=== PATIENT | female | born 1950 | race African-American/Black ===

== ENCOUNTER 2017-08-08 13:33 | Emergency (ER) | payer BC ==
[2017-08-08 13:47] VITALS: TEMP 98.8; BMI 23.8
--- NOTE | 2017-08-08 14:40 | PDOC ---
History of Present Illness - General Chief Complaint: Syncope/Near Syncope Stated Complaint: SYNCOPY Time Seen by Provider: 08/08/17 14:10 History Source: Patient Exam Limitations: No Limitations - History of Present Illness Initial Comments: 08/08/17 14:35 Patient is a 67F with no significant medical problems here today complaining of syncope. 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 She states that she then fell to the ground, but denies loss of consciousness. She denies chest pain , shortness of breath, nausea, vomiting, vertigo, fever, chills. She states that she's been fighting off a cold lately, but has no other complaints and feels fine now. Denies any trauma. Patient states that she has a PCP at [facility] but has not seen them in a long time. Patient is an active smoker, occasional drinker, denies illicits. Past History - Past Medical History Allergies/Adverse Reactions: Allergies Allergy/AdvReac Type Severity Reaction Status Date / Time No Known Allergies Allergy Verified 08/08/17 13:44 COPD: No Other medical history: denies - Suicide/Smoking/Psychosocial Hx Smoking History: Current every day smoker Have you smoked in the past 12 months: Yes Number of Cigarettes Smoked Daily: 10 Information on smoking cessation initiated: No Hx Alcohol Use: No Drug/Substance Use Hx: No Review of Systems - Review of Systems Comments:: 08/08/17 14:39 GENERAL/CONSTITUTIONAL: No fever or chills. No weakness. HEAD, EYES, EARS, NOSE AND THROAT: No change in vision. No sore throat. CARDIOVASCULAR: No chest pain or shortness of breath RESPIRATORY: No cough, wheezing, or hemoptysis. GASTROINTESTINAL: No nausea, vomiting, diarrhea or constipation. GENITOURINARY: No dysuria, frequency, or change in urination. MUSCULOSKELETAL: No joint or muscle swelling or pain. No neck or back pain. SKIN: No rash NEUROLOGIC: No headache, vertigo, loss of consciousness, or change in strength/ sensation. ALLERGIC/IMMUNOLOGIC: No hives or skin allergy. *Physical Exam - Vital Signs Last Vital Signs Temp Pulse Resp BP Pulse Ox 98.8 F 92 H 20 166/75 98 08/08/17 13:44 08/08/17 13:44 08/08/17 13:44 08/08/17 13:44 08/08/17 13:44 - Physical Exam Comments: 08/08/17 14:41 GENERAL: Awake, alert, and fully oriented, in no acute distress HEAD: No signs of trauma, normocephalic, atraumatic EYES: PERRLA, EOMI, sclera anicteric, conjunctiva clear ENT: Auricles normal inspection, hearing grossly normal, nares patent, oropharynx clear without exudates. Moist mucosa NECK: Normal ROM, supple, no lymphadenopathy, JVD, or masses LUNGS: No distress, speaks full sentences, scattered wheezes bilaterally HEART: Regular rate and rhythm, normal S1 and S2, no murmurs, rubs or gallops, peripheral pulses normal and equal bilaterally. EXTREMITIES: Normal inspection, Normal range of motion, no edema. No clubbing or cyanosis. NEUROLOGICAL: Cranial nerves II through XII grossly intact. Normal speech, no focal sensorimotor deficits SKIN: Warm, Dry, normal turgor, no rashes or lesions noted. ED Treatment Course - LABORATORY CBC & Chemistry Diagram: 08/08/17 15:09 08/08/17 15:09 - RADIOLOGY Radiology Studies Ordered: Category Date Time Status CHEST PA & LAT [RAD] Stat Radiology 08/08/17 14:34 Ordered Medical Decision Making - Medical Decision Making 08/08/17 14:41 Patient is a 67F with no significant medical history here today with syncope. Vital signs stable and normal. Patient appears well. EKG shows normal sinus rhythm with short TX (TX = 108). Normal rate. Normal axis. QRS is normal, QTc is normal. No st elevations/depressions. No t wave abnormalities. No delta wave. Differential diagnosis includes, but is not limited to: arrhythmia, vasovagal, ACS. Will evaluate with cbc, cmp, mag, cxr. 08/08/17 16:06 Laboratory Tests 08/08/17 08/08/17 15:09 15:09 WBC 10.2 H Hgb 13.3 Hct 40.3 Plt Count 217 BUN 12 Creatinine 0.7 Troponin I < 0.02 CBC normal. CMP normal. Trop negative. UA negative. CXR pending. 08/08/17 16:23 CXR normal. Will discharge with PCP follow up. *DC/Admit/Observation/Transfer Diagnosis at time of Disposition: Syncope - Discharge Dispostion Disposition: HOME Condition at time of disposition: Good Admit: No - Referrals Referrals: Rickey Mcdowell MD [Primary Care Provider] - - Patient Instructions Printed Discharge Instructions: DI for Syncope in Adults (Fainting) Additional Instructions: Please call your PCP today to set up an appointment. Please return if you have any new, worsening or concerning symptoms. - Post Discharge Activity
[2017-08-08] MEDS ORDERED: SODIUM CHLORIDE 1,000 ML IV STA (14:50)
[2017-08-08 15:16] LABS: BASO % 0.8 % (0-2.0); EOS % 0.1 % (0-4.5); HEMATOCRIT 40.3 % (32.4-45.2); HEMOGLOBIN 13.3 GM/dL (10.7-15.3); LYMPH % 18.1 % (8-40); MCH 31.3 pg (25.7-33.7); MCHC 33.1 g/dl (32.0-36.0); MEAN CELL VOLUME 94.6 fl (80-96); MEAN PLT VOLUME 8.2 fl (7.5-11.1); MONO % 6.8 % (3.8-10.2); NEUT % 74.2 % (42.8-82.8); PLATELET COUNT 217 K/MM3 (134-434); RBC 4.26 M/mm3 (3.60-5.2); RDW 13.4 % (11.6-15.6); WHITE BLOOD COUNT 10.2 K/mm3 (4.0-10.0)
[2017-08-08 15:37] LABS: URINE APPEARANCE CLEAR; URINE BILIRUBIN NEGATIVE (NEGATIVE); URINE BLOOD 1+ (NEGATIVE); URINE COLOR YELLOW; URINE GLUCOSE (UA) NEGATIVE (NEGATIVE); URINE KETONE TRACE (NEGATIVE); URINE LEUK ESTERASE TRACE (NEGATIVE); URINE NITRITE NEGATIVE (NEGATIVE)
[2017-08-08 15:39] LABS: URINE PROTEIN 1+ (NEGATIVE)
[2017-08-08 15:46] LABS: ALBUMIN 4.1 g/dl (3.4-5.0); ANION GAP 9 (8-16); BILIRUBIN,TOTAL 0.9 mg/dL (0.2-1.0); BLOOD UREA NITROGEN 12 mg/dL (7-18); CALCIUM 9.2 mg/dL (8.5-10.1); CHLORIDE 105 mmol/L (98-107); CO2 28 mmol/L (21-32); CREATININE 0.7 mg/dL (0.55-1.02); GLUCOSE,RANDOM 106 mg/dL (74-106); MAGNESIUM 2.3 mg/dL (1.8-2.4); POTASSIUM 4.7 mmol/L (3.5-5.1); SGOT/AST 72 U/L (15-37); SGPT/ALT 86 U/L (12-78); SODIUM 142 mmol/L (136-145); TOT PROT 7.3 g/dl (6.4-8.2)
[2017-08-08 15:48] LABS: ALK PHOS 79 U/L (45-117)
[2017-08-08 15:49] LABS: EPI CELLS RARE /HPF (FEW); URINE BACTERIA RARE /hpf (NONE SEEN)
[2017-08-08 16:00] LABS: INR 0.97 (0.82-1.09)
--- NOTE | 2017-08-08 16:05 | PDOC ---
Attending Attestation - Resident Resident Name: Fahad Zaman - ED Attending Attestation I have performed the following: I have examined & evaluated the patient, The case was reviewed & discussed with the resident, I agree w/resident's findings & plan, Exceptions are as noted - HPI HPI: 08/08/17 16:01 67y/o F no significant past medical history presents with episode of lightheadedness/near syncope. Patient was in her usual state of normal health, no recent dehydration or infectious complaints, was seated at work when she felt cramping in her left hand followed by a few seconds of lightheadedness that resolved. No cardiac complaints, no diaphoresis or nausea, no focal deficits. She now feels normal, denies any acute pulmonary complaints. Patient did have 1 prior episode of syncope over the summer, reports workup at that time was unremarkable. - Physicial Exam PE: 08/08/17 16:03 Afebrile, vital signs normal. Well-appearing seated in stretcher No trauma Regular with normal rate, no murmurs Lungs clear - Medical Decision Making 08/08/17 16:03 Patient seen and evaluated with the resident. I agree with the overall evaluation, assessment, and management with the following summary of visit: 67-year-old female with near syncope, lasted only seconds and resolved. Now back to baseline, well-appearing without red flags on history or physical exam, normal vital signs. Question orthostatic episode, no evidence for primary cardiopulmonary or neurologic process. Check labs, urinalysis EKG with slightly short [place], normal QRS and QTc, no LVH Continue to monitor, if remains at baseline can discharge with outpatient follow -up with Dr. Rickey Mcdowell
[2017-08-08 16:34] VITALS: BP 158/65; PULSE 80
--- NOTE | 2017-08-09 09:27 | EKG ---
Test Reason : Blood Pressure : / mmHG Vent. Rate : 073 BPM Atrial Rate : 073 BPM P-R Int : 108 ms QRS Dur : 076 ms QT Int : 380 ms P-R-T Axes : 043 058 058 degrees QTc Int : 418 ms POOR DATA QUALITY, INTERPRETATION MAY BE ADVERSELY AFFECTED SINUS RHYTHM WITH SHORT MT OTHERWISE NORMAL ECG NO PREVIOUS ECGS AVAILABLE Confirmed by MD Luca, Scott ([id number]) on 08/09/2017 9:27:09 AM Referred By: Confirmed By:Scott Segovia MD
== END 2017-08-08 16:32 | disposition home or self-care (01) ==
LOC: JER 13:33
PROC: 3E0337Z Introduction of Electrolytic and Water Balance Substance into Peripheral Vein, Percutaneous Approach (ICD-10-PCS; principal; 2017-08-08)
DX: R55 Syncope and collapse (principal); F17.210 Nicotine dependence, cigarettes, uncomplicated
CPT/HCPCS: 36415; 71046-TC; 80053; 81003; 81015; 82550; 83735; 84484; 85025; 85610; 93005; 93010; 99285-25

== ENCOUNTER 2019-05-01 23:40 | Inpatient (IN) | payer BC ==
[2019-05-02] MEDS ORDERED: SODIUM CHLORIDE IV ONE (01:25)
[2019-05-02] MEDS ORDERED: ALBUTEROL SO4 2.5/IPRATROPIUM 0.5 INH SOL 3 ML VIAL.NEB. NEB ONE ×2 (01:26→01:41)
[2019-05-02] MEDS ORDERED: methylPREDNISolone NA SUCC 125 MG/2 ML VIAL IVPUSH ONE (01:27)
[2019-05-02] MEDS ORDERED: methylPREDNISolone NA SUCC 125 MG/2 ML VIAL ONE (01:41)
--- NOTE | 2019-05-02 01:46 | PDOC ---
Documentation entered by Roxana Goyal SCRIBE, acting as scribe for Camilo Peck MD. Camilo Peck MD: This documentation has been prepared by the Jay Jay cavanaugh Xhesika, SCRIBE, under my direction and personally reviewed by me in its entirety. I confirm that the documentation accurately reflects all work, treatment, procedures, and medical decision making performed by me. Attending Attestation - Resident Resident Name: Álvaro Robertson - HPI HPI: 05/02/19 01:17 The patient is a 68 year old female with no significant PMH, who presents to the emergency department for 3 days of cough and generalized body aches. Patient notes her cough is constant, productive, associated with a headache and dizziness. 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 The patient denies chest pain, shortness of breath. Denies fever, chills, nausea , vomiting, diarrhea and constipation. Denies dysuria, frequency, urgency and hematuria. Allergies: NKDA Social history: 3-4 cigarettes per day - Physicial Exam PE: 05/02/19 01:43 Patient is awake and alert, frail-appearing, tachypneic and tachycardic, hypoxemic on room air T 86% Normocephalic, atraumatic PERRLA, EOMI No JVD + Decreased air entry bilaterally; and expiratory wheezing is noted in the upper lung gomes; RRR, tachycardic Soft, nontender, nondistended No lower extremity edema Awake and alert, moving all extremities symmetrically - Medical Decision Making 05/02/19 01:45 Patient is an ill-appearing 68-year-old female with history of smoking who presents with signs and symptoms of acute COPD exacerbation likely brought on by an acute infectious process. Patient's tachycardic, febrile and hypoxemic on room air T 86%, improving to 94% on supplemental O2 via nasal cannula 2 L/m. We' ll administer albuterol/Atrovent nebulizer 3; we'll administer Esyi-[id number]-389 mg IV push. Will obtain blood cultures. Will evaluate for influenza. Chest x- ray consistent with left lingular and right upper lobe infiltrates. Will administer ceftriaxone and Zithromax IV (once her cultures been obtained). Will admit.
[2019-05-02] MEDS ORDERED: ACETAMINOPHEN 1000 MG/100 ML VIAL (NON FORMULARY) IVPB ONE (01:51)
[2019-05-02] MEDS ORDERED: ACETAMINOPHEN INJECTION 100 ML IVPB ONE (02:14)
[2019-05-02 02:40] LABS: BASO % 0.4 % (0-2.0); HEMATOCRIT 40.1 % (32.4-45.2); HEMOGLOBIN 13.4 GM/dL (10.7-15.3); LYMPH % 6.9 % (8-40); MCH 32.4 pg (25.7-33.7); MCHC 33.5 g/dl (32.0-36.0); MEAN CELL VOLUME 96.7 fl (80-96); MEAN PLT VOLUME 9.7 fl (7.5-11.1); NEUT % 80.7 % (42.8-82.8); PLATELET COUNT 219 K/MM3 (134-434); RBC 4.14 M/mm3 (3.60-5.2); RDW 13.3 % (11.6-15.6); WHITE BLOOD COUNT 18.9 K/mm3 (4.0-10.0)
--- NOTE | 2019-05-02 02:44 | PDOC ---
History of Present Illness - General Chief Complaint: Respiratory Stated Complaint: COLD SYMPTOMS Time Seen by Provider: 05/02/19 00:31 - History of Present Illness Initial Comments: 05/02/19 04:17 This is a 68 year old female with no significant PMH. She presented to the ER with complaints of constant coughing and generalized body aches for the past 3 days. The cough is productive with yellow/white sputum, no blood. She endorses subjective fevers and chills, dizziness, headaches, but no nausea or vomiting. She took an Ibuprofen yesterday for the aches, with only temporary relief. 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 She has had no recent illness, no new medications, and no recent travel. Past History - Past Medical History Allergies/Adverse Reactions: Allergies Allergy/AdvReac Type Severity Reaction Status Date / Time No Known Allergies Allergy Verified 05/01/19 23:51 Home Medications: Ambulatory Orders NK [No Known Home Medication] 08/08/17 COPD: No - Psycho Social/Smoking Cessation Hx Smoking History: Current every day smoker Have you smoked in the past 12 months: Yes Number of Cigarettes Smoked Daily: 3 Information on smoking cessation initiated: Yes Hx Alcohol Use: No Drug/Substance Use Hx: No Review of Systems - Review of Systems Constitutional: Yes: Chills, Fever HEENTM: No: Symptoms Reported, See HPI, Eye Pain, Blurred Vision, Tearing, Recent change in vision, Double Vision, Cataracts, Ear Pain, Ocular Prothesis, Ear Discharge, Nose Pain, Nose Congestion, Tinnitus, Nose Bleeding, Hearing Loss , Throat Pain, Throat Swelling, Mouth Pain, Dental Problems, Difficulty Swallowing, Mouth Swelling, Other Respiratory: Yes: Cough. No: Symptoms reported, See HPI, Orthopnea, Shortness of Breath, SOB with Exertion, SOB at Rest, Stridor, Wheezing, Productive cough, Hemoptysis, Other Cardiac (ROS): No: Symptoms Reported, See HPI, Chest Pain, Edema, Irregular Heart Rate, Lightheadedness, Palpitations, Syncope, Chest Tightness, Other ABD/GI: No: Symptoms Reported, See HPI, Abdominal Distended, Abd. Pain w/ defecation, Blood Streaked Bowels, Constipated, Diarrhea, Difficulty Swallowing , Nausea, Poor Appetite, Poor Fluid Intake, Rectal Bleeding, Vomiting, Indigestion, Abdominal cramping, Tarry Stools, Other : No: Symptoms Reported, See HPI, Burning, Dysuria, Discharge, Frequency, Flank Pain, Hematuria, Incontinence, Pain, Urgency, Testicular Mass, Testicular Swelling, Lesions, Testicular Pain, Other Musculoskeletal: No: Symptoms Reported, See HPI, Back Pain, Gout, Joint Pain, Joint Swelling, Muscle Pain, Muscle Weakness, Neck Pain, Joint Stiffness, Other Integumentary: No: Symptoms Reported, See HPI, Bruising, Change in Color, Change in Hair/Nails, Dryness, Erythema, Flushing, Lesions, Lumps, Pallor, Pruritus, Rash, Sweating, Other Neurological: Yes: Headache, Dizziness. No: Symptoms reported, See HPI, Numbness, Paresthesia, Pre-Existing Deficit, Seizure, Tingling, Tremors, Weakness, Unsteady Gait, Ataxia, Other Psychiatric: No: Anxiety, Depression, Frequent Crying, Stressors, Sleep Pattern Change, Emotional Problems, Mood Swings, Change in Appetite, Other Endocrine: No: Symptoms Reported, See HPI, Excessive Sweating, Flushing, Intolerance to Cold, Intolerance to Heat, Increased Hunger, Increased Thirst, Increased Urine, Unexplained Weight Gain, Unexplained Weight Loss, Change in Weight, Other Hematologic/Lymphatic: No: Symptoms Reported, See HPI, Anemia, Blood Clots, Easy Bleeding, Easy Bruising, Bleeding Diathesis, Lymph Node Abnormalities, Swollen Glands, Other *Physical Exam - Vital Signs Last Vital Signs Temp Pulse Resp BP Pulse Ox 100.3 F H 134 H 26 H 157/100 86 L 05/01/19 23:48 05/01/19 23:48 05/01/19 23:48 05/01/19 23:48 05/01/19 23:48 - Physical Exam Comments: 05/02/19 04:23 General: AOx3 Lungs: Coarse crackles in upper gomes B/L, decreased breath sounds B/L CVS: RRR NSR GI: Soft, non tender, no distended, normoactive bowel sounds Extremities: No edema noted Neuro: Motor 5/5, sensatios intact General Appearance: Yes: Appropriately Dressed. No: Nourished, Apparent Distress, Disheveled, Mild Distress, Moderate Distress, Severe Distress, Alcohol on Breath, Intoxicated, Cachetic, Obese, Thin, Other HEENT: positive: Normal ENT Inspection, Normal Voice, Symmetrical, Pharynx Normal. negative: EOMI, ROBINA, TMs Normal, Pale Conjunctivae, Photophobia, Scleral Icterus (R), Scleral Icterus (L), Muffled/Hoarse voice, Pharyngeal Erythema, Tonsillar Exudate, Tonsillar Erythema, Nasal Congestion, Rhinorrhea, Sinus Tenderness, Orbits, Hearing Decreased, Hearing Grossly Normal, TM Bulging , TM Dull, TM Erythema, Lesions, Hawkins, Excessive drooling, Thrush, Other Neck: positive: Trachea midline. negative: Tender, Normal Thyroid, Rigid, Supple, Carotid bruit, Decreased range of motion, Stridor, Lymphadenopathy (R), Lymphadenopathy (L), Rigidity, Tender lateral, Tender midline, Thyromegaly, Other Respiratory/Chest: positive: Lungs Clear, Normal Breath Sounds. negative: Chest Tender, Respiratory Distress, Accessory Muscle Use, Labored Respiration, Rapid RR, Decreased Breath Sounds, Paradoxal Breathing, Crackles, Rales, Rhonchi , Stridor, Wheezing, Hyperresonant, Dullness, Plerual Rub, Other Cardiovascular: positive: Regular Rhythm, Regular Rate. negative: S1, S2, Edema , JVD, Murmur, Bradycardia, Tachycardia, Diastolic Murmur, Systolic Murmur, Gallop/S3, Gallop/S4, Irregularly Irregular, Irregular, Other Gastrointestinal/Abdominal: positive: Normal Bowel Sounds, Flat. negative: Tender, Soft, Organomegaly, Pulsatile Mass, Increased Bowel Sounds, Decreased BS , Protuberent, Distended, Guarding, Rebound, Tenderness, Hernia, Mass, Hepatomegaly, Spleenomegaly, Other Neurologic: positive: Fully Oriented. 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, Alert, Normal Mood/Affect, Normal Response, Motor Strength 5/5, Abnormal Cranial NS, Respond to painful stimul, Responsive, EOM Palsy, Facial Droop, Numbness, Sensory Deficit, Finger to Nose, Confused, Disoriented, Depressed Affect, Babinski, Other Heart Score/ECG Review - Electrocardiogram EKG: Normal - Age Age: >/= 65 - Risk Factors Risk Factors Heart Score: Yes Smoking History - Troponin Troponin: </= normal limit - ECG Intrepretation Rhythm: Regular Rhythm ED Treatment Course - LABORATORY CBC & Chemistry Diagram: 05/02/19 02:06 05/02/19 05:33 - Medications Given in the ED: ED Medications Discontinued Medications Generic Name Dose Route Start Last Admin Trade Name Tuan PRN Reason Stop Dose Admin Acetaminophen 1,000 mg 05/02/19 01:51 05/02/19 02:17 Ofirmev Injection - IVPB 05/02/19 01:52 1,000 mg ONCE ONE Administration Albuterol/Ipratropium 3 amp 05/02/19 01:26 05/02/19 02:12 Duoneb - NEB 05/02/19 01:27 3 amp ONCE ONE Administration Methylprednisolone Sodium Succinate 125 mg 05/02/19 01:27 05/02/19 02:12 Solu-Medrol - IVPUSH 05/02/19 01:28 125 mg ONCE ONE Administration Medical Decision Making - Medical Decision Making 05/02/19 04:25 #Cough - Suspecting COPD with underlying infection - CXR: Left lower infiltrate - EKG: NSR - UA - Blood, sputum, urine cultures - Influeza A and B - Trop normal - CBC/CMP - Lactic Acid - Levaquin 750mg - Solu-Medrol 125 mg IV push - Duo Nebs - N/S - Will admit 05/02/19 06:38 - Found to have K 3.0 on CMP, ordered 30 mEq KCl 05/02/19 06:55 Discharge - Discharge Information Problems reviewed: Yes Clinical Impression/Diagnosis: COPD (chronic obstructive pulmonary disease) - Admission Yes - Follow up/Referral - Patient Discharge Instructions - Post Discharge Activity
[2019-05-02 02:54] LABS: EPI CELLS 8.9 /HPF (0-5/HPF); HYALINE CASTS 9 /lpf (0-8); PH,URINE 5.5 (5.0-8.0); URINE APPEARANCE CLOUDY; URINE BACTERIA 90.3 /hpf (NEGATIVE); URINE BILIRUBIN NEGATIVE (NEGATIVE); URINE COLOR YELLOW; URINE GLUCOSE (UA) NEGATIVE (NEGATIVE); URINE KETONE 1+ (NEGATIVE); URINE LEUK ESTERASE NEGATIVE (NEGATIVE); URINE NITRITE NEGATIVE (NEGATIVE); URINE PROTEIN 2+ (NEGATIVE); URINE RBC 4 /hpf (0-4); URINE WBC 3 /hpf (0-5)
[2019-05-02 02:56] LABS: INR 1.01 (0.83-1.09); PROTHROMBIN TIME (PATIENT) 11.9 SEC (9.7-13.0)
[2019-05-02 03:52] LABS: VENOUS PC02 42.1 mmHg (38-52); VENOUS PH 7.44 (7.31-7.41)
[2019-05-02 06:03] LABS: ALBUMIN 2.8 g/dl (3.4-5.0); BILIRUBIN,TOTAL 1.6 mg/dL (0.2-1); BLOOD UREA NITROGEN 6.9 mg/dL (7-18); CALCIUM 8.3 mg/dL (8.5-10.1); CREATININE 0.5 mg/dL (0.55-1.3); TOT PROT 5.8 g/dl (6.4-8.2)
[2019-05-02] MEDS ORDERED: KCL 10 MEQ IVPB 10 MEQ/100 ML INFUS.BAG IVPB ONE ×3 (06:46→09:11)
[2019-05-02] MEDS ORDERED: VANCOMYCIN HCL 1,250 MG in DEXTROSE 5%-WATER - 250 ML IVPB ONE (06:51)
[2019-05-02] MEDS: KCL 10 MEQ IVPB 10 MEQ/100 ML INFUS.BAG IVPB SCH ×3 (06:56→09:46)
--- NOTE | 2019-05-02 07:35 | PDOC ---
*Physical Exam - Vital Signs Last Vital Signs Temp Pulse Resp BP Pulse Ox 98.3 F 87 17 119/66 100 05/02/19 05:00 05/02/19 05:00 05/02/19 05:00 05/02/19 05:00 05/02/19 05:00 ED Treatment Course - LABORATORY CBC & Chemistry Diagram: 05/02/19 02:06 05/02/19 05:33 - ADDITIONAL ORDERS Additional order review: Laboratory Results 05/02/19 05/02/19 05/02/19 05:33 02:56 02:56 PT with INR INR PTT (Actin FS) VBG pH 7.44 H POC VBG pCO2 42.1 POC VBG pO2 118 H VBG HCO3 28.3 VBG O2 Sat (Serafin) 98.8 H VBG Base Excess 4.2 H Sodium 132 L Potassium 3.0 L Chloride 93 L Carbon Dioxide 28 Anion Gap 12 BUN 6.9 L Creatinine 0.5 L Est GFR (CKD-EPI)AfAm 115.26 Est GFR (CKD-EPI)NonAf 99.45 Random Glucose 119 H Lactic Acid Calcium 8.3 L Total Bilirubin 1.6 H AST 24 ALT 21 Alkaline Phosphatase 80 Troponin I < 0.02 Total Protein 5.8 L Albumin 2.8 L Urine Color Urine Appearance Urine pH Ur Specific [place] Urine Protein Urine Glucose (UA) Urine Ketones Urine Blood Urine Nitrite Urine Bilirubin Urine Urobilinogen Ur Leukocyte Esterase Urine WBC (Auto) Urine RBC (Auto) Urine Casts (Auto) U Epithel Cells (Auto) Urine Bacteria (Auto) 05/02/19 05/02/19 05/02/19 02:06 02:06 02:06 PT with INR 11.90 INR 1.01 PTT (Actin FS) VBG pH POC VBG pCO2 POC VBG pO2 VBG HCO3 VBG O2 Sat (Serafin) VBG Base Excess Sodium Cancelled Potassium Cancelled Chloride Cancelled Carbon Dioxide Cancelled Anion Gap Cancelled BUN Cancelled Creatinine Cancelled Est GFR (CKD-EPI)AfAm Cancelled Est GFR (CKD-EPI)NonAf Cancelled Random Glucose Cancelled Lactic Acid 1.5 Calcium Cancelled Total Bilirubin Cancelled AST Cancelled ALT Cancelled Alkaline Phosphatase Cancelled Troponin I Total Protein Cancelled Albumin Cancelled Urine Color Urine Appearance Urine pH Ur Specific [place] Urine Protein Urine Glucose (UA) Urine Ketones Urine Blood Urine Nitrite Urine Bilirubin Urine Urobilinogen Ur Leukocyte Esterase Urine WBC (Auto) Urine RBC (Auto) Urine Casts (Auto) U Epithel Cells (Auto) Urine Bacteria (Auto) 05/02/19 05/02/19 02:06 02:00 PT with INR INR PTT (Actin FS) 33.3 VBG pH POC VBG pCO2 POC VBG pO2 VBG HCO3 VBG O2 Sat (Serafin) VBG Base Excess Sodium Potassium Chloride Carbon Dioxide Anion Gap BUN Creatinine Est GFR (CKD-EPI)AfAm Est GFR (CKD-EPI)NonAf Random Glucose Lactic Acid Calcium Total Bilirubin AST ALT Alkaline Phosphatase Troponin I Total Protein Albumin Urine Color Yellow Urine Appearance Cloudy Urine pH 5.5 Ur Specific [place] 1.018 Urine Protein 2+ H Urine Glucose (UA) Negative Urine Ketones 1+ H Urine Blood 2+ H Urine Nitrite Negative Urine Bilirubin Negative Urine Urobilinogen 1.0 Ur Leukocyte Esterase Negative Urine WBC (Auto) 3 Urine RBC (Auto) 4 Urine Casts (Auto) 9 U Epithel Cells (Auto) 8.9 Urine Bacteria (Auto) 90.3 05/02/19 02:06 RBC 4.14 MCV 96.7 H MCHC 33.5 RDW 13.3 MPV 9.7 D Neutrophils % 80.7 Lymphocytes % 6.9 L D Monocytes % 12.0 H Eosinophils % 0.0 D Basophils % 0.4 - Medications Given in the ED: ED Medications Discontinued Medications Generic Name Dose Route Start Last Admin Trade Name Freq PRN Reason Stop Dose Admin Acetaminophen 1,000 mg 05/02/19 01:51 05/02/19 02:17 Ofirmev Injection - IVPB 05/02/19 01:52 1,000 mg ONCE ONE Administration Albuterol/Ipratropium 3 amp 05/02/19 01:26 05/02/19 02:12 Duoneb - NEB 05/02/19 01:27 3 amp ONCE ONE Administration Sodium Chloride 1,606 mls @ 803 mls/hr 05/02/19 01:25 05/02/19 02:12 Normal Saline - 30 ml/kg infuse over 2 hr (1606 ml) 05/02/19 03:24 803 mls/ hr IV Administration ONCE ONE Levofloxacin 750 mg in 150 mls @ 100 mls/hr 05/02/19 04:10 05/02/19 05:05 Levaquin 750 Mg Premixed Ivpb - IVPB 05/02/19 05:39 100 mls/hr ONCE ONE Administration Protocol Methylprednisolone Sodium Succinate 125 mg 05/02/19 01:27 05/02/19 02:12 Solu-Medrol - IVPUSH 05/02/19 01:28 125 mg ONCE ONE Administration Medical Decision Making - Medical Decision Making 05/02/19 07:[address] Robertson 68 y/o F presenting with productive cough and generalized body aches. +smoking history presented with + fever, chills, headaches CXRL lower lobe infiltrate [employer] sent for admission, COPD exacerbation and pneumonia Meds received : Levoquin 750mg IV, rohith, NS. given K+ for hypokalemia. Discharge - Discharge Information Clinical Impression/Diagnosis: COPD (chronic obstructive pulmonary disease) - Follow up/Referral - Patient Discharge Instructions - Post Discharge Activity
[2019-05-02] MEDS ORDERED: ACETAMINOPHEN 325 MG TABLET (FP) PO PRN (08:08)
[2019-05-02] MEDS ORDERED: ALBUTEROL SO4 2.5/IPRATROPIUM 0.5 INH SOL 3 ML VIAL.NEB. NEB PRN (08:11)
[2019-05-02] MEDS ORDERED: POTASSIUM CHLORIDE TABS 20 MEQ TABLET.ER (FP) PO ONE ×2 (08:13→08:34)
--- NOTE | 2019-05-02 08:27 | HP ---
CHIEF COMPLAINT: cough, sputum production PCP: none HISTORY OF PRESENT ILLNESS: Patient is a 68 y/o female with no past medical history who presents for cough and feeling worn down. Patient reports the symptoms began four days ago on Monday. Shes been coughing which whiteish/yellowish sputum production and been feeling run down. She has not been able to go to work and when she woke up yesterday she felt worse. She reports she felt feverish yesterday. Nothing has made her feel better. She denies headache, chest pain, shortness of breath, or diarrhea. Patient smokes 3-5 cigarettes per day. 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 ER course was notable for: (1) (2) (3) Recent Travel: denies PAST MEDICAL HISTORY: none PAST SURGICAL HISTORY: none Social History: Smokin-5 cigarettes per day Alcohol: denies Drugs: denies Allergies No Known Allergies Allergy (Verified 05/01/19 23:51) HOME MEDICATIONS: Home Medications Medication Instructions Recorded NK [No Known Home Medication] 08/08/17 REVIEW OF SYSTEMS CONSTITUTIONAL: fever, chills, generalized weakness, Absent: diaphoresis, malaise, loss of appetite, weight change HEENT: Absent: rhinorrhea, nasal congestion, throat pain, throat swelling, difficulty swallowing, mouth swelling, ear pain, eye pain, visual changes CARDIOVASCULAR: Absent: chest pain, syncope, palpitations, irregular heart rate, lightheadedness , peripheral edema RESPIRATORY: cough, sputum production Absent: shortness of breath, dyspnea with exertion, orthopnea, wheezing, stridor , hemoptysis GASTROINTESTINAL: Absent: abdominal pain, abdominal distension, nausea, vomiting, diarrhea, constipation, melena, hematochezia GENITOURINARY: Absent: dysuria, frequency, urgency, hesitancy, hematuria, flank pain, genital pain MUSCULOSKELETAL: Absent: myalgia, arthralgia, joint swelling, back pain, neck pain SKIN: Absent: rash, itching, pallor HEMATOLOGIC/IMMUNOLOGIC: Absent: easy bleeding, easy bruising, lymphadenopathy, frequent infections ENDOCRINE: Absent: unexplained weight gain, unexplained weight loss, heat intolerance, cold intolerance NEUROLOGIC: Absent: headache, focal weakness or paresthesias, dizziness, unsteady gait, seizure, mental status changes, bladder or bowel incontinence PSYCHIATRIC: Absent: anxiety, depression, suicidal or homicidal ideation, hallucinations. PHYSICAL EXAMINATION Vital Signs - 24 hr 05/01/19 05/02/19 05/02/19 23:48 03:17 05:00 Temperature 100.3 F H 98.3 F Pulse Rate 134 H Pulse Rate [ 87 Right Radial] Respiratory 26 H 24 H 17 Rate Blood Pressure 157/100 Blood Pressure 119/66 [Right Arm] O2 Sat by Pulse 86 L 95 100 Oximetry (%) GENERAL: Awake, alert, and fully oriented, in no acute distress. HEAD: Normal with no signs of trauma. EYES: Pupils equal, round and reactive to light, extraocular movements intact, EARS, NOSE, THROAT: Moist mucous membranes. LUNGS: Breath sounds equal, clear to auscultation bilaterally. No wheezes, and no crackles, slight diminished breath sounds, No accessory muscle use. HEART: Regular rate and rhythm, normal S1 and S2 without murmur, rub or gallop. ABDOMEN: Soft, nontender, not distended, normoactive bowel sounds, no guarding, no rebound, no masses. LOWER EXTREMITIES: 2+ pulses, warm, well-perfused. No calf tenderness. No peripheral edema. SKIN: Warm, dry, normal turgor, no rashes or lesions noted, normal capillary refill. CBC, BMP 05/02/19 02:06 05/02/19 05:33 Active Medications Acetaminophen (Tylenol -) 650 mg PO Q4H PRN PRN Reason: PAIN OR FEVER Albuterol/Ipratropium (Duoneb -) 1 amp NEB Q4H PRN PRN Reason: SHORTNESS OF BREATH Enoxaparin Sodium (Lovenox -) 40 mg SQ DAILY [facility] Potassium Chloride (Potassium Chloride 10 Meq Premix Ivpb -) 10 meq in 100 mls @ 100 mls/hr IVPB Q60M [facility] Stop: 05/02/19 09:29 Last Admin: 05/02/19 06:56 Dose: 100 mls/hr Vancomycin HCl 1,250 mg/ (Dextrose) 250 mls @ 250 mls/2 hr IVPB ONCE ONE Stop: 05/02/19 08:50 Last Admin: 05/02/19 07:32 Dose: Not Given Sodium Chloride (Normal Saline -) 1,000 mls @ 75 mls/hr IV ASDIR [facility] Azithromycin (Zithromax 500mg Ivpb (Pre-Docked)) 500 mg in 250 mls @ 250 mls/ hr IVPB DAILY FANNY Ceftriaxone Sodium 1 gm/ (Dextrose) 50 mls @ 100 mls/hr IVPB DAILY FANNY; Protocol EKG: QTC: 473, tachycardic ASSESSMENT/PLAN: Patient is a 68 y/o female with no past medical history who is admitted for treatment of community acquired pneumonia. #cough and sputum production - likely 2/2 to community acquired PNA - CXR: RUL and LLB possible infiltrates - Patient given Vanco and Levofloxacin in the ED, will continue with Ceftriaxone and Azythromycin - tylenol prn for fever - f/u legionella - f/u respiratory panel - f/u sputum culture #Hypokalemia - 2/2 to infectious process vs low intake - repletion with 30 IV and 40 po, f/u CMP tomorrow - continue NS @ 75 #nicotine dependence - discuss cessation techniques and management as an outpatient - refer to Pulm as an outpatient for COPD workup with long time smoking history DVT PPX - Lovenox 40 sq daily FEN - regular diet - NS @ 75 Dispo: monitor on med/surg Visit type - Emergency Visit Emergency Visit: Yes ED Registration Date: 05/02/19 Care time: The patient presented to the Emergency Department on the above date and was hospitalized for further evaluation of their emergent condition. - New Patient This patient is new to me today: Yes Date on this admission: 05/02/19 - Critical Care Critical Care patient: No ATTENDING PHYSICIAN STATEMENT I saw and evaluated the patient. I reviewed the resident's note and discussed the case with the resident. I agree with the resident's findings and plan as documented. SUBJECTIVE: OBJECTIVE: ASSESSMENT AND PLAN:
[2019-05-02] MEDS: SODIUM CHLORIDE 1,000 ML IV SCH ×2 (08:49→22:42)
[2019-05-02] MEDS: ENOXAPARIN NA (PORCINE) 40 MG/0.4 ML DISP.SYRIN SQ SCH (11:02)
--- NOTE | 2019-05-02 12:08 | PN ---
Teaching Attending Note Name of Resident: Antonella Salcido ATTENDING PHYSICIAN STATEMENT I saw and evaluated the patient. I reviewed the resident's note and discussed the case with the resident. I agree with the resident's findings and plan as documented. SUBJECTIVE: Complains of dyspnea and productive cough with fever/chills. OBJECTIVE: Low grade fever, T 100.3. Hemodynamically Stable. Last Vital Signs Temp Pulse Resp BP Pulse Ox 98.3 F 87 17 119/66 100 05/02/19 05:00 05/02/19 05:00 05/02/19 05:00 05/02/19 05:00 05/02/19 05:00 HEENT - Atraumatic, Normocephalic. Heart -S1, S2, RRR Lungs - occasional wheeze Abdomen - Soft, non-tender. Bowel sounds normal. Extremities - no edema, no calf tenderness. Neuro - AAO x 3. Tone/Power normal all 4 extremities Laboratory Results - last 24 hr 05/02/19 05/02/19 05/02/19 02:00 02:06 02:06 WBC 18.9 H RBC 4.14 Hgb 13.4 Hct 40.1 MCV 96.7 H MCH 32.4 MCHC 33.5 RDW 13.3 Plt Count 219 MPV 9.7 D Absolute Neuts (auto) 15.3 H Total Counted 100 Neutrophils % 80.7 Neutrophils % (Manual) 77.0 Band Neutrophils % 2.0 Lymphocytes % 6.9 L D Lymphocytes % (Manual) 10.0 Monocytes % 12.0 H Monocytes % (Manual) 11 H Eosinophils % 0.0 D Eosinophils % (Manual) 0.0 Basophils % 0.4 Basophils % (Manual) 0.0 Myelocytes % (Man) 0 Promyelocytes % (Man) 0 Blast Cells % (Manual) 0 Nucleated RBC % 0 Metamyelocytes 0 PT with INR INR PTT (Actin FS) 33.3 VBG pH POC VBG pCO2 POC VBG pO2 VBG HCO3 VBG O2 Sat (Serafin) VBG Base Excess Sodium Potassium Chloride Carbon Dioxide Anion Gap BUN Creatinine Est GFR (CKD-EPI)AfAm Est GFR (CKD-EPI)NonAf Random Glucose Lactic Acid Calcium Total Bilirubin AST ALT Alkaline Phosphatase Troponin I Total Protein Albumin Urine Color Yellow Urine Appearance Cloudy Urine pH 5.5 Ur Specific [place] 1.018 Urine Protein 2+ H Urine Glucose (UA) Negative Urine Ketones 1+ H Urine Blood 2+ H Urine Nitrite Negative Urine Bilirubin Negative Urine Urobilinogen 1.0 Ur Leukocyte Esterase Negative Urine WBC (Auto) 3 Urine RBC (Auto) 4 Urine Casts (Auto) 9 U Epithel Cells (Auto) 8.9 Urine Bacteria (Auto) 90.3 Influenza A (Rapid) Influenza B (Rapid) 05/02/19 05/02/19 05/02/19 02:06 02:06 02:06 WBC RBC Hgb Hct MCV MCH MCHC RDW Plt Count MPV Absolute Neuts (auto) Total Counted Neutrophils % Neutrophils % (Manual) Band Neutrophils % Lymphocytes % Lymphocytes % (Manual) Monocytes % Monocytes % (Manual) Eosinophils % Eosinophils % (Manual) Basophils % Basophils % (Manual) Myelocytes % (Man) Promyelocytes % (Man) Blast Cells % (Manual) Nucleated RBC % Metamyelocytes PT with INR 11.90 INR 1.01 PTT (Actin FS) VBG pH POC VBG pCO2 POC VBG pO2 VBG HCO3 VBG O2 Sat (Serafin) VBG Base Excess Sodium Cancelled Potassium Cancelled Chloride Cancelled Carbon Dioxide Cancelled Anion Gap Cancelled BUN Cancelled Creatinine Cancelled Est GFR (CKD-EPI)AfAm Cancelled Est GFR (CKD-EPI)NonAf Cancelled Random Glucose Cancelled Lactic Acid 1.5 Calcium Cancelled Total Bilirubin Cancelled AST Cancelled ALT Cancelled Alkaline Phosphatase Cancelled Troponin I Total Protein Cancelled Albumin Cancelled Urine Color Urine Appearance Urine pH Ur Specific [place] Urine Protein Urine Glucose (UA) Urine Ketones Urine Blood Urine Nitrite Urine Bilirubin Urine Urobilinogen Ur Leukocyte Esterase Urine WBC (Auto) Urine RBC (Auto) Urine Casts (Auto) U Epithel Cells (Auto) Urine Bacteria (Auto) Influenza A (Rapid) Influenza B (Rapid) 05/02/19 05/02/19 05/02/19 02:56 02:56 04:30 WBC RBC Hgb Hct MCV MCH MCHC RDW Plt Count MPV Absolute Neuts (auto) Total Counted Neutrophils % Neutrophils % (Manual) Band Neutrophils % Lymphocytes % Lymphocytes % (Manual) Monocytes % Monocytes % (Manual) Eosinophils % Eosinophils % (Manual) Basophils % Basophils % (Manual) Myelocytes % (Man) Promyelocytes % (Man) Blast Cells % (Manual) Nucleated RBC % Metamyelocytes PT with INR INR PTT (Actin FS) VBG pH 7.44 H POC VBG pCO2 42.1 POC VBG pO2 118 H VBG HCO3 28.3 VBG O2 Sat (Serafin) 98.8 H VBG Base Excess 4.2 H Sodium Potassium Chloride Carbon Dioxide Anion Gap BUN Creatinine Est GFR (CKD-EPI)AfAm Est GFR (CKD-EPI)NonAf Random Glucose Lactic Acid Calcium Total Bilirubin AST ALT Alkaline Phosphatase Troponin I < 0.02 Total Protein Albumin Urine Color Urine Appearance Urine pH Ur Specific [place] Urine Protein Urine Glucose (UA) Urine Ketones Urine Blood Urine Nitrite Urine Bilirubin Urine Urobilinogen Ur Leukocyte Esterase Urine WBC (Auto) Urine RBC (Auto) Urine Casts (Auto) U Epithel Cells (Auto) Urine Bacteria (Auto) Influenza A (Rapid) Negative Influenza B (Rapid) Negative 05/02/19 05:33 WBC RBC Hgb Hct MCV MCH MCHC RDW Plt Count MPV Absolute Neuts (auto) Total Counted Neutrophils % Neutrophils % (Manual) Band Neutrophils % Lymphocytes % Lymphocytes % (Manual) Monocytes % Monocytes % (Manual) Eosinophils % Eosinophils % (Manual) Basophils % Basophils % (Manual) Myelocytes % (Man) Promyelocytes % (Man) Blast Cells % (Manual) Nucleated RBC % Metamyelocytes PT with INR INR PTT (Actin FS) VBG pH POC VBG pCO2 POC VBG pO2 VBG HCO3 VBG O2 Sat (Serafin) VBG Base Excess Sodium 132 L Potassium 3.0 L Chloride 93 L Carbon Dioxide 28 Anion Gap 12 BUN 6.9 L Creatinine 0.5 L Est GFR (CKD-EPI)AfAm 115.26 Est GFR (CKD-EPI)NonAf 99.45 Random Glucose 119 H Lactic Acid Calcium 8.3 L Total Bilirubin 1.6 H AST 24 ALT 21 Alkaline Phosphatase 80 Troponin I Total Protein 5.8 L Albumin 2.8 L Urine Color Urine Appearance Urine pH Ur Specific [place] Urine Protein Urine Glucose (UA) Urine Ketones Urine Blood Urine Nitrite Urine Bilirubin Urine Urobilinogen Ur Leukocyte Esterase Urine WBC (Auto) Urine RBC (Auto) Urine Casts (Auto) U Epithel Cells (Auto) Urine Bacteria (Auto) Influenza A (Rapid) Influenza B (Rapid) Current Medications Generic Name Dose Route Start Last Admin Trade Name Freq PRN Reason Stop Dose Admin Acetaminophen 650 mg 05/02/19 08:08 Tylenol - PO Q4H PRN PAIN OR FEVER Albuterol/Ipratropium 1 amp 05/02/19 08:11 Duoneb - NEB Q4H PRN SHORTNESS OF BREATH Enoxaparin Sodium 40 mg 05/02/19 10:00 05/02/19 11:02 Lovenox - SQ 40 mg DAILY FANNY Administration Sodium Chloride 1,000 mls @ 75 mls/hr 05/02/19 08:15 05/02/19 08:49 Normal Saline - IV 75 mls/hr ASDIR FANNY Administration Azithromycin 500 mg in 250 mls @ 250 mls/hr 05/03/19 10:00 Zithromax 500mg Ivpb (Pre-Docked) IVPB DAILY FANNY Ceftriaxone Sodium 1 gm/ 50 mls @ 100 mls/hr 05/03/19 10:00 Dextrose IVPB DAILY FANNY Protocol Home Medications Medication Instructions Recorded NK [No Known Home Medication] 08/08/17 ASSESSMENT AND PLAN: 68 year old female with no significant past medical history. active smoker, presents with productive cough/yellow sputum, myalgia, fevers/chills. No hemoptysis. 1. Multilobar Pneumonia, bilateral CXR reports RUL/ L basal infiltrates T 100.3, WBC 18.9 Will initiate on Community Acquired Pneumonia treatment with IV Ceftriaxone and Azithromycin Influenza negative Follow Sputum Cx/Blood Cx/Urine legionella. 2. Active Smoker, no history of COPD Nicotine patch Albuterol Nebs. 3. Hypokalemia - will replete. DVT Px - Lovenox SQ
[2019-05-02 13:29] LABS: ALBUMIN 2.7 g/dl (3.4-5.0); BLOOD UREA NITROGEN 7.1 mg/dL (7-18); CALCIUM 8.5 mg/dL (8.5-10.1); CREATININE 0.6 mg/dL (0.55-1.3); POTASSIUM 4.3 mmol/L (3.5-5.1); TOT PROT 6.4 g/dl (6.4-8.2)
--- NOTE | 2019-05-02 14:00 | EKG ---
Test Reason : Blood Pressure : / mmHG Vent. Rate : 125 BPM Atrial Rate : 125 BPM P-R Int : 128 ms QRS Dur : 074 ms QT Int : 328 ms P-R-T Axes : 076 078 079 degrees QTc Int : 473 ms POOR DATA QUALITY, INTERPRETATION MAY BE ADVERSELY AFFECTED SINUS TACHYCARDIA NONSPECIFIC ST AND T WAVE ABNORMALITY ABNORMAL ECG WHEN COMPARED WITH ECG OF 08-AUG-2017 14:10, VENT. RATE HAS INCREASED BY 52 BPM NONSPECIFIC T WAVE ABNORMALITY NOW EVIDENT IN INFERIOR LEADS NONSPECIFIC T WAVE ABNORMALITY NO LONGER EVIDENT IN ANTERIOR LEADS NONSPECIFIC T WAVE ABNORMALITY NOW EVIDENT IN LATERAL LEADS Confirmed by SHARAN VERDUGO MD ([id number]) on 05/02/2019 1:59:48 PM Referred By: Confirmed By:SHARAN VERDUGO MD
[2019-05-02 16:18] VITALS: BMI 20.6
[2019-05-03 08:14] LABS: BASO % 0.4 % (0-2.0); HEMATOCRIT 36.7 % (32.4-45.2); HEMOGLOBIN 12.3 GM/dL (10.7-15.3); LYMPH % 9.3 % (8-40); MCH 32.7 pg (25.7-33.7); MCHC 33.5 g/dl (32.0-36.0); MEAN CELL VOLUME 97.5 fl (80-96); MEAN PLT VOLUME 8.7 fl (7.5-11.1); MONO % 11.8 % (3.8-10.2); NEUT % 78.5 % (42.8-82.8); PLATELET COUNT 245 K/MM3 (134-434); RBC 3.76 M/mm3 (3.60-5.2); RDW 13.5 % (11.6-15.6); WHITE BLOOD COUNT 15.3 K/mm3 (4.0-10.0)
[2019-05-03 08:37] LABS: ALBUMIN 2.6 g/dl (3.4-5.0); BLOOD UREA NITROGEN 5.4 mg/dL (7-18); CALCIUM 8.5 mg/dL (8.5-10.1); CREATININE 0.4 mg/dL (0.55-1.3); PHOSPHOROUS 2.2 mg/dL (2.5-4.9); POTASSIUM 3.6 mmol/L (3.5-5.1); TOT PROT 5.9 g/dl (6.4-8.2)
[2019-05-03] MEDS ORDERED: cefTRIAXone SODIUM 1 GM VIAL ONE (09:17)
[2019-05-03] MEDS ORDERED: DEXTROSE 5%-WATER - 50 ML IVPB ONE (09:17)
[2019-05-03] MEDS ORDERED: POTASSIUM PHOSPHATE 15 MM in SODIUM CHLORIDE 250 ML IVPB ONE (09:29)
[2019-05-03] MEDS: CEFTRIAXONE 1 GM in DEXTROSE 5%-WATER - 50 ML IVPB SCH (09:56)
[2019-05-03] MEDS ORDERED: AZITHROMYCIN IVPB 500 MG/250 ML BAG IVPB SCH (10:00)
[2019-05-03] MEDS: ENOXAPARIN NA (PORCINE) 40 MG/0.4 ML DISP.SYRIN SQ SCH (10:00)
[2019-05-03] MEDS: SODIUM CHLORIDE 1,000 ML IV SCH (10:04)
[2019-05-03] MEDS ORDERED: ALBUTEROL SO4 0.083% IH SOL 2.5 MG/3 ML VIAL.NEB. NEB PRN ×2 (11:20→14:19)
[2019-05-03 12:02] LABS: ANISOCYTOSIS 1+; MACROCYTOSIS 1+; PLATELET ESTIMATE NORMAL
[2019-05-03] MEDS: predniSONE 20 MG TABLET (UD) PO SCH (12:06)
--- NOTE | 2019-05-03 14:04 | EKG ---
Test Reason : Blood Pressure : / mmHG Vent. Rate : 100 BPM Atrial Rate : 100 BPM P-R Int : 102 ms QRS Dur : 074 ms QT Int : 378 ms P-R-T Axes : 070 075 087 degrees QTc Int : 487 ms SINUS RHYTHM WITH SHORT CT OTHERWISE NORMAL ECG WHEN COMPARED WITH ECG OF 02-MAY-2019 00:56, NONSPECIFIC T WAVE ABNORMALITY NO LONGER EVIDENT IN INFERIOR LEADS NONSPECIFIC T WAVE ABNORMALITY NO LONGER EVIDENT IN LATERAL LEADS Confirmed by BUCK HOGUE MD ([id number]) on 05/03/2019 2:04:12 PM Referred By: CHIDI CEBALLOS Confirmed By:BUCK HOGUE MD
--- NOTE | 2019-05-03 15:10 | PN ---
Teaching Attending Note Name of Resident: Carmen Brush ATTENDING PHYSICIAN STATEMENT I saw and evaluated the patient. I reviewed the resident's note and discussed the case with the resident. I agree with the resident's findings and plan as documented. SUBJECTIVE: Ongoing dyspnea and productive cough with low grade fever/chills. OBJECTIVE: Tmax 100.1. Hemodynamically Stable. Last Vital Signs Temp Pulse Resp BP Pulse Ox 99.3 F 103 H 20 157/90 94 L 05/03/19 08:48 05/03/19 08:48 05/03/19 08:48 05/03/19 08:48 05/03/19 08:47 Heart -S1, S2, RRR Lungs - bilateral wheeze Abdomen - Soft, non-tender. Bowel sounds normal. Extremities - no edema, no calf tenderness. Neuro - AAO x 3. Tone/Power normal all 4 extremities Laboratory Results - last 24 hr 05/03/19 05/03/19 07:14 07:14 WBC 15.3 H RBC 3.76 Hgb 12.3 Hct 36.7 MCV 97.5 H MCH 32.7 MCHC 33.5 RDW 13.5 Plt Count 245 MPV 8.7 D Absolute Neuts (auto) 12.0 H Neutrophils % 78.5 Neutrophils % (Manual) 65.7 Band Neutrophils % 5.1 Lymphocytes % 9.3 D Lymphocytes % (Manual) 3.0 L D Monocytes % 11.8 H Monocytes % (Manual) 21 H D Eosinophils % 0.0 Eosinophils % (Manual) 0.0 Basophils % 0.4 Basophils % (Manual) 0.0 Myelocytes % (Man) 0 Promyelocytes % (Man) 1 D Blast Cells % (Manual) 0 Nucleated RBC % 0 Metamyelocytes 0 Hypochromia 0 Platelet Estimate Normal Polychromasia 0 Poikilocytosis 0 Anisocytosis 1+ Microcytosis 0 Macrocytosis 1+ Sodium 141 Potassium 3.6 Chloride 104 Carbon Dioxide 28 Anion Gap 9 BUN 5.4 L Creatinine 0.4 L Est GFR (CKD-EPI)AfAm 124.04 Est GFR (CKD-EPI)NonAf 107.02 Random Glucose 101 Calcium 8.5 Phosphorus 2.2 L Magnesium 2.0 Total Bilirubin 1.0 AST 24 ALT 20 Alkaline Phosphatase 75 Total Protein 5.9 L Albumin 2.6 L Vitamin B12 680 Serum Folate 9 Current Medications Generic Name Dose Route Start Last Admin Trade Name Freq PRN Reason Stop Dose Admin Acetaminophen 650 mg 05/02/19 08:08 05/02/19 21:11 Tylenol - PO 650 mg Q4H PRN Administration PAIN OR FEVER Albuterol Sulfate 1 amp 05/03/19 14:19 Ventolin 0.083% Nebulizer Soln - NEB Q6H PRN SHORT OF BREATH/WHEEZING Albuterol/Ipratropium 1 amp 05/03/19 16:00 Duoneb - NEB RQID FANNY Doxycycline Hyclate 100 mg 05/03/19 18:00 Vibramycin - PO BID@1000,1800 FANNY Enoxaparin Sodium 40 mg 05/02/19 10:00 05/03/19 10:00 Lovenox - SQ 40 mg DAILY FANNY Administration Ceftriaxone Sodium 1 gm/ 50 mls @ 100 mls/hr 05/03/19 10:00 05/03/19 09:56 Dextrose IVPB 100 mls/hr DAILY FANNY Administration Protocol Nicotine 7 mg 05/03/19 11:30 Nicoderm Patch - TD DAILY FANNY Prednisone 40 mg 05/03/19 11:30 05/03/19 12:06 Deltasone - PO 40 mg DAILY FANNY Administration Home Medications Medication Instructions Recorded NK [No Known Home Medication] 08/08/17 ASSESSMENT AND PLAN: 68 year old female with no significant past medical history. active smoker, presents with productive cough/yellow sputum, myalgia, fevers/chills. No hemoptysis. 1. Multilobar Pneumonia, bilateral CXR reports RUL/ L basal infiltrates Still has low grade temp 100.1 and leukocytosis 15.3 Influenza negative Continue IV Ceftriaxone. Azithromycin changed to Doxycycline due to prolonged QTc. Sputum Cx - normal yahaira. Blood Cx neg x 2. Urine legionella Ag requested. Started on Bronchodilator Nebs and Steroid for wheeze. Hx smoking, no formal COPD Dx. 2. Active Smoker, no formal Dx of COPD Nicotine patch Albuterol Nebs. Pulm follow up as out-patient for Spirometry. 3. Hypophosphatemia - repleted. DVT Px - Lovenox SQ
[2019-05-03] MEDS: ALBUTEROL SO4 2.5/IPRATROPIUM 0.5 INH SOL 3 ML VIAL.NEB. NEB SCH ×2 (16:17→20:30)
[2019-05-03] MEDS: NICOTINE 7 MG/24 HOURS TOPICAL PATCH TD SCH (17:39)
[2019-05-03] MEDS: DOXYCYCLINE HYCLATE 100 MG CAPSULE PO SCH (17:40)
--- NOTE | 2019-05-03 18:34 | PN ---
Physical Exam: SUBJECTIVE: Patient seen and examined. She reports cough with whitish sputum. She denies fever/chills, SOB, wheezing. OBJECTIVE: Vital Signs Period Temp Pulse Resp BP Sys/Orozco Pulse Ox Last 24 Hr 98.8 F-100.1 F 96-114 2-22 133-162/73-90 94-94 GENERAL: The patient is awake, alert, and fully oriented, in no acute distress. HEAD: Normal with no signs of trauma. EYES: PERRL, extraocular movements intact, sclera anicteric, conjunctiva clear. No ptosis. ENT: Ears normal, nares patent, oropharynx clear without exudates, moist mucous membranes. NECK: Trachea midline, full range of motion, supple. LUNGS: Bilateral wheezing upper lobes, no accessory muscle use. HEART: Regular rate and rhythm, S1, S2 without murmur, rub or gallop. ABDOMEN: Soft, nontender, nondistended, normoactive bowel sounds EXTREMITIES: 2+ pulses, warm, well-perfused, no edema. NEUROLOGICAL: Cranial nerves II through XII grossly intact. Normal speech, gait not observed. PSYCH: Normal mood, normal affect. SKIN: Warm, dry, normal turgor, no rashes or lesions noted Laboratory Results - last 24 hr 05/03/19 05/03/19 07:14 07:14 WBC 15.3 H RBC 3.76 Hgb 12.3 Hct 36.7 MCV 97.5 H MCH 32.7 MCHC 33.5 RDW 13.5 Plt Count 245 MPV 8.7 D Absolute Neuts (auto) 12.0 H Neutrophils % 78.5 Neutrophils % (Manual) 65.7 Band Neutrophils % 5.1 Lymphocytes % 9.3 D Lymphocytes % (Manual) 3.0 L D Monocytes % 11.8 H Monocytes % (Manual) 21 H D Eosinophils % 0.0 Eosinophils % (Manual) 0.0 Basophils % 0.4 Basophils % (Manual) 0.0 Myelocytes % (Man) 0 Promyelocytes % (Man) 1 D Blast Cells % (Manual) 0 Nucleated RBC % 0 Metamyelocytes 0 Hypochromia 0 Platelet Estimate Normal Polychromasia 0 Poikilocytosis 0 Anisocytosis 1+ Microcytosis 0 Macrocytosis 1+ Sodium 141 Potassium 3.6 Chloride 104 Carbon Dioxide 28 Anion Gap 9 BUN 5.4 L Creatinine 0.4 L Est GFR (CKD-EPI)AfAm 124.04 Est GFR (CKD-EPI)NonAf 107.02 Random Glucose 101 Calcium 8.5 Phosphorus 2.2 L Magnesium 2.0 Total Bilirubin 1.0 AST 24 ALT 20 Alkaline Phosphatase 75 Total Protein 5.9 L Albumin 2.6 L Vitamin B12 680 Serum Folate 9 Active Medications Generic Name Dose Route Start Last Admin Trade Name Freq PRN Reason Stop Dose Admin Acetaminophen 650 mg 05/02/19 08:08 05/02/19 21:11 Tylenol - PO 650 mg Q4H PRN Administration PAIN OR FEVER Albuterol Sulfate 1 amp 05/03/19 14:19 Ventolin 0.083% Nebulizer Soln - NEB Q6H PRN SHORT OF BREATH/WHEEZING Albuterol/Ipratropium 1 amp 05/03/19 16:00 05/03/19 16:17 Duoneb - NEB 1 amp RQID FANNY Administration Doxycycline Hyclate 100 mg 05/03/19 18:00 05/03/19 17:40 Vibramycin - PO 100 mg BID@1000,1800 FANNY Administration Enoxaparin Sodium 40 mg 05/02/19 10:00 05/03/19 10:00 Lovenox - SQ 40 mg DAILY FANNY Administration Ceftriaxone Sodium 1 gm/ 50 mls @ 100 mls/hr 05/03/19 10:00 05/03/19 09:56 Dextrose IVPB 100 mls/hr DAILY FANNY Administration Protocol Nicotine 7 mg 05/03/19 11:30 05/03/19 17:39 Nicoderm Patch - TD Not Given DAILY FANNY Prednisone 40 mg 05/03/19 11:30 05/03/19 12:06 Deltasone - PO 40 mg DAILY FANNY Administration ASSESSMENT/PLAN: Ms. Bolton is a 68 y/o female with history of tobacco use, who presents with 5 day productive cough with whitish sputum. #bilateral multilobar community acquired pneumonia RUL and LLB possible early infiltrates. Leukocytosis. -ceftriaxone -azithromycin -tylenol PRN -Legionella, sputum culture, RSV pending #hypokalemia, resolved -monitor #nicotine use disorder Pt counseled on need to quit smoking. DVT Ppx Lovenox 40 sq daily FEN regular diet monitor K d/c fluids Visit type - Emergency Visit Emergency Visit: Yes ED Registration Date: 05/02/19 Care time: The patient presented to the Emergency Department on the above date and was hospitalized for further evaluation of their emergent condition. - New Patient This patient is new to me today: Yes Date on this admission: 05/03/19 - Critical Care Critical Care patient: No - Discharge Referral Referred to [facility] Med P.C[facility] No ATTENDING PHYSICIAN STATEMENT I saw and evaluated the patient. I reviewed the resident's note and discussed the case with the resident. I agree with the resident's findings and plan as documented. SUBJECTIVE: OBJECTIVE: ASSESSMENT AND PLAN:
[2019-05-04] MEDS: ALBUTEROL SO4 2.5/IPRATROPIUM 0.5 INH SOL 3 ML VIAL.NEB. NEB SCH ×4 (08:03→21:00)
[2019-05-04 09:08] LABS: BASO % 0.9 % (0-2.0); EOS % 0.1 % (0-4.5); HEMATOCRIT 37.9 % (32.4-45.2); HEMOGLOBIN 12.6 GM/dL (10.7-15.3); LYMPH % 13.8 % (8-40); MCH 32.4 pg (25.7-33.7); MCHC 33.3 g/dl (32.0-36.0); MEAN CELL VOLUME 97.4 fl (80-96); MEAN PLT VOLUME 8.9 fl (7.5-11.1); NEUT % 75.2 % (42.8-82.8); PLATELET COUNT 289 K/MM3 (134-434); RBC 3.89 M/mm3 (3.60-5.2); RDW 13.3 % (11.6-15.6); WHITE BLOOD COUNT 17.4 K/mm3 (4.0-10.0)
[2019-05-04] MEDS ORDERED: cefTRIAXone SODIUM 1 GM VIAL ONE (09:58)
[2019-05-04] MEDS ORDERED: PT OWN MED DRAWER 7, Y5N ONE (09:58)
[2019-05-04] MEDS ORDERED: DEXTROSE 5%-WATER - 50 ML IVPB ONE (09:59)
[2019-05-04] MEDS: DOXYCYCLINE HYCLATE 100 MG CAPSULE PO SCH ×2 (10:04→17:28)
[2019-05-04] MEDS: ENOXAPARIN NA (PORCINE) 40 MG/0.4 ML DISP.SYRIN SQ SCH (10:04)
[2019-05-04] MEDS: CEFTRIAXONE 1 GM in DEXTROSE 5%-WATER - 50 ML IVPB SCH (10:04)
[2019-05-04] MEDS: NICOTINE 7 MG/24 HOURS TOPICAL PATCH TD SCH (10:04)
[2019-05-04] MEDS: predniSONE 20 MG TABLET (UD) PO SCH (10:04)
[2019-05-04] MEDS: methylPREDNISolone NA SUCC 40 MG/1 ML VIAL IVPUSH SCH ×3 (11:00→22:01)
--- NOTE | 2019-05-04 11:13 | PN ---
Physical Exam: SUBJECTIVE: Patient seen this morning with wheezing and coughing. NO acute events overnight OBJECTIVE: Vital Signs Temperature 99.2 F 05/04/19 08:55 Pulse Rate 88 05/04/19 08:55 Respiratory Rate 18 05/04/19 08:55 Blood Pressure 145/81 05/04/19 08:55 O2 Sat by Pulse Oximetry (%) 93 L 05/04/19 08:52 GENERAL: Awake, alert, and fully oriented, in no acute distress. HEAD: Normal with no signs of trauma. EYES: Pupils equal, round and reactive to light, extraocular movements intact, EARS, NOSE, THROAT: Moist mucous membranes. LUNGS: Experitory wheezing, no accessory muscle use HEART: Regular rate and rhythm, normal S1 and S2 without murmur, rub or gallop. ABDOMEN: Soft, nontender, not distended, normoactive bowel sounds, no guarding, no rebound, no masses. LOWER EXTREMITIES: 2+ pulses, warm, well-perfused. No calf tenderness. No peripheral edema. SKIN: Warm, dry, normal turgor, no rashes or lesions noted, normal capillary refill. CBC, BMP 05/04/19 08:25 05/03/19 07:14 Active Medications Acetaminophen (Tylenol -) 650 mg PO Q4H PRN PRN Reason: PAIN OR FEVER Last Admin: 05/02/19 21:11 Dose: 650 mg Albuterol Sulfate (Ventolin 0.083% Nebulizer Soln -) 1 amp NEB Q6H PRN PRN Reason: SHORT OF BREATH/WHEEZING Albuterol/Ipratropium (Duoneb -) 1 amp NEB RQID [facility] Last Admin: 05/04/19 08:03 Dose: 1 amp Doxycycline Hyclate (Vibramycin -) 100 mg PO BID@1000,1800 FANNY Last Admin: 05/04/19 10:04 Dose: 100 mg Enoxaparin Sodium (Lovenox -) 40 mg SQ DAILY FANNY Last Admin: 05/04/19 10:04 Dose: 40 mg Ceftriaxone Sodium 1 gm/ (Dextrose) 50 mls @ 100 mls/hr IVPB DAILY FANNY; Protocol Last Admin: 05/04/19 10:04 Dose: 100 mls/hr Methylprednisolone Sodium Succinate (Solu-Medrol -) 40 mg IVPUSH Q6H-IV FANNY Nicotine (Nicoderm Patch -) 7 mg TD DAILY [facility] Last Admin: 05/04/19 10:04 Dose: 7 mg ASSESSMENT/PLAN: Patient is a 68 y/o female with no past medical history who is admitted for treatment of community acquired pneumonia. #Multilobar Pneumonia - with concurrent viral process, RSV positive - CXR: RUL and LLB possible infiltrates - Patient on Ceftriaxone and Doxycycline - tylenol prn for fever - f/u legionella - sputum culture negative, influenza negative - continue bronchodilators - methylprednisolone 40 q6h #nicotine dependence - discuss cessation techniques and management as an outpatient - refer to Pulm as an outpatient for COPD workup with long time smoking history - nicotine patch DVT PPX - Lovenox 40 sq daily FEN - regular diet - NS @ 75 - continue to monitor electrolytes Dispo: monitor on med/surg Visit type - Emergency Visit Emergency Visit: No - New Patient This patient is new to me today: No - Critical Care Critical Care patient: No ATTENDING PHYSICIAN STATEMENT I saw and evaluated the patient. I reviewed the resident's note and discussed the case with the resident. I agree with the resident's findings and plan as documented. SUBJECTIVE: OBJECTIVE: ASSESSMENT AND PLAN:
--- NOTE | 2019-05-04 12:00 | PN ---
Teaching Attending Note Name of Resident: Antonella Salcido ATTENDING PHYSICIAN STATEMENT I saw and evaluated the patient. I reviewed the resident's note and discussed the case with the resident. I agree with the resident's findings and plan as documented. SUBJECTIVE: Ongoing dyspnea and productive cough, now with wheeze. OBJECTIVE: Fever resolved. Hemodynamically Stable. Last Vital Signs Temp Pulse Resp BP Pulse Ox 99.2 F 88 18 145/81 93 L 05/04/19 08:55 05/04/19 08:55 05/04/19 08:55 05/04/19 08:55 05/04/19 08:52 Heart -S1, S2, RRR Lungs - bilateral wheeze Abdomen - Soft, non-tender. Bowel sounds normal. Extremities - no edema, no calf tenderness. Neuro - AAO x 3. Tone/Power normal all 4 extremities Laboratory Results - last 24 hr 05/03/19 05/03/19 05/04/19 07:14 19:00 08:00 WBC RBC Hgb Hct MCV MCH MCHC RDW Plt Count MPV Absolute Neuts (auto) Neutrophils % Neutrophils % (Manual) 65.7 Band Neutrophils % 5.1 Lymphocytes % Lymphocytes % (Manual) 3.0 L D Monocytes % Monocytes % (Manual) 21 H D Eosinophils % Eosinophils % (Manual) 0.0 Basophils % Basophils % (Manual) 0.0 Myelocytes % (Man) 0 Promyelocytes % (Man) 1 D Blast Cells % (Manual) 0 Nucleated RBC % Metamyelocytes 0 Hypochromia 0 Platelet Estimate Normal Polychromasia 0 Poikilocytosis 0 Anisocytosis 1+ Microcytosis 0 Macrocytosis 1+ Phosphorus 3.2 RSV Rapid Positive A 05/04/19 08:25 WBC 17.4 H RBC 3.89 Hgb 12.6 Hct 37.9 MCV 97.4 H MCH 32.4 MCHC 33.3 RDW 13.3 Plt Count 289 MPV 8.9 Absolute Neuts (auto) 13.1 H Neutrophils % 75.2 Neutrophils % (Manual) Band Neutrophils % Lymphocytes % 13.8 D Lymphocytes % (Manual) Monocytes % 10.0 Monocytes % (Manual) Eosinophils % 0.1 D Eosinophils % (Manual) Basophils % 0.9 Basophils % (Manual) Myelocytes % (Man) Promyelocytes % (Man) Blast Cells % (Manual) Nucleated RBC % 0 Metamyelocytes Hypochromia Platelet Estimate Polychromasia Poikilocytosis Anisocytosis Microcytosis Macrocytosis Phosphorus RSV Rapid Current Medications Generic Name Dose Route Start Last Admin Trade Name Tuan PRN Reason Stop Dose Admin Acetaminophen 650 mg 05/02/19 08:08 05/02/19 21:11 Tylenol - PO 650 mg Q4H PRN Administration PAIN OR FEVER Albuterol Sulfate 1 amp 05/03/19 14:19 Ventolin 0.083% Nebulizer Soln - NEB Q6H PRN SHORT OF BREATH/WHEEZING Albuterol/Ipratropium 1 amp 05/03/19 16:00 05/04/19 08:03 Duoneb - NEB 1 amp RQID FANNY Administration Doxycycline Hyclate 100 mg 05/03/19 18:00 05/04/19 10:04 Vibramycin - PO 100 mg BID@1000,1800 FANNY Administration Enoxaparin Sodium 40 mg 05/02/19 10:00 05/04/19 10:04 Lovenox - SQ 40 mg DAILY FANNY Administration Ceftriaxone Sodium 1 gm/ 50 mls @ 100 mls/hr 05/03/19 10:00 05/04/19 10:04 Dextrose IVPB 100 mls/hr DAILY FANNY Administration Protocol Methylprednisolone Sodium Succinate 40 mg 05/04/19 10:45 Solu-Medrol - IVPUSH Q6H-IV FANNY Nicotine 7 mg 05/03/19 11:30 05/04/19 10:04 Nicoderm Patch - TD 7 mg DAILY FANNY Administration Home Medications Medication Instructions Recorded NK [No Known Home Medication] 08/08/17 ASSESSMENT AND PLAN: 68 year old female with no significant past medical history. active smoker, presents with productive cough/yellow sputum, myalgia, fevers/chills. No hemoptysis. 1. Multilobar Pneumonia, bilateral, with Bronchospasm CXR reports RUL/ L basal infiltrates fever resolved. Influenza negative/RSV positive Continue IV Ceftriaxone and Doxycycline. Sputum Cx - normal yahaira. Blood Cx neg x 2. Urine legionella/Strep Ag requested. Started on Bronchodilator Nebs and Steroid for wheeze. Oral steroid switched to IV solumedrol for intensified wheezing. Hx smoking, no formal COPD Dx. Supplemental O2 as required. 2. Active Smoker, no formal Dx of COPD Nicotine patch Albuterol Nebs. Pulm follow up as out-patient for Spirometry. 3. Hypophosphatemia - repleted. DVT Px - Lovenox SQ
[2019-05-04 13:25] LABS: PLATELET ESTIMATE ADEQUATE
[2019-05-05] MEDS: methylPREDNISolone NA SUCC 40 MG/1 ML VIAL IVPUSH SCH ×4 (02:06→15:53)
[2019-05-05] MEDS: ALBUTEROL SO4 2.5/IPRATROPIUM 0.5 INH SOL 3 ML VIAL.NEB. NEB SCH ×4 (08:08→21:15)
[2019-05-05] MEDS ORDERED: DEXTROSE 5%-WATER - 50 ML IVPB ONE (09:05)
[2019-05-05] MEDS ORDERED: cefTRIAXone SODIUM 1 GM VIAL ONE (09:05)
[2019-05-05] MEDS: ENOXAPARIN NA (PORCINE) 40 MG/0.4 ML DISP.SYRIN SQ SCH (09:15)
[2019-05-05] MEDS: DOXYCYCLINE HYCLATE 100 MG CAPSULE PO SCH ×2 (09:15→17:48)
[2019-05-05] MEDS ORDERED: PT OWN MED DRAWER 7, Y5N ONE (09:23)
[2019-05-05] MEDS: NICOTINE 7 MG/24 HOURS TOPICAL PATCH TD SCH (09:26)
[2019-05-05 09:31] LABS: HEMATOCRIT 36.8 % (32.4-45.2); HEMOGLOBIN 12.4 GM/dL (10.7-15.3); MCH 32.6 pg (25.7-33.7); MCHC 33.6 g/dl (32.0-36.0); MEAN CELL VOLUME 97.1 fl (80-96); MEAN PLT VOLUME 8.6 fl (7.5-11.1); PLATELET COUNT 416 K/MM3 (134-434); RBC 3.79 M/mm3 (3.60-5.2); RDW 13.3 % (11.6-15.6); WHITE BLOOD COUNT 17.2 K/mm3 (4.0-10.0)
[2019-05-05 10:15] LABS: BILIRUBIN,TOTAL 0.5 mg/dL (0.2-1); BLOOD UREA NITROGEN 7.3 mg/dL (7-18); CALCIUM 9.4 mg/dL (8.5-10.1); CREATININE 0.7 mg/dL (0.55-1.3); MAGNESIUM 2.1 mg/dL (1.8-2.4); PHOSPHOROUS 4.5 mg/dL (2.5-4.9); POTASSIUM 3.8 mmol/L (3.5-5.1); TOT PROT 6.4 g/dl (6.4-8.2)
[2019-05-05] MEDS: CEFTRIAXONE 1 GM in DEXTROSE 5%-WATER - 50 ML IVPB SCH (11:02)
[2019-05-05] MEDS ORDERED: predniSONE 20 MG TABLET (UD) PO ONE (15:21)
--- NOTE | 2019-05-05 15:21 | PN ---
Progress Note (short form) - Note Progress Note: SUBJECTIVE: Dyspnea and cough improving. No fever/chills. OBJECTIVE: Fever resolved. Hemodynamically Stable. Last Vital Signs Temp Pulse Resp BP Pulse Ox 98.9 F 87 20 134/63 93 L 05/05/19 14:00 05/05/19 14:00 05/05/19 14:00 05/05/19 14:00 05/04/19 08:52 Heart -S1, S2, RRR Lungs - bilateral wheeze improving Abdomen - Soft, non-tender. Bowel sounds normal. Extremities - no edema, no calf tenderness. Neuro - AAO x 3. Tone/Power normal all 4 extremities Laboratory Results - last 24 hr 05/05/19 05/05/19 08:45 08:45 WBC 17.2 H RBC 3.79 Hgb 12.4 Hct 36.8 MCV 97.1 H MCH 32.6 MCHC 33.6 RDW 13.3 Plt Count 416 D MPV 8.6 Sodium 138 Potassium 3.8 Chloride 98 Carbon Dioxide 32 Anion Gap 9 BUN 7.3 Creatinine 0.7 Est GFR (CKD-EPI)AfAm 103.18 Est GFR (CKD-EPI)NonAf 89.03 Random Glucose 128 H Calcium 9.4 Phosphorus 4.5 Magnesium 2.1 Total Bilirubin 0.5 AST 24 ALT 29 Alkaline Phosphatase 72 Total Protein 6.4 Albumin 3.0 L Current Medications Generic Name Dose Route Start Last Admin Trade Name Freq PRN Reason Stop Dose Admin Acetaminophen 650 mg 05/02/19 08:08 05/02/19 21:11 Tylenol - PO 650 mg Q4H PRN Administration PAIN OR FEVER Albuterol Sulfate 1 amp 05/03/19 14:19 Ventolin 0.083% Nebulizer Soln - NEB Q6H PRN SHORT OF BREATH/WHEEZING Albuterol/Ipratropium 1 amp 05/03/19 16:00 05/05/19 12:21 Duoneb - NEB 1 amp RQID FANNY Administration Doxycycline Hyclate 100 mg 05/03/19 18:00 05/05/19 09:15 Vibramycin - PO 100 mg BID@1000,1800 FANNY Administration Enoxaparin Sodium 40 mg 05/02/19 10:00 05/05/19 09:15 Lovenox - SQ 40 mg DAILY FANNY Administration Ceftriaxone Sodium 1 gm/ 50 mls @ 100 mls/hr 05/03/19 10:00 05/05/19 11:02 Dextrose IVPB 100 mls/hr DAILY FANNY Administration Protocol Methylprednisolone Sodium Succinate 40 mg 05/04/19 10:45 05/05/19 11:02 Solu-Medrol - IVPUSH 40 mg Q6H-IV FANNY Administration Nicotine 7 mg 05/03/19 11:30 05/05/19 09:26 Nicoderm Patch - TD 7 mg DAILY FANNY Administration Home Medications Medication Instructions Recorded NK [No Known Home Medication] 08/08/17 ASSESSMENT AND PLAN: 68 year old female with no significant past medical history. active smoker, presents with productive cough/yellow sputum, myalgia, fevers/chills. No hemoptysis. 1. Multilobar Pneumonia, bilateral, with Bronchospasm CXR reports RUL/ L basal infiltrates Fever resolved. Influenza negative/RSV positive Continue IV Ceftriaxone and Doxycycline. Sputum Cx - normal yahaira. Blood Cx neg x 2. Urine legionella/Strep Ag negative. Continue Bronchodilator Nebs and steroid for wheeze. Hx smoking, no formal COPD Dx. (Leukocytosis sec to steroids). Transition IV to PO steroid. Supplemental O2 as required. 2. Active Smoker, no formal Dx of COPD Nicotine patch Albuterol Nebs. Pulm follow up as out-patient for Spirometry. 3. Hypophosphatemia - repleted. DVT Px - Lovenox SQ Visit type - Emergency Visit Emergency Visit: Yes ED Registration Date: 05/02/19 Care time: The patient presented to the Emergency Department on the above date and was hospitalized for further evaluation of their emergent condition. - New Patient This patient is new to me today: No - Critical Care Critical Care patient: No - Discharge Referral Referred to [facility] Med P.C.: No
[2019-05-06] MEDS: ALBUTEROL SO4 2.5/IPRATROPIUM 0.5 INH SOL 3 ML VIAL.NEB. NEB SCH ×3 (07:30→16:03)
[2019-05-06] MEDS ORDERED: predniSONE 20 MG TABLET (UD) PO SCH (10:00)
[2019-05-06] MEDS ORDERED: PT OWN MED DRAWER 7, Y5N ONE (10:24)
[2019-05-06] MEDS ORDERED: cefTRIAXone SODIUM 1 GM VIAL ONE (10:25)
[2019-05-06] MEDS ORDERED: DEXTROSE 5%-WATER - 50 ML IVPB ONE (10:25)
[2019-05-06] MEDS: ENOXAPARIN NA (PORCINE) 40 MG/0.4 ML DISP.SYRIN SQ SCH (10:31)
[2019-05-06] MEDS: DOXYCYCLINE HYCLATE 100 MG CAPSULE PO SCH (10:34)
[2019-05-06] MEDS: CEFTRIAXONE 1 GM in DEXTROSE 5%-WATER - 50 ML IVPB SCH (10:36)
[2019-05-06] MEDS: NICOTINE 7 MG/24 HOURS TOPICAL PATCH TD SCH (10:36)
[2019-05-06 13:58] VITALS: PULSE 84
--- NOTE | 2019-05-06 14:03 | PN ---
Teaching Attending Note Name of Resident: Carmen Brush ATTENDING PHYSICIAN STATEMENT I saw and evaluated the patient. I reviewed the resident's note and discussed the case with the resident. I agree with the resident's findings and plan as documented. SUBJECTIVE: Dyspnea and cough improved. No fever/chills. OBJECTIVE: Fever resolved. Hemodynamically Stable. Last Vital Signs Temp Pulse Resp BP Pulse Ox 98.9 F 84 18 150/74 100 05/06/19 06:16 05/06/19 10:00 05/06/19 10:00 05/06/19 10:00 05/05/19 21:00 Heart -S1, S2, RRR Lungs - clear bilaterally Abdomen - Soft, non-tender. Bowel sounds normal. Extremities - no edema, no calf tenderness. Neuro - AAO x 3. Tone/Power normal all 4 extremities Current Medications Generic Name Dose Route Start Last Admin Trade Name Freq PRN Reason Stop Dose Admin Acetaminophen 650 mg 05/02/19 08:08 05/02/19 21:11 Tylenol - PO 650 mg Q4H PRN Administration PAIN OR FEVER Albuterol Sulfate 1 amp 05/03/19 14:19 Ventolin 0.083% Nebulizer Soln - NEB Q6H PRN SHORT OF BREATH/WHEEZING Albuterol/Ipratropium 1 amp 05/03/19 16:00 05/06/19 11:38 Duoneb - NEB 1 amp RQID FANNY Administration Doxycycline Hyclate 100 mg 05/03/19 18:00 05/06/19 10:34 Vibramycin - PO 100 mg BID@1000,1800 FANNY Administration Enoxaparin Sodium 40 mg 05/02/19 10:00 05/06/19 10:31 Lovenox - SQ 40 mg DAILY FANNY Administration Ceftriaxone Sodium 1 gm/ 50 mls @ 100 mls/hr 05/03/19 10:00 05/06/19 10:36 Dextrose IVPB 100 mls/hr DAILY FANNY Administration Protocol Nicotine 7 mg 05/03/19 11:30 05/06/19 10:36 Nicoderm Patch - TD 7 mg DAILY FANNY Administration Prednisone 40 mg 05/06/19 10:00 05/06/19 10:36 Deltasone - PO 40 mg DAILY FANNY Administration Home Medications Medication Instructions Recorded NK [No Known Home Medication] 08/08/17 ASSESSMENT AND PLAN: 68 year old female with no significant past medical history, active smoker, presents with productive cough/yellow sputum, myalgia, fevers/chills. No hemoptysis. 1. Multilobar Pneumonia, bilateral, with Bronchospasm CXR reports RUL/ L basal infiltrates Fever resolved. Influenza negative/RSV positive Received 5 days of Abx Sputum Cx - normal yahaira. Blood Cx neg x 2. Urine legionella/Strep Ag negative. Continue Bronchodilator Nebs and steroid to complete a total 5 days. Hx smoking, no formal COPD Dx - for out-patient Pulm follow up and Spirometry testing. Stable for discharge once weaned off O2 with adequate saturations on RA. 2. Active Smoker, no formal Dx of COPD Nicotine patch Albuterol Nebs. Pulm follow up as out-patient for Spirometry. 3. Hypophosphatemia - repleted. DVT Px - Lovenox SQ
--- NOTE | 2019-05-06 15:27 | DS ---
Physical Exam: SUBJECTIVE: Patient seen and examined. She reports feeling better today. Her cough is decreasing but still is productive with whitish sputum OBJECTIVE: Vital Signs Period Temp Pulse Resp BP Sys/Orozco Pulse Ox Last 24 Hr 98.8 F-98.9 F 76-99 18-20 137-160/70-90 95-100 PHYSICAL EXAM GENERAL: The patient is awake, alert, and fully oriented, in no acute distress. HEAD: Normal with no signs of trauma. EYES: PERRL, extraocular movements intact, sclera anicteric, conjunctiva clear. No ptosis. ENT: Ears normal, nares patent, oropharynx clear without exudates, moist mucous membranes. NECK: Trachea midline, full range of motion, supple. LUNGS: Bilateral wheezing upper lobes, no accessory muscle use. HEART: Regular rate and rhythm, S1, S2 without murmur, rub or gallop. ABDOMEN: Soft, nontender, nondistended, normoactive bowel sounds EXTREMITIES: 2+ pulses, warm, well-perfused, no edema. NEUROLOGICAL: Cranial nerves II through XII grossly intact. Normal speech, gait not observed. PSYCH: Normal mood, normal affect. SKIN: Warm, dry, normal turgor, no rashes or lesions noted LABS CBC, BMP 05/05/19 08:45 05/05/19 08:45 HOSPITAL COURSE: Ms. Bolton is a 68y/o female with history of tobacco use who presented with productive cough with whitish sputum x 5 days. CXR showed RUL and LLB possible early infiltrates. She also had leukocytosis and tachycardia which resolved. She was given ceftriaxone and doxycycline for 4 days, duo-nebs, as well as solumedrol and then PO prednisone. She improved daily, with decreased wheezing and was able to be weaned off 3L of O2 to room air with 96% saturation. She was discharged with doxycycline and prednisone for 2 more days and duo-nebs. She also had hypokalemia (3.0) on admission which was supplemented and resolved. Pt was advised to quit smoking and was given referral for pulmonology for follow up PFTs. Date of Admission:05/02/19 Date of Discharge: 05/06/19 Minutes to complete discharge: 35 Discharge Summary Problems reviewed: Yes Reason For Visit: COPD WITH ACUTE LOWER RESPIRATORY INFECTION Current Active Problems COPD (chronic obstructive pulmonary disease) (Acute) Condition: Improved - Instructions Diet, Activity, Other Instructions: You presented to the hospital with shortness of breath and cough. You were found to have pneumonia and were treated with antibiotics. It is imperative that you STOP SMOKING. Medication Changes: 1. Please take Doxycycline 100mg twice a day for 5 more doses 2. Please take Prednisone 40mg a day for 1 more day 3. Use the Duoneb inhaler up to 4 times a day as needed Follow up with the following physicians: 1. PCP in one week, please call to schedule follow up to further manage your chronic conditions. 2. 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 Potassium and Phosphorous levels in one week, Please follow this up with your PCP. Please continue to monitor your diet as you need to intake less sugar/salt/fat and drink plenty of fluids. Continue all your other medications as prescribed Please return to the ER if you have any signs or symptoms of chest pain, shortness of breath, uncontrollable fever, chills, nausea, vomiting, numbness, tingling, or weakness in any part of your body, changes in vision, or slurred speech. Please return to the ER if symptoms persist, worsen, or new symptoms arise. Referrals: Bladimir Pitts MD [Staff Physician] - Disposition: HOME - Home Medications Comprehensive Discharge Medication List: Ambulatory Orders Albuterol 2.5/Ipratropium 0.5 [Duoneb -] 1 amp NEB RQID PRN #1 inhaler 05/06/19 Doxycycline Hyclate [Vibramycin -] 100 mg PO BID@1000,1800 #5 capsule 05/06/19 Miscellaneous Medical Supply [Outpatient Order] 1 [facility] ASDIR #1 misc predniSONE [Deltasone -] 40 mg PO UTDICT #2 tablet 05/06/19 This patient is new to me today: No Emergency Visit: Yes ED Registration Date: 05/02/19 Care time: The patient presented to the Emergency Department on the above date and was hospitalized for further evaluation of their emergent condition. Critical Care patient: No - Discharge Referral Referred to [facility] Med P.C.: No ATTENDING PHYSICIAN STATEMENT I saw and evaluated the patient. I reviewed the resident's note and discussed the case with the resident. I agree with the resident's findings and plan as documented. SUBJECTIVE: OBJECTIVE: ASSESSMENT AND PLAN:
[2019-05-06 15:40] VITALS: BP 146/81; TEMP 98.8
== END 2019-05-06 16:42 | disposition home or self-care (01) | DRG 190 ==
LOC: JER 23:40 → JERBED 05-02 02:44 → J5S 05-02 14:01
DX: J44.1 Chronic obstructive pulmonary disease with (acute) exacerbation (principal); J18.9 Pneumonia, unspecified organism; D72.829 Elevated white blood cell count, unspecified; R00.0 Tachycardia, unspecified; E83.39 Other disorders of phosphorus metabolism; F17.210 Nicotine dependence, cigarettes, uncomplicated; E87.6 Hypokalemia
CPT/HCPCS: 36415; 71045-TC-FY; 80053; 81003; 82607; 82746; 82803; 83605; 83735; 84100; 84484; 85025; 85027; 85610; 85730; 87040; 87070; 87086; 87205; 87804; 87807; 87899; 93005; 93010; 94640; 99284-25; J0131; J7030

== ENCOUNTER 2019-05-07 09:37 | Emergency (ER) | payer BC ==
[2019-05-07 09:45] VITALS: TEMP 99; BMI 20.6
[2019-05-07] MEDS ORDERED: DOXYCYCLINE HYCLATE 100 MG CAPSULE PO ONE ×2 (10:37→10:45)
[2019-05-07] MEDS ORDERED: predniSONE 20 MG TABLET (UD) PO ONE (10:37)
[2019-05-07] MEDS ORDERED: ALBUTEROL SO4 2.5/IPRATROPIUM 0.5 INH SOL 3 ML VIAL.NEB. NEB ONE ×5 (10:38→13:33)
[2019-05-07] MEDS ORDERED: predniSONE 20 MG TABLET (UD) ONE (10:44)
[2019-05-07 11:26] LABS: BASO % 0.5 % (0-2.0); EOS % 1.4 % (0-4.5); HEMATOCRIT 37.3 % (32.4-45.2); HEMOGLOBIN 12.5 GM/dL (10.7-15.3); LYMPH % 17.7 % (8-40); MCH 32.6 pg (25.7-33.7); MCHC 33.6 g/dl (32.0-36.0); MEAN CELL VOLUME 97.1 fl (80-96); MEAN PLT VOLUME 7.9 fl (7.5-11.1); MONO % 8.6 % (3.8-10.2); NEUT % 71.8 % (42.8-82.8); PLATELET COUNT 416 K/MM3 (134-434); RBC 3.84 M/mm3 (3.60-5.2); RDW 13.3 % (11.6-15.6); WHITE BLOOD COUNT 19.2 K/mm3 (4.0-10.0)
[2019-05-07 11:54] LABS: ALBUMIN 2.9 g/dl (3.4-5.0); BILIRUBIN,TOTAL 0.5 mg/dL (0.2-1); BLOOD UREA NITROGEN 6.1 mg/dL (7-18); CREATININE 0.5 mg/dL (0.55-1.3); POTASSIUM 3.6 mmol/L (3.5-5.1)
--- NOTE | 2019-05-07 12:00 | PDOC ---
History of Present Illness - General Chief Complaint: Shortness of Breath Stated Complaint: SHORTNESS OF BREATH Time Seen by Provider: 05/07/19 09:45 History Source: Patient Exam Limitations: No Limitations - History of Present Illness Initial Comments: 05/07/19 11:54 This is a 68 year old female with no significant PMH. She was admitted to [facility] - 05/06 and was treated for pneumonia with Ceftriaxone, Doxy, and Deltasone 40mg. She was discharged yesterday but was unable to get any of her DC medications from the pharmacy. She presented to the ER with complaints of constant coughing and shortness of breath this morning. The cough is productive with yellow/white sputum, no blood. She endorses subjective fevers and chills, dizziness, headaches, but no nausea or vomiting. Is this a multiple visit Asthma Patient?: No Past History - Travel Traveled outside of the country in the last 30 days: No Close contact w/someone who was outside of country & ill: No - Past Medical History Allergies/Adverse Reactions: Allergies Allergy/AdvReac Type Severity Reaction Status Date / Time No Known Allergies Allergy Verified 05/07/19 10:12 Home Medications: Ambulatory Orders Albuterol 2.5/Ipratropium 0.5 [Duoneb -] 1 amp NEB RQID PRN #1 inhaler 05/06/19 Doxycycline Hyclate [Vibramycin -] 100 mg PO BID@1000,1800 #5 capsule 05/06/19 predniSONE [Deltasone -] 40 mg PO UTDICT #2 tablet 05/06/19 Albuterol 2.5/Ipratropium 0.5 [Duoneb -] 1 amp NEB Q6H PRN 30 Days #60 amp 05/07 Doxycycline Hyclate [Vibramycin] 100 mg PO BID 3 Days #4 capsule 05/07/19 predniSONE [Deltasone -] 40 mg PO ONCE 1 Days #2 tablet 05/07/19 COPD: Yes Other medical history: syncope - Psycho Social/Smoking Cessation Hx Smoking History: Unknown if ever smoked Have you smoked in the past 12 months: No Number of Cigarettes Smoked Daily: 3 Information on smoking cessation initiated: No 'Breaking Loose' booklet given: 05/02/19 Hx Alcohol Use: No Drug/Substance Use Hx: No Review of Systems - Review of Systems Constitutional: Yes: Fever HEENTM: No: Symptoms Reported, See HPI, Eye Pain, Blurred Vision, Tearing, Recent change in vision, Double Vision, Cataracts, Ear Pain, Ocular Prothesis, Ear Discharge, Nose Pain, Nose Congestion, Tinnitus, Nose Bleeding, Hearing Loss , Throat Pain, Throat Swelling, Mouth Pain, Dental Problems, Difficulty Swallowing, Mouth Swelling, Other Respiratory: Yes: Cough, Shortness of Breath, Productive cough. No: Symptoms reported, See HPI, Orthopnea, SOB with Exertion, SOB at Rest, Stridor, Wheezing , Hemoptysis, Other Cardiac (ROS): Yes: Chest Tightness. No: Symptoms Reported, See HPI, Chest Pain , Edema, Irregular Heart Rate, Lightheadedness, Palpitations, Syncope, Other ABD/GI: No: Symptoms Reported, See HPI, Abdominal Distended, Abd. Pain w/ defecation, Blood Streaked Bowels, Constipated, Diarrhea, Difficulty Swallowing , Nausea, Poor Appetite, Poor Fluid Intake, Rectal Bleeding, Vomiting, Indigestion, Abdominal cramping, Tarry Stools, Other : No: Symptoms Reported, See HPI, Burning, Dysuria, Discharge, Frequency, Flank Pain, Hematuria, Incontinence, Pain, Urgency, Testicular Mass, Testicular Swelling, Lesions, Testicular Pain, Other Integumentary: No: Symptoms Reported, See HPI, Bruising, Change in Color, Change in Hair/Nails, Dryness, Erythema, Flushing, Lesions, Lumps, Pallor, Pruritus, Rash, Sweating, Other Neurological: No: Symptoms reported, See HPI, Headache, Numbness, Paresthesia, Pre-Existing Deficit, Seizure, Tingling, Tremors, Weakness, Unsteady Gait, Ataxia, Dizziness, Other Psychiatric: No: Anxiety, Depression, Frequent Crying, Stressors, Sleep Pattern Change, Emotional Problems, Mood Swings, Change in Appetite, Other Endocrine: No: Symptoms Reported, See HPI, Excessive Sweating, Flushing, Intolerance to Cold, Intolerance to Heat, Increased Hunger, Increased Thirst, Increased Urine, Unexplained Weight Gain, Unexplained Weight Loss, Change in Weight, Other Hematologic/Lymphatic: No: Symptoms Reported, See HPI, Anemia, Blood Clots, Easy Bleeding, Easy Bruising, Bleeding Diathesis, Lymph Node Abnormalities, Swollen Glands, Other *Physical Exam - Vital Signs Last Vital Signs Temp Pulse Resp BP Pulse Ox 99.0 F 99 H 16 155/83 96 05/07/19 09:40 05/07/19 09:40 05/07/19 09:40 05/07/19 09:40 05/07/19 09:40 - Physical Exam General Appearance: No: Nourished, Appropriately Dressed, Apparent Distress, Disheveled, Mild Distress, Moderate Distress, Severe Distress, Alcohol on Breath , Intoxicated, Cachetic, Obese, Thin, Other HEENT: negative: EOMI, ROBINA, Normal ENT Inspection, Normal Voice, Symmetrical, TMs Normal, Pharynx Normal, Pale Conjunctivae, Photophobia, Scleral Icterus (R) , Scleral Icterus (L), Muffled/Hoarse voice, Pharyngeal Erythema, Tonsillar Exudate, Tonsillar Erythema, Nasal Congestion, Rhinorrhea, Sinus Tenderness, Orbits, Hearing Decreased, Hearing Grossly Normal, TM Bulging, TM Dull, TM Erythema, Lesions, Hawkins, Excessive drooling, Thrush, Other Neck: negative: Tender, Trachea midline, Normal Thyroid, Rigid, Supple, Carotid bruit, Decreased range of motion, Stridor, Lymphadenopathy (R), Lymphadenopathy (L), Rigidity, Tender lateral, Tender midline, Thyromegaly, Other Respiratory/Chest: positive: Decreased Breath Sounds. negative: Chest Tender, Lungs Clear, Normal Breath Sounds, Respiratory Distress, Accessory Muscle Use, Labored Respiration, Rapid RR, Paradoxal Breathing, Crackles, Rales, Rhonchi, Stridor, Wheezing, Hyperresonant, Dullness, Plerual Rub, Other Cardiovascular: negative: Regular Rhythm, Regular Rate, S1, S2, Edema, JVD, Murmur, Bradycardia, Tachycardia, Diastolic Murmur, Systolic Murmur, Gallop/S3, Gallop/S4, Irregularly Irregular, Irregular, Other Gastrointestinal/Abdominal: negative: Normal Bowel Sounds, Tender, Flat, Soft, Organomegaly, Pulsatile Mass, Increased Bowel Sounds, Decreased BS, Protuberent , Distended, Guarding, Rebound, Tenderness, Hernia, Mass, Hepatomegaly, Spleenomegaly, Other Extremity: negative: Normal Capillary Refill, Normal Inspection, Normal Range of Motion, Tender, Pelvis Stable, Coldness, Cyanosis, Delayed Capillary Refill, Pedal Edema, Swelling, Calf Tenderness, Erythema, Inflammation, Other Heart Score/ECG Review - Electrocardiogram EKG: Normal - Age Age: >/= 65 - Risk Factors Risk Factors Heart Score: Yes Smoking History Based on the list above the patient has:: 1-2 risk factors - Troponin Troponin: </= normal limit - ECG Intrepretation Rhythm: Regular Rhythm ED Treatment Course - LABORATORY CBC & Chemistry Diagram: 05/07/19 11:12 05/07/19 11:12 - ADDITIONAL ORDERS Additional order review: 05/07/19 11:12 RBC 3.84 MCV 97.1 H MCHC 33.6 RDW 13.3 MPV 7.9 Neutrophils % 71.8 Lymphocytes % 17.7 D Monocytes % 8.6 Eosinophils % 1.4 D Basophils % 0.5 - Medications Given in the ED: ED Medications Discontinued Medications Generic Name Dose Route Start Last Admin Trade Name Freq PRN Reason Stop Dose Admin Albuterol/Ipratropium 1 amp 05/07/19 10:38 05/07/19 10:52 Duoneb - NEB 05/07/19 10:39 1 amp ONCE ONE Administration Doxycycline Hyclate 100 mg 05/07/19 10:37 05/07/19 10:52 Vibramycin - PO 05/07/19 10:38 100 mg ONCE ONE Administration Prednisone 40 mg 05/07/19 10:37 05/07/19 10:52 Deltasone - PO 05/07/19 10:38 40 mg ONCE ONE Administration Medical Decision Making - Medical Decision Making 05/07/19 10:32 - CBC, CMP - UA - EKG, Trops - NC 2L O2 - Duonebs - Prednisone 40mg PO - Doxycycline 100mg PO 05/07/19 13:29 - Second Duonebs given - Labs reviewed, leukocytosis likely due to prednisone 05/07/19 15:59 - O2 90-95, improves when she coughs - Educated about frequent chest PT - Will be DCed on Doxy, Prednisone and Duonebs Discharge - Discharge Information Problems reviewed: Yes Clinical Impression/Diagnosis: COPD (chronic obstructive pulmonary disease), Pneumonia Condition: Guarded Disposition: HOME - Admission No - Additional Discharge Information Prescriptions: Albuterol 2.5/Ipratropium 0.5 [Duoneb -] 1 amp NEB Q6H PRN 30 Days #60 amp PRN Reason: Shortness Of Breath Doxycycline Hyclate [Vibramycin] 100 mg PO BID 3 Days #4 capsule predniSONE [Deltasone -] 40 mg PO ONCE 1 Days #2 tablet - Follow up/Referral Referrals: Alverto Nugent MD [Staff Physician] - Álvaro Robertson RES [Emergency Midlevel Provider] - - Patient Discharge Instructions Additional Instructions: You presented to the ER with complaints of shortness of breath and coughing. We did some blood tests, a Chest X ray, and a scan of your heart (EKG). Your blood work showed signs of a lung infection, which we believe is the same infection you were admitted for last week. Your chest X ray shows that the infection is improving. You do not need any emergency treatment at the moment, and are being discharged. In order to clear up the mucus in your airways, please continue chest exercises as shown. You may also use Robitussin syrup (available over the counter) to help witht he mucus. It is imperative that you STOP SMOKING. Medications: - Please take Doxycycline 100mg by mouth 1 pill tonight at 6PM, 2 tomorrow ( 10AM and 6PM), and then one at 10AM on - Please take Prednisone 40mg 1 pill tomorrow morning - Use the Duoneb inhaler up to 4 times a day as needed Follow up: - Please see Dr. Nugent on Monday at [facility] Additional Information: Please return to the ER if your symptoms persist, worsen, or new symptoms arise , OR if you have any signs or symptoms of chest pain, shortness of breath, uncontrollable fever, chills, nausea, vomiting, numbness, tingling, or weakness in any part of your body, changes in vision, or slurred speech. - Post Discharge Activity Work/Back to School Note: Back to Work
[2019-05-07 12:12] LABS: EPI CELLS 12.7 /HPF (0-5/HPF); HYALINE CASTS 3 /lpf (0-8); URINE APPEARANCE CLEAR; URINE BACTERIA 26.7 /hpf (NEGATIVE); URINE BILIRUBIN NEGATIVE (NEGATIVE); URINE COLOR YELLOW; URINE GLUCOSE (UA) NEGATIVE (NEGATIVE); URINE KETONE NEGATIVE (NEGATIVE); URINE LEUK ESTERASE 3+ (NEGATIVE); URINE NITRITE NEGATIVE (NEGATIVE); URINE PROTEIN NEGATIVE (NEGATIVE); URINE RBC 1 /hpf (0-4); URINE UROBILINOGEN 0.2 mg/dL (0.2-1.0); URINE WBC 12 /hpf (0-5)
--- NOTE | 2019-05-07 12:23 | PDOC ---
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 wrong pharmacy) presents now with sob following a coughing episode today. chills but no fever, increasing chest congestion and productive cough. - Physicial Exam PE: 05/07/19 12:19 T 99, O2 90% on room air, bp stable alert lying in stretcher, speaking comfortably s1s2 rrr decreased BS at both bases, R worse than L with slight expiratory wheeze but no prolonged expiration abd benign - Medical Decision Making 05/07/19 12:22 68y/o F just discharged from pna/copd admission p/w cough/dyspnea in the setting of being off meds for >24h, slight hypoxia here but no acute respiratory distress. low grade temp, but does not meet criteria for sirs/ sepsis. labs notable for unchanged leukocytosis, on steroids chem wnl, ekg nonischemic repeat cxr to r/o worsening disease nebs, steroids, abx as scheduled for today reassess 05/07/19 15:05 cxr with improving LLL pna, received treatments, feels much better. o2 sat to 98-100% after clearing mucous, ambulating comfortably. repeat T 98.7 discussed plan: will ensure rx are filled at in-house pharmacy. has appt scheduled at [facility] on Monday. lives with son, who can assist with ADLs as needed, understands return criteria. Heart Score/ECG Review #1 ECG reviewed & interpreted by me at: 11:09 General ECG Interpretation: Sinus Rhythm, Normal Rate (92), Normal Intervals ( qtc 474), No acute ischemic changes Compared to previous ECG there are: No significant change (c/w 05/03)
[2019-05-07 13:40] LABS: ANISOCYTOSIS 0; MACROCYTOSIS 1+; PLATELET ESTIMATE NORMAL
[2019-05-07 15:33] VITALS: BP 139/73; PULSE 107
--- NOTE | 2019-05-07 15:35 | EKG ---
Test Reason : Blood Pressure : / mmHG Vent. Rate : 092 BPM Atrial Rate : 092 BPM P-R Int : 106 ms QRS Dur : 066 ms QT Int : 384 ms P-R-T Axes : 072 068 078 degrees QTc Int : 474 ms SINUS RHYTHM WITH SHORT MA OTHERWISE NORMAL ECG WHEN COMPARED WITH ECG OF 03-MAY-2019 09:34, NO SIGNIFICANT CHANGE WAS FOUND Confirmed by Luis Enrique Ponce MD ([id number]) on 05/07/2019 3:34:30 PM Referred By: Confirmed By:Luis Enrique Ponce MD
== END 2019-05-07 16:28 | disposition home or self-care (01) ==
LOC: JER 09:37
PROC: 3E0F7GC Introduction of Other Therapeutic Substance into Respiratory Tract, Via Natural or Artificial Opening (ICD-10-PCS; principal; 2019-05-07)
PROC: 3E0F7GC Introduction of Other Therapeutic Substance into Respiratory Tract, Via Natural or Artificial Opening (ICD-10-PCS; 2019-05-07)
PROC: 3E0F7GC Introduction of Other Therapeutic Substance into Respiratory Tract, Via Natural or Artificial Opening (ICD-10-PCS; 2019-05-07)
DX: J44.9 Chronic obstructive pulmonary disease, unspecified (principal); J18.9 Pneumonia, unspecified organism
CPT/HCPCS: 36415; 71046-TC-FY; 80053; 81003; 82550; 84484; 85025; 93005; 93010; 99283-25

== ENCOUNTER 2019-07-14 20:38 | Emergency (ER) | payer BC, OTHER ==
--- NOTE | 2019-07-14 22:19 | PDOC ---
Documentation entered by Alyx Dos Santos SCRIBE, acting as scribe for Britany Vásquez MD. Britany Vásquez MD: This documentation has been prepared by the Raya cavanaugh Nirvannie, SCRIBE, under my direction and personally reviewed by me in its entirety. I confirm that the documentation accurately reflects all work, treatment, procedures, and medical decision making performed by me. Attending Attestation - Resident Resident Name: Ayde Craig - ED Attending Attestation I have performed the following: I have examined & evaluated the patient, The case was reviewed & discussed with the resident, I agree w/resident's findings & plan - HPI HPI: 07/14/19 22:19 The patient is a 69 year old female, with a significant past medical history of recent admission for pneumonia (04/2019), who presents to the emergency department with, transient weakness and dizziness. As per patient, she was drinking an alcoholic beverage on her porch and while attempting to walk back indoors she felt weak and dizzy prompting her neighbor to call EMS. While in the ED, she notes to be at her baseline. She denies recent chest pain or shortness of breath. Allergies: NKDA - Physicial Exam PE: 07/14/19 22:28 Slender 69-year-old female is ambulating and conversant Head normocephalic atraumatic, no lacerations no hematomas Neck is supple Lungs are clear to auscultation bilaterally CVS regular rate and rhythm S1-S2 Abdomen soft Skin warm and dry Neuro she is alert and oriented x3 and ambulatory, motor strength 5 out of 5 no gross focal neuro deficits although there is alcohol on her breath - Medical Decision Making 07/14/19 22:34 69-year-old female who was drinking alcohol reports had difficulty getting out of her chair and called her neighbor for help. the neighbor came and became concerned that she was weak and called the ambulance. Patient admits to drinking and at this time has no gross focal neuro deficits and is ambulating with ease -she is able to get up from the chair with no problem. She has been speaking to her neighbor on the phone Soc hx: pt has been smoking tobacco for decades ad drinks etoh on the weekends Impression alcohol use plan pt will take a taxi home
[2019-07-14 22:22] VITALS: BP 118/67; TEMP 98.1; BMI 23.8
--- NOTE | 2019-07-14 22:24 | PDOC ---
History of Present Illness - General Chief Complaint: Injury Stated Complaint: FALL Time Seen by Provider: 07/14/19 21:48 - History of Present Illness Initial Comments: 07/14/19 22:18 Ms. Bolton is a 69 yo F with likely COPD (not formerly diagnosed but has a 20 pack year smoking hx and was recently hospitalized for PNA and referred to [facility] for PFTs but hasn't followed up yet) who presents to the ED for weakness. Per the patient she was drinking on the porch when she felt very weak and like she couldn't get up. She called her neighbor for help who became nervous about the patient's difficulty ambulating and called EMS. The patient states she normally drinks 1 glass of rum after work and has a couple of drinks on the weekends. She also smokes a 1/2ppd. She states she thinks she was just too drunk and now that she's sobered up she feels better. Past History - Past Medical History Allergies/Adverse Reactions: Allergies Allergy/AdvReac Type Severity Reaction Status Date / Time No Known Allergies Allergy Verified 07/14/19 22:22 Home Medications: Ambulatory Orders Albuterol 2.5/Ipratropium 0.5 [Duoneb -] 1 amp NEB RQID PRN #1 inhaler 05/06/19 Doxycycline Hyclate [Vibramycin -] 100 mg PO BID@1000,1800 #5 capsule 05/06/19 predniSONE [Deltasone -] 40 mg PO UTDICT #2 tablet 05/06/19 Albuterol 2.5/Ipratropium 0.5 [Duoneb -] 1 amp NEB Q6H PRN 30 Days #60 amp 05/07 Doxycycline Hyclate [Vibramycin] 100 mg PO BID 3 Days #4 capsule 05/07/19 predniSONE [Deltasone -] 40 mg PO ONCE 1 Days #2 tablet 05/07/19 COPD: Yes - Psycho Social/Smoking Cessation Hx Smoking History: Unknown if ever smoked Have you smoked in the past 12 months: No Number of Cigarettes Smoked Daily: 3 'Breaking Loose' booklet given: 05/02/19 Hx Alcohol Use: No Drug/Substance Use Hx: No Review of Systems - Review of Systems Able to Perform ROS?: Yes Is the patient limited Liberian proficient: No Constitutional: No: Chills, Diaphoresis, Fever HEENTM: No: Eye Pain, Recent change in vision, Nose Pain, Throat Pain Respiratory: No: Cough, Shortness of Breath Cardiac (ROS): No: Chest Pain, Palpitations, Syncope ABD/GI: No: Constipated, Diarrhea, Nausea, Vomiting, Abdominal cramping : No: Burning, Dysuria, Hematuria Musculoskeletal: Yes: Muscle Weakness. No: Back Pain, Joint Pain, Muscle Pain Neurological: No: Headache, Numbness, Paresthesia, Tingling Endocrine: No: Excessive Sweating, Intolerance to Cold, Intolerance to Heat All Other Systems: Reviewed and Negative *Physical Exam - Physical Exam General Appearance: Yes: Nourished, Appropriately Dressed, Intoxicated (breath smells of alcohol). No: Apparent Distress HEENT: positive: EOMI, ROBINA, Normal Voice, Pharynx Normal Neck: positive: Trachea midline, Supple. negative: Tender Respiratory/Chest: positive: Lungs Clear, Normal Breath Sounds. negative: Respiratory Distress, Accessory Muscle Use, Crackles, Rales, Wheezing Cardiovascular: positive: Regular Rhythm, Regular Rate, S1, S2. negative: Murmur Gastrointestinal/Abdominal: positive: Normal Bowel Sounds, Flat, Soft. negative : Tender, Organomegaly Musculoskeletal: positive: Normal Inspection. 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 Bolton is a 69 yo F with likely COPD (not formerly diagnosed but has a 20 pack year smoking hx and was recently hospitalized for PNA and referred to [facility] for PFTs but hasn't followed up yet) who presents to the ED for weakness. On physical exam the pt smelled of alcohol and her vitals were stable. RR was~16, pulse 90, BP 118/67, saturating at 93% on RA. Strength was 5/ 5 bilaterally in the upper and lower extremities and the pt was able to ambulate without difficulty. - Pt states she is feeling better and would like to go home. Pt sx likely 2/2 intoxication, she has sobered up is walking around and stable for discharge home at this time. We have instructed the patient to follow up with her ob/gyn and PCP. Discharge - Discharge Information Problems reviewed: Yes Clinical Impression/Diagnosis: Intoxication Condition: Stable Disposition: HOME - Admission No - Follow up/Referral - Patient Discharge Instructions Additional Instructions: You were in the hospital because you were feeling weak after drinking some alcohol. Your symptoms were likely caused by drinking too much alcohol, after resting for a while in the emergency department and sobering up a bit your strength returned to normal and your neurologic exam was also normal. Please follow up with your primary care doctor AND the ob/gyn you were referred to during your last hospitalization. Please return to the emergency department immediately if you have symptoms of sudden weakness, numbness or tingling in your hands or feet, bladder or bowel incontinence, chest pains, or shortness of breath. - Post Discharge Activity
[2019-07-14 22:57] VITALS: PULSE 78
== END 2019-07-14 22:58 | disposition home or self-care (01) ==
LOC: JER 20:38
DX: F10.120 Alcohol abuse with intoxication, uncomplicated (principal); J44.9 Chronic obstructive pulmonary disease, unspecified; F17.210 Nicotine dependence, cigarettes, uncomplicated
CPT/HCPCS: 99282-25

== ENCOUNTER 2020-02-24 17:33 | Emergency (ER) | payer BC ==
[2020-02-24 18:02] VITALS: BP 118/66; PULSE 94; TEMP 98.6; BMI 23.8
--- NOTE | 2020-02-24 18:02 | PDOC ---
Rapid Medical Evaluation Chief Complaint: Injury Medical Evaluation: Allergies Allergy/AdvReac Type Severity Reaction Status Date / Time No Known Allergies Allergy Verified 02/24/20 17:56 02/24/20 17:57 69 yo F BIBEMS h/o COPD, etoh abuse, drank 2 beers and "one cup of rum" today. son called ems because patient missed last step and fell down 13 steps. patient denies head strike, LOC, PINZON, cp, abd pain. patient states she stood up on her own and walked. denies use of any other illicit drugs. repeats "I want to go home" VSS thin A&Ox3 A/P: Fall while intoxicated stable vitals to main ed for evaluation
--- NOTE | 2020-02-24 18:54 | PDOC ---
History of Present Illness - General Chief Complaint: Injury Stated Complaint: FALL Time Seen by Provider: 02/24/20 18:28 History Source: Patient Exam Limitations: Intoxication - History of Present Illness Initial Comments: 02/24/20 18:44 69F PMH COPD, etoh abuse BIBEMS after missing a step and falling. Estimates 13 steps. Caught by son. Pt endorses etoh intake - 2 beers and ~ 8 oz rum. Denies head strike and LOC. states she did fall again when EMS was taking her to the ambulance. No f/c, cp/sob, n/v. Past History - Medical History Allergies/Adverse Reactions: Allergies Allergy/AdvReac Type Severity Reaction Status Date / Time No Known Allergies Allergy Verified 02/24/20 17:56 Home Medications: Ambulatory Orders Unobtainable 01/13/20 COPD: Yes - Psycho-Social/Smoking History Smoking History: Current every day smoker Have you smoked in the past 12 months: Yes Number of Cigarettes Smoked Daily: 3 Information on smoking cessation initiated: Yes 'Breaking Loose' booklet given: 05/02/19 - Substance Abuse Hx (Audit-C & DAST Scrn) How often the patient has a drink containing alcohol: 2-3 times / week Number of drinks the patient has on a typical day: 1 or 2 How often the patient has six or more drinks on one occasion: Never Score: In Men: 4 or > Positive; In Women: 3 or > Positive: 3 Screen Result (Pos requires Nsg. Audit-10AR): Positive In the last yr the pt used illegal drug/Rx for NonMed reason: No Score: Yes response is considered Positive: 0 Screen Result (Positive result requires Nsg. DAST-10): Negative Review of Systems - Review of Systems Comments:: 02/25/20 03:01 CONSTITUTIONAL: Denies F / C HEENT: Denies headache, lightheadedness, dizziness, changes in vision / hearing, sore throat, rhinorrhea RESP: Denies SOB, cough CARD: Denies chest pain, palpitations GI: Denies N / V / D, abdominal pain, bloody stool, inability to tolerate PO : Denies dysuria, hematuria, frequency NEURO: Endorses etoh intake. Denies numbness, tingling, weakness MSK: Denies back pain SKIN: Denies rashes *Physical Exam - Vital Signs Last Vital Signs Temp Pulse Resp BP Pulse Ox 98.6 F 94 H 17 118/66 97 02/24/20 17:56 02/24/20 17:56 02/24/20 17:56 02/24/20 17:56 02/24/20 17:56 - Physical Exam 02/25/20 03:01 GEN: NAD, comfortable. AAOx3. HEENT: NC/AT, CN II-XII intact, EOMI, PERRL. No facial asymmetry. Moist mucous membranes. Normal voice. Supple neck w/ FROM. CV: S1/S2, RRR, no m/r/g LUNG: CTAB, no wheezes, crackles, rales, rhonchi. GI: Soft, ndnt, +BS, no guarding, no rebound. MSK: No LE edema. No obvious deformities of all extremities. FROM w/o TTP. BACK: No obvious deformities, no step offs, no midline TTP. There is no pelvic instability. No signs of trauma. SKIN: Warm, dry, no rashes appreciated. PSYCH: Normal mood and affect. NEURO: Moving all extremities well. 5/5 UE strength b/l. 5/5 LE strength b/l. Sensation symmetric and intact throughout. Ambulatory, mild unsteadiness Medical Decision Making - Medical Decision Making 02/25/20 03:01 69F BIBEMS for fall. intox. neuro intact, atraumatic exam. - CT head and neck - likely dc home 02/24/20 20:26 CT head and neck negative for acute pathology; incidental findings conveyed to pt for further workup referred pt to [facility] for follow up Pt ambulating steadily Pt knows where she lives and will take a cab home DC home w/ f/u Discharge - Discharge Information Problems reviewed: Yes Clinical Impression/Diagnosis: Fall, Intoxication Condition: Stable Disposition: HOME - Admission No - Follow up/Referral - Patient Discharge Instructions Patient Printed Discharge Instructions: How to Prevent Falls Additional Instructions: Follow up with your Primary Care Doctor regarding this ED visit in the next 5-7 days. Please provide your doctor with the provided CT scan report. Continue your home medications as prescribed. Return to the nearest Emergency Department if you experience new or worsening symptoms - Post Discharge Activity
--- NOTE | 2020-02-24 20:08 | PDOC ---
Documentation entered by Roxana Goyal SCRIBE, acting as scribe for Britany Vásquez MD. Britany Vásquez MD: This documentation has been prepared by the Eran cavanaugh Xhesika, SCRIBE, under my direction and personally reviewed by me in its entirety. I confirm that the documentation accurately reflects all work, treatment, procedures, and medical decision making performed by me. Attending Attestation - Resident Resident Name: FreedomBenedict - ED Attending Attestation I have performed the following: I have examined & evaluated the patient, The case was reviewed & discussed with the resident, I agree w/resident's findings & plan, Exceptions are as noted - HPI HPI: 02/24/20 18:34 The patient is a 69 y/o F with a PMH of COPD, etoh abuse who presents to the ED BIBEMS s/p fall. Per son, EMS was called because patient fell down 13 steps. Pt was caught by the son. Pt states she was able to get up and ambulate. Pt notes she drank 2 beers and ~ 8 oz rum today. Pt denies any head trauma or LOC. The patient denies chest pain, shortness of breath, headache and dizziness. Denies fever, chills, cough, nausea, vomiting, diarrhea and constipation. Allergies: NKDA - Physicial Exam PE: 02/24/20 19:06 GENERAL: Awake, alert, and fully oriented, in no acute distress. +alcohol on breath HEAD: No signs of trauma. No scalp laceration LUNGS: Breath sounds equal, clear to auscultation bilaterally. No wheezes, and no crackles HEART: Regular rate and rhythm, normal S1 and S2, no murmurs, rubs or gallops ABDOMEN: Soft, nontender, normoactive bowel sounds. No guarding, no rebound. No masses EXTREMITIES: Normal range of motion, no edema. No clubbing or cyanosis. No cords, erythema, or tenderness NEUROLOGICAL: +slight unsteady gait. Good strength SKIN: +4cm burn L forearm. Warm, Dry, normal turgor. - Medical Decision Making 02/24/20 20:06 The head did not show any acute intracranial pathology, calvarium is intact, no masses, no midline shift ct scan c spine : no fracture pt is ambulatory and states she lives with family and will take a taxi home imp: etoh abuse/fall 02/24/20 21:52 Discharge - Discharge Information Problems reviewed: Yes Clinical Impression/Diagnosis: Fall, Intoxication Condition: Stable Disposition: HOME - Follow up/Referral - Patient Discharge Instructions Patient Printed Discharge Instructions: How to Prevent Falls Additional Instructions: Follow up with your Primary Care Doctor regarding this ED visit in the next 5-7 days. Please provide your doctor with the provided CT scan report. Continue your home medications as prescribed. Return to the nearest Emergency Department if you experience new or worsening symptoms - Post Discharge Activity
== END 2020-02-24 20:00 | disposition home or self-care (01) ==
LOC: JER 17:33
DX: F10.129 Alcohol abuse with intoxication, unspecified (principal)
CPT/HCPCS: 70450-TC; 72125-TC; 99284-25

== ENCOUNTER 2020-03-23 10:43 | Emergency (ER) | payer BC ==
[2020-03-23 10:55] VITALS: BMI 25.8
[2020-03-23] MEDS ORDERED: SODIUM CHLORIDE 1,000 ML IV ONE (13:24)
[2020-03-23] MEDS ORDERED: diazePAM CARPU-JECT 10 MG/2 ML DISP.SYRIN IVPUSH ONE (13:34)
--- NOTE | 2020-03-23 13:48 | PDOC ---
History of Present Illness - General History Source: Patient Exam Limitations: No Limitations - History of Present Illness Initial Comments: 03/23/20 13:41 Patient is a 69-year-old female who presents to the ED with complaint of lightheadedness since 7:30 this morning. She states that she was up doing laundry when she felt very lightheaded. She denies any room spinning but more like she was going to faint. She denies any fevers or chills. She denies any cough or chest pain. She denies any shortness of breath. She denies any recent travel or contact with anyone with COVID. The patient states she is still feeling lightheaded but it is slightly better than this morning. She feels very unsteady on her feet. The patient denies any past medical history or allergies to medications. She does admit to drinking alcohol often and last drink 2 days ago. She does feel very tremulous. The patient is unable to quantify the amount of alcohol that she drinks which she does drink. <Rosalba Fofana - Last Filed: 03/23/20 17:08> <Francy Dobson - Last Filed: 03/23/20 17:20> - General Chief Complaint: Tremors Stated Complaint: Blood Pressure Problem Time Seen by Provider: 03/23/20 13:12 Past History - Medical History COPD: Yes Other medical history: ETOH abuse - Psycho-Social/Smoking History Smoking History: Current every day smoker Have you smoked in the past 12 months: Yes Number of Cigarettes Smoked Daily: 3 Information on smoking cessation initiated: No 'Breaking Loose' booklet given: 05/02/19 - Substance Abuse Hx (Audit-C & DAST Scrn) How often the patient has a drink containing alcohol: 4 0r more times/wk Number of drinks the patient has on a typical day: 3 or 4 How often the patient has six or more drinks on one occasion: Less than monthly Score: In Men: 4 or > Positive; In Women: 3 or > Positive: 6 Screen Result (Pos requires Nsg. Audit-10AR): Positive In the last yr the pt used illegal drug/Rx for NonMed reason: No Score: Yes response is considered Positive: 0 Screen Result (Positive result requires Nsg. DAST-10): Negative <Rosalba Fofana - Last Filed: 03/23/20 17:08> <Francy Dobson - Last Filed: 03/23/20 17:20> - Medical History Allergies/Adverse Reactions: Allergies Allergy/AdvReac Type Severity Reaction Status Date / Time No Known Allergies Allergy Verified 02/24/20 17:56 Home Medications: Ambulatory Orders Unobtainable 01/13/20 Review of Systems - Review of Systems Comments:: 03/23/20 13:43 - Review of Systems Able to Perform ROS?: Yes Constitutional: No: Fever, Chills, Loss of Appetite, Night Sweats, Weakness HEENTM: No: Eye Pain, Vision changes, Ear Pain, Throat Pain, Throat Swelling, Mouth Pain, Difficulty Swallowing Respiratory: No: Cough, Shortness of Breath, Wheezing, Sputum Production Cardiac (ROS): No: Chest Pain, Chest Tightness, Palpitations, Irregular Heart Beat, Edema ABD/GI: No: Nausea, Vomiting, Abdominal Pain, Diarrhea : No Dysuria, No Hematuria, No Frequency, No Urgency Musculoskeletal: No: Muscle Pain, Back Pain, Joint Pain, Muscle Weakness, Neck Pain Integumentary: No: Lesions, Rash Neurological: No: Headache, Numbness, Tingling, Weakness, Speech Difficulties; positive lightheaded and tremors <Rosalba Fofana - Last Filed: 03/23/20 17:08> *Physical Exam - Vital Signs Last Vital Signs Temp Pulse Resp BP Pulse Ox 98.8 F 89 22 H 143/80 98 03/23/20 10:50 03/23/20 10:50 03/23/20 10:50 03/23/20 10:50 03/23/20 10:50 - Physical Exam 03/23/20 13:43 - Physical Exam General Appearance: Nourished, Appropriately Dressed, No Distress HEENT: EOMI, Normal Voice, Hearing Grossly Normal, no nystagmus appreciated. Positive tongue fasciculations appreciated. Neck: Supple, No Lymphadenopathy (R), No Lymphadenopathy (L), No Rigidity, No Decreased range of motion Respiratory/Chest: Lungs Clear, Normal Breath Sounds. No Respiratory Distress, No Accessory Muscle Use Cardiovascular: Regular Rhythm, Regular Rate, S1, S2 Gastrointestinal/Abdominal: Normal Bowel Sounds, Soft. Non-tender, No Guarding, No Rebound, No Rigidity Musculoskeletal: Normal Inspection. No Decreased Range of Motion Extremity: Normal Capillary Refill, Normal Inspection Integumentary: Normal Color, Dry. No Rash Neurologic: shear operator II-XII NML intact, Fully Oriented, Alert, Normal Mood/Affect, Normal Response; positive hand tremors appreciated. No asterixis. <Rosalba Fofana - Last Filed: 03/23/20 17:08> - Vital Signs Last Vital Signs Temp Pulse Resp BP Pulse Ox 98.8 F 89 22 H 143/80 98 03/23/20 10:50 03/23/20 10:50 03/23/20 10:50 03/23/20 10:50 03/23/20 10:50 <OlyaFrancy Carlos - Last Filed: 03/23/20 17:20> ED Treatment Course - LABORATORY CBC & Chemistry Diagram: 03/23/20 14:00 03/23/20 14:00 - RADIOLOGY Radiology Studies Ordered: Category Date Time Status HEAD CT WITHOUT CONTRAST [CT] Stat CT Scan 03/23/20 13:25 Ordered <Rosalba Fofana - Last Filed: 03/23/20 17:08> - LABORATORY CBC & Chemistry Diagram: 03/23/20 14:00 03/23/20 14:00 - ADDITIONAL ORDERS Additional order review: Laboratory Results 03/23/20 03/23/20 03/23/20 14:10 14:00 14:00 PT with INR INR PTT (Actin FS) Anticoagulation Therapy Puncture Site Patient Temperature ABG pH ABG pCO2 ABG pO2 ABG HCO3 ABG O2 Sat (Measured) ABG O2 Content ABG Base Excess Melchor Test Patient On Oxygen O2 Delivery Device Oxygen Flow Rate Vent Mode Vent Rate Mechanical Rate PEEP Pressure Support Vent Sodium 138 Potassium 5.1 Chloride 100 Carbon Dioxide 29 Anion Gap 9 BUN 5.6 L Creatinine 0.6 Est GFR (CKD-EPI)AfAm 107.79 Est GFR (CKD-EPI)NonAf 93.00 Random Glucose 67 L Calcium 9.7 Total Bilirubin 0.7 AST 107 H ALT 74 H Alkaline Phosphatase 84 Creatine Kinase 111 Troponin I < 0.02 Total Protein 7.7 Albumin 4.2 Urine Color Yellow Urine Appearance Clear Urine pH 6.5 D Ur Specific [place] 1.020 Urine Protein Negative Urine Glucose (UA) Negative Urine Ketones Negative Urine Blood Trace-intact Urine Nitrite Negative Urine Bilirubin Negative Urine Urobilinogen 0.2 Ur Leukocyte Esterase Negative Urine WBC (Auto) 3 Urine RBC (Auto) 8 Urine Casts (Auto) 0.25 U Epithel Cells (Auto) 5.7 Urine Bacteria (Auto) 135 Blood Type O POSITIVE Antibody Screen Negative 03/23/20 03/23/20 14:00 14:00 PT with INR 10.60 INR 0.90 PTT (Actin FS) 28.8 Anticoagulation Therapy No Result Required. Puncture Site Right radial Patient Temperature No Result Required. ABG pH 7.500 H ABG pCO2 27.10 L ABG pO2 64.6 L ABG HCO3 20.7 L ABG O2 Sat (Measured) 94.6 L ABG O2 Content No Result Required. ABG Base Excess -0.8 Melchor Test No Result Required. Patient On Oxygen No Result Required. O2 Delivery Device No Result Required. Oxygen Flow Rate No Result Required. Vent Mode No Result Required. Vent Rate No Result Required. Mechanical Rate No Result Required. PEEP No Result Required. Pressure Support Vent No Result Required. Sodium Potassium Chloride Carbon Dioxide Anion Gap BUN Creatinine Est GFR (CKD-EPI)AfAm Est GFR (CKD-EPI)NonAf Random Glucose Calcium Total Bilirubin AST ALT Alkaline Phosphatase Creatine Kinase Troponin I Total Protein Albumin Urine Color Urine Appearance Urine pH Ur Specific [place] Urine Protein Urine Glucose (UA) Urine Ketones Urine Blood Urine Nitrite Urine Bilirubin Urine Urobilinogen Ur Leukocyte Esterase Urine WBC (Auto) Urine RBC (Auto) Urine Casts (Auto) U Epithel Cells (Auto) Urine Bacteria (Auto) Blood Type Antibody Screen 03/23/20 14:00 RBC 4.46 MCV 98.1 H MCHC 32.8 RDW 13.5 MPV 8.2 Neutrophils % 70.8 D Lymphocytes % 19.5 D Monocytes % 8.7 Eosinophils % 0.1 D Basophils % 0.9 - Medications Given in the ED: ED Medications Discontinued Medications Generic Name Dose Route Start Last Admin Trade Name Freq PRN Reason Stop Dose Admin Diazepam 10 mg 03/23/20 13:34 03/23/20 14:11 Valium Injection - IVPUSH 03/23/20 13:35 10 mg ONCE ONE Administration Sodium Chloride 1,000 mls @ 1,000 mls/hr 03/23/20 13:24 03/23/20 14:11 Normal Saline - IV 03/23/20 14:23 1,000 mls/hr .Q1H ONE Administration <Francy Dobson - Last Filed: 03/23/20 17:20> Medical Decision Making - Medical Decision Making 03/23/20 13:48 Assessment: Patient 69-year-old female with a history of EtOH abuse who presents to the ED with lightheadedness and tremulousness. Plan: -Concern for alcohol withdrawal -CT head ordered to rule out neurologic pathology -Labs ordered -1 L of NS ordered, 10 mg of Valium ordered -Will reassess 03/23/20 14:57 Patient is feeling much more comfortable after getting Valium. She is resting comfortably on the stretcher. She is currently at CT head. 03/23/20 17:09 The patient has been made aware that her labs are stable. She has walked several times to the bathroom with a steady gait and without any lightheadedness. She states she is feeling much better. EKG done at 16: 52 shows a sinus rhythm at 85 bpm. Flat T waves in leads aVL and V4. The patient has been made aware that her liver function is slightly elevated. She should follow-up with her primary doctor and avoid alcohol as much as possible. She understands and agrees with this treatment plan and she is stable for discharge. <Rosalba Fofana - Last Filed: 03/23/20 17:08> - Medical Decision Making The patient was seen and evaluated in conjunction with midlevel provider under my direct supervision, ancillary studies were reviewed. I agree with the plan as outlined withAKANKSHA Fofana. HPI, workup/dispo as outlined. VS reviewed, wnl. Patient is most likely in mild alcohol withdrawal, will give benzo, reassess and close monitoring. cT head neg for acute pathology EKG normal sinus rhythm 81 bpm, no interval abnormalities, narrow QRS, ST and T wave segments and morphology normal. Nonspecific T wave abnormalities Anticipate discharge, pcp followup, return precautions 03/23/20 15:35 03/23/20 16:44 03/23/20 17:20 <Francy Dobson - Last Filed: 03/23/20 17:20> Discharge - Discharge Information Problems reviewed: Yes <Rosalba Fofana - Last Filed: 03/23/20 17:08> - Discharge Information Problems reviewed: Yes - Admission No <Francy Dobson - Last Filed: 08/17/20 17:20> - Discharge Information Clinical Impression/Diagnosis: Lightheadedness, Transaminitis, Alcohol abuse Condition: Stable Disposition: HOME - Follow up/Referral Referrals: [facility] – [place] [facility] [Provider Group] - Patient Discharge Instructions Patient Printed Discharge Instructions: DI for Dizziness-Nonvertigo Additional Instructions: Get plenty of rest and drink plenty of fluids. Try and avoid alcohol as your liver function is slightly elevated. Be sure to follow-up with your primary doctor within 1 to 2 days for repeat evaluation. If you do not have a doctor you have been referred 1. Be sure to take your time while getting up from a laying or sitting position as this can increase your lightheadedness. Return to the emergency department for worsening lightheadedness, numbness, tingling, slurred speech, chest pain, shortness of breath or any other worsening symptoms.
[2020-03-23] MEDS ORDERED: diazePAM CARPU-JECT 10 MG/2 ML DISP.SYRIN ONE (13:59)
[2020-03-23 14:19] LABS: INR 0.9 (0.83-1.09); PROTHROMBIN TIME (PATIENT) 10.6 SEC (9.7-13.0)
[2020-03-23 14:22] LABS: ACTIVATED PTT 28.8 SECONDS (25.2-36.5)
[2020-03-23 14:33] LABS: BASO % 0.9 % (0-2.0); EOS % 0.1 % (0-4.5); HEMATOCRIT 43.8 % (32.4-45.2); HEMOGLOBIN 14.4 GM/dL (10.7-15.3); LYMPH % 19.5 % (8-40); MCH 32.2 pg (25.7-33.7); MCHC 32.8 g/dl (32.0-36.0); MEAN CELL VOLUME 98.1 fl (80-96); MEAN PLT VOLUME 8.2 fl (7.5-11.1); MONO % 8.7 % (3.8-10.2); NEUT % 70.8 % (42.8-82.8); PLATELET COUNT 225 K/MM3 (134-434); RBC 4.46 M/mm3 (3.60-5.2); RDW 13.5 % (11.6-15.6); WHITE BLOOD COUNT 10.1 K/mm3 (4.0-10.0)
[2020-03-23 14:47] LABS: ALBUMIN 4.2 g/dl (3.4-5.0); ALK PHOS 84 U/L (45-117); ANION GAP 9 MMOL/L (8-16); BILIRUBIN,TOTAL 0.7 mg/dL (0.2-1); BLOOD UREA NITROGEN 5.6 mg/dL (7-18); CALCIUM 9.7 mg/dL (8.5-10.1); CHLORIDE 100 mmol/L (98-107); CO2 29 mmol/L (21-32); CREATININE 0.6 mg/dL (0.55-1.3); GLUCOSE,RANDOM 67 mg/dL (74-106); POTASSIUM 5.1 mmol/L (3.5-5.1); SGOT/AST 107 U/L (15-37); SGPT/ALT 74 U/L (13-61); SODIUM 138 mmol/L (136-145); TOT PROT 7.7 g/dl (6.4-8.2)
[2020-03-23 14:48] LABS: ARTERIAL BLD GAS O2 SATURATION 94.6 mmHg (95-98); ARTERIAL BLOOD GAS BASE EXCESS -0.8 mmol/L (-2-2); ARTERIAL BLOOD GAS PO2 64.6 mmHg (80-100)
[2020-03-23 15:06] LABS: PH,URINE 6.5 (5.0-8.0); URINE APPEARANCE Clear; URINE BILIRUBIN Negative (NEGATIVE); URINE COLOR Yellow; URINE GLUCOSE (UA) Negative (NEGATIVE); URINE KETONE Negative (NEGATIVE); URINE LEUK ESTERASE Negative (NEGATIVE); URINE NITRITE Negative (NEGATIVE); URINE PROTEIN Negative (NEGATIVE); URINE UROBILINOGEN 0.2 mg/dL (0.2-1.0)
[2020-03-23 15:13] LABS: EPI CELLS 5.7 /uL (0-25.1); HYALINE CASTS 0.25 /uL (0-3.1); URINE BACTERIA 135 /uL (0-1359); URINE RBC 8 /uL (0-23.9); URINE WBC 3 /uL (0-25.8)
[2020-03-23] MEDS ORDERED: chlordiazePOXIDE HCL 25 MG CAPSULE PO ONE (17:08)
[2020-03-23 17:18] VITALS: BP 142/90; PULSE 74; TEMP 98.5
[2020-03-23] MEDS ORDERED: chlordiazePOXIDE HCL 25 MG CAPSULE ONE (17:22)
--- NOTE | 2020-03-24 09:09 | EKG ---
Test Reason : Blood Pressure : / mmHG Vent. Rate : 085 BPM Atrial Rate : 085 BPM P-R Int : 098 ms QRS Dur : 072 ms QT Int : 406 ms P-R-T Axes : 062 060 085 degrees QTc Int : 483 ms POOR DATA QUALITY, INTERPRETATION MAY BE ADVERSELY AFFECTED SINUS RHYTHM WITH SHORT VT NONSPECIFIC T WAVE ABNORMALITY ABNORMAL ECG WHEN COMPARED WITH ECG OF 13-JAN-2020 12:08, NO SIGNIFICANT CHANGE WAS FOUND Confirmed by Luis Enrique Ponce MD ([id number]) on 03/24/2020 9:08:20 AM Referred By: Confirmed By:Luis Enrique Ponce MD
== END 2020-03-23 17:31 | disposition home or self-care (01) ==
LOC: JER 10:43
PROC: 3E033NZ Introduction of Analgesics, Hypnotics, Sedatives into Peripheral Vein, Percutaneous Approach (ICD-10-PCS; principal; 2020-03-23)
PROC: 3E0337Z Introduction of Electrolytic and Water Balance Substance into Peripheral Vein, Percutaneous Approach (ICD-10-PCS; 2020-03-23)
DX: R74.0 Nonspecific elevation of levels of transaminase and lactic acid dehydrogenase [LDH] (principal); R42 Dizziness and giddiness; F10.20 Alcohol dependence, uncomplicated
CPT/HCPCS: 36415; 36600; 70450-TC; 80053; 81003; 82550; 82803; 84484; 85025; 85610; 85730; 86850; 86900; 86901; 87086; 93005; 93010; 99285-25

== ENCOUNTER 2020-04-11 15:23 | Emergency (ER) | payer BC ==
[2020-04-11 15:42] VITALS: BMI 22.2
--- NOTE | 2020-04-11 16:53 | PDOC ---
History of Present Illness - History of Present Illness Initial Comments: HPI 69 yo with PMH of alcohol abuse and COPD presenting to the ED after an episode of SOB associated with chest tightness. Pt reports that she has been feeling increasingly anxious recently due to being out of work since the pandemic started and not being able to pay her bills. She reports that the chest tightness has occurred several times in the last month when she gets "very anxious and stressed." This time it started suddenly when she was sitting on her porch. Pt reports that when she became SOB, her niece gave her the albuterol nebulizer treatment she had at home. She reports this helped resolve her SOB. In the ED, she no longer has chest tightness or SOB. Pt reports she had 1 beer and two cups of bicardi at noon and reports that she is not currently intoxicated. Pt denies chest pain, abdominal pain, wheezing, changes in vision, coughing, headache, urinary changes, nausea, vomiting, diarrhea, or constipation. PMHX: as in HPI PSHX: see below Meds: pt reports that she uses an albuterol nebulizer prn (only uses it once every 3-4 months on average) Allergies: denies Tob: 1 pack per week x 40 years Etoh: 2-3 drinks daily; mixture of vodka and water usually; beer as well Rec drugs: denies PCP: pt reports that she does not recall ROS GENERAL/CONSTITUTIONAL: No fever or chills. No weakness. HEAD, EYES, EARS, NOSE AND THROAT: No change in vision. No ear pain or discharge. No sore throat. CARDIOVASCULAR: No chest pain or shortness of breath RESPIRATORY: No cough, wheezing, or hemoptysis. GASTROINTESTINAL: No nausea, vomiting, diarrhea or constipation. GENITOURINARY: No dysuria, frequency, or change in urination. MUSCULOSKELETAL: No joint or muscle swelling or pain. No neck or back pain. SKIN: No rash NEUROLOGIC: No headache, vertigo, loss of consciousness, or change in strength/sensation. ENDOCRINE: No increased thirst. No abnormal weight change HEMATOLOGIC/LYMPHATIC: No anemia, easy bleeding, or history of blood clots. ALLERGIC/IMMUNOLOGIC: No hives or skin allergy. Psych: +anxiety PE GENERAL: Awake, alert, and fully oriented, in no acute distress; anxious appearing HEAD: No signs of trauma, normocephalic, atraumatic EYES: PERRLA, EOMI, sclera anicteric, conjunctiva clear ENT: Auricles normal inspection, hearing grossly normal, nares patent, oropharynx clear without exudates. Moist mucosa NECK: Normal ROM, supple, no lymphadenopathy, JVD, or masses LUNGS: No distress, speaks full sentences, clear to auscultation bilaterally HEART: Regular rate and rhythm, normal S1 and S2, no murmurs, rubs or gallops, peripheral pulses normal and equal bilaterally. ABDOMEN: Soft, nontender, normoactive bowel sounds. No guarding, no rebound. No masses EXTREMITIES : Normal inspection, Normal range of motion, no edema. No clubbing or cyanosis. NEUROLOGICAL: Moving extremities equally and spontaenously. Normal speech, normal gait, no focal sensorimotor deficits SKIN: Warm, Dry, normal turgor, no rashes or lesions noted 04/11/20 17:25 <Cata Brady - Last Filed: 04/11/20 17:58> <Francy Dobson - Last Filed: 04/14/20 10:10> - General Chief Complaint: Alcohol intoxication Stated Complaint: INTOX/PANIC ATTACT/SOB Time Seen by Provider: 04/11/20 15:49 Past History - Medical History COPD: Yes - Psycho-Social/Smoking History Smoking History: Unknown if ever smoked Have you smoked in the past 12 months: Yes Number of Cigarettes Smoked Daily: 3 'Breaking Loose' booklet given: 05/02/19 - Substance Abuse Hx (Audit-C & DAST Scrn) How often the patient has a drink containing alcohol: 2-3 times / week Number of drinks the patient has on a typical day: 3 or 4 How often the patient has six or more drinks on one occasion: Never Score: In Men: 4 or > Positive; In Women: 3 or > Positive: 4 Screen Result (Pos requires Nsg. Audit-10AR): Positive In the last yr the pt used illegal drug/Rx for NonMed reason: No Score: Yes response is considered Positive: 0 Screen Result (Positive result requires Nsg. DAST-10): Negative <Cata Brady - Last Filed: 04/11/20 17:58> <Francy Dobson - Last Filed: 04/14/20 10:10> - Medical History Allergies/Adverse Reactions: Allergies Allergy/AdvReac Type Severity Reaction Status Date / Time No Known Allergies Allergy Verified 02/24/20 17:56 Home Medications: Ambulatory Orders Albuterol 0.083% Nebulizer Gin [Ventolin 0.083% Nebulizer Soln -] 1 neb NEB Q6H PRN #100 vial 04/11/20 *Physical Exam - Vital Signs Last Vital Signs Temp Pulse Resp BP Pulse Ox 97.9 F 90 18 142/86 96 04/11/20 15:27 04/11/20 15:27 04/11/20 15:27 04/11/20 15:27 04/11/20 15:27 <Cata Brady - Last Filed: 04/11/20 17:58> - Vital Signs Last Vital Signs Temp Pulse Resp BP Pulse Ox 98.7 F 72 20 130/60 100 04/11/20 17:27 04/11/20 17:27 04/11/20 17:27 04/11/20 17:27 04/11/20 17:27 <Francy Dobson - Last Filed: 04/14/20 10:10> ED Treatment Course - LABORATORY CBC & Chemistry Diagram: 04/11/20 16:45 04/11/20 16:45 - RADIOLOGY Radiology Studies Ordered: Category Date Time Status CXR [CHEST PA & LAT] [RAD] Stat Radiology 04/11/20 16:24 Ordered <Cata Brady - Last Filed: 04/11/20 17:58> - LABORATORY CBC & Chemistry Diagram: 04/11/20 16:45 04/11/20 16:45 - ADDITIONAL ORDERS Additional order review: 04/11/20 16:45 RBC 4.08 MCV 99.0 H MCHC 33.3 RDW 14.1 MPV 7.9 <Francy Dobson - Last Filed: 04/14/20 10:10> Medical Decision Making - Medical Decision Making MDM 69 yo with PMH of alcohol abuse and COPD presenting to the ED after an episode of SOB associated with chest tightness. DDX including but not limited to: panic attack/anxiety; will rule out other etiologies (i.e cardiac) W/U: -EKG -CXR -CBC, CMP, trop -anticipate discharge pending workup 04/11/20 17:26 - labs only significant for glucose of 66; will give pt food/juice - trop neg - CXR with no acute pathology 04/11/20 17:32 EKG normal sinus rhythm at 70 bpm, no interval abnormalities, narrow QRS, ST and T wave segments and morphology normal. Nonspecific T wave abnormalities Patient stable for discharge. Informed of all lab and imaging results. Given follow up instructions and strict return precautions. Patient expressed understanding and agree to plan. 04/11/20 17:58 <Cata Brady - Last Filed: 04/11/20 17:58> Discharge - Discharge Information Problems reviewed: Yes - Admission No <Cata Brady - Last Filed: 04/11/20 17:58> <Francy Dobson - Last Filed: 04/14/20 10:10> - Discharge Information Clinical Impression/Diagnosis: Panic attack Chest pain Qualifiers: Chest pain type: unspecified Qualified Code(s): R07.9 - Chest pain, unspecified COPD (chronic obstructive pulmonary disease) Qualifiers: COPD type: unspecified COPD Qualified Code(s): J44.9 - Chronic obstructive pulmonary disease, unspecified Condition: Improved Disposition: HOME - Additional Discharge Information Prescriptions: Albuterol 0.083% Nebulizer Gin [Ventolin 0.083% Nebulizer Soln -] 1 neb NEB Q6H PRN #100 vial PRN Reason: Shortness Of Breath - Follow up/Referral [place]: [facility] [place] [facility] [place] Group] - Patient Discharge Instructions Patient Printed Discharge Instructions: DI for Alcohol Abuse, DI for Anxiety -- Adult, DI for Panic Disorder Additional Instructions: You were seen in the ED for complaints of chest tightness and shortness of breath. In the ED you were evaluated with labs, chest xray, and EKG. Your results did not show any significant findings. There does not appear to be an acute need for immediate hospitalization. You are advised to follow up with your Primary Care Physician within 1 week. You were given a prescription for albuterol nebulizer solution. Return to the ED immediately if you experience increased chest pain, increased shortness of breath not responding to treatment, and any other concerning new symptoms you may develop.
[2020-04-11 17:03] LABS: HEMATOCRIT 40.4 % (32.4-45.2); HEMOGLOBIN 13.5 GM/dL (10.7-15.3); MCHC 33.3 g/dl (32.0-36.0); MEAN PLT VOLUME 7.9 fl (7.5-11.1); PLATELET COUNT 236 K/MM3 (134-434); RBC 4.08 M/mm3 (3.60-5.2); RDW 14.1 % (11.6-15.6); WHITE BLOOD COUNT 7.3 K/mm3 (4.0-10.0)
[2020-04-11 17:26] LABS: ALBUMIN 3.9 g/dl (3.4-5.0); ALK PHOS 82 U/L (45-117); ANION GAP 12 MMOL/L (8-16); BILIRUBIN,TOTAL 0.3 mg/dL (0.2-1); BLOOD UREA NITROGEN 5.6 mg/dL (7-18); CALCIUM 8.6 mg/dL (8.5-10.1); CHLORIDE 106 mmol/L (98-107); CO2 22 mmol/L (21-32); CREATININE 0.6 mg/dL (0.55-1.3); GLUCOSE,RANDOM 66 mg/dL (74-106); POTASSIUM 4.1 mmol/L (3.5-5.1); SGOT/AST 84 U/L (15-37); SGPT/ALT 54 U/L (13-61); SODIUM 141 mmol/L (136-145); TOT PROT 7.3 g/dl (6.4-8.2)
[2020-04-11 17:29] VITALS: BP 130/60; PULSE 72; TEMP 98.7
--- NOTE | 2020-04-11 17:35 | PDOC ---
Attending Attestation - Resident Resident Name: Cata Brady - ED Attending Attestation I have performed the following: I have examined & evaluated the patient, The case was reviewed & discussed with the resident, I agree w/resident's findings & plan - HPI HPI: 04/11/20 17:29 69 yo with PMH of alcohol abuse and COPD (no home O2) presenting to the ED after an episode of SOB associated with chest tightness. Pt reports that she has been feeling increasingly anxious recently due to being out of work since the pandemic started and not being able to pay her bills. She reports that the chest tightness has occurred several times in the last month when she gets "very anxious and stressed." This time it started suddenly when she was sitting on her porch. Pt reports that when she became SOB, her niece gave her the albuterol nebulizer treatment she had at home. She reports this helped resolve her SOB. In the ED, she no longer has chest tightness or SOB. Pt reports she had 1 beer and two cups of bicardi at noon and reports that she is not currently intoxicated. Pt denies chest pain, abdominal pain, wheezing, changes in vision, coughing, headache, urinary changes, nausea, vomiting, diarrhea, or constipation. - Physicial Exam PE: 04/11/20 17:29 Agree with the resident's HPI and PE as documented in the electronic medical record. NAD, well appearing, no nystagmus, EOMI, PERRL, nl conjunctiva, anicteric; neck supple. lungs clear, RRR, abdomen soft nontender. No rebound, no guarding. Back nontender. JOYCE x4, no focal neuro deficits. No peripheral edema. normal color for ethnicity, WWP. gait stable. speech is clear. - Medical Decision Making 04/11/20 17:29 Vital Signs Temp Pulse Resp BP Pulse Ox 98.7 F 72 20 130/60 100 04/11/20 17:27 04/11/20 17:27 04/11/20 17:27 04/11/20 17:27 04/11/20 17:27 vitals reviewed wnl. reassuring DDx chest pain: ACS, coronary vasospasm, NSTEMI, arrhythmia, unstable angina, PE, dissection, PUD, esophageal spasm, GERD, gastritis, costochondritis, pneumonia, pleurisy, pericarditis/myocarditis. dehydration, electrolyte/metabolic derangements. 04/11/20 17:40 labs and lytes wnl. neg trop, reassuring, unlikely cardiac. glucose is borderline low 66, mentating now. can tolerate PO intake, will feed no cp or sob now cxr is clear, no acute pathology ekg sinus rhythm, nonspecific t wave abnormalities, no elevations or depressions, similar to prior ekg. rx albuterol nebs/amps prn, given her copd and she ran out of her regimen. pt is clinically sober, gait is stable. no e/o trauma. no e/o alcohol withdrawal syndrome DC stable condition, return precautions. 04/11/20 17:55 Heart Score/ECG Review #1 ECG reviewed & interpreted by me at: 17:45 General ECG Interpretation: Sinus Rhythm, Normal Rate, Normal Intervals Compared to previous ECG there are: No significant change 04/11/20 17:48 EKG normal sinus rhythm at 70 bpm, no interval abnormalities, narrow QRS, ST and T wave segments and morphology normal. Nonspecific T wave abnormalities Discharge - Discharge Information Problems reviewed: Yes Clinical Impression/Diagnosis: Panic attack Chest pain Qualifiers: Chest pain type: unspecified Qualified Code(s): R07.9 - Chest pain, unspecified COPD (chronic obstructive pulmonary disease) Qualifiers: COPD type: unspecified COPD Qualified Code(s): J44.9 - Chronic obstructive pulmonary disease, unspecified Condition: Improved Disposition: HOME - Admission No - Additional Discharge Information Prescriptions: Albuterol 0.083% Nebulizer Gin [Ventolin 0.083% Nebulizer Soln -] 1 neb NEB Q6H PRN #100 vial PRN Reason: Shortness Of Breath - Follow up/Referral Referrals: [facility] [place] [facility] [place]] - Patient Discharge Instructions Patient Printed Discharge Instructions: DI for Alcohol Abuse, DI for Anxiety -- Adult, DI for Panic Disorder Additional Instructions: You were seen in the ED for complaints of chest tightness and shortness of breath. In the ED you were evaluated with labs, chest xray, and EKG. Your results did not show any significant findings. There does not appear to be an acute need for immediate hospitalization. You are advised to follow up with your Primary Care Physician within 1 week. You were given a prescription for albuterol nebulizer solution. Return to the ED immediately if you experience increased chest pain, increased shortness of breath not responding to treatment, and any other concerning new symptoms you may develop. - Post Discharge Activity
--- NOTE | 2020-04-12 12:42 | EKG ---
Test Reason : Blood Pressure : / mmHG Vent. Rate : 070 BPM Atrial Rate : 070 BPM P-R Int : 120 ms QRS Dur : 072 ms QT Int : 428 ms P-R-T Axes : 054 062 102 degrees QTc Int : 462 ms POOR DATA QUALITY, INTERPRETATION MAY BE ADVERSELY AFFECTED NORMAL SINUS RHYTHM T WAVE ABNORMALITY, CONSIDER ANTERIOR ISCHEMIA ABNORMAL ECG WHEN COMPARED WITH ECG OF 23-MAR-2020 16:52, INVERTED T WAVES HAVE REPLACED NONSPECIFIC T WAVE ABNORMALITY IN ANTERIOR LEADS Confirmed by Balaji Jose ([id number]) on 04/12/2020 12:41:41 PM Referred By: Confirmed By:Balaji Jose
== END 2020-04-11 18:18 | disposition home or self-care (01) ==
LOC: JER 15:23
DX: R07.9 Chest pain, unspecified (principal); J44.9 Chronic obstructive pulmonary disease, unspecified; F41.0 Panic disorder [episodic paroxysmal anxiety]
CPT/HCPCS: 36415; 71046-TC-FY; 80053; 84484; 85027; 93005; 93010; 99285-25

== ENCOUNTER 2020-06-19 05:22 | Emergency (ER) | payer BC ==
[2020-06-19 05:38] VITALS: TEMP 98.7; BMI 23.8
[2020-06-19 07:09] LABS: HEMOGLOBIN 14.7 GM/dL (10.7-15.3); MCH 32.7 pg (25.7-33.7); MCHC 33.3 g/dl (32.0-36.0); MEAN CELL VOLUME 98.2 fl (80-96); MEAN PLT VOLUME 8.8 fl (7.5-11.1); PLATELET COUNT 224 K/MM3 (134-434); RBC 4.49 M/mm3 (3.60-5.2); RDW 12.8 % (11.6-15.6)
[2020-06-19 07:25] LABS: CHLORIDE 103 mmol/L (98-107); SODIUM 129 mmol/L (136-145)
[2020-06-19 07:29] LABS: CALCIUM 9.3 mg/dL (8.5-10.1); CO2 27 mmol/L (21-32)
[2020-06-19 07:30] LABS: GLUCOSE,RANDOM 72 mg/dL (74-106)
[2020-06-19 07:33] LABS: CREATININE 0.8 mg/dL (0.55-1.3)
[2020-06-19 07:34] LABS: TOT PROT 8.9 g/dl (6.4-8.2)
[2020-06-19 07:35] LABS: ALK PHOS 78 U/L (45-117)
[2020-06-19] MEDS ORDERED: chlordiazePOXIDE HCL 25 MG CAPSULE PO ONE (07:51)
[2020-06-19] MEDS ORDERED: chlordiazePOXIDE HCL 25 MG CAPSULE ONE (08:27)
[2020-06-19 08:58] LABS: PH,URINE 7.5 (5.0-8.0); URINE APPEARANCE CLEAR; URINE BILIRUBIN NEGATIVE (NEGATIVE); URINE COLOR YELLOW; URINE GLUCOSE (UA) NEGATIVE (NEGATIVE); URINE KETONE NEGATIVE (NEGATIVE); URINE LEUK ESTERASE NEGATIVE (NEGATIVE); URINE NITRITE NEGATIVE (NEGATIVE); URINE PROTEIN NEGATIVE (NEGATIVE); URINE UROBILINOGEN 0.2 mg/dL (0.2-1.0)
[2020-06-19 09:16] LABS: POTASSIUM > 10.0 mmol/L (3.5-5.1)
[2020-06-19 09:31] LABS: LIPASE < 10 U/L (73-393)
[2020-06-19 10:40] LABS: OSMOLALITY,SERUM 287 mosm/kg (278-305)
[2020-06-19 11:18] LABS: POTASSIUM 4.8 mmol/L (3.5-5.1)
[2020-06-19 11:20] LABS: CALCIUM 9.4 mg/dL (8.5-10.1)
[2020-06-19 11:21] LABS: ALBUMIN 4.1 g/dl (3.4-5.0); BLOOD UREA NITROGEN 7.6 mg/dL (7-18)
[2020-06-19 11:24] LABS: CREATININE 0.7 mg/dL (0.55-1.3)
[2020-06-19 11:25] LABS: TOT PROT 7.2 g/dl (6.4-8.2)
[2020-06-19 13:03] VITALS: BP 127/74; PULSE 79
== END 2020-06-19 13:03 | disposition home or self-care (01) ==
LOC: JER 05:22
DX: R68.83 Chills (without fever) (principal)
CPT/HCPCS: 36415; 71045-TC-FY; 80053; 81003; 82436; 82550; 82553; 83690; 83930; 83935; 84300; 84484; 85027; 87086; 93005; 93010; 99284-25; C9803; U0003

== ENCOUNTER 2020-06-29 17:58 | Emergency (ER) | payer BC ==
[2020-06-29 18:43] VITALS: TEMP 98.2; BMI 29.2
[2020-06-29 21:36] VITALS: BP 122/64; PULSE 72
== END 2020-06-29 21:36 | disposition home or self-care (01) ==
LOC: JER 17:58
DX: R55 Syncope and collapse (principal)
CPT/HCPCS: 93005; 93010; 99283-25

== ENCOUNTER 2020-07-02 18:43 | Emergency (ER) | payer BC ==
[2020-07-02 18:53] VITALS: BP 135/90; PULSE 81; TEMP 98.8; BMI 18.6
== END 2020-07-02 20:15 | disposition home or self-care (01) ==
LOC: JER 18:43
DX: F10.120 Alcohol abuse with intoxication, uncomplicated (principal)
CPT/HCPCS: 93005; 93010; 99284-25

== ENCOUNTER 2020-07-18 08:38 | Observation (INO) | payer BC, OTHER ==
[2020-07-18] MEDS ORDERED: DEXTROSE 50%-WATER - 25 GM/50 ML VIAL IVPUSH ONE (09:04)
[2020-07-18] MEDS ORDERED: DEXTROSE 50%-WATER 25 GM/50 ML DISP.SYRIN ONE (09:04)
[2020-07-18 09:31] LABS: BASO % 0.6 % (0-2.0); HEMATOCRIT 39.2 % (32.4-45.2); HEMOGLOBIN 12.4 GM/dL (10.7-15.3); LYMPH % 7.5 % (8-40); MCH 31.6 pg (25.7-33.7); MCHC 31.7 g/dl (32.0-36.0); MEAN CELL VOLUME 99.8 fl (80-96); MEAN PLT VOLUME 8.5 fl (7.5-11.1); MONO % 5.2 % (3.8-10.2); NEUT % 86.7 % (42.8-82.8); PLATELET COUNT 317 K/MM3 (134-434); RBC 3.93 M/mm3 (3.60-5.2); RDW 13.6 % (11.6-15.6); WHITE BLOOD COUNT 15.8 K/mm3 (4.0-10.0)
[2020-07-18 09:39] LABS: CHLORIDE 101 mmol/L (98-107); SODIUM 134 mmol/L (136-145)
[2020-07-18 09:42] LABS: CALCIUM 9.1 mg/dL (8.5-10.1)
[2020-07-18 09:43] LABS: BLOOD UREA NITROGEN 12.1 mg/dL (7-18); CO2 17 mmol/L (21-32); MAGNESIUM 1.8 mg/dL (1.8-2.4)
[2020-07-18 09:44] LABS: ALBUMIN 3.6 g/dl (3.4-5.0)
[2020-07-18 09:45] LABS: SGOT/AST 210 U/L (15-37); SGPT/ALT 94 U/L (13-61)
[2020-07-18 09:46] LABS: CREATININE 0.7 mg/dL (0.55-1.3); PHOSPHOROUS 5.9 mg/dL (2.5-4.9)
[2020-07-18 09:47] LABS: BILIRUBIN,TOTAL 0.5 mg/dL (0.2-1); TOT PROT 7.1 g/dl (6.4-8.2)
[2020-07-18 09:48] LABS: ALK PHOS 75 U/L (45-117)
[2020-07-18 09:58] LABS: ANION GAP 16 MMOL/L (8-16)
[2020-07-18 10:00] VITALS: BMI 23.2
[2020-07-18 10:00] LABS: GLUCOSE,RANDOM 20 mg/dL (74-106); POTASSIUM 6.1 mmol/L (3.5-5.1)
[2020-07-18] MEDS ORDERED: FOLIC ACID INJECTION - 1 MG, THIAMINE HCL 100 MG, MULTIVIT INJECTION ADULT 10 ML in SOD... IVPB ONE (10:13)
[2020-07-18] MEDS ORDERED: VANCOMYCIN 1 GM in D5W (PRE-DOCKED) 1,000 MG/250 ML IVPB ONE (12:13)
[2020-07-18] MEDS ORDERED: PIPERACILLIN/TAZOB 4.5 GM 4.5 GM in DEXTROSE 5%-WATER 100 ML IVPB ONE (12:13)
[2020-07-18 12:21] LABS: URINE APPEARANCE CLEAR; URINE BILIRUBIN NEGATIVE (NEGATIVE); URINE COLOR YELLOW; URINE GLUCOSE (UA) 2+ (NEGATIVE); URINE KETONE 2+ (NEGATIVE); URINE LEUK ESTERASE NEGATIVE (NEGATIVE); URINE NITRITE NEGATIVE (NEGATIVE); URINE PROTEIN TRACE (NEGATIVE); URINE UROBILINOGEN 0.2 mg/dL (0.2-1.0)
[2020-07-18] MEDS ORDERED: SODIUM CHLORIDE 0.9% 1000 ML INFUS.BAG IV ONE (12:40)
[2020-07-18 13:37] LABS: CHLORIDE 99 mmol/L (98-107); POTASSIUM 3.7 mmol/L (3.5-5.1); SODIUM 135 mmol/L (136-145)
[2020-07-18 13:38] LABS: CALCIUM 8.6 mg/dL (8.5-10.1)
[2020-07-18 13:39] LABS: ANION GAP 9 MMOL/L (8-16); BLOOD UREA NITROGEN 11.6 mg/dL (7-18); CO2 26 mmol/L (21-32); GLUCOSE,RANDOM 186 mg/dL (74-106)
[2020-07-18 13:42] LABS: CREATININE 0.7 mg/dL (0.55-1.3)
[2020-07-18] MEDS ORDERED: DEXTROSE 50%-WATER - 25 GM/50 ML VIAL IVPUSH PRN (16:58)
[2020-07-19 06:52] LABS: HEMATOCRIT 33.7 % (32.4-45.2); HEMOGLOBIN 11.2 GM/dL (10.7-15.3); MCH 32.8 pg (25.7-33.7); MCHC 33.4 g/dl (32.0-36.0); MEAN CELL VOLUME 98.3 fl (80-96); MEAN PLT VOLUME 8.6 fl (7.5-11.1); PLATELET COUNT 279 K/MM3 (134-434); RBC 3.43 M/mm3 (3.60-5.2); RDW 13.6 % (11.6-15.6); WHITE BLOOD COUNT 8.7 K/mm3 (4.0-10.0)
[2020-07-19 07:10] LABS: POTASSIUM 3.4 mmol/L (3.5-5.1)
[2020-07-19 07:19] LABS: ALBUMIN 2.9 g/dl (3.4-5.0)
[2020-07-19 07:20] LABS: MAGNESIUM 1.8 mg/dL (1.8-2.4)
[2020-07-19 07:23] LABS: CREATININE 0.6 mg/dL (0.55-1.3); PHOSPHOROUS 3.2 mg/dL (2.5-4.9)
[2020-07-19 07:24] LABS: TOT PROT 5.4 g/dl (6.4-8.2)
[2020-07-19] MEDS: FOLIC ACID 1 MG TABLET (FP) PO SCH (10:23)
[2020-07-19] MEDS: THIAMINE HCL 100 MG TABLET (FP) PO SCH (10:23)
[2020-07-19] MEDS ORDERED: LORazepam 2 MG/ML SDV VIAL IVPUSH PRN (23:06)
[2020-07-20] MEDS: FOLIC ACID 1 MG TABLET (FP) PO SCH (09:18)
[2020-07-20] MEDS: THIAMINE HCL 100 MG TABLET (FP) PO SCH (09:18)
[2020-07-20 12:40] LABS: BASO % 0.3 % (0-2.0); EOS % 0.3 % (0-4.5); HEMATOCRIT 35.1 % (32.4-45.2); HEMOGLOBIN 11.7 GM/dL (10.7-15.3); LYMPH % 26.2 % (8-40); MCH 32.7 pg (25.7-33.7); MCHC 33.3 g/dl (32.0-36.0); MEAN CELL VOLUME 98.1 fl (80-96); MEAN PLT VOLUME 8.5 fl (7.5-11.1); MONO % 10.6 % (3.8-10.2); NEUT % 62.6 % (42.8-82.8); PLATELET COUNT 257 K/MM3 (134-434); RBC 3.58 M/mm3 (3.60-5.2); RDW 13.3 % (11.6-15.6); WHITE BLOOD COUNT 8.8 K/mm3 (4.0-10.0)
[2020-07-20 13:00] LABS: POTASSIUM 3.9 mmol/L (3.5-5.1)
[2020-07-20 13:02] LABS: ALBUMIN 3.2 g/dl (3.4-5.0); BLOOD UREA NITROGEN 5.2 mg/dL (7-18); CALCIUM 9.2 mg/dL (8.5-10.1); MAGNESIUM 1.7 mg/dL (1.8-2.4)
[2020-07-20 13:05] LABS: CHOLESTEROL 228 mg/dL (50-200); CREATININE 0.5 mg/dL (0.55-1.3); TRIGLYCERIDES 154 mg/dL (0-150)
[2020-07-20 13:06] LABS: LDL CHOLESTEROL (ONLY SJRH) 121 mg/dL (5-100); PHOSPHOROUS 2.8 mg/dL (2.5-4.9)
[2020-07-20 13:07] LABS: BILIRUBIN,TOTAL 0.6 mg/dL (0.2-1)
[2020-07-20 13:08] LABS: HDL CHOLESTEROL 82 mg/dL (40-60)
[2020-07-20] MEDS ORDERED: DEXTROSE 50%-WATER - 25 GM/50 ML VIAL IVPUSH PRN (18:34)
[2020-07-20] MEDS ORDERED: LORazepam 2 MG/ML SDV VIAL IVPUSH PRN (18:34)
[2020-07-21] MEDS ORDERED: THIAMINE HCL 100 MG TABLET (FP) PO SCH (10:00)
[2020-07-21] MEDS ORDERED: FOLIC ACID 1 MG TABLET (FP) PO SCH (10:00)
[2020-07-21 11:19] VITALS: BP 138/78; PULSE 75; TEMP 98.6
== END 2020-07-21 14:18 | disposition home or self-care (01) ==
LOC: JER 08:38 → JERBED 12:06 → J4S 15:24 → J8W 07-20 18:20
PROVIDERS: ADMIT Internal Medicine; ATTEND Internal Medicine
PROC: 3E033GC Introduction of Other Therapeutic Substance into Peripheral Vein, Percutaneous Approach (ICD-10-PCS; principal; 2020-07-18)
PROC: 3E0337Z Introduction of Electrolytic and Water Balance Substance into Peripheral Vein, Percutaneous Approach (ICD-10-PCS; 2020-07-18)
DX: E16.2 Hypoglycemia, unspecified (principal); F10.10 Alcohol abuse, uncomplicated; R94.31 Abnormal electrocardiogram [ECG] [EKG]; R55 Syncope and collapse; J44.9 Chronic obstructive pulmonary disease, unspecified
CPT/HCPCS: 36415; 70450-TC; 71045-TC-FY; 80048; 80053; 80061; 80307; 81003; 82010; 82962; 83036; 83721; 83735; 84100; 84484; 84681; 85025; 85027; 93005; 93010; 93306-TC; 99285-25; C9803; G0378; U0003

== ENCOUNTER 2020-08-11 08:56 | Emergency (ER) | payer BC ==
[2020-08-11 09:32] VITALS: BMI 23.8
[2020-08-11] MEDS ORDERED: SODIUM CHLORIDE 1,000 ML IV STA (10:37)
[2020-08-11] MEDS ORDERED: ACETAMINOPHEN 1000 MG/100 ML BAG IVPB ONE (10:37)
[2020-08-11] MEDS ORDERED: ONDANSETRON 4 MG/2 ML VIAL IVPUSH ONE (10:39)
[2020-08-11] MEDS ORDERED: ONDANSETRON 4 MG/2 ML VIAL ONE (10:45)
[2020-08-11] MEDS ORDERED: ACETAMINOPHEN INJECTION 100 ML IVPB ONE (10:48)
[2020-08-11 10:54] LABS: EPI CELLS >36 /uL (0-25.1); HYALINE CASTS 1 /uL (0-3.1); URINE APPEARANCE CLEAR; URINE BACTERIA 5262 /uL (0-1359); URINE BILIRUBIN NEGATIVE (NEGATIVE); URINE COLOR YELLOW; URINE GLUCOSE (UA) NEGATIVE (NEGATIVE); URINE KETONE TRACE (NEGATIVE); URINE LEUK ESTERASE TRACE (NEGATIVE); URINE NITRITE NEGATIVE (NEGATIVE); URINE PROTEIN TRACE (NEGATIVE); URINE RBC 16 /uL (0-23.9); URINE UROBILINOGEN 0.2 mg/dL (0.2-1.0); URINE WBC 51 /uL (0-25.8)
[2020-08-11] MEDS ORDERED: FAMOTIDINE 20 MG/50 ML IVPB 20 MG/50 ML MG IVPB ONE ×2 (11:01→11:10)
[2020-08-11] MEDS ORDERED: chlordiazePOXIDE HCL 25 MG CAPSULE PO ONE (11:05)
[2020-08-11] MEDS ORDERED: chlordiazePOXIDE HCL 25 MG CAPSULE ONE (11:09)
[2020-08-11] MEDS ORDERED: ALBUTEROL SO4 HFA INHALER IH ONE ×2 (11:41→11:48)
[2020-08-11 11:45] LABS: EOS % 0.1 % (0-4.5); HEMATOCRIT 36.4 % (32.4-45.2); HEMOGLOBIN 12.6 GM/dL (10.7-15.3); LYMPH % 18.7 % (8-40); MCH 33.3 pg (25.7-33.7); MCHC 34.5 g/dl (32.0-36.0); MEAN CELL VOLUME 96.5 fl (80-96); MEAN PLT VOLUME 7.6 fl (7.5-11.1); MONO % 6.2 % (3.8-10.2); PLATELET COUNT 229 K/MM3 (134-434); RBC 3.78 M/mm3 (3.60-5.2); RDW 13.3 % (11.6-15.6)
[2020-08-11 12:03] LABS: CHLORIDE 104 mmol/L (98-107); SODIUM 139 mmol/L (136-145)
[2020-08-11 12:06] LABS: ALBUMIN 3.9 g/dl (3.4-5.0); ANION GAP 8 MMOL/L (8-16); BLOOD UREA NITROGEN 6.6 mg/dL (7-18); CALCIUM 8.9 mg/dL (8.5-10.1); CO2 27 mmol/L (21-32)
[2020-08-11 12:07] LABS: GLUCOSE,RANDOM 77 mg/dL (74-106)
[2020-08-11 12:09] LABS: CREATININE 0.6 mg/dL (0.55-1.3); SGOT/AST 49 U/L (15-37); SGPT/ALT 34 U/L (13-61)
[2020-08-11 12:11] LABS: BILIRUBIN,TOTAL 1.2 mg/dL (0.2-1)
[2020-08-11 12:12] LABS: ALK PHOS 96 U/L (45-117)
[2020-08-11 12:14] LABS: LDH 272 U/L (84-246); LIPASE 60 U/L (73-393)
[2020-08-11 13:38] VITALS: TEMP 99
[2020-08-11 14:28] VITALS: BP 149/68; PULSE 89
== END 2020-08-11 14:20 | disposition home or self-care (01) ==
LOC: JER 08:56
PROC: 3E0333Z Introduction of Anti-inflammatory into Peripheral Vein, Percutaneous Approach (ICD-10-PCS; principal; 2020-08-11)
PROC: 3E033GC Introduction of Other Therapeutic Substance into Peripheral Vein, Percutaneous Approach (ICD-10-PCS; 2020-08-11)
PROC: 3E033GC Introduction of Other Therapeutic Substance into Peripheral Vein, Percutaneous Approach (ICD-10-PCS; 2020-08-11)
PROC: 3E0337Z Introduction of Electrolytic and Water Balance Substance into Peripheral Vein, Percutaneous Approach (ICD-10-PCS; 2020-08-11)
DX: F10.10 Alcohol abuse, uncomplicated (principal)
CPT/HCPCS: 36415; 71045-TC-FY; 80053; 81003; 82550; 82728; 83605; 83615; 83690; 84484; 85025; 86140; 87040; 87086; 93005; 93010; 99285-25; C9803; J0131; U0003

== ENCOUNTER 2020-09-10 06:23 | Emergency (ER) | payer BC ==
[2020-09-10 06:47] VITALS: TEMP 98.8; BMI 23.8
[2020-09-10] MEDS ORDERED: ACETAMINOPHEN 325 MG TABLET (FP) PO ONE (07:25)
[2020-09-10] MEDS ORDERED: ACETAMINOPHEN 325 MG TABLET (FP) ONE (08:31)
[2020-09-10 09:13] LABS: BASO % 1.1 % (0-2.0); EOS % 0.2 % (0-4.5); HEMATOCRIT 38.3 % (32.4-45.2); HEMOGLOBIN 13.1 GM/dL (10.7-15.3); LYMPH % 36.7 % (8-40); MCH 33.3 pg (25.7-33.7); MCHC 34.2 g/dl (32.0-36.0); MEAN CELL VOLUME 97.5 fl (80-96); MEAN PLT VOLUME 7.3 fl (7.5-11.1); MONO % 8.2 % (3.8-10.2); NEUT % 53.8 % (42.8-82.8); PLATELET COUNT 303 K/MM3 (134-434); RBC 3.93 M/mm3 (3.60-5.2); RDW 13.3 % (11.6-15.6); WHITE BLOOD COUNT 8.1 K/mm3 (4.0-10.0)
[2020-09-10 09:31] LABS: CHLORIDE 110 mmol/L (98-107); POTASSIUM 4.6 mmol/L (3.5-5.1); SODIUM 146 mmol/L (136-145)
[2020-09-10 09:35] LABS: ALBUMIN 3.4 g/dl (3.4-5.0); ANION GAP 7 MMOL/L (8-16); BLOOD UREA NITROGEN 12.9 mg/dL (7-18); CALCIUM 8.6 mg/dL (8.5-10.1); CO2 29 mmol/L (21-32); GLUCOSE,RANDOM 78 mg/dL (74-106)
[2020-09-10 09:38] LABS: CREATININE 0.6 mg/dL (0.55-1.3); SGOT/AST 30 U/L (15-37); SGPT/ALT 26 U/L (13-61)
[2020-09-10 09:40] LABS: ALK PHOS 75 U/L (45-117); BILIRUBIN,TOTAL 0.6 mg/dL (0.2-1); TOT PROT 6.4 g/dl (6.4-8.2)
[2020-09-10 11:44] VITALS: BP 128/70; PULSE 82
== END 2020-09-10 11:45 | disposition home or self-care (01) ==
LOC: JER 06:23
DX: F10.920 Alcohol use, unspecified with intoxication, uncomplicated (principal)
CPT/HCPCS: 36415; 70450-TC; 71045-TC-FY; 72125-TC; 80053; 80307; 84484; 85025; 93005; 93010; 99285-25; C9803; U0003

== ENCOUNTER 2020-10-19 12:18 | Emergency (ER) | payer BC ==
[2020-10-19 13:35] VITALS: BP 121/47; PULSE 72; TEMP 98.9; BMI 23.8
== END 2020-10-19 15:44 | disposition home or self-care (01) ==
LOC: JER 12:18 → JCOVINFU 12:18 → JER 15:44
DX: F10.129 Alcohol abuse with intoxication, unspecified (principal)
CPT/HCPCS: 99281-25

== ENCOUNTER 2020-10-26 17:01 | Inpatient (IN) | payer BC, OTHER ==
[2020-10-26 20:09] LABS: BASO % 0.4 % (0-2.0); EOS % 0.3 % (0-4.5); HEMOGLOBIN 12.8 GM/dL (10.7-15.3); LYMPH % 40.2 % (8-40); MCHC 33.8 g/dl (32.0-36.0); MEAN CELL VOLUME 97.6 fl (80-96); MEAN PLT VOLUME 7.9 fl (7.5-11.1); MONO % 8.2 % (3.8-10.2); NEUT % 50.9 % (42.8-82.8); PLATELET COUNT 287 K/MM3 (134-434); RDW 12.6 % (11.6-15.6); WHITE BLOOD COUNT 8.6 K/mm3 (4.0-10.0)
[2020-10-26 20:39] LABS: CHLORIDE 105 mmol/L (98-107); POTASSIUM 4.1 mmol/L (3.5-5.1); SODIUM 139 mmol/L (136-145)
[2020-10-26 20:42] LABS: ALBUMIN 3.6 g/dl (3.4-5.0); ANION GAP 8 MMOL/L (8-16); BLOOD UREA NITROGEN 6.7 mg/dL (7-18); CO2 26 mmol/L (21-32); GLUCOSE,RANDOM 80 mg/dL (74-106)
[2020-10-26 20:45] LABS: CREATININE 0.6 mg/dL (0.55-1.3); SGOT/AST 36 U/L (15-37); SGPT/ALT 24 U/L (13-61)
[2020-10-26 20:48] LABS: BILIRUBIN,TOTAL 0.3 mg/dL (0.2-1); TOT PROT 6.9 g/dl (6.4-8.2)
[2020-10-26 20:49] LABS: ALK PHOS 76 U/L (45-117)
[2020-10-26] MEDS ORDERED: LORazepam 2 MG/ML SDV VIAL IVPUSH ONE (23:41)
[2020-10-27] MEDS ORDERED: FOLIC ACID INJECTION - 1 MG, THIAMINE HCL 100 MG, MULTIVIT INJECTION ADULT 10 ML in SOD... IVPB ONE (00:30)
[2020-10-27] MEDS ORDERED: ACETAMINOPHEN 325 MG TABLET (FP) PO ONE (03:03)
[2020-10-27 03:09] LABS: EPI CELLS >36 /uL (0-25.1); HYALINE CASTS 1 /uL (0-3.1); PH,URINE 5.5 (5.0-8.0); URINE APPEARANCE CLOUDY; URINE BACTERIA 1450 /uL (0-1359); URINE BILIRUBIN NEGATIVE (NEGATIVE); URINE COLOR YELLOW; URINE GLUCOSE (UA) NEGATIVE (NEGATIVE); URINE KETONE NEGATIVE (NEGATIVE); URINE LEUK ESTERASE TRACE (NEGATIVE); URINE NITRITE NEGATIVE (NEGATIVE); URINE PROTEIN NEGATIVE (NEGATIVE); URINE RBC 3 /uL (0-23.9); URINE UROBILINOGEN 0.2 mg/dL (0.2-1.0); URINE WBC 52 /uL (0-25.8)
[2020-10-27] MEDS ORDERED: ACETAMINOPHEN 325 MG TABLET (FP) ONE (03:43)
[2020-10-27 05:59] LABS: BASO % 0.7 % (0-2.0); EOS % 0.3 % (0-4.5); HEMATOCRIT 40.3 % (32.4-45.2); HEMOGLOBIN 13.5 GM/dL (10.7-15.3); LYMPH % 24.9 % (8-40); MCH 32.7 pg (25.7-33.7); MCHC 33.4 g/dl (32.0-36.0); MEAN CELL VOLUME 97.7 fl (80-96); MEAN PLT VOLUME 7.4 fl (7.5-11.1); MONO % 9.4 % (3.8-10.2); NEUT % 64.7 % (42.8-82.8); PLATELET COUNT 260 K/MM3 (134-434); RBC 4.12 M/mm3 (3.60-5.2); RDW 12.7 % (11.6-15.6); WHITE BLOOD COUNT 9.6 K/mm3 (4.0-10.0)
[2020-10-27 06:12] VITALS: BMI 22.2
[2020-10-27 06:17] LABS: POTASSIUM 4.2 mmol/L (3.5-5.1)
[2020-10-27 06:21] LABS: ALBUMIN 3.4 g/dl (3.4-5.0); BLOOD UREA NITROGEN 6.5 mg/dL (7-18); CALCIUM 8.5 mg/dL (8.5-10.1)
[2020-10-27 06:23] LABS: CREATININE 0.6 mg/dL (0.55-1.3); PHOSPHOROUS 3.4 mg/dL (2.5-4.9)
[2020-10-27 06:24] LABS: BILIRUBIN,TOTAL 0.6 mg/dL (0.2-1); TOT PROT 6.3 g/dl (6.4-8.2)
[2020-10-27] MEDS ORDERED: PT OWN MED DRAWER 7, Y5N ONE (09:42)
[2020-10-27] MEDS: ENOXAPARIN NA (PORCINE) 40 MG/0.4 ML DISP.SYRIN SQ SCH (09:43)
[2020-10-27] MEDS: MULTIVITAMINS (DAILY MVI) TABLET (FP) PO SCH (09:43)
[2020-10-27] MEDS: THIAMINE HCL 200 MG/2 ML VIAL IVPB SCH (09:43)
[2020-10-27] MEDS: FOLIC ACID 1 MG TABLET (FP) PO SCH (09:43)
[2020-10-27] MEDS: NICOTINE 7 MG/24 HOURS TOPICAL PATCH TD SCH (12:04)
[2020-10-27] MEDS: LORazepam 0.5 MG TABLET PO SCH (21:17)
[2020-10-28] MEDS: LORazepam 0.5 MG TABLET PO SCH ×3 (05:29→21:13)
[2020-10-28] MEDS ORDERED: PT OWN MED DRAWER 7, Y5N ONE (11:05)
[2020-10-28] MEDS: ENOXAPARIN NA (PORCINE) 40 MG/0.4 ML DISP.SYRIN SQ SCH (11:10)
[2020-10-28] MEDS: THIAMINE HCL 200 MG/2 ML VIAL IVPB SCH (11:11)
[2020-10-28] MEDS: MULTIVITAMINS (DAILY MVI) TABLET (FP) PO SCH (11:11)
[2020-10-28] MEDS: NICOTINE 7 MG/24 HOURS TOPICAL PATCH TD SCH (11:11)
[2020-10-28] MEDS: FOLIC ACID 1 MG TABLET (FP) PO SCH (11:11)
[2020-10-29] MEDS: LORazepam 0.5 MG TABLET PO SCH ×3 (06:33→22:14)
[2020-10-29] MEDS: MULTIVITAMINS (DAILY MVI) TABLET (FP) PO SCH (09:26)
[2020-10-29] MEDS: THIAMINE HCL 200 MG/2 ML VIAL IVPB SCH (09:26)
[2020-10-29] MEDS: NICOTINE 7 MG/24 HOURS TOPICAL PATCH TD SCH (09:26)
[2020-10-29] MEDS: FOLIC ACID 1 MG TABLET (FP) PO SCH (09:26)
[2020-10-29] MEDS: ENOXAPARIN NA (PORCINE) 40 MG/0.4 ML DISP.SYRIN SQ SCH (09:26)
[2020-10-29] MEDS: levETIRAcetam 500 MG TABLET (FP) PO SCH (22:14)
[2020-10-30] MEDS: LORazepam 0.5 MG TABLET PO SCH ×3 (05:01→21:24)
[2020-10-30] MEDS ORDERED: PT OWN MED DRAWER 7, Y5N ONE (09:50)
[2020-10-30] MEDS: levETIRAcetam 500 MG TABLET (FP) PO SCH ×2 (09:57→21:24)
[2020-10-30] MEDS: ENOXAPARIN NA (PORCINE) 40 MG/0.4 ML DISP.SYRIN SQ SCH (09:57)
[2020-10-30] MEDS: NICOTINE 7 MG/24 HOURS TOPICAL PATCH TD SCH (09:57)
[2020-10-30] MEDS: FOLIC ACID 1 MG TABLET (FP) PO SCH (09:57)
[2020-10-30] MEDS: MULTIVITAMINS (DAILY MVI) TABLET (FP) PO SCH (09:58)
[2020-10-30] MEDS: THIAMINE HCL 200 MG/2 ML VIAL IVPB SCH (09:59)
[2020-10-31 06:05] VITALS: TEMP 97.5
[2020-10-31] MEDS: LORazepam 0.5 MG TABLET PO SCH (06:32)
[2020-10-31] MEDS ORDERED: PT OWN MED DRAWER 7, Y5N ONE (09:42)
[2020-10-31] MEDS: FOLIC ACID 1 MG TABLET (FP) PO SCH (09:45)
[2020-10-31] MEDS: levETIRAcetam 500 MG TABLET (FP) PO SCH (09:46)
[2020-10-31] MEDS: ENOXAPARIN NA (PORCINE) 40 MG/0.4 ML DISP.SYRIN SQ SCH (09:46)
[2020-10-31] MEDS: NICOTINE 7 MG/24 HOURS TOPICAL PATCH TD SCH (09:46)
[2020-10-31] MEDS: THIAMINE HCL 200 MG/2 ML VIAL IVPB SCH (09:46)
[2020-10-31] MEDS: MULTIVITAMINS (DAILY MVI) TABLET (FP) PO SCH (09:46)
[2020-10-31 13:17] VITALS: BP 129/76; PULSE 74
== END 2020-10-31 11:30 | disposition home or self-care (01) | DRG 312 ==
LOC: JER 17:01 → JERBED 20:59 → J2W 10-27 05:14
PROVIDERS: ADMIT Internal Medicine; ATTEND Internal Medicine
PROC: HZ2ZZZZ Detoxification Services for Substance Abuse Treatment (ICD-10-PCS; principal; 2020-10-26)
DX: R55 Syncope and collapse (principal); J44.9 Chronic obstructive pulmonary disease, unspecified; F17.210 Nicotine dependence, cigarettes, uncomplicated; F41.8 Other specified anxiety disorders; F10.129 Alcohol abuse with intoxication, unspecified; Y90.7 Blood alcohol level of 200-239 mg/100 ml; E78.00 Pure hypercholesterolemia, unspecified; E04.1 Nontoxic single thyroid nodule; I65.29 Occlusion and stenosis of unspecified carotid artery; W18.30XA Fall on same level, unspecified, initial encounter; Y92.098 Other place in other non-institutional residence as the place of occurrence of the external cause; R94.31 Abnormal electrocardiogram [ECG] [EKG]
CPT/HCPCS: 36415; 70450-TC; 72125-TC; 80053; 80307; 81003; 82550; 82962; 83735; 84100; 84436; 84443; 84479; 84484; 85025; 87086; 93005; 93010; 93880-TC; 99285-25; C9803; U0003

== ENCOUNTER 2020-11-09 13:11 | Inpatient (IN) | payer BC, OTHER ==
[2020-11-09] MEDS ORDERED: diazePAM CARPU-JECT 10 MG/2 ML DISP.SYRIN IVPUSH ONE ×2 (13:58→17:52)
[2020-11-09 14:34] LABS: BASO % 1.2 % (0-2.0); EOS % 0.1 % (0-4.5); HEMATOCRIT 40.6 % (32.4-45.2); HEMOGLOBIN 13.7 GM/dL (10.7-15.3); LYMPH % 10.5 % (8-40); MCH 32.3 pg (25.7-33.7); MCHC 33.8 g/dl (32.0-36.0); MEAN CELL VOLUME 95.8 fl (80-96); MEAN PLT VOLUME 7.3 fl (7.5-11.1); MONO % 4.1 % (3.8-10.2); NEUT % 84.1 % (42.8-82.8); PLATELET COUNT 410 K/MM3 (134-434); RBC 4.24 M/mm3 (3.60-5.2); RDW 12.7 % (11.6-15.6); WHITE BLOOD COUNT 17.3 K/mm3 (4.0-10.0)
[2020-11-09] MEDS ORDERED: diazePAM CARPU-JECT 10 MG/2 ML DISP.SYRIN ONE ×2 (14:36→17:57)
[2020-11-09 14:37] LABS: VENOUS O2 SATURATION 32.8 % (70-80); VENOUS PCO2 47.1 mmHg (38-52); VENOUS PH 7.426 (7.310-7.410)
[2020-11-09 14:55] LABS: CHLORIDE 103 mmol/L (98-107); POTASSIUM 3.9 mmol/L (3.5-5.1); SODIUM 140 mmol/L (136-145)
[2020-11-09 14:58] LABS: ANION GAP 7 MMOL/L (8-16); BLOOD UREA NITROGEN 9.3 mg/dL (7-18); CO2 31 mmol/L (21-32); GLUCOSE,RANDOM 83 mg/dL (74-106)
[2020-11-09 15:01] LABS: CREATININE 0.7 mg/dL (0.55-1.3); SGOT/AST 36 U/L (15-37); SGPT/ALT 35 U/L (13-61)
[2020-11-09 15:02] LABS: BILIRUBIN,TOTAL 1.1 mg/dL (0.2-1); TOT PROT 8.2 g/dl (6.4-8.2)
[2020-11-09 15:04] LABS: ALK PHOS 98 U/L (45-117)
[2020-11-09 15:05] LABS: ALBUMIN 4.4 g/dl (3.4-5.0); CALCIUM 10.3 mg/dL (8.5-10.1)
[2020-11-09 17:27] LABS: EPI CELLS 28 /uL (0-25.1); HYALINE CASTS 1 /uL (0-3.1); PH,URINE 8.5 (5.0-8.0); URINE APPEARANCE CLEAR; URINE BACTERIA 882 /uL (0-1359); URINE BILIRUBIN NEGATIVE (NEGATIVE); URINE COLOR YELLOW; URINE GLUCOSE (UA) NEGATIVE (NEGATIVE); URINE KETONE TRACE (NEGATIVE); URINE LEUK ESTERASE NEGATIVE (NEGATIVE); URINE NITRITE NEGATIVE (NEGATIVE); URINE PROTEIN 1+ (NEGATIVE); URINE RBC 10 /uL (0-23.9); URINE WBC 15 /uL (0-25.8)
[2020-11-09] MEDS ORDERED: ONDANSETRON 4 MG/2 ML VIAL IVPUSH PRN (22:04)
[2020-11-09] MEDS: levETIRAcetam 500 MG TABLET (FP) PO SCH (23:30)
[2020-11-09] MEDS: DEXTROSE 5%-0.45% SALINE 1,000 ML IV SCH (23:30)
[2020-11-09] MEDS: CEFTRIAXONE 1 GM in DEXTROSE 5%-WATER - 50 ML IVPB SCH (23:30)
[2020-11-10] MEDS ORDERED: cefTRIAXone SODIUM 1 GM VIAL ONE ×2 (00:46→10:04)
[2020-11-10] MEDS ORDERED: DEXTROSE 5%-WATER - 50 ML IVPB ONE ×2 (00:46→10:04)
[2020-11-10 03:18] VITALS: BMI 23.8
[2020-11-10] MEDS: LORazepam 1 MG TABLET PO SCH ×3 (05:39→21:32)
[2020-11-10 08:50] LABS: BASO % 0.7 % (0-2.0); EOS % 0.3 % (0-4.5); HEMATOCRIT 37.6 % (32.4-45.2); HEMOGLOBIN 12.8 GM/dL (10.7-15.3); LYMPH % 21.8 % (8-40); MCH 32.9 pg (25.7-33.7); MEAN CELL VOLUME 96.8 fl (80-96); MEAN PLT VOLUME 8.2 fl (7.5-11.1); MONO % 8.1 % (3.8-10.2); NEUT % 69.1 % (42.8-82.8); PLATELET COUNT 301 K/MM3 (134-434); RBC 3.88 M/mm3 (3.60-5.2); RDW 12.3 % (11.6-15.6); WHITE BLOOD COUNT 10.8 K/mm3 (4.0-10.0)
[2020-11-10 09:19] LABS: POTASSIUM 3.4 mmol/L (3.5-5.1)
[2020-11-10 09:29] LABS: CALCIUM 9.1 mg/dL (8.5-10.1)
[2020-11-10 09:30] LABS: BLOOD UREA NITROGEN 5.1 mg/dL (7-18); CREATININE 0.6 mg/dL (0.55-1.3)
[2020-11-10 09:32] LABS: BILIRUBIN,TOTAL 1.1 mg/dL (0.2-1); TOT PROT 6.5 g/dl (6.4-8.2)
[2020-11-10 09:38] LABS: ALBUMIN 3.3 g/dl (3.4-5.0)
[2020-11-10] MEDS: THIAMINE HCL 100 MG TABLET (FP) PO SCH (10:09)
[2020-11-10] MEDS: FOLIC ACID 1 MG TABLET (FP) PO SCH (10:09)
[2020-11-10] MEDS: levETIRAcetam 500 MG TABLET (FP) PO SCH ×3 (10:09→21:32)
[2020-11-10] MEDS: ENOXAPARIN NA (PORCINE) 40 MG/0.4 ML DISP.SYRIN SQ SCH (10:09)
[2020-11-10] MEDS: MULTIVITAMINS (DAILY MVI) TABLET (FP) PO SCH (10:09)
[2020-11-10] MEDS: CEFTRIAXONE 1 GM in DEXTROSE 5%-WATER - 50 ML IVPB SCH (10:09)
[2020-11-10] MEDS: DEXTROSE 5%-0.45% SALINE 1,000 ML IV SCH ×2 (14:54→22:47)
[2020-11-10] MEDS ORDERED: POTASSIUM CHLORIDE TABS 20 MEQ TABLET.ER (FP) PO ONE (17:10)
[2020-11-11] MEDS: DEXTROSE 5%-0.45% SALINE 1,000 ML IV SCH (04:41)
[2020-11-11] MEDS: LORazepam 0.5 MG TABLET PO SCH ×3 (05:15→21:16)
[2020-11-11 08:42] LABS: BASO % 0.6 % (0-2.0); EOS % 0.7 % (0-4.5); HEMOGLOBIN 12.3 GM/dL (10.7-15.3); LYMPH % 23.4 % (8-40); MEAN CELL VOLUME 96.8 fl (80-96); MEAN PLT VOLUME 8.7 fl (7.5-11.1); MONO % 5.8 % (3.8-10.2); NEUT % 69.5 % (42.8-82.8); PLATELET COUNT 246 K/MM3 (134-434); RBC 3.72 M/mm3 (3.60-5.2); RDW 12.6 % (11.6-15.6); WHITE BLOOD COUNT 9.4 K/mm3 (4.0-10.0)
[2020-11-11 09:06] LABS: POTASSIUM 3.7 mmol/L (3.5-5.1)
[2020-11-11 09:09] LABS: BLOOD UREA NITROGEN 4.1 mg/dL (7-18); CALCIUM 9.1 mg/dL (8.5-10.1)
[2020-11-11 09:12] LABS: CREATININE 0.6 mg/dL (0.55-1.3)
[2020-11-11 09:14] LABS: BILIRUBIN,TOTAL 0.8 mg/dL (0.2-1); TOT PROT 5.9 g/dl (6.4-8.2)
[2020-11-11] MEDS ORDERED: cefTRIAXone SODIUM 1 GM VIAL ONE (10:00)
[2020-11-11] MEDS ORDERED: DEXTROSE 5%-WATER - 50 ML IVPB ONE (10:00)
[2020-11-11] MEDS: CEFTRIAXONE 1 GM in DEXTROSE 5%-WATER - 50 ML IVPB SCH (10:28)
[2020-11-11] MEDS: ENOXAPARIN NA (PORCINE) 40 MG/0.4 ML DISP.SYRIN SQ SCH (10:28)
[2020-11-11] MEDS: MULTIVITAMINS (DAILY MVI) TABLET (FP) PO SCH (10:28)
[2020-11-11] MEDS: THIAMINE HCL 100 MG TABLET (FP) PO SCH (10:28)
[2020-11-11] MEDS: FOLIC ACID 1 MG TABLET (FP) PO SCH (10:28)
[2020-11-12] MEDS: LORazepam 0.5 MG TABLET PO SCH ×2 (06:00→13:39)
[2020-11-12] MEDS: THIAMINE HCL 100 MG TABLET (FP) PO SCH (09:45)
[2020-11-12] MEDS: MULTIVITAMINS (DAILY MVI) TABLET (FP) PO SCH (09:45)
[2020-11-12] MEDS: ENOXAPARIN NA (PORCINE) 40 MG/0.4 ML DISP.SYRIN SQ SCH (09:45)
[2020-11-12] MEDS: FOLIC ACID 1 MG TABLET (FP) PO SCH (09:45)
[2020-11-12 13:59] VITALS: BP 133/70; PULSE 89; TEMP 98.8
== END 2020-11-12 17:21 | disposition home or self-care (01) | DRG 897 ==
LOC: JER 13:11 → JERBED 18:47 → J6S 21:17
PROVIDERS: ADMIT Internal Medicine; ATTEND Internal Medicine
PROC: HZ2ZZZZ Detoxification Services for Substance Abuse Treatment (ICD-10-PCS; principal; 2020-11-09)
DX: F10.230 Alcohol dependence with withdrawal, uncomplicated (principal); D72.829 Elevated white blood cell count, unspecified; J44.9 Chronic obstructive pulmonary disease, unspecified; R00.0 Tachycardia, unspecified; F17.210 Nicotine dependence, cigarettes, uncomplicated; R11.10 Vomiting, unspecified
CPT/HCPCS: 36415; 71045-TC-FY; 80053; 81003; 82550; 82803; 84484; 85025; 87086; 93005; 93010; 99285-25; C9803; U0003; U0005

== ENCOUNTER 2020-11-15 11:31 | Emergency (ER) | payer BC, OTHER ==
[2020-11-15 11:53] VITALS: TEMP 97.9; BMI 23.8
[2020-11-15 13:34] VITALS: BP 135/68; PULSE 98
== END 2020-11-15 13:46 | disposition home or self-care (01) ==
LOC: JER 11:31
DX: F10.10 Alcohol abuse, uncomplicated (principal)
CPT/HCPCS: 99283-25

== ENCOUNTER 2020-11-15 14:20 | Inpatient (IN) | payer OTHER ==
[2020-11-15 17:37] VITALS: BMI 23.8
[2020-11-15] MEDS ORDERED: BISMUTH SUBSALICYLATE 524 MG/30 ML UD PO PRN (19:44)
[2020-11-15] MEDS ORDERED: MAGNESIUM CITRATE 300 ML BOTTLE PO PRN (19:44)
[2020-11-15] MEDS ORDERED: MENTHOL/PHENOL 1 EACH UD MM PRN (19:44)
[2020-11-15] MEDS ORDERED: IBUPROFEN 400 MG TABLET (FP) PO PRN (19:44)
[2020-11-15] MEDS ORDERED: METHOCARBAMOL 500 MG TABLET PO PRN (19:44)
[2020-11-15] MEDS ORDERED: MAG HYDROX/AL HYDROX/SIMETH 30 ML UNIT-DOSE CUP PO PRN (19:44)
[2020-11-15] MEDS ORDERED: NICOTINE POLACRILEX 2 MG GUM BUC PRN (19:44)
[2020-11-15] MEDS ORDERED: MAGNESIUM HYDROX 2400MG/30ML ORAL SUSPENSION 30 ML CUP PO PRN (19:44)
[2020-11-15] MEDS ORDERED: ONDANSETRON *ODT* 4 MG TABLET SL PRN (19:44)
[2020-11-15] MEDS ORDERED: ACETAMINOPHEN 325 MG TABLET (FP) PO PRN ×2 (19:44)
[2020-11-15] MEDS ORDERED: chlordiazePOXIDE HCL 25 MG CAPSULE PO PRN (19:47)
[2020-11-15] MEDS: chlordiazePOXIDE HCL 25 MG CAPSULE PO SCH (22:57)
[2020-11-15] MEDS: THIAMINE HCL 100 MG TABLET (FP) PO SCH (22:58)
[2020-11-15] MEDS: MELATONIN 5 MG TABLETS PO SCH (22:58)
[2020-11-16] MEDS: chlordiazePOXIDE HCL 25 MG CAPSULE PO SCH ×4 (06:05→22:07)
[2020-11-16] MEDS: NICOTINE 14 MG/24 HOURS TOPICAL PATCH TD SCH (10:14)
[2020-11-16] MEDS: PRENATAL VITAMINS W/ FOLIC ACID TABLET (FP) PO SCH (10:14)
[2020-11-16 11:37] LABS: HEMATOCRIT 33.2 % (32.4-45.2); HEMOGLOBIN 11.3 GM/dL (10.7-15.3); MCH 33.4 pg (25.7-33.7); MCHC 34.1 g/dl (32.0-36.0); MEAN PLT VOLUME 8.6 fl (7.5-11.1); PLATELET COUNT 286 K/MM3 (134-434); RBC 3.39 M/mm3 (3.60-5.2); RDW 12.5 % (11.6-15.6); WHITE BLOOD COUNT 7.7 K/mm3 (4.0-10.0)
[2020-11-16 11:43] LABS: ALBUMIN 3.2 g/dl (3.4-5.0); BLOOD UREA NITROGEN 6.7 mg/dL (7-18)
[2020-11-16 11:45] LABS: CALCIUM 9.1 mg/dL (8.5-10.1)
[2020-11-16 11:46] LABS: CREATININE 0.7 mg/dL (0.55-1.3)
[2020-11-16 11:47] LABS: BILIRUBIN,TOTAL 0.7 mg/dL (0.2-1)
[2020-11-16] MEDS: MELATONIN 5 MG TABLETS PO SCH (22:06)
[2020-11-16] MEDS: THIAMINE HCL 100 MG TABLET (FP) PO SCH (22:06)
[2020-11-17] MEDS: chlordiazePOXIDE HCL 10 MG CAPSULE PO SCH ×4 (05:45→22:13)
[2020-11-17] MEDS: PRENATAL VITAMINS W/ FOLIC ACID TABLET (FP) PO SCH (10:14)
[2020-11-17] MEDS: NICOTINE 14 MG/24 HOURS TOPICAL PATCH TD SCH (10:16)
[2020-11-17] MEDS: THIAMINE HCL 100 MG TABLET (FP) PO SCH (22:13)
[2020-11-17] MEDS: MELATONIN 5 MG TABLETS PO SCH (22:14)
[2020-11-18] MEDS ORDERED: chlordiazePOXIDE HCL 10 MG CAPSULE PO PRN
[2020-11-18] MEDS: chlordiazePOXIDE HCL 10 MG CAPSULE PO SCH ×4 (05:36→22:21)
[2020-11-18] MEDS: PRENATAL VITAMINS W/ FOLIC ACID TABLET (FP) PO SCH (10:15)
[2020-11-18] MEDS: NICOTINE 14 MG/24 HOURS TOPICAL PATCH TD SCH (10:15)
[2020-11-18] MEDS: MELATONIN 5 MG TABLETS PO SCH (22:21)
[2020-11-18] MEDS: THIAMINE HCL 100 MG TABLET (FP) PO SCH (22:22)
[2020-11-19] MEDS: chlordiazePOXIDE HCL 10 MG CAPSULE PO SCH ×2 (05:41→17:22)
[2020-11-19 08:09] LABS: SARS-CoV-2 NAA Not Detected (Not Detected)
[2020-11-19] MEDS: PRENATAL VITAMINS W/ FOLIC ACID TABLET (FP) PO SCH (09:44)
[2020-11-19] MEDS: NICOTINE 14 MG/24 HOURS TOPICAL PATCH TD SCH (09:44)
[2020-11-19] MEDS ORDERED: MASKS NR ONE (21:05)
[2020-11-19] MEDS: THIAMINE HCL 100 MG TABLET (FP) PO SCH (22:13)
[2020-11-19] MEDS: MELATONIN 5 MG TABLETS PO SCH (22:13)
[2020-11-20] MEDS ORDERED: chlordiazePOXIDE HCL 10 MG CAPSULE PO ONE (05:00)
[2020-11-20 08:51] VITALS: BP 119/70; PULSE 77; TEMP 97.1
[2020-11-20] MEDS: NICOTINE 14 MG/24 HOURS TOPICAL PATCH TD SCH (09:52)
[2020-11-20] MEDS: PRENATAL VITAMINS W/ FOLIC ACID TABLET (FP) PO SCH (09:52)
== END 2020-11-20 09:30 | disposition home or self-care (01) | DRG 897 ==
LOC: YASAS 14:20 → Y3N 20:46
PROVIDERS: ADMIT Allergy & Immunology; ATTEND Allergy & Immunology
PROC: HZ2ZZZZ Detoxification Services for Substance Abuse Treatment (ICD-10-PCS; principal; 2020-11-15)
DX: F10.230 Alcohol dependence with withdrawal, uncomplicated (principal); F17.210 Nicotine dependence, cigarettes, uncomplicated; J44.9 Chronic obstructive pulmonary disease, unspecified; Z87.01 Personal history of pneumonia (recurrent)
CPT/HCPCS: 36415; 80053; 85027; 86780; 93005; 93010; C9803; U0003; U0005

== ENCOUNTER 2020-12-17 17:32 | Observation (INO) | payer BC, OTHER ==
[2020-12-17 17:42] VITALS: BMI 23.8
[2020-12-17 19:09] LABS: URINE APPEARANCE CLEAR; URINE BILIRUBIN NEGATIVE (NEGATIVE); URINE COLOR YELLOW; URINE GLUCOSE (UA) NEGATIVE (NEGATIVE); URINE KETONE NEGATIVE (NEGATIVE); URINE LEUK ESTERASE NEGATIVE (NEGATIVE); URINE NITRITE NEGATIVE (NEGATIVE); URINE PROTEIN NEGATIVE (NEGATIVE); URINE UROBILINOGEN 0.2 mg/dL (0.2-1.0)
[2020-12-17 19:36] LABS: BASO % 0.9 % (0-2.0); EOS % 0.8 % (0-4.5); HEMATOCRIT 35.9 % (32.4-45.2); HEMOGLOBIN 12.2 GM/dL (10.7-15.3); LYMPH % 50.5 % (8-40); MCHC 33.9 g/dl (32.0-36.0); MEAN CELL VOLUME 97.3 fl (80-96); MEAN PLT VOLUME 7.7 fl (7.5-11.1); MONO % 6.4 % (3.8-10.2); NEUT % 41.4 % (42.8-82.8); PLATELET COUNT 277 K/MM3 (134-434); RBC 3.68 M/mm3 (3.60-5.2); RDW 13.3 % (11.6-15.6); WHITE BLOOD COUNT 8.3 K/mm3 (4.0-10.0)
[2020-12-17 19:52] LABS: CHLORIDE 108 mmol/L (98-107); SODIUM 143 mmol/L (136-145)
[2020-12-17 19:54] LABS: CALCIUM 8.6 mg/dL (8.5-10.1)
[2020-12-17 19:55] LABS: ALBUMIN 3.5 g/dl (3.4-5.0); ANION GAP 4 MMOL/L (8-16); BLOOD UREA NITROGEN 6.2 mg/dL (7-18); CO2 30 mmol/L (21-32); GLUCOSE,RANDOM 77 mg/dL (74-106)
[2020-12-17 19:58] LABS: CREATININE 0.6 mg/dL (0.55-1.3); SGOT/AST 17 U/L (15-37); SGPT/ALT 17 U/L (13-61)
[2020-12-17 19:59] LABS: BILIRUBIN,TOTAL 0.3 mg/dL (0.2-1); TOT PROT 6.7 g/dl (6.4-8.2)
[2020-12-17 20:01] LABS: ALK PHOS 79 U/L (45-117)
[2020-12-17] MEDS ORDERED: ALBUTEROL SO4 HFA INHALER IH ONE ×2 (21:31→21:35)
[2020-12-17 22:56] LABS: INR 0.98 (0.83-1.09); PROTHROMBIN TIME (PATIENT) 11.9 SEC (9.7-13.0)
[2020-12-17] MEDS ORDERED: FOLIC ACID INJECTION - 1 MG, THIAMINE HCL 100 MG, MULTIVIT INJECTION ADULT 10 ML in SOD... IVPB ONE (22:56)
[2020-12-17 22:57] LABS: ACTIVATED PTT 29.8 SECONDS (25.2-36.5)
[2020-12-18 07:11] LABS: EOS % 0.5 % (0-4.5); HEMATOCRIT 34.4 % (32.4-45.2); HEMOGLOBIN 11.7 GM/dL (10.7-15.3); MCH 32.8 pg (25.7-33.7); MCHC 33.9 g/dl (32.0-36.0); MEAN CELL VOLUME 96.7 fl (80-96); MEAN PLT VOLUME 7.8 fl (7.5-11.1); MONO % 6.8 % (3.8-10.2); NEUT % 57.7 % (42.8-82.8); PLATELET COUNT 263 K/MM3 (134-434); RBC 3.55 M/mm3 (3.60-5.2); RDW 13.4 % (11.6-15.6); WHITE BLOOD COUNT 8.3 K/mm3 (4.0-10.0)
[2020-12-18 07:31] LABS: CHLORIDE 116 mmol/L (98-107); SODIUM 147 mmol/L (136-145)
[2020-12-18 07:33] LABS: ALBUMIN 3.2 g/dl (3.4-5.0); CALCIUM 8.4 mg/dL (8.5-10.1)
[2020-12-18 07:34] LABS: ANION GAP 5 MMOL/L (8-16); BLOOD UREA NITROGEN 8.7 mg/dL (7-18); CO2 26 mmol/L (21-32); GLUCOSE,RANDOM 70 mg/dL (74-106); MAGNESIUM 1.9 mg/dL (1.8-2.4)
[2020-12-18 07:37] LABS: CHOLESTEROL 216 mg/dL (50-200); CREATININE 0.5 mg/dL (0.55-1.3); SGOT/AST 16 U/L (15-37); SGPT/ALT 14 U/L (13-61)
[2020-12-18 07:38] LABS: BILIRUBIN,TOTAL 0.4 mg/dL (0.2-1); LDL CHOLESTEROL (ONLY SJRH) 109 mg/dL (5-100); TOT PROT 6.1 g/dl (6.4-8.2); TRIGLYCERIDES 279 mg/dL (0-150)
[2020-12-18 07:39] LABS: HDL CHOLESTEROL 50 mg/dL (40-60)
[2020-12-18 07:40] LABS: ALK PHOS 67 U/L (45-117)
[2020-12-18] MEDS ORDERED: THIAMINE HCL 100 MG TABLET (FP) PO SCH (10:00)
[2020-12-18] MEDS ORDERED: FOLIC ACID 1 MG TABLET (FP) PO SCH (10:00)
[2020-12-18] MEDS ORDERED: MULTIVITAMINS (DAILY MVI) TABLET (FP) PO SCH (10:00)
[2020-12-18] MEDS ORDERED: chlordiazePOXIDE HCL 25 MG CAPSULE PO PRN (11:36)
[2020-12-18] MEDS ORDERED: ALBUTEROL SO4 HFA INHALER IH PRN (11:38)
[2020-12-18] MEDS ORDERED: chlordiazePOXIDE HCL 25 MG CAPSULE ONE (11:51)
[2020-12-18] MEDS ORDERED: MULTIVITAMINS (DAILY MVI) TABLET (FP) ONE (11:51)
[2020-12-18] MEDS ORDERED: FOLIC ACID 1 MG TABLET (FP) ONE (11:52)
[2020-12-18] MEDS ORDERED: THIAMINE HCL 100 MG TABLET (FP) ONE (11:52)
[2020-12-18 16:48] VITALS: BP 172/84; PULSE 74; TEMP 97.6
== END 2020-12-18 16:30 | disposition other institution (70) ==
LOC: JER 17:32 → UNDOADMOB 21:22 → JERBED 21:22 → INTOOBSV 21:22 → JERBED 12-18 10:15
PROVIDERS: ADMIT Hospitalist; ATTEND Family Medicine
PROC: 3E033GC Introduction of Other Therapeutic Substance into Peripheral Vein, Percutaneous Approach (ICD-10-PCS; principal; 2020-12-18)
DX: R55 Syncope and collapse (principal); F10.120 Alcohol abuse with intoxication, uncomplicated; F03.90 Unspecified dementia, unspecified severity, without behavioral disturbance, psychotic disturbance, mood disturbance, and anxiety; J44.9 Chronic obstructive pulmonary disease, unspecified; Z20.822 Contact with and (suspected) exposure to COVID-19; J45.909 Unspecified asthma, uncomplicated; Z87.891 Personal history of nicotine dependence
CPT/HCPCS: 36415; 70450-TC; 71046-TC-FY; 80053; 80061; 80307; 81003; 83721; 83735; 84443; 84484; 85025; 85610; 85730; 87086; 93005; 93010; 96365; 99285-25; C9803; G0378; U0003; U0005

== ENCOUNTER 2021-01-10 09:33 | Emergency (ER) | payer BC, OTHER ==
[2021-01-10 09:46] VITALS: TEMP 97.7; BMI 23.8
[2021-01-10 11:16] LABS: BASO % 0.1 % (0-2.0); EOS % 0.6 % (0-4.5); HEMATOCRIT 38.6 % (32.4-45.2); HEMOGLOBIN 13.1 GM/dL (10.7-15.3); MCH 32.9 pg (25.7-33.7); MEAN CELL VOLUME 96.9 fl (80-96); MEAN PLT VOLUME 7.8 fl (7.5-11.1); MONO % 4.9 % (3.8-10.2); NEUT % 55.4 % (42.8-82.8); PLATELET COUNT 258 K/MM3 (134-434); RBC 3.98 M/mm3 (3.60-5.2); RDW 13.4 % (11.6-15.6); WHITE BLOOD COUNT 9.2 K/mm3 (4.0-10.0)
[2021-01-10 12:03] LABS: CHLORIDE 108 mmol/L (98-107); SODIUM 140 mmol/L (136-145)
[2021-01-10 12:10] LABS: ALBUMIN 3.6 g/dl (3.4-5.0); ANION GAP 10 MMOL/L (8-16); BLOOD UREA NITROGEN 7.7 mg/dL (7-18); CALCIUM 8.4 mg/dL (8.5-10.1); CO2 22 mmol/L (21-32); GLUCOSE,RANDOM 93 mg/dL (74-106); MAGNESIUM 2.2 mg/dL (1.8-2.4)
[2021-01-10 12:12] LABS: CREATININE 0.5 mg/dL (0.55-1.3); SGOT/AST 22 U/L (15-37); SGPT/ALT 16 U/L (13-61)
[2021-01-10 12:14] LABS: BILIRUBIN,TOTAL 0.3 mg/dL (0.2-1); PHOSPHOROUS 3.7 mg/dL (2.5-4.9); TOT PROT 6.6 g/dl (6.4-8.2)
[2021-01-10 12:15] LABS: ALK PHOS 68 U/L (45-117)
[2021-01-10 13:14] VITALS: BP 113/57; PULSE 88
== END 2021-01-10 13:10 | disposition home or self-care (01) ==
LOC: JER 09:33
DX: R55 Syncope and collapse (principal); F10.920 Alcohol use, unspecified with intoxication, uncomplicated
CPT/HCPCS: 36415; 70450-TC; 72125-TC; 80053; 82962; 83735; 84100; 84484; 85025; 93005; 93010; 99284-25

== ENCOUNTER 2021-01-31 17:30 | Emergency (ER) | payer BC, OTHER ==
[2021-01-31 18:06] VITALS: TEMP 98.7; BMI 24.6
[2021-01-31] MEDS ORDERED: FOLIC ACID INJECTION - 1 MG, THIAMINE HCL 100 MG, MULTIVIT INJECTION ADULT 10 ML in SOD... IVPB ONE (18:30)
[2021-01-31 19:08] LABS: BASO % 0.3 % (0-2.0); EOS % 0.6 % (0-4.5); HEMATOCRIT 39.9 % (32.4-45.2); HEMOGLOBIN 13.6 GM/dL (10.7-15.3); LYMPH % 43.6 % (8-40); MCH 32.6 pg (25.7-33.7); MCHC 34.1 g/dl (32.0-36.0); MEAN CELL VOLUME 95.5 fl (80-96); MEAN PLT VOLUME 7.2 fl (7.5-11.1); MONO % 8.6 % (3.8-10.2); NEUT % 46.9 % (42.8-82.8); PLATELET COUNT 249 10^3/uL (134-434); RBC 4.18 M/mm3 (3.60-5.2); WHITE BLOOD COUNT 7.8 K/mm3 (4.0-10.0)
[2021-01-31 19:20] LABS: CHLORIDE 100 mmol/L (98-107); SODIUM 137 mmol/L (136-145)
[2021-01-31 19:23] LABS: CALCIUM 8.9 mg/dL (8.5-10.1)
[2021-01-31 19:24] LABS: ALBUMIN 3.8 g/dl (3.4-5.0); ANION GAP 11 MMOL/L (8-16); BLOOD UREA NITROGEN 5.6 mg/dL (7-18); CO2 25 mmol/L (21-32); GLUCOSE,RANDOM 127 mg/dL (74-106)
[2021-01-31 19:27] LABS: CREATININE 0.7 mg/dL (0.55-1.3); SGOT/AST 36 U/L (15-37); SGPT/ALT 25 U/L (13-61)
[2021-01-31 19:29] LABS: BILIRUBIN,TOTAL 0.2 mg/dL (0.2-1)
[2021-01-31 19:30] LABS: ALK PHOS 70 U/L (45-117)
[2021-01-31] MEDS ORDERED: ALBUTEROL SO4 2.5/IPRATROPIUM 0.5 INH SOL 3 ML VIAL.NEB. NEB ONE ×2 (20:30→20:32)
[2021-01-31 21:17] VITALS: BP 118/64; PULSE 64
== END 2021-01-31 21:18 | disposition home or self-care (01) ==
LOC: JER 17:30
PROC: 3E0F7GC Introduction of Other Therapeutic Substance into Respiratory Tract, Via Natural or Artificial Opening (ICD-10-PCS; principal; 2021-01-31)
PROC: 3E033GC Introduction of Other Therapeutic Substance into Peripheral Vein, Percutaneous Approach (ICD-10-PCS; 2021-01-31)
DX: R42 Dizziness and giddiness (principal); F10.920 Alcohol use, unspecified with intoxication, uncomplicated
CPT/HCPCS: 36415; 80053; 80307; 82550; 82962; 84484; 85025; 93005; 93010; 99284-25

== ENCOUNTER 2021-02-03 17:09 | Emergency (ER) | payer BC, OTHER ==
[2021-02-03 17:45] VITALS: TEMP 98.7; BMI 23.6
[2021-02-03] MEDS ORDERED: ALBUTEROL SO4 2.5/IPRATROPIUM 0.5 INH SOL 3 ML VIAL.NEB. NEB ONE ×2 (18:40→18:54)
[2021-02-03 19:13] LABS: BASO % 0.7 % (0-2.0); EOS % 0.2 % (0-4.5); HEMATOCRIT 42.5 % (32.4-45.2); HEMOGLOBIN 14.5 GM/dL (10.7-15.3); MCH 32.2 pg (25.7-33.7); MEAN CELL VOLUME 94.7 fl (80-96); MEAN PLT VOLUME 7.6 fl (7.5-11.1); MONO % 8.9 % (3.8-10.2); NEUT % 73.2 % (42.8-82.8); PLATELET COUNT 249 10^3/uL (134-434); RBC 4.49 M/mm3 (3.60-5.2); RDW 13.2 % (11.6-15.6); WHITE BLOOD COUNT 11.4 K/mm3 (4.0-10.0)
[2021-02-03 19:31] LABS: CHLORIDE 104 mmol/L (98-107); SODIUM 138 mmol/L (136-145)
[2021-02-03 19:35] LABS: ALBUMIN 4.4 g/dl (3.4-5.0); ANION GAP 9 MMOL/L (8-16); CALCIUM 9.4 mg/dL (8.5-10.1); CO2 25 mmol/L (21-32); GLUCOSE,RANDOM 69 mg/dL (74-106)
[2021-02-03 19:38] LABS: CREATININE 0.5 mg/dL (0.55-1.3); SGOT/AST 33 U/L (15-37); SGPT/ALT 32 U/L (13-61)
[2021-02-03 19:40] LABS: BILIRUBIN,TOTAL 0.6 mg/dL (0.2-1); TOT PROT 7.7 g/dl (6.4-8.2)
[2021-02-03 19:41] LABS: ALK PHOS 81 U/L (45-117)
[2021-02-03] MEDS ORDERED: AZITHROMYCIN 250 MG TABLET PO ONE (20:31)
[2021-02-03] MEDS ORDERED: predniSONE 20 MG TABLET (UD) PO ONE (20:31)
[2021-02-03] MEDS ORDERED: predniSONE 20 MG TABLET (UD) ONE (20:43)
[2021-02-03] MEDS ORDERED: AZITHROMYCIN 250 MG TABLET ONE (20:44)
[2021-02-03 20:50] VITALS: BP 154/76; PULSE 100
== END 2021-02-03 21:03 | disposition home or self-care (01) ==
LOC: JER 17:09
PROC: 3E0F7GC Introduction of Other Therapeutic Substance into Respiratory Tract, Via Natural or Artificial Opening (ICD-10-PCS; principal; 2021-02-03)
DX: J44.9 Chronic obstructive pulmonary disease, unspecified (principal)
CPT/HCPCS: 36415; 71045-TC-FY; 80053; 82550; 84484; 85025; 93005; 93010; 99284-25

== ENCOUNTER 2021-03-21 20:29 | Emergency (ER) | payer BC, OTHER ==
[2021-03-21 20:40] VITALS: BMI 23.8
[2021-03-21 23:12] LABS: BASO % 1.4 % (0-2.0); HEMATOCRIT 34.2 % (32.4-45.2); HEMOGLOBIN 12.1 GM/dL (10.7-15.3); LYMPH % 40.6 % (8-40); MCH 33.4 pg (25.7-33.7); MCHC 35.3 g/dl (32.0-36.0); MEAN CELL VOLUME 94.6 fl (80-96); MONO % 7.2 % (3.8-10.2); NEUT % 49.8 % (42.8-82.8); PLATELET COUNT 287 10^3/uL (134-434); RBC 3.61 M/mm3 (3.60-5.2); RDW 13.1 % (11.6-15.6)
[2021-03-21 23:31] LABS: CHLORIDE 112 mmol/L (98-107); SODIUM 146 mmol/L (136-145)
[2021-03-21 23:33] LABS: CALCIUM 8.5 mg/dL (8.5-10.1)
[2021-03-21 23:34] LABS: ALBUMIN 3.6 g/dl (3.4-5.0); ANION GAP 7 MMOL/L (8-16); BLOOD UREA NITROGEN 8.6 mg/dL (7-18); CO2 26 mmol/L (21-32); GLUCOSE,RANDOM 76 mg/dL (74-106)
[2021-03-21 23:37] LABS: CREATININE 0.7 mg/dL (0.55-1.3); SGOT/AST 34 U/L (15-37); SGPT/ALT 28 U/L (13-61)
[2021-03-21 23:38] LABS: BILIRUBIN,TOTAL 0.2 mg/dL (0.2-1)
[2021-03-21 23:39] LABS: TOT PROT 6.4 g/dl (6.4-8.2)
[2021-03-21 23:40] LABS: ALK PHOS 71 U/L (45-117)
[2021-03-22 01:51] VITALS: BP 147/72; PULSE 93; TEMP 98.4
== END 2021-03-22 01:44 | disposition home or self-care (01) ==
LOC: JER 20:29
DX: F10.129 Alcohol abuse with intoxication, unspecified (principal); W01.0XXA Fall on same level from slipping, tripping and stumbling without subsequent striking against object, initial encounter; Y92.000 Kitchen of unspecified non-institutional (private) residence as the place of occurrence of the external cause
CPT/HCPCS: 36415; 70450-TC; 72125-TC; 80053; 80307; 84484; 85025; 93005; 93010; 99285-25

== ENCOUNTER 2021-04-01 05:44 | Emergency (ER) | payer BC, OTHER ==
[2021-04-01 06:14] VITALS: BP 124/59; PULSE 83; TEMP 99.1; BMI 21.5
[2021-04-01 06:59] LABS: HEMATOCRIT 36.9 % (32.4-45.2); HEMOGLOBIN 12.7 GM/dL (10.7-15.3); MCH 32.9 pg (25.7-33.7); MCHC 34.4 g/dl (32.0-36.0); MEAN CELL VOLUME 95.7 fl (80-96); MEAN PLT VOLUME 7.3 fl (7.5-11.1); PLATELET COUNT 229 10^3/uL (134-434); RBC 3.86 M/mm3 (3.60-5.2); RDW 12.9 % (11.6-15.6); WHITE BLOOD COUNT 13.5 K/mm3 (4.0-10.0)
[2021-04-01 07:05] LABS: INR 0.91 (0.83-1.09); PROTHROMBIN TIME (PATIENT) 11.2 SEC (9.7-13.0)
[2021-04-01 07:18] LABS: CHLORIDE 105 mmol/L (98-107); SODIUM 140 mmol/L (136-145)
[2021-04-01 07:19] LABS: CALCIUM 9.3 mg/dL (8.5-10.1)
[2021-04-01 07:21] LABS: ALBUMIN 4.1 g/dl (3.4-5.0); ANION GAP 13 MMOL/L (8-16); BLOOD UREA NITROGEN 13.7 mg/dL (7-18); CO2 23 mmol/L (21-32); GLUCOSE,RANDOM 88 mg/dL (74-106)
[2021-04-01 07:24] LABS: CREATININE 0.7 mg/dL (0.55-1.3); SGOT/AST 66 U/L (15-37); SGPT/ALT 50 U/L (13-61)
[2021-04-01 07:25] LABS: BILIRUBIN,TOTAL 0.5 mg/dL (0.2-1); TOT PROT 7.5 g/dl (6.4-8.2)
[2021-04-01 07:27] LABS: ALK PHOS 76 U/L (45-117)
[2021-04-01] MEDS ORDERED: AZITHROMYCIN 250 MG TABLET PO ONE (08:00)
[2021-04-01] MEDS ORDERED: ALBUTEROL SO4 2.5/IPRATROPIUM 0.5 INH SOL 3 ML VIAL.NEB. NEB ONE ×2 (08:05→09:18)
[2021-04-01] MEDS ORDERED: AZITHROMYCIN 250 MG TABLET ONE (08:07)
[2021-04-01] MEDS ORDERED: chlordiazePOXIDE HCL 25 MG CAPSULE PO ONE (08:08)
[2021-04-01] MEDS: ALBUTEROL SO4 2.5/IPRATROPIUM 0.5 INH SOL 3 ML VIAL.NEB. NEB SCH ×3 (08:19→08:55)
[2021-04-01] MEDS ORDERED: LORazepam 2 MG TABLET PO ONE (09:08)
[2021-04-01] MEDS ORDERED: LORazepam 1 MG TABLET ONE (09:16)
== END 2021-04-01 10:20 | disposition home or self-care (01) ==
LOC: JER 05:44
PROC: 3E0F7GC Introduction of Other Therapeutic Substance into Respiratory Tract, Via Natural or Artificial Opening (ICD-10-PCS; principal; 2021-04-01)
DX: J44.1 Chronic obstructive pulmonary disease with (acute) exacerbation (principal)
CPT/HCPCS: 36415; 71045-TC-FY; 80053; 84100; 84484; 85027; 85610; 93005; 93010; 99285-25; C9803; U0003; U0005

== ENCOUNTER 2021-04-14 10:28 | Emergency (ER) | payer BC, OTHER ==
[2021-04-14 10:38] VITALS: TEMP 98.6; BMI 20.2
[2021-04-14] MEDS ORDERED: methylPREDNISolone NA SUCC 125 MG/2 ML VIAL IVPUSH ONE (10:55)
[2021-04-14] MEDS ORDERED: methylPREDNISolone NA SUCC 125 MG/2 ML VIAL ONE (11:11)
[2021-04-14] MEDS: ALBUTEROL SO4 2.5/IPRATROPIUM 0.5 INH SOL 3 ML VIAL.NEB. NEB SCH ×3 (11:20→11:51)
[2021-04-14 11:23] LABS: BASO % 0.8 % (0-2.0); EOS % 0.4 % (0-4.5); HEMOGLOBIN 13.8 GM/dL (10.7-15.3); LYMPH % 35.1 % (8-40); MCH 33.5 pg (25.7-33.7); MCHC 34.6 g/dl (32.0-36.0); MEAN CELL VOLUME 96.7 fl (80-96); MEAN PLT VOLUME 7.1 fl (7.5-11.1); MONO % 8.1 % (3.8-10.2); NEUT % 55.6 % (42.8-82.8); PLATELET COUNT 319 10^3/uL (134-434); RBC 4.13 M/mm3 (3.60-5.2); RDW 13.6 % (11.6-15.6); WHITE BLOOD COUNT 10.2 K/mm3 (4.0-10.0)
[2021-04-14 11:58] LABS: CHLORIDE 103 mmol/L (98-107); SODIUM 139 mmol/L (136-145)
[2021-04-14 12:01] LABS: ANION GAP 11 MMOL/L (8-16); BLOOD UREA NITROGEN 6.6 mg/dL (7-18); CALCIUM 9.4 mg/dL (8.5-10.1); CO2 25 mmol/L (21-32); MAGNESIUM 2.2 mg/dL (1.8-2.4)
[2021-04-14 12:02] LABS: GLUCOSE,RANDOM 53 mg/dL (74-106)
[2021-04-14 12:04] LABS: SGPT/ALT 58 U/L (13-61)
[2021-04-14 12:05] LABS: CREATININE 0.6 mg/dL (0.55-1.3); SGOT/AST 77 U/L (15-37)
[2021-04-14 12:06] LABS: BILIRUBIN,TOTAL 0.4 mg/dL (0.2-1); TOT PROT 7.4 g/dl (6.4-8.2)
[2021-04-14 12:07] LABS: ALK PHOS 78 U/L (45-117)
[2021-04-14 12:10] LABS: N-TERMINAL BNP 14.3 pg/ml (5-125)
[2021-04-14 13:18] VITALS: BP 147/63; PULSE 103
== END 2021-04-14 13:41 | disposition home or self-care (01) ==
LOC: JER 10:28
PROC: 3E0F7GC Introduction of Other Therapeutic Substance into Respiratory Tract, Via Natural or Artificial Opening (ICD-10-PCS; principal; 2021-04-14)
PROC: 3E033GC Introduction of Other Therapeutic Substance into Peripheral Vein, Percutaneous Approach (ICD-10-PCS; 2021-04-14)
DX: R06.02 Shortness of breath (principal); J44.9 Chronic obstructive pulmonary disease, unspecified
CPT/HCPCS: 36415; 71045-TC-FY; 80053; 82962; 83735; 83880; 84484; 85025; 87804; 93005; 93010; 99285-25; C9803; U0003; U0005

== ENCOUNTER 2021-04-25 19:41 | Inpatient (IN) | payer BC, OTHER ==
[2021-04-25 21:39] LABS: BASO % 0.9 % (0-2.0); EOS % 0.9 % (0-4.5); HEMATOCRIT 35.5 % (32.4-45.2); HEMOGLOBIN 12.3 GM/dL (10.7-15.3); LYMPH % 36.8 % (8-40); MCH 33.5 pg (25.7-33.7); MCHC 34.7 g/dl (32.0-36.0); MEAN CELL VOLUME 96.7 fl (80-96); MONO % 8.3 % (3.8-10.2); NEUT % 53.1 % (42.8-82.8); PLATELET COUNT 291 10^3/uL (134-434); RBC 3.67 M/mm3 (3.60-5.2); RDW 13.9 % (11.6-15.6)
[2021-04-25 21:47] LABS: INR 0.82 (0.83-1.09)
[2021-04-25 21:48] LABS: CHLORIDE 111 mmol/L (98-107); SODIUM 146 mmol/L (136-145)
[2021-04-25 21:50] LABS: ACTIVATED PTT 29.9 SECONDS (25.2-36.5); ANION GAP 10 MMOL/L (8-16); BLOOD UREA NITROGEN 8.6 mg/dL (7-18); CALCIUM 8.5 mg/dL (8.5-10.1); CO2 25 mmol/L (21-32)
[2021-04-25 21:51] LABS: ALBUMIN 3.4 g/dl (3.4-5.0); GLUCOSE,RANDOM 82 mg/dL (74-106)
[2021-04-25 21:54] LABS: CREATININE 0.9 mg/dL (0.55-1.3); SGOT/AST 52 U/L (15-37); SGPT/ALT 49 U/L (13-61)
[2021-04-25 21:55] LABS: TOT PROT 6.5 g/dl (6.4-8.2)
[2021-04-25 21:56] LABS: ALK PHOS 72 U/L (45-117)
[2021-04-25 21:58] LABS: N-TERMINAL BNP 26.6 pg/ml (5-125)
[2021-04-25 22:01] LABS: BILIRUBIN,TOTAL 0.2 mg/dL (0.2-1)
[2021-04-26] MEDS ORDERED: FOLIC ACID INJECTION - 1 MG, THIAMINE HCL 100 MG, MULTIVIT INJECTION ADULT 10 ML in SOD... IVPB ONE (02:12)
[2021-04-26] MEDS ORDERED: ALBUTEROL SO4 HFA INHALER IH PRN (02:14)
[2021-04-26 05:57] VITALS: BMI 21.8
[2021-04-26 07:22] LABS: BASO % 1.2 % (0-2.0); EOS % 0.6 % (0-4.5); HEMATOCRIT 35.8 % (32.4-45.2); HEMOGLOBIN 12.3 GM/dL (10.7-15.3); LYMPH % 23.3 % (8-40); MCH 33.7 pg (25.7-33.7); MCHC 34.3 g/dl (32.0-36.0); MEAN CELL VOLUME 98.3 fl (80-96); MEAN PLT VOLUME 8.2 fl (7.5-11.1); MONO % 9.8 % (3.8-10.2); NEUT % 65.1 % (42.8-82.8); PLATELET COUNT 287 10^3/uL (134-434); RBC 3.64 M/mm3 (3.60-5.2); RDW 13.9 % (11.6-15.6)
[2021-04-26 07:46] LABS: CHLORIDE 112 mmol/L (98-107); SODIUM 146 mmol/L (136-145)
[2021-04-26 07:48] LABS: CALCIUM 8.2 mg/dL (8.5-10.1)
[2021-04-26 07:49] LABS: ALBUMIN 3.3 g/dl (3.4-5.0); ANION GAP 7 MMOL/L (8-16); BLOOD UREA NITROGEN 8.4 mg/dL (7-18); CO2 27 mmol/L (21-32); GLUCOSE,RANDOM 78 mg/dL (74-106); MAGNESIUM 1.9 mg/dL (1.8-2.4)
[2021-04-26 07:52] LABS: CREATININE 0.7 mg/dL (0.55-1.3); PHOSPHOROUS 3.7 mg/dL (2.5-4.9); SGOT/AST 50 U/L (15-37); SGPT/ALT 47 U/L (13-61)
[2021-04-26 07:53] LABS: BILIRUBIN,TOTAL 0.7 mg/dL (0.2-1)
[2021-04-26 07:54] LABS: TOT PROT 6.4 g/dl (6.4-8.2)
[2021-04-26 07:55] LABS: ALK PHOS 68 U/L (45-117)
[2021-04-26] MEDS: ENOXAPARIN NA (PORCINE) 40 MG/0.4 ML DISP.SYRIN SQ SCH (10:06)
[2021-04-26] MEDS: FOLIC ACID 1 MG TABLET (FP) PO SCH (10:06)
[2021-04-26] MEDS: THIAMINE HCL 200 MG/2 ML VIAL IVPB SCH (10:40)
[2021-04-26] MEDS: TIOTROPIUM BROMIDE 2.5 MCG (SPIRIVA) RESPIMAT INHALER IH SCH (13:48)
[2021-04-26] MEDS ORDERED: ACETAMINOPHEN 325 MG TABLET (FP) PO PRN (21:58)
[2021-04-26] MEDS ORDERED: chlordiazePOXIDE HCL 10 MG CAPSULE PO SCH (22:00)
[2021-04-26] MEDS ORDERED: LORazepam 1 MG TABLET PO PRN (22:01)
[2021-04-26] MEDS: LORazepam 1 MG TABLET PO SCH (22:18)
[2021-04-27] MEDS: LORazepam 1 MG TABLET PO SCH ×4 (05:57→22:32)
[2021-04-27 07:57] LABS: BASO % 1.2 % (0-2.0); EOS % 0.8 % (0-4.5); HEMATOCRIT 33.9 % (32.4-45.2); HEMOGLOBIN 11.8 GM/dL (10.7-15.3); LYMPH % 18.5 % (8-40); MCH 33.6 pg (25.7-33.7); MCHC 34.7 g/dl (32.0-36.0); MEAN CELL VOLUME 96.8 fl (80-96); MEAN PLT VOLUME 8.6 fl (7.5-11.1); MONO % 8.6 % (3.8-10.2); NEUT % 70.9 % (42.8-82.8); PLATELET COUNT 223 10^3/uL (134-434); RDW 13.7 % (11.6-15.6); WHITE BLOOD COUNT 8.2 K/mm3 (4.0-10.0)
[2021-04-27 08:03] LABS: CALCIUM 8.5 mg/dL (8.5-10.1)
[2021-04-27 08:04] LABS: BLOOD UREA NITROGEN 6.8 mg/dL (7-18); MAGNESIUM 1.9 mg/dL (1.8-2.4)
[2021-04-27 08:07] LABS: CREATININE 0.6 mg/dL (0.55-1.3)
[2021-04-27] MEDS ORDERED: PT OWN MED DRAWER 7, Y5N ONE (10:05)
[2021-04-27] MEDS: FOLIC ACID 1 MG TABLET (FP) PO SCH (10:46)
[2021-04-27] MEDS: THIAMINE HCL 200 MG/2 ML VIAL IVPB SCH (10:46)
[2021-04-27] MEDS: ENOXAPARIN NA (PORCINE) 40 MG/0.4 ML DISP.SYRIN SQ SCH (10:47)
[2021-04-27] MEDS: TIOTROPIUM BROMIDE 2.5 MCG (SPIRIVA) RESPIMAT INHALER IH SCH (10:47)
[2021-04-27 22:45] LABS: METHADONE, UR NEGATIVE (NEGATIVE); OPIATES, URI NEGATIVE (NEGATIVE); URINE BENZODIAZEPINES NEGATIVE (NEGATIVE)
[2021-04-27 22:46] LABS: URINE BARBITURATES NEGATIVE (NEGATIVE)
[2021-04-27 22:57] LABS: COCAINE, UR NEGATIVE (NEGATIVE); PHENCYCLIDINE,URINE NEGATIVE (NEGATIVE); URINE AMPHETAMINES NEGATIVE (NEGATIVE)
[2021-04-28] MEDS ORDERED: LORazepam 1 MG TABLET PO SCH (05:00)
[2021-04-28] MEDS: FOLIC ACID 1 MG TABLET (FP) PO SCH (09:37)
[2021-04-28] MEDS: ENOXAPARIN NA (PORCINE) 40 MG/0.4 ML DISP.SYRIN SQ SCH (09:37)
[2021-04-28] MEDS: THIAMINE HCL 200 MG/2 ML VIAL IVPB SCH (09:37)
[2021-04-28] MEDS: TIOTROPIUM BROMIDE 2.5 MCG (SPIRIVA) RESPIMAT INHALER IH SCH (09:38)
[2021-04-29] MEDS ORDERED: LORazepam 0.5 MG TABLET PO PRN
[2021-04-29] MEDS: LORazepam 0.5 MG TABLET PO SCH ×5 (05:41→22:06)
[2021-04-29] MEDS: THIAMINE HCL 200 MG/2 ML VIAL IVPB SCH (10:27)
[2021-04-29] MEDS: FOLIC ACID 1 MG TABLET (FP) PO SCH (10:27)
[2021-04-29] MEDS: ENOXAPARIN NA (PORCINE) 40 MG/0.4 ML DISP.SYRIN SQ SCH (10:27)
[2021-04-29] MEDS: TIOTROPIUM BROMIDE 2.5 MCG (SPIRIVA) RESPIMAT INHALER IH SCH (10:27)
[2021-04-30] MEDS ORDERED: LORazepam 0.5 MG TABLET PO ONE (05:00)
[2021-04-30 09:08] VITALS: BP 119/63; PULSE 73; TEMP 98.6
[2021-04-30] MEDS: ENOXAPARIN NA (PORCINE) 40 MG/0.4 ML DISP.SYRIN SQ SCH (10:10)
[2021-04-30] MEDS: FOLIC ACID 1 MG TABLET (FP) PO SCH (10:11)
[2021-04-30] MEDS: THIAMINE HCL 200 MG/2 ML VIAL IVPB SCH (10:12)
[2021-04-30] MEDS: TIOTROPIUM BROMIDE 2.5 MCG (SPIRIVA) RESPIMAT INHALER IH SCH (10:12)
== END 2021-04-30 13:00 | disposition home or self-care (01) | DRG 312 ==
LOC: JER 19:41 → INTOOBSV 22:50 → JERBED 22:50 → J4W 04-26 05:10 → OBSVTOIN 04-27 09:15
PROVIDERS: ADMIT Internal Medicine; ATTEND Family Medicine
DX: R55 Syncope and collapse (principal); E87.0 Hyperosmolality and hypernatremia; J44.9 Chronic obstructive pulmonary disease, unspecified; F10.229 Alcohol dependence with intoxication, unspecified; E11.9 Type 2 diabetes mellitus without complications; F17.210 Nicotine dependence, cigarettes, uncomplicated; R41.82 Altered mental status, unspecified
CPT/HCPCS: 36415; 70450-TC; 71046-TC-FY; 80048; 80053; 80307; 82550; 82607; 82746; 82962; 83036; 83735; 83880; 84100; 84443; 84484; 85025; 85610; 85730; 86140; 86850; 86900; 86901; 93005; 93010; 95816; 97116-GP; 97161-GP; 99285-25; C9803; G0378; U0003; U0005

== ENCOUNTER 2021-05-01 18:08 | Emergency (ER) | payer BC, OTHER ==
[2021-05-01] MEDS ORDERED: ALBUTEROL SO4 2.5/IPRATROPIUM 0.5 INH SOL 3 ML VIAL.NEB. NEB ONE (18:22)
[2021-05-01 18:33] VITALS: BP 132/71; PULSE 83; TEMP 98.5; BMI 22.1
[2021-05-01] MEDS ORDERED: ALBUTEROL SO4 2.5/IPRATROPIUM 0.5 INH SOL 3 ML VIAL.NEB. NEB SCH (18:45)
== END 2021-05-01 19:29 | disposition left against medical advice (07) ==
LOC: JER 18:08
PROC: 3E0F7GC Introduction of Other Therapeutic Substance into Respiratory Tract, Via Natural or Artificial Opening (ICD-10-PCS; principal; 2021-05-01)
DX: J44.9 Chronic obstructive pulmonary disease, unspecified (principal)
CPT/HCPCS: 94640; 99284-25

== ENCOUNTER 2021-05-06 16:49 | Emergency (ER) | payer BC, OTHER ==
[2021-05-06 17:08] VITALS: BMI 21.8
[2021-05-06] MEDS ORDERED: amLODIPine BESYLATE 5 MG TABLET (FP) PO ONE (18:19)
[2021-05-06 18:57] VITALS: BP 120/61; PULSE 86; TEMP 96.7
== END 2021-05-06 18:55 | disposition home or self-care (01) ==
LOC: JER 16:49
DX: R06.02 Shortness of breath (principal)
CPT/HCPCS: 99283-25

== ENCOUNTER 2021-05-24 15:41 | Emergency (ER) | payer BC, OTHER ==
[2021-05-24 16:31] VITALS: BP 128/61; PULSE 71; TEMP 98.1; BMI 23.8
== END 2021-05-24 17:15 | disposition home or self-care (01) ==
LOC: JER 15:41
DX: J44.9 Chronic obstructive pulmonary disease, unspecified (principal)
CPT/HCPCS: 71046-TC-FY; 93005; 93010; 99284-25

== ENCOUNTER 2021-06-20 15:52 | Emergency (ER) | payer BC, OTHER ==
[2021-06-20 16:26] VITALS: BP 140/68; PULSE 92; TEMP 98.9; BMI 23.8
[2021-06-20 17:20] LABS: HEMATOCRIT 38.7 % (32.4-45.2); HEMOGLOBIN 13.3 GM/dL (10.7-15.3); MCH 33.5 pg (25.7-33.7); MCHC 34.3 g/dl (32.0-36.0); MEAN CELL VOLUME 97.5 fl (80-96); MEAN PLT VOLUME 7.8 fl (7.5-11.1); PLATELET COUNT 320 10^3/uL (134-434); RBC 3.97 M/mm3 (3.60-5.2); WHITE BLOOD COUNT 8.9 K/mm3 (4.0-10.0)
[2021-06-20 17:40] LABS: CHLORIDE 106 mmol/L (98-107); SODIUM 140 mmol/L (136-145)
[2021-06-20 17:42] LABS: ALBUMIN 3.6 g/dl (3.4-5.0); CALCIUM 8.7 mg/dL (8.5-10.1)
[2021-06-20 17:43] LABS: BLOOD UREA NITROGEN 10.2 mg/dL (7-18); CO2 26 mmol/L (21-32); GLUCOSE,RANDOM 84 mg/dL (74-106)
[2021-06-20 17:45] LABS: SGPT/ALT 33 U/L (13-61)
[2021-06-20 17:46] LABS: SGOT/AST 63 U/L (15-37)
[2021-06-20 17:47] LABS: BILIRUBIN,TOTAL 0.3 mg/dL (0.2-1); TOT PROT 7.4 g/dl (6.4-8.2)
[2021-06-20 17:48] LABS: ALK PHOS 70 U/L (45-117)
[2021-06-20 17:50] LABS: ANISOCYTOSIS 1+; MACROCYTOSIS 1+; PLATELET ESTIMATE NORMAL
[2021-06-20 18:14] LABS: ANION GAP 8 MMOL/L (8-16)
[2021-06-20] MEDS ORDERED: ALBUTEROL SO4 HFA INHALER IH PRN (19:27)
[2021-06-20] MEDS ORDERED: ALBUTEROL SO4 HFA INHALER IH ONE (19:34)
== END 2021-06-20 20:39 | disposition home or self-care (01) ==
LOC: JER 15:52
DX: J06.9 Acute upper respiratory infection, unspecified (principal)
CPT/HCPCS: 36415; 71045-TC-FY; 80053; 80307; 84132; 84484; 85025; 87804; 93005; 93010; 99284-25; C9803; U0003; U0005

== ENCOUNTER 2021-06-27 16:32 | Emergency (ER) | payer BC ==
[2021-06-27 16:47] VITALS: TEMP 97.8; BMI 31.1
[2021-06-27 17:51] LABS: BASO % 0.9 % (0-2.0); EOS % 0.7 % (0-4.5); HEMOGLOBIN 12.7 GM/dL (10.7-15.3); LYMPH % 40.5 % (8-40); MCH 32.9 pg (25.7-33.7); MCHC 34.3 g/dl (32.0-36.0); MEAN CELL VOLUME 95.8 fl (80-96); MEAN PLT VOLUME 6.9 fl (7.5-11.1); MONO % 6.7 % (3.8-10.2); NEUT % 51.2 % (42.8-82.8); PLATELET COUNT 288 10^3/uL (134-434); RBC 3.86 M/mm3 (3.60-5.2); RDW 12.6 % (11.6-15.6)
[2021-06-27 18:10] LABS: CHLORIDE 109 mmol/L (98-107); SODIUM 142 mmol/L (136-145)
[2021-06-27 18:13] LABS: CALCIUM 8.8 mg/dL (8.5-10.1)
[2021-06-27 18:14] LABS: ALBUMIN 3.7 g/dl (3.4-5.0); ANION GAP 7 MMOL/L (8-16); BLOOD UREA NITROGEN 9.4 mg/dL (7-18); CO2 26 mmol/L (21-32); GLUCOSE,RANDOM 83 mg/dL (74-106)
[2021-06-27 18:17] LABS: CREATININE 0.6 mg/dL (0.55-1.3); SGOT/AST 32 U/L (15-37); SGPT/ALT 28 U/L (13-61)
[2021-06-27 18:19] LABS: BILIRUBIN,TOTAL 0.2 mg/dL (0.2-1); TOT PROT 6.9 g/dl (6.4-8.2)
[2021-06-27 18:20] LABS: ALK PHOS 73 U/L (45-117)
[2021-06-27] MEDS ORDERED: BUDESONIDE/FORMETEROL FUMARATE 80/4.5 mcg INHALER IH ONE (21:46)
[2021-06-27 22:07] VITALS: BP 122/63; PULSE 96
== END 2021-06-27 22:07 | disposition home or self-care (01) ==
LOC: JER 16:32
DX: F10.929 Alcohol use, unspecified with intoxication, unspecified (principal); W19.XXXA Unspecified fall, initial encounter
CPT/HCPCS: 36415; 70450-TC; 72125-TC; 80053; 82550; 84484; 85025; 93005; 93010; 99285-25

== ENCOUNTER 2021-06-28 16:37 | Emergency (ER) | payer BC ==
[2021-06-28 18:29] VITALS: BP 130/76; PULSE 82; TEMP 96.3; BMI 23.8
== END 2021-06-28 18:10 | disposition home or self-care (01) ==
LOC: JER 16:37
DX: J44.1 Chronic obstructive pulmonary disease with (acute) exacerbation (principal)
CPT/HCPCS: 71045-TC-FY; 99283-25

== ENCOUNTER 2021-08-08 13:23 | Emergency (ER) | payer BC ==
[2021-08-08 13:40] VITALS: BP 148/68; PULSE 111; TEMP 98; BMI 23.8
[2021-08-08] MEDS ORDERED: DEXAMETHASONE SOD PHOSPHATE 10 MG/1 ML VIAL IM ONE (17:18)
[2021-08-08] MEDS ORDERED: AZITHROMYCIN 500 MG TABLET PO ONE (17:19)
[2021-08-08] MEDS ORDERED: DEXAMETHASONE SOD PHOSPHATE 10 MG/1 ML VIAL ONE (17:28)
[2021-08-08] MEDS ORDERED: AZITHROMYCIN 250 MG TABLET ONE (17:29)
[2021-08-08] MEDS ORDERED: ALBUTEROL SO4 2.5/IPRATROPIUM 0.5 INH SOL 3 ML VIAL.NEB. NEB ONE ×2 (17:47→18:03)
[2021-08-08] MEDS: ALBUTEROL SO4 2.5/IPRATROPIUM 0.5 INH SOL 3 ML VIAL.NEB. NEB ONE ×2 (17:54→17:55)
== END 2021-08-08 21:26 | disposition home or self-care (01) ==
LOC: JER 13:23
PROC: 3E023GC Introduction of Other Therapeutic Substance into Muscle, Percutaneous Approach (ICD-10-PCS; principal; 2021-08-08)
PROC: 3E0F7GC Introduction of Other Therapeutic Substance into Respiratory Tract, Via Natural or Artificial Opening (ICD-10-PCS; 2021-08-08)
DX: J44.1 Chronic obstructive pulmonary disease with (acute) exacerbation (principal)
CPT/HCPCS: 71046-TC-FY; 82962; 87804; 93005; 93010; 99285-25; C9803; J1100; U0003; U0005

== ENCOUNTER 2021-08-24 00:28 | Emergency (ER) | payer BC, OTHER ==
[2021-08-24 00:47] VITALS: BP 128/79; PULSE 86; TEMP 98.8; BMI 23.8
[2021-08-24 01:23] LABS: EOS % 0.6 % (0-4.5); HEMOGLOBIN 12.4 GM/dL (10.7-15.3); LYMPH % 44.3 % (8-40); MCH 31.9 pg (25.7-33.7); MCHC 33.4 g/dl (32.0-36.0); MEAN CELL VOLUME 95.6 fl (80-96); MONO % 5.2 % (3.8-10.2); NEUT % 48.9 % (42.8-82.8); PLATELET COUNT 323 10^3/uL (134-434); RBC 3.87 M/mm3 (3.60-5.2); RDW 12.2 % (11.6-15.6); WHITE BLOOD COUNT 8.2 K/mm3 (4.0-10.0)
[2021-08-24] MEDS ORDERED: predniSONE 20 MG TABLET (UD) PO ONE (01:37)
[2021-08-24 01:59] LABS: ALBUMIN 3.3 g/dl (3.4-5.0); CALCIUM 8.8 mg/dL (8.5-10.1)
[2021-08-24 02:03] LABS: CREATININE 0.7 mg/dL (0.55-1.3)
[2021-08-24] MEDS ORDERED: ALBUTEROL SO4 2.5/IPRATROPIUM 0.5 INH SOL 3 ML VIAL.NEB. NEB ONE (02:03)
[2021-08-24] MEDS ORDERED: predniSONE 20 MG TABLET (UD) ONE (02:03)
[2021-08-24 02:04] LABS: BILIRUBIN,TOTAL 0.3 mg/dL (0.2-1); TOT PROT 6.4 g/dl (6.4-8.2)
[2021-08-24 02:07] LABS: N-TERMINAL BNP 32.1 pg/ml (5-125)
[2021-08-24] MEDS: ALBUTEROL SO4 2.5/IPRATROPIUM 0.5 INH SOL 3 ML VIAL.NEB. NEB SCH (02:10)
== END 2021-08-24 02:54 | disposition home or self-care (01) ==
LOC: JER 00:28
PROC: 3E0F7GC Introduction of Other Therapeutic Substance into Respiratory Tract, Via Natural or Artificial Opening (ICD-10-PCS; principal; 2021-08-24)
DX: J44.1 Chronic obstructive pulmonary disease with (acute) exacerbation (principal); R55 Syncope and collapse
CPT/HCPCS: 36415; 71045-TC-FY; 80053; 80307; 82550; 83880; 84484; 85025; 93005; 93010; 99285-25; C9803; U0003; U0005

== ENCOUNTER 2021-08-30 15:52 | Emergency (ER) | payer BC ==
[2021-08-30 16:18] VITALS: BP 125/74; PULSE 95; TEMP 97.8; BMI 23.8
== END 2021-08-30 18:02 | disposition home or self-care (01) ==
LOC: JER 15:52
DX: Z20.822 Contact with and (suspected) exposure to COVID-19 (principal)
CPT/HCPCS: 99283-25; C9803; U0003; U0005

== ENCOUNTER 2021-08-31 10:49 | Emergency (ER) | payer BC ==
[2021-08-31 11:13] VITALS: BP 160/80; PULSE 110; TEMP 98.6; BMI 23.8
== END 2021-08-31 13:49 | disposition home or self-care (01) ==
LOC: JER 10:49
DX: J44.9 Chronic obstructive pulmonary disease, unspecified (principal)
CPT/HCPCS: 99283-25

== ENCOUNTER 2021-11-02 16:16 | Inpatient (IN) | payer BC ==
[2021-11-02 17:07] VITALS: BMI 23.8
[2021-11-02] MEDS ORDERED: ACETAMINOPHEN 1000 MG/100 ML BAG IVPB ONE (17:10)
[2021-11-02] MEDS ORDERED: SODIUM CHLORIDE 0.9% 500 ML INFUS.BAG IV ONE (17:10)
[2021-11-02] MEDS ORDERED: ALBUTEROL SO4 2.5/IPRATROPIUM 0.5 INH SOL 3 ML VIAL.NEB. NEB ONE ×2 (17:45→17:51)
[2021-11-02 17:49] LABS: VENOUS BASE EXCESS -5.9 mmol/L (-2-2); VENOUS O2 SATURATION 97.2 % (70-80); VENOUS PCO2 29.8 mmHg (38-52); VENOUS PH 7.393 (7.310-7.410)
[2021-11-02] MEDS ORDERED: ACETAMINOPHEN INJECTION 100 ML IVPB ONE (17:51)
[2021-11-02 18:01] LABS: HEMATOCRIT 35.8 % (32.4-45.2); HEMOGLOBIN 12.1 GM/dL (10.7-15.3); MCH 32.8 pg (25.7-33.7); MCHC 33.9 g/dl (32.0-36.0); MEAN CELL VOLUME 96.8 fl (80-96); PLATELET COUNT 199 10^3/uL (134-434); RDW 13.4 % (11.6-15.6); WHITE BLOOD COUNT 23.9 K/mm3 (4.0-10.0)
[2021-11-02 18:09] LABS: INR 1.11 (0.83-1.09); PROTHROMBIN TIME (PATIENT) 12.8 SEC (9.7-13.0)
[2021-11-02 18:11] LABS: ACTIVATED PTT 33.6 SECONDS (25.2-36.5); CHLORIDE 104 mmol/L (98-107); SODIUM 139 mmol/L (136-145)
[2021-11-02 18:13] LABS: ANION GAP 14 MMOL/L (8-16); CALCIUM 8.7 mg/dL (8.5-10.1); CO2 20 mmol/L (21-32); GLUCOSE,RANDOM 64 mg/dL (74-106)
[2021-11-02 18:14] LABS: ALBUMIN 3.3 g/dl (3.4-5.0); BLOOD UREA NITROGEN 7.7 mg/dL (7-18)
[2021-11-02 18:14] LABS: EPI CELLS 23 /uL (0-25.1); HYALINE CASTS 43 /uL (0-3.1); URINE APPEARANCE CLOUDY; URINE BILIRUBIN NEGATIVE (NEGATIVE); URINE COLOR YELLOW; URINE GLUCOSE (UA) NEGATIVE (NEGATIVE); URINE KETONE TRACE (NEGATIVE); URINE LEUK ESTERASE NEGATIVE (NEGATIVE); URINE NITRITE NEGATIVE (NEGATIVE); URINE PROTEIN NEGATIVE (NEGATIVE); URINE RBC 2 /uL (0-23.9); URINE UROBILINOGEN 0.2 mg/dL (0.2-1.0); URINE WBC 3 /uL (0-25.8)
[2021-11-02 18:16] LABS: CREATININE 0.6 mg/dL (0.55-1.3); SGPT/ALT 17 U/L (13-61)
[2021-11-02 18:17] LABS: SGOT/AST 20 U/L (15-37)
[2021-11-02 18:18] LABS: BILIRUBIN,TOTAL 0.5 mg/dL (0.2-1); TOT PROT 6.5 g/dl (6.4-8.2)
[2021-11-02 18:19] LABS: ALK PHOS 84 U/L (45-117)
[2021-11-02 18:23] LABS: LACTIC ACID 4.6 mmol/L (0.4-2.0)
[2021-11-02] MEDS ORDERED: CEFTRIAXONE 1,000 MG in DEXTROSE 5%-WATER - 50 ML IVPB ONE (18:31)
[2021-11-02] MEDS ORDERED: AZITHROMYCIN IVPB 500 MG in DEXTROSE 5%-WATER - 250 ML IVPB ONE (18:31)
[2021-11-02] MEDS ORDERED: CEFTRIAXONE 1 GM/50 ML BAG ONE (18:36)
[2021-11-02 19:42] LABS: URINE BACTERIA 83.5 /uL (0-1359)
[2021-11-02] MEDS ORDERED: AZITHROMYCIN IVPB 500 MG/250 ML BAG IVPB ONE (19:49)
[2021-11-02 20:03] LABS: ANISOCYTOSIS 0; MACROCYTOSIS 1+; PLATELET ESTIMATE NORMAL; TOXIC GRANULATION 1+
[2021-11-02] MEDS ORDERED: ALBUTEROL SO4 HFA INHALER IH PRN (20:52)
[2021-11-02 21:28] LABS: LACTIC ACID 5.5 mmol/L (0.4-2.0)
[2021-11-02] MEDS ORDERED: SODIUM CHLORIDE 1,000 ML IV STA (21:36)
[2021-11-02] MEDS ORDERED: FOLIC ACID INJECTION - 1 MG, THIAMINE HCL 100 MG, MULTIVIT INJECTION ADULT 10 ML in SOD... IVPB ONE (22:49)
[2021-11-02] MEDS ORDERED: LORazepam 1 MG TABLET PO PRN (23:02)
[2021-11-03] MEDS ORDERED: ACETAMINOPHEN 325 MG TABLET (FP) PO PRN
[2021-11-03 06:40] LABS: BASO % 0.7 % (0-2.0); HEMATOCRIT 33.3 % (32.4-45.2); HEMOGLOBIN 11.3 GM/dL (10.7-15.3); LYMPH % 6.8 % (8-40); MCH 33.1 pg (25.7-33.7); MCHC 33.9 g/dl (32.0-36.0); MEAN CELL VOLUME 97.5 fl (80-96); MEAN PLT VOLUME 7.7 fl (7.5-11.1); MONO % 5.8 % (3.8-10.2); NEUT % 86.7 % (42.8-82.8); PLATELET COUNT 188 10^3/uL (134-434); RBC 3.42 M/mm3 (3.60-5.2); RDW 13.2 % (11.6-15.6); WHITE BLOOD COUNT 19.9 K/mm3 (4.0-10.0)
[2021-11-03 07:02] LABS: ALBUMIN 2.9 g/dl (3.4-5.0); BLOOD UREA NITROGEN 7.3 mg/dL (7-18); MAGNESIUM 2.2 mg/dL (1.8-2.4)
[2021-11-03 07:05] LABS: CREATININE 0.5 mg/dL (0.55-1.3)
[2021-11-03 07:07] LABS: BILIRUBIN,TOTAL 1.2 mg/dL (0.2-1); TOT PROT 5.5 g/dl (6.4-8.2)
[2021-11-03] MEDS ORDERED: THIAMINE HCL 100 MG TABLET (FP) ONE (08:01)
[2021-11-03] MEDS ORDERED: ALBUTEROL SO4 HFA INHALER IH ONE (08:02)
[2021-11-03] MEDS ORDERED: CEFTRIAXONE 1 GM/50 ML BAG ONE (08:02)
[2021-11-03] MEDS ORDERED: FOLIC ACID 1 MG TABLET (FP) ONE (08:02)
[2021-11-03] MEDS ORDERED: MULTIVITAMINS (DAILY MVI) TABLET (FP) ONE (08:02)
[2021-11-03] MEDS ORDERED: AZITHROMYCIN IVPB 500 MG/250 ML BAG IVPB ONE (08:03)
[2021-11-03] MEDS: FOLIC ACID 1 MG TABLET (FP) PO SCH (09:03)
[2021-11-03] MEDS: CEFTRIAXONE 1 GM in DEXTROSE 5%-WATER - 50 ML IVPB SCH (09:03)
[2021-11-03] MEDS: THIAMINE HCL 100 MG TABLET (FP) PO SCH (09:03)
[2021-11-03] MEDS: MULTIVITAMINS (DAILY MVI) TABLET (FP) PO SCH (09:03)
[2021-11-03] MEDS: AZITHROMYCIN IVPB 500 MG/250 ML BAG IVPB SCH (12:21)
[2021-11-03] MEDS: TIOTROPIUM BROMIDE 2.5 MCG (SPIRIVA) RESPIMAT INHALER IH SCH (15:24)
[2021-11-04] MEDS ORDERED: DEXTROSE 5%-WATER - 50 ML IVPB ONE (08:33)
[2021-11-04] MEDS ORDERED: cefTRIAXone SODIUM 1 GM VIAL ONE (08:33)
[2021-11-04] MEDS: FOLIC ACID 1 MG TABLET (FP) PO SCH (09:43)
[2021-11-04] MEDS: MULTIVITAMINS (DAILY MVI) TABLET (FP) PO SCH (09:43)
[2021-11-04] MEDS: CEFTRIAXONE 1 GM in DEXTROSE 5%-WATER - 50 ML IVPB SCH (09:43)
[2021-11-04] MEDS: THIAMINE HCL 100 MG TABLET (FP) PO SCH (09:43)
[2021-11-04] MEDS: AZITHROMYCIN IVPB 500 MG/250 ML BAG IVPB SCH (09:45)
[2021-11-04] MEDS: TIOTROPIUM BROMIDE 2.5 MCG (SPIRIVA) RESPIMAT INHALER IH SCH (09:46)
[2021-11-04] MEDS ORDERED: LORazepam 2 MG/ML SDV VIAL IVPUSH PRN (11:06)
[2021-11-04 14:08] LABS: SARS-CoV-2 NAA Not Detected (Not Detected)
[2021-11-05] MEDS ORDERED: DEXTROSE 5%-WATER - 50 ML IVPB ONE (09:25)
[2021-11-05] MEDS ORDERED: cefTRIAXone SODIUM 1 GM VIAL ONE (09:25)
[2021-11-05] MEDS: THIAMINE HCL 100 MG TABLET (FP) PO SCH (09:31)
[2021-11-05] MEDS: CEFTRIAXONE 1 GM in DEXTROSE 5%-WATER - 50 ML IVPB SCH (09:31)
[2021-11-05] MEDS: MULTIVITAMINS (DAILY MVI) TABLET (FP) PO SCH (09:31)
[2021-11-05] MEDS: FOLIC ACID 1 MG TABLET (FP) PO SCH (09:31)
[2021-11-05] MEDS: AZITHROMYCIN IVPB 500 MG/250 ML BAG IVPB SCH (09:32)
[2021-11-05] MEDS: TIOTROPIUM BROMIDE 2.5 MCG (SPIRIVA) RESPIMAT INHALER IH SCH (09:36)
[2021-11-05 09:37] LABS: BASO % 0.9 % (0-2.0); EOS % 0.5 % (0-4.5); HEMATOCRIT 36.7 % (32.4-45.2); HEMOGLOBIN 12.3 GM/dL (10.7-15.3); LYMPH % 13.5 % (8-40); MCH 32.6 pg (25.7-33.7); MCHC 33.6 g/dl (32.0-36.0); MEAN PLT VOLUME 8.4 fl (7.5-11.1); MONO % 6.6 % (3.8-10.2); NEUT % 78.5 % (42.8-82.8); PLATELET COUNT 277 10^3/uL (134-434); RBC 3.79 M/mm3 (3.60-5.2); RDW 12.8 % (11.6-15.6); WHITE BLOOD COUNT 12.2 K/mm3 (4.0-10.0)
[2021-11-05 10:07] LABS: ALBUMIN 2.9 g/dl (3.4-5.0); BLOOD UREA NITROGEN 6.4 mg/dL (7-18); CALCIUM 8.8 mg/dL (8.5-10.1)
[2021-11-05 10:11] LABS: CREATININE 0.6 mg/dL (0.55-1.3)
[2021-11-05 10:12] LABS: BILIRUBIN,TOTAL 0.7 mg/dL (0.2-1)
[2021-11-05 10:13] LABS: TOT PROT 6.5 g/dl (6.4-8.2)
[2021-11-06] MEDS: CEFTRIAXONE 1 GM in DEXTROSE 5%-WATER - 50 ML IVPB SCH (09:24)
[2021-11-06] MEDS: MULTIVITAMINS (DAILY MVI) TABLET (FP) PO SCH (09:24)
[2021-11-06] MEDS: FOLIC ACID 1 MG TABLET (FP) PO SCH (09:24)
[2021-11-06] MEDS: THIAMINE HCL 100 MG TABLET (FP) PO SCH (09:25)
[2021-11-06] MEDS: AZITHROMYCIN IVPB 500 MG/250 ML BAG IVPB SCH (09:25)
[2021-11-06] MEDS: TIOTROPIUM BROMIDE 2.5 MCG (SPIRIVA) RESPIMAT INHALER IH SCH (09:29)
[2021-11-07 08:53] LABS: HEMATOCRIT 37.3 % (32.4-45.2); HEMOGLOBIN 12.3 GM/dL (10.7-15.3); MCH 32.4 pg (25.7-33.7); MEAN CELL VOLUME 98.1 fl (80-96); MEAN PLT VOLUME 7.5 fl (7.5-11.1); PLATELET COUNT 336 10^3/uL (134-434); RDW 12.7 % (11.6-15.6); WHITE BLOOD COUNT 10.3 K/mm3 (4.0-10.0)
[2021-11-07 09:18] LABS: ALBUMIN 3.2 g/dl (3.4-5.0); BLOOD UREA NITROGEN 5.8 mg/dL (7-18); CALCIUM 9.4 mg/dL (8.5-10.1); MAGNESIUM 2.2 mg/dL (1.8-2.4)
[2021-11-07 09:21] LABS: CREATININE 0.6 mg/dL (0.55-1.3)
[2021-11-07 09:23] LABS: BILIRUBIN,TOTAL 0.3 mg/dL (0.2-1); TOT PROT 6.3 g/dl (6.4-8.2)
[2021-11-07] MEDS ORDERED: DEXTROSE 5%-WATER - 50 ML IVPB ONE (09:34)
[2021-11-07] MEDS ORDERED: cefTRIAXone SODIUM 1 GM VIAL ONE (09:34)
[2021-11-07] MEDS: FOLIC ACID 1 MG TABLET (FP) PO SCH (09:36)
[2021-11-07] MEDS: THIAMINE HCL 100 MG TABLET (FP) PO SCH (09:36)
[2021-11-07] MEDS: CEFTRIAXONE 1 GM in DEXTROSE 5%-WATER - 50 ML IVPB SCH (09:36)
[2021-11-07] MEDS: MULTIVITAMINS (DAILY MVI) TABLET (FP) PO SCH (09:36)
[2021-11-07] MEDS: TIOTROPIUM BROMIDE 2.5 MCG (SPIRIVA) RESPIMAT INHALER IH SCH (09:38)
[2021-11-07] MEDS: AZITHROMYCIN IVPB 500 MG/250 ML BAG IVPB SCH (12:13)
[2021-11-08] MEDS ORDERED: cefTRIAXone SODIUM 1 GM VIAL ONE (10:07)
[2021-11-08] MEDS ORDERED: DEXTROSE 5%-WATER - 50 ML IVPB ONE (10:07)
[2021-11-08] MEDS: AZITHROMYCIN IVPB 500 MG/250 ML BAG IVPB SCH (10:13)
[2021-11-08] MEDS: THIAMINE HCL 100 MG TABLET (FP) PO SCH (10:14)
[2021-11-08] MEDS: CEFTRIAXONE 1 GM in DEXTROSE 5%-WATER - 50 ML IVPB SCH (10:14)
[2021-11-08] MEDS: FOLIC ACID 1 MG TABLET (FP) PO SCH (10:14)
[2021-11-08] MEDS: MULTIVITAMINS (DAILY MVI) TABLET (FP) PO SCH (10:14)
[2021-11-08] MEDS: TIOTROPIUM BROMIDE 2.5 MCG (SPIRIVA) RESPIMAT INHALER IH SCH (10:15)
[2021-11-08 14:09] VITALS: BP 131/66; PULSE 70; TEMP 99.4
[2021-11-09 16:10] LABS: SARS-CoV-2 NAA Not Detected (Not Detected)
== END 2021-11-08 15:43 | disposition home or self-care (01) | DRG 871 ==
LOC: JER 16:16 → JERBED 18:35 → J6S 11-03 09:25
PROVIDERS: ADMIT Internal Medicine; ATTEND Family Medicine
DX: A41.9 Sepsis, unspecified organism (principal); J18.9 Pneumonia, unspecified organism; E87.2 Acidosis; E11.9 Type 2 diabetes mellitus without complications; I10 Essential (primary) hypertension; J44.9 Chronic obstructive pulmonary disease, unspecified; F03.90 Unspecified dementia, unspecified severity, without behavioral disturbance, psychotic disturbance, mood disturbance, and anxiety; F17.210 Nicotine dependence, cigarettes, uncomplicated; F10.20 Alcohol dependence, uncomplicated; R19.7 Diarrhea, unspecified; R93.89 Abnormal findings on diagnostic imaging of other specified body structures
CPT/HCPCS: 36415; 71045-TC-FY; 71250-TC; 80053; 80307; 81003; 82553; 82803; 82962; 83605; 83735; 84484; 85025; 85027; 85610; 85730; 87040; 87070; 87077; 87086; 87186; 87205; 87804; 87807; 87899; 93005; 93010; 97161-GP; 99291; C9803-CS; U0003; U0005

== ENCOUNTER 2021-11-16 19:16 | Emergency (ER) | payer BC ==
[2021-11-16 19:36] VITALS: BP 114/60; PULSE 82; TEMP 96.6; BMI 24.2
== END 2021-11-16 21:56 | disposition home or self-care (01) ==
LOC: JER 19:16
DX: E04.1 Nontoxic single thyroid nodule (principal); W19.XXXA Unspecified fall, initial encounter
CPT/HCPCS: 70450-TC; 72125-TC; 99284-25

== ENCOUNTER 2021-12-12 18:02 | Emergency (ER) | payer BC ==
[2021-12-12 18:25] VITALS: TEMP 98.1; BMI 23.8
[2021-12-12 19:37] LABS: BASO % 0.9 % (0-2.0); EOS % 0.9 % (0-4.5); HEMATOCRIT 38.5 % (32.4-45.2); HEMOGLOBIN 12.7 GM/dL (10.7-15.3); LYMPH % 32.8 % (8-40); MCH 32.4 pg (25.7-33.7); MEAN CELL VOLUME 98.2 fl (80-96); MEAN PLT VOLUME 7.3 fl (7.5-11.1); MONO % 7.7 % (3.8-10.2); NEUT % 57.7 % (42.8-82.8); PLATELET COUNT 276 10^3/uL (134-434); RBC 3.92 M/mm3 (3.60-5.2); RDW 13.5 % (11.6-15.6); WHITE BLOOD COUNT 11.3 K/mm3 (4.0-10.0)
[2021-12-12 20:02] LABS: ALBUMIN 3.4 g/dl (3.4-5.0); CALCIUM 8.7 mg/dL (8.5-10.1)
[2021-12-12 20:05] LABS: CREATININE 0.6 mg/dL (0.55-1.3)
[2021-12-12 20:07] LABS: BILIRUBIN,TOTAL 0.2 mg/dL (0.2-1); TOT PROT 6.8 g/dl (6.4-8.2)
[2021-12-12] MEDS ORDERED: ACETAMINOPHEN 325 MG TABLET (FP) ONE (20:48)
[2021-12-12] MEDS ORDERED: ACETAMINOPHEN 325 MG TABLET (FP) PO ONE (20:50)
[2021-12-12 21:51] VITALS: BP 121/70; PULSE 88
== END 2021-12-12 21:52 | disposition home or self-care (01) ==
LOC: JER 18:02
DX: R06.02 Shortness of breath (principal)
CPT/HCPCS: 0241U-QW; 36415; 80053; 84484; 85025; 87807; 93005; 93010; 99284-25; C9803-CS; U0003; U0005

== ENCOUNTER 2022-02-05 15:10 | Inpatient (IN) | payer BC ==
[2022-02-05 16:32] LABS: BASO % 1.1 % (0-2.0); EOS % 0.4 % (0-4.5); HEMATOCRIT 38.2 % (32.4-45.2); HEMOGLOBIN 12.9 GM/dL (10.7-15.3); LYMPH % 41.4 % (8-40); MCH 32.7 pg (25.7-33.7); MCHC 33.9 g/dl (32.0-36.0); MEAN CELL VOLUME 96.5 fl (80-96); MEAN PLT VOLUME 7.3 fl (7.5-11.1); MONO % 7.1 % (3.8-10.2); PLATELET COUNT 283 10^3/uL (134-434); RBC 3.96 M/mm3 (3.60-5.2); RDW 13.2 % (11.6-15.6); WHITE BLOOD COUNT 7.3 K/mm3 (4.0-10.0)
[2022-02-05] MEDS ORDERED: ALBUTEROL SO4 HFA INHALER IH ONE (16:33)
[2022-02-05 16:47] LABS: CALCIUM 8.6 mg/dL (8.5-10.1)
[2022-02-05 16:48] LABS: ALBUMIN 3.9 g/dl (3.4-5.0); BLOOD UREA NITROGEN 8.2 mg/dL (7-18); MAGNESIUM 2.4 mg/dL (1.8-2.4)
[2022-02-05 16:51] LABS: CREATININE 0.6 mg/dL (0.55-1.3)
[2022-02-05 16:53] LABS: BILIRUBIN,TOTAL 0.3 mg/dL (0.2-1); TOT PROT 6.9 g/dl (6.4-8.2)
[2022-02-05] MEDS ORDERED: methylPREDNISolone NA SUCC 125 MG/2 ML VIAL IVPUSH ONE (16:59)
[2022-02-05] MEDS ORDERED: methylPREDNISolone NA SUCC 125 MG/2 ML VIAL ONE (17:05)
[2022-02-05] MEDS ORDERED: ALBUTEROL SO4 2.5/IPRATROPIUM 0.5 INH SOL 3 ML VIAL.NEB. NEB ONE (17:05)
[2022-02-05] MEDS: ALBUTEROL SO4 2.5/IPRATROPIUM 0.5 INH SOL 3 ML VIAL.NEB. NEB SCH ×4 (17:10→17:55)
[2022-02-05 18:35] LABS: INR 0.92 (0.83-1.09); PROTHROMBIN TIME (PATIENT) 10.6 SEC (9.7-13.0)
[2022-02-05 18:38] LABS: ACTIVATED PTT 27.8 SECONDS (25.2-36.5)
[2022-02-05] MEDS ORDERED: AZITHROMYCIN IVPB 500 MG in DEXTROSE 5%-WATER - 250 ML IVPB ONE (22:50)
[2022-02-05] MEDS ORDERED: AZITHROMYCIN IVPB 500 MG/250 ML BAG IVPB ONE (22:59)
[2022-02-05 23:34] VITALS: BMI 20.2
[2022-02-06] MEDS: methylPREDNISolone NA SUCC 40 MG/1 ML VIAL IVPUSH SCH ×4 (03:12→21:14)
[2022-02-06] MEDS: chlordiazePOXIDE HCL 25 MG CAPSULE PO PRN ×2 (03:13→17:55)
[2022-02-06] MEDS ORDERED: chlordiazePOXIDE HCL 25 MG CAPSULE PO SCH (05:00)
[2022-02-06 08:13] LABS: BASO % 0.6 % (0-2.0); HEMATOCRIT 40.2 % (32.4-45.2); HEMOGLOBIN 13.6 GM/dL (10.7-15.3); LYMPH % 11.5 % (8-40); MCH 32.7 pg (25.7-33.7); MCHC 33.7 g/dl (32.0-36.0); MEAN CELL VOLUME 96.9 fl (80-96); MEAN PLT VOLUME 8.2 fl (7.5-11.1); MONO % 1.3 % (3.8-10.2); NEUT % 86.6 % (42.8-82.8); PLATELET COUNT 264 10^3/uL (134-434); RBC 4.15 M/mm3 (3.60-5.2); RDW 13.1 % (11.6-15.6); WHITE BLOOD COUNT 6.3 K/mm3 (4.0-10.0)
[2022-02-06 08:52] LABS: BILIRUBIN,TOTAL 0.7 mg/dL (0.2-1); BLOOD UREA NITROGEN 13.3 mg/dL (7-18); CALCIUM 9.1 mg/dL (8.5-10.1); CREATININE 0.6 mg/dL (0.55-1.3); TOT PROT 7.3 g/dl (6.4-8.2)
[2022-02-06] MEDS ORDERED: ALBUTEROL SO4 2.5/IPRATROPIUM 0.5 INH SOL 3 ML VIAL.NEB. NEB PRN (09:00)
[2022-02-06] MEDS: MULTIVITAMINS (DAILY MVI) TABLET (FP) PO SCH (09:52)
[2022-02-06] MEDS: THIAMINE HCL 100 MG TABLET (FP) PO SCH (09:52)
[2022-02-06] MEDS: HEPARIN NA (PORCINE) 5,000 UNITS/ML 1ML VIAL SQ SCH ×2 (09:52→21:31)
[2022-02-06] MEDS: FOLIC ACID 1 MG TABLET (FP) PO SCH (09:52)
[2022-02-06] MEDS ORDERED: TIOTROPIUM BROMIDE 2.5 MCG (SPIRIVA) RESPIMAT INHALER IH SCH (10:00)
[2022-02-06] MEDS ORDERED: AZITHROMYCIN IVPB 500 MG in DEXTROSE 5%-WATER - 250 ML IVPB SCH (10:00)
[2022-02-06] MEDS: BUDESONIDE/FORMETEROL FUMARATE 160/4.5 mcg INHALER IH SCH ×2 (11:27→21:31)
[2022-02-06] MEDS: ALBUTEROL SO4 2.5/IPRATROPIUM 0.5 INH SOL 3 ML VIAL.NEB. NEB SCH ×3 (11:54→20:19)
[2022-02-06] MEDS: AZITHROMYCIN IVPB 500 MG/250 ML BAG IVPB SCH (12:05)
[2022-02-06] MEDS: INSULIN SLIDING SCALE (NOVOLOG) 1 VIAL SQ SCH ×2 (16:10→21:37)
[2022-02-07] MEDS: methylPREDNISolone NA SUCC 40 MG/1 ML VIAL IVPUSH SCH ×2 (02:05→14:18)
[2022-02-07] MEDS ORDERED: chlordiazePOXIDE HCL 25 MG CAPSULE PO SCH (05:00)
[2022-02-07] MEDS: INSULIN SLIDING SCALE (NOVOLOG) 1 VIAL SQ SCH ×2 (06:22→11:33)
[2022-02-07] MEDS: ALBUTEROL SO4 2.5/IPRATROPIUM 0.5 INH SOL 3 ML VIAL.NEB. NEB SCH ×2 (07:33→11:30)
[2022-02-07 08:03] LABS: BASO % 0.6 % (0-2.0); EOS % 0.1 % (0-4.5); HEMATOCRIT 39.1 % (32.4-45.2); HEMOGLOBIN 13.2 GM/dL (10.7-15.3); LYMPH % 6.5 % (8-40); MCH 32.8 pg (25.7-33.7); MCHC 33.9 g/dl (32.0-36.0); MEAN CELL VOLUME 96.8 fl (80-96); MEAN PLT VOLUME 8.5 fl (7.5-11.1); MONO % 3.5 % (3.8-10.2); NEUT % 89.3 % (42.8-82.8); PLATELET COUNT 242 10^3/uL (134-434); RBC 4.03 M/mm3 (3.60-5.2); RDW 13.2 % (11.6-15.6); WHITE BLOOD COUNT 13.3 K/mm3 (4.0-10.0)
[2022-02-07 08:26] LABS: ALBUMIN 3.8 g/dl (3.4-5.0); CALCIUM 9.6 mg/dL (8.5-10.1)
[2022-02-07 08:27] LABS: BLOOD UREA NITROGEN 14.5 mg/dL (7-18)
[2022-02-07 08:30] LABS: CREATININE 0.7 mg/dL (0.55-1.3)
[2022-02-07 08:31] LABS: BILIRUBIN,TOTAL 0.8 mg/dL (0.2-1)
[2022-02-07] MEDS: THIAMINE HCL 100 MG TABLET (FP) PO SCH (09:48)
[2022-02-07] MEDS: HEPARIN NA (PORCINE) 5,000 UNITS/ML 1ML VIAL SQ SCH (09:48)
[2022-02-07] MEDS: MULTIVITAMINS (DAILY MVI) TABLET (FP) PO SCH (09:49)
[2022-02-07] MEDS: FOLIC ACID 1 MG TABLET (FP) PO SCH (09:49)
[2022-02-07] MEDS: BUDESONIDE/FORMETEROL FUMARATE 160/4.5 mcg INHALER IH SCH (09:53)
[2022-02-07] MEDS: AZITHROMYCIN IVPB 500 MG/250 ML BAG IVPB SCH (09:58)
[2022-02-07] MEDS ORDERED: predniSONE 10 MG TABLET (UD) PO SCH (10:00)
[2022-02-07 14:10] VITALS: BP 131/64; PULSE 94; TEMP 98.8
[2022-02-08] MEDS ORDERED: chlordiazePOXIDE HCL 10 MG CAPSULE PO PRN
[2022-02-08] MEDS ORDERED: chlordiazePOXIDE HCL 10 MG CAPSULE PO SCH (05:00)
[2022-02-09] MEDS ORDERED: chlordiazePOXIDE HCL 10 MG CAPSULE PO SCH (05:00)
[2022-02-10] MEDS ORDERED: chlordiazePOXIDE HCL 10 MG CAPSULE PO ONE (05:00)
== END 2022-02-07 15:30 | disposition home or self-care (01) | DRG 191 ==
LOC: JER 15:10 → JERBED 18:05 → J4W 22:53
PROVIDERS: ADMIT Internal Medicine; ATTEND Family Medicine
DX: J44.1 Chronic obstructive pulmonary disease with (acute) exacerbation (principal); F10.230 Alcohol dependence with withdrawal, uncomplicated; I10 Essential (primary) hypertension; F03.90 Unspecified dementia, unspecified severity, without behavioral disturbance, psychotic disturbance, mood disturbance, and anxiety; E11.9 Type 2 diabetes mellitus without complications; R09.02 Hypoxemia; R55 Syncope and collapse; F17.210 Nicotine dependence, cigarettes, uncomplicated; R91.8 Other nonspecific abnormal finding of lung field
CPT/HCPCS: 36415; 71046-TC-FY; 71275-TC; 80053; 80307; 82962; 83735; 84484; 85025; 85379; 85610; 85730; 93005; 93010; 94640; 99285-25; C9803-CS; J1644; Q9967; U0003; U0005

== ENCOUNTER 2022-03-20 17:43 | Inpatient (IN) | payer BC ==
[2022-03-20] MEDS ORDERED: THIAMINE HCL 200 MG/2 ML VIAL IVPB ONE (19:29)
[2022-03-20] MEDS ORDERED: THIAMINE HCL 200 MG/2 ML VIAL ONE (20:17)
[2022-03-20] MEDS ORDERED: chlordiazePOXIDE HCL 25 MG CAPSULE PO ONE (20:46)
[2022-03-20 21:00] LABS: VENOUS BASE EXCESS 1.7 mmol/L (-2-2); VENOUS O2 SATURATION 65.1 % (70-80); VENOUS PH 7.325 (7.310-7.410)
[2022-03-20 21:01] LABS: EOS % 0.7 % (0-4.5); HEMATOCRIT 38.1 % (32.4-45.2); HEMOGLOBIN 13.1 GM/dL (10.7-15.3); LYMPH % 43.9 % (8-40); MCH 33.5 pg (25.7-33.7); MCHC 34.4 g/dl (32.0-36.0); MEAN CELL VOLUME 97.3 fl (80-96); MEAN PLT VOLUME 7.7 fl (7.5-11.1); MONO % 5.3 % (3.8-10.2); NEUT % 49.1 % (42.8-82.8); PH,URINE 5.5 (5.0-8.0); PLATELET COUNT 257 10^3/uL (134-434); RBC 3.91 M/mm3 (3.60-5.2); RDW 13.3 % (11.6-15.6); URINE APPEARANCE CLEAR; URINE BILIRUBIN NEGATIVE (NEGATIVE); URINE COLOR YELLOW; URINE GLUCOSE (UA) NEGATIVE (NEGATIVE); URINE KETONE NEGATIVE (NEGATIVE); URINE LEUK ESTERASE NEGATIVE (NEGATIVE); URINE NITRITE NEGATIVE (NEGATIVE); URINE PROTEIN NEGATIVE (NEGATIVE); URINE UROBILINOGEN 0.2 mg/dL (0.2-1.0); WHITE BLOOD COUNT 8.1 K/mm3 (4.0-10.0)
[2022-03-20 21:07] LABS: INR 0.89 (0.83-1.09); PROTHROMBIN TIME (PATIENT) 10.2 SEC (9.7-13.0)
[2022-03-20 21:10] LABS: ACTIVATED PTT 30.8 SECONDS (25.2-36.5)
[2022-03-20 21:31] LABS: CALCIUM 9.2 mg/dL (8.5-10.1)
[2022-03-20 21:32] LABS: ALBUMIN 3.9 g/dl (3.4-5.0); BLOOD UREA NITROGEN 10.4 mg/dL (7-18)
[2022-03-20 21:35] LABS: CREATININE 0.7 mg/dL (0.55-1.3)
[2022-03-20 21:36] LABS: BILIRUBIN,TOTAL 0.2 mg/dL (0.2-1)
[2022-03-20] MEDS ORDERED: chlordiazePOXIDE HCL 25 MG CAPSULE ONE (21:42)
[2022-03-21] MEDS ORDERED: FOLIC ACID INJECTION - 1 MG, THIAMINE HCL 100 MG, MULTIVIT INJECTION ADULT 10 ML in SOD... IVPB ONE (01:00)
[2022-03-21] MEDS ORDERED: chlordiazePOXIDE HCL 25 MG CAPSULE PO PRN (01:36)
[2022-03-21] MEDS ORDERED: chlordiazePOXIDE HCL 25 MG CAPSULE PO SCH (05:00)
[2022-03-21] MEDS: chlordiazePOXIDE HCL 25 MG CAPSULE PO SCH ×5 (06:09→17:15)
[2022-03-21] MEDS ORDERED: chlordiazePOXIDE HCL 25 MG CAPSULE ONE ×2 (06:11→10:48)
[2022-03-21 06:18] LABS: BASO % 1.6 % (0-2.0); EOS % 0.6 % (0-4.5); HEMATOCRIT 37.5 % (32.4-45.2); HEMOGLOBIN 12.7 GM/dL (10.7-15.3); LYMPH % 28.7 % (8-40); MCH 33.1 pg (25.7-33.7); MCHC 33.7 g/dl (32.0-36.0); MEAN CELL VOLUME 98.2 fl (80-96); MONO % 7.3 % (3.8-10.2); NEUT % 61.8 % (42.8-82.8); PLATELET COUNT 241 10^3/uL (134-434); RBC 3.82 M/mm3 (3.60-5.2); WHITE BLOOD COUNT 8.5 K/mm3 (4.0-10.0)
[2022-03-21 06:37] LABS: ALBUMIN 3.7 g/dl (3.4-5.0); MAGNESIUM 1.6 mg/dL (1.8-2.4)
[2022-03-21 06:38] LABS: BLOOD UREA NITROGEN 11.4 mg/dL (7-18); CALCIUM 9.3 mg/dL (8.5-10.1)
[2022-03-21 06:40] LABS: CREATININE 0.6 mg/dL (0.55-1.3)
[2022-03-21 06:42] LABS: TOT PROT 6.7 g/dl (6.4-8.2)
[2022-03-21 06:43] LABS: BILIRUBIN,TOTAL 0.5 mg/dL (0.2-1)
[2022-03-21] MEDS ORDERED: THIAMINE HCL 100 MG TABLET (FP) ONE (08:55)
[2022-03-21] MEDS ORDERED: FOLIC ACID 1 MG TABLET (FP) ONE (08:55)
[2022-03-21] MEDS ORDERED: THIAMINE HCL 100 MG TABLET (FP) PO SCH ×2 (10:00→22:00)
[2022-03-21] MEDS ORDERED: FOLIC ACID 1 MG TABLET (FP) PO SCH (10:00)
[2022-03-21] MEDS ORDERED: BISMUTH SUBSALICYLATE 524 MG/30 ML PO PRN (12:46)
[2022-03-21] MEDS ORDERED: MAG HYDROX/AL HYDROX/SIMETH 30 ML UNIT-DOSE CUP PO PRN (12:46)
[2022-03-21] MEDS ORDERED: ONDANSETRON *ODT* 4 MG TABLET SL PRN (12:46)
[2022-03-21] MEDS ORDERED: IBUPROFEN 400 MG TABLET (FP) PO PRN (12:46)
[2022-03-21] MEDS ORDERED: MAGNESIUM HYDROX 2400MG/30ML ORAL SUSPENSION 30 ML CUP PO PRN (12:46)
[2022-03-21] MEDS ORDERED: LOPERAMIDE HCL 2 MG CAPSULE PO PRN (12:46)
[2022-03-21] MEDS ORDERED: METHOCARBAMOL 500 MG TABLET PO PRN (12:46)
[2022-03-21] MEDS ORDERED: IBUPROFEN 600 MG TABLET (FP) PO PRN (12:46)
[2022-03-21] MEDS ORDERED: BENZOCAINE/MENTHOL (CHLORASEPTIC ) LOZENGE MM PRN (12:46)
[2022-03-21] MEDS ORDERED: NICOTINE 10 MG CARTRIDGE (INHALER) IH PRN (12:46)
[2022-03-21] MEDS ORDERED: DICYCLOMINE HCL 10 MG CAPSULE PO PRN (12:46)
[2022-03-21] MEDS ORDERED: MAGNESIUM CITRATE 300 ML BOTTLE PO PRN (12:46)
[2022-03-21] MEDS ORDERED: hydrOXYzine PAMOATE 25 MG CAPSULE (FP) PO ONE (14:56)
[2022-03-21] MEDS: hydrOXYzine PAMOATE 25 MG CAPSULE (FP) PO SCH ×2 (15:14→18:27)
[2022-03-21 17:44] VITALS: BMI 21.9
[2022-03-21] MEDS ORDERED: ALBUTEROL SO4 2.5/IPRATROPIUM 0.5 INH SOL 3 ML VIAL.NEB. NEB PRN (20:53)
[2022-03-21] MEDS ORDERED: ACETAMINOPHEN 325 MG TABLET (FP) PO PRN (20:53)
[2022-03-21] MEDS ORDERED: LORazepam 2 MG/ML SDV VIAL IVPUSH PRN (21:01)
[2022-03-21] MEDS: THIAMINE HCL 100 MG TABLET (FP) PO SCH (21:59)
[2022-03-21] MEDS ORDERED: MELATONIN 5 MG TABLETS PO SCH (22:00)
[2022-03-21] MEDS: BUDESONIDE/FORMETEROL FUMARATE 80/4.5 mcg INHALER IH SCH (22:03)
[2022-03-21 23:44] VITALS: RESP 18
[2022-03-22] MEDS ORDERED: chlordiazePOXIDE HCL 10 MG CAPSULE PO PRN
[2022-03-22] MEDS ORDERED: chlordiazePOXIDE HCL 10 MG CAPSULE PO SCH (05:00)
[2022-03-22] MEDS ORDERED: chlordiazePOXIDE HCL 25 MG CAPSULE PO SCH (05:00)
[2022-03-22] MEDS ORDERED: FOLIC ACID 1 MG TABLET (FP) PO SCH (10:00)
[2022-03-22] MEDS ORDERED: PRENATAL VITAMINS W/ FOLIC ACID TABLET (FP) PO SCH (10:00)
[2022-03-22] MEDS: THIAMINE HCL 100 MG TABLET (FP) PO SCH (11:52)
[2022-03-22] MEDS: BUDESONIDE/FORMETEROL FUMARATE 80/4.5 mcg INHALER IH SCH (11:53)
[2022-03-22 12:26] VITALS: BP 143/76; PULSE 78; TEMP 97.6
[2022-03-23] MEDS ORDERED: chlordiazePOXIDE HCL 10 MG CAPSULE PO PRN
[2022-03-23] MEDS ORDERED: chlordiazePOXIDE HCL 10 MG CAPSULE PO SCH ×2 (05:00)
[2022-03-24] MEDS ORDERED: chlordiazePOXIDE HCL 10 MG CAPSULE PO SCH (05:00)
[2022-03-24] MEDS ORDERED: chlordiazePOXIDE HCL 10 MG CAPSULE PO ONE (05:00)
[2022-03-25] MEDS ORDERED: chlordiazePOXIDE HCL 10 MG CAPSULE PO ONE (05:00)
== END 2022-03-22 15:42 | disposition left against medical advice (07) | DRG 894 ==
LOC: JER 17:43 → JERBED 18:47 → J5S 03-21 15:32
PROVIDERS: ADMIT Internal Medicine; ATTEND Family Medicine
PROC: HZ2ZZZZ Detoxification Services for Substance Abuse Treatment (ICD-10-PCS; principal; 2022-03-20)
DX: F10.239 Alcohol dependence with withdrawal, unspecified (principal); F10.220 Alcohol dependence with intoxication, uncomplicated; J44.9 Chronic obstructive pulmonary disease, unspecified; F03.90 Unspecified dementia, unspecified severity, without behavioral disturbance, psychotic disturbance, mood disturbance, and anxiety; E11.9 Type 2 diabetes mellitus without complications; I10 Essential (primary) hypertension; E86.0 Dehydration; R55 Syncope and collapse
CPT/HCPCS: 36415; 70450-TC; 71045-TC-FY; 72125-TC; 72170-TC-FY; 80053; 80061; 80307; 81003; 82803; 82962; 83735; 84484; 85025; 85610; 85730; 86850; 86900; 86901; 87086; 93005; 93010; 97116-GP; 97161-GP; 99285-25; C9803-CS; G0378; U0003; U0005

== ENCOUNTER 2022-04-17 15:05 | Emergency (ER) | payer BC ==
[2022-04-17 15:43] VITALS: BP 128/64; PULSE 93; RESP 20; TEMP 98; BMI 23.8
[2022-04-17] MEDS ORDERED: ACETAMINOPHEN 1000 MG/100 ML BAG IVPB ONE (15:53)
[2022-04-17] MEDS ORDERED: ACETAMINOPHEN INJECTION 100 ML IVPB ONE (16:21)
[2022-04-17 16:45] LABS: EOS % 1.2 % (0-4.5); HEMATOCRIT 36.6 % (32.4-45.2); HEMOGLOBIN 12.1 GM/dL (10.7-15.3); LYMPH % 45.8 % (8-40); MCH 32.1 pg (25.7-33.7); MCHC 33.1 g/dl (32.0-36.0); MEAN PLT VOLUME 8.1 fl (7.5-11.1); MONO % 9.7 % (3.8-10.2); NEUT % 42.3 % (42.8-82.8); PLATELET COUNT 231 10^3/uL (134-434); RBC 3.77 M/mm3 (3.60-5.2); RDW 12.9 % (11.6-15.6); WHITE BLOOD COUNT 6.9 K/mm3 (4.0-10.0)
[2022-04-17 17:39] LABS: ALBUMIN 3.9 g/dl (3.4-5.0); BLOOD UREA NITROGEN 9.6 mg/dL (7-18); CALCIUM 9.5 mg/dL (8.5-10.1)
[2022-04-17 17:42] LABS: CREATININE 0.7 mg/dL (0.55-1.3)
[2022-04-17 17:44] LABS: BILIRUBIN,TOTAL 0.1 mg/dL (0.2-1)
== END 2022-04-17 18:24 | disposition home or self-care (01) ==
LOC: JER 15:05
PROC: 3E033NZ Introduction of Analgesics, Hypnotics, Sedatives into Peripheral Vein, Percutaneous Approach (ICD-10-PCS; principal; 2022-04-17)
DX: R05.9 Cough, unspecified (principal)
CPT/HCPCS: 0241U-QW; 36415; 71046-TC-FY; 80053; 83735; 84484; 85025; 93005; 93010; 99284-25

== ENCOUNTER 2022-05-03 20:24 | Emergency (ER) | payer BC ==
[2022-05-03 20:43] VITALS: PULSE 82; BMI 23.2
[2022-05-03] MEDS ORDERED: FOLIC ACID INJECTION - 1 MG, THIAMINE HCL 100 MG, MULTIVIT INJECTION ADULT 10 ML in SOD... IVPB ONE (21:03)
[2022-05-03] MEDS ORDERED: ALBUTEROL SO4 2.5/IPRATROPIUM 0.5 INH SOL 3 ML VIAL.NEB. NEB ONE ×2 (21:59→22:05)
[2022-05-03 22:16] LABS: BASO % 0.8 % (0-2.0); EOS % 0.5 % (0-4.5); HEMATOCRIT 40.9 % (32.4-45.2); HEMOGLOBIN 13.7 GM/dL (10.7-15.3); LYMPH % 43.5 % (8-40); MCH 32.6 pg (25.7-33.7); MCHC 33.5 g/dl (32.0-36.0); MEAN CELL VOLUME 97.3 fl (80-96); MEAN PLT VOLUME 7.4 fl (7.5-11.1); MONO % 3.9 % (3.8-10.2); NEUT % 51.3 % (42.8-82.8); PLATELET COUNT 344 10^3/uL (134-434); RDW 13.7 % (11.6-15.6); WHITE BLOOD COUNT 8.9 K/mm3 (4.0-10.0)
[2022-05-03 22:20] LABS: INR 0.92 (0.83-1.09); PROTHROMBIN TIME (PATIENT) 10.6 SEC (9.7-13.0)
[2022-05-03 22:23] LABS: ACTIVATED PTT 29.8 SECONDS (25.2-36.5)
[2022-05-03 22:46] LABS: BLOOD UREA NITROGEN 8.3 mg/dL (7-18); CALCIUM 9.4 mg/dL (8.5-10.1)
[2022-05-03 22:49] LABS: CREATININE 0.6 mg/dL (0.55-1.3)
[2022-05-03 22:51] LABS: BILIRUBIN,TOTAL 0.4 mg/dL (0.2-1); TOT PROT 7.1 g/dl (6.4-8.2)
[2022-05-04 01:02] VITALS: BP 109/41; RESP 20; TEMP 97.9
== END 2022-05-04 02:23 | disposition left against medical advice (07) ==
LOC: JER 20:24
PROC: 3E0F7GC Introduction of Other Therapeutic Substance into Respiratory Tract, Via Natural or Artificial Opening (ICD-10-PCS; principal; 2022-05-03)
PROC: 3E033GC Introduction of Other Therapeutic Substance into Peripheral Vein, Percutaneous Approach (ICD-10-PCS; 2022-05-03)
DX: F10.19 Alcohol abuse with unspecified alcohol-induced disorder (principal)
CPT/HCPCS: 36415; 70450-TC; 71045-TC-FY; 72125-TC; 80053; 82962; 84484; 85025; 85610; 85730; 93005; 93010; 99285-25; C9803-CS; U0003; U0005

== ENCOUNTER 2022-08-06 20:42 | Emergency (ER) | payer BC ==
[2022-08-06 21:14] VITALS: BP 116/59; PULSE 90; RESP 19; TEMP 98.1; BMI 20.9
== END 2022-08-06 23:10 | disposition home or self-care (01) ==
LOC: JER 20:42
DX: J44.1 Chronic obstructive pulmonary disease with (acute) exacerbation (principal)
CPT/HCPCS: 71046-TC-FY; 93005; 93010; 99284-25

== ENCOUNTER 2022-09-12 12:14 | Emergency (ER) | payer BC ==
[2022-09-12 12:39] VITALS: BP 125/75; PULSE 80; RESP 18; TEMP 98.2; BMI 23.8
== END 2022-09-12 16:08 | disposition left against medical advice (07) ==
LOC: JER 12:14
DX: R06.02 Shortness of breath (principal)
CPT/HCPCS: 99281-25

== ENCOUNTER 2022-09-27 14:47 | Emergency (ER) | payer BC ==
[2022-09-27 15:18] VITALS: TEMP 98.1; BMI 52.5
[2022-09-27] MEDS ORDERED: predniSONE 20 MG TABLET (UD) PO ONE (16:37)
[2022-09-27] MEDS ORDERED: ALBUTEROL SO4 2.5/IPRATROPIUM 0.5 INH SOL 3 ML VIAL.NEB. NEB ONE ×2 (16:37→16:44)
[2022-09-27] MEDS ORDERED: predniSONE 20 MG TABLET (UD) ONE (16:44)
[2022-09-27 18:55] VITALS: BP 141/62; PULSE 100; RESP 20
== END 2022-09-27 18:55 | disposition home or self-care (01) ==
LOC: JER 14:47
PROC: 3E0F7GC Introduction of Other Therapeutic Substance into Respiratory Tract, Via Natural or Artificial Opening (ICD-10-PCS; principal; 2022-09-27)
DX: J44.1 Chronic obstructive pulmonary disease with (acute) exacerbation (principal)
CPT/HCPCS: 0241U-QW; 71046-TC-FY; 93005; 93010; 99285-25

== ENCOUNTER 2022-10-01 20:45 | Emergency (ER) | payer BC ==
[2022-10-01 20:53] VITALS: BMI 51.6
[2022-10-01 21:10] VITALS: TEMP 98.6
[2022-10-01] MEDS ORDERED: ACETAMINOPHEN 325 MG TABLET (FP) PO ONE (21:16)
[2022-10-01] MEDS ORDERED: ACETAMINOPHEN 325 MG TABLET (FP) ONE (21:26)
[2022-10-01 22:21] VITALS: BP 115/59; PULSE 68; RESP 18
== END 2022-10-01 23:03 | disposition home or self-care (01) ==
LOC: JER 20:45
DX: F10.10 Alcohol abuse, uncomplicated (principal); J44.9 Chronic obstructive pulmonary disease, unspecified; Y90.9 Presence of alcohol in blood, level not specified
CPT/HCPCS: 71045-TC-FY; 93005; 93010; 99284-25

== ENCOUNTER 2022-10-03 14:20 | Emergency (ER) | payer BC ==
[2022-10-03 15:01] VITALS: BP 119/52; PULSE 85; RESP 20; TEMP 98.6; BMI 23.8
[2022-10-03] MEDS ORDERED: ACETAMINOPHEN 500 MG TABLET (FP) PO ONE (15:16)
[2022-10-03] MEDS ORDERED: ACETAMINOPHEN 325 MG TABLET (FP) ONE (15:22)
[2022-10-03] MEDS ORDERED: ALBUTEROL SO4 2.5/IPRATROPIUM 0.5 INH SOL 3 ML VIAL.NEB. NEB ONE (15:31)
[2022-10-03] MEDS: ALBUTEROL SO4 2.5/IPRATROPIUM 0.5 INH SOL 3 ML VIAL.NEB. NEB SCH ×3 (15:35→16:05)
== END 2022-10-03 17:05 | disposition home or self-care (01) ==
LOC: JER 14:20
PROC: 3E0F7GC Introduction of Other Therapeutic Substance into Respiratory Tract, Via Natural or Artificial Opening (ICD-10-PCS; principal; 2022-10-03)
DX: R06.02 Shortness of breath (principal)
CPT/HCPCS: 71046-TC-FY; 93005; 93010; 99285-25

== ENCOUNTER 2022-10-31 09:21 | Emergency (ER) | payer BC ==
[2022-10-31 09:39] VITALS: BP 115/53; PULSE 75; RESP 20; TEMP 98.8; BMI 23.8
== END 2022-10-31 13:50 | disposition home or self-care (01) ==
LOC: JER 09:21
DX: F10.20 Alcohol dependence, uncomplicated (principal)
CPT/HCPCS: 99282-25

== ENCOUNTER 2022-10-31 14:27 | Inpatient (IN) | payer OTHER ==
[2022-10-31 15:55] VITALS: BMI 21.8
[2022-10-31] MEDS ORDERED: NICOTINE 10 MG CARTRIDGE (INHALER) IH PRN (17:00)
[2022-10-31] MEDS ORDERED: hydrOXYzine PAMOATE 25 MG CAPSULE (FP) PO PRN (17:00)
[2022-10-31] MEDS ORDERED: IBUPROFEN 400 MG TABLET (FP) PO PRN (17:00)
[2022-10-31] MEDS ORDERED: MAGNESIUM HYDROX 2400MG/30ML ORAL SUSPENSION 30 ML CUP PO PRN (17:00)
[2022-10-31] MEDS ORDERED: BACLOFEN 10 MG TABLET (FP) PO PRN (17:00)
[2022-10-31] MEDS ORDERED: LOPERAMIDE HCL 2 MG CAPSULE PO PRN (17:00)
[2022-10-31] MEDS ORDERED: NALOXONE HCL (KLOXXADO) 8 MG SPRAY NS PRN (17:00)
[2022-10-31] MEDS ORDERED: MAG HYDROX/AL HYDROX/SIMETH 30 ML UNIT-DOSE CUP PO PRN (17:00)
[2022-10-31] MEDS ORDERED: ONDANSETRON *ODT* 4 MG TABLET SL PRN (17:00)
[2022-10-31] MEDS ORDERED: NALOXONE HCL 0.4 MG/ML VIAL IM PRN (17:00)
[2022-10-31] MEDS ORDERED: guaiFENesin 600 MG TABLET.ER (FP) PO PRN (17:00)
[2022-10-31] MEDS ORDERED: BISMUTH SUBSALICYLATE 524 MG/30 ML PO PRN (17:00)
[2022-10-31] MEDS ORDERED: BENZONATATE 200 MG CAPSULE PO PRN (17:00)
[2022-10-31] MEDS ORDERED: BENZOCAINE/MENTHOL (CHLORASEPTIC ) LOZENGE MM PRN (17:00)
[2022-10-31] MEDS ORDERED: ACETAMINOPHEN 325 MG TABLET (FP) PO PRN (17:00)
[2022-10-31] MEDS ORDERED: DICYCLOMINE HCL 10 MG CAPSULE PO PRN (17:00)
[2022-10-31] MEDS ORDERED: POLYETHYLENE GLYCOL (HEALTHYLAX) 3350 17 GM PACKET PO PRN (17:00)
[2022-10-31] MEDS ORDERED: IBUPROFEN 600 MG TABLET (FP) PO PRN (17:00)
[2022-10-31] MEDS ORDERED: ALBUTEROL SO4 HFA INHALER IH PRN (17:21)
[2022-10-31] MEDS ORDERED: THIAMINE HCL 100 MG TABLET (FP) PO SCH (22:00)
[2022-10-31] MEDS ORDERED: MELATONIN 5 MG TABLETS PO SCH (22:00)
[2022-10-31] MEDS: BUDESONIDE/FORMETEROL FUMARATE 160/4.5 mcg INHALER IH SCH (22:57)
[2022-11-01 05:52] VITALS: RESP 16
[2022-11-01 09:39] VITALS: BP 158/74; PULSE 71; TEMP 97.5
[2022-11-01] MEDS ORDERED: TIOTROPIUM BROMIDE 2.5 MCG (SPIRIVA) RESPIMAT INHALER IH SCH (10:00)
[2022-11-01] MEDS ORDERED: PRENATAL VITAMINS W/ FOLIC ACID TABLET (FP) PO SCH (10:00)
[2022-11-01] MEDS: BUDESONIDE/FORMETEROL FUMARATE 160/4.5 mcg INHALER IH SCH (10:07)
[2022-11-01 11:27] LABS: HEMATOCRIT 38.8 % (32.4-45.2); HEMOGLOBIN 13.2 GM/dL (10.7-15.3); MCH 33.1 pg (25.7-33.7); MCHC 33.9 g/dl (32.0-36.0); MEAN CELL VOLUME 97.7 fl (80-96); MEAN PLT VOLUME 8.7 fl (7.5-11.1); PLATELET COUNT 296 10^3/uL (134-434); RBC 3.98 M/mm3 (3.60-5.2); RDW 12.8 % (11.6-15.6); WHITE BLOOD COUNT 9.1 K/mm3 (4.0-10.0)
[2022-11-01 11:33] LABS: ALBUMIN 3.9 g/dl (3.4-5.0); BLOOD UREA NITROGEN 8.4 mg/dL (7-18); CREATININE 0.7 mg/dL (0.55-1.3)
[2022-11-01 11:35] LABS: CALCIUM 9.7 mg/dL (8.5-10.1); TOT PROT 7.2 g/dl (6.4-8.2)
== END 2022-11-01 12:16 | disposition left against medical advice (07) | DRG 894 ==
LOC: YASAS 14:27 → Y6N 17:07
PROVIDERS: ADMIT Allergy & Immunology; ATTEND Surgery
PROC: HZ2ZZZZ Detoxification Services for Substance Abuse Treatment (ICD-10-PCS; principal; 2022-10-31)
DX: F10.10 Alcohol abuse, uncomplicated (principal); F17.210 Nicotine dependence, cigarettes, uncomplicated; I10 Essential (primary) hypertension; J41.0 Simple chronic bronchitis
CPT/HCPCS: 36415; 80053; 85027; 86780; C9803-CS; U0003; U0005

== ENCOUNTER 2022-11-10 17:23 | Emergency (ER) | payer BC, OTHER ==
[2022-11-10 17:28] VITALS: BMI 23.8
[2022-11-10] MEDS ORDERED: methylPREDNISolone NA SUCC 125 MG/2 ML VIAL IVPB ONE (19:03)
[2022-11-10] MEDS ORDERED: AZITHROMYCIN IVPB 500 MG in DEXTROSE 5%-WATER - 250 ML IVPB ONE (20:36)
[2022-11-10] MEDS ORDERED: ALBUTEROL SO4 2.5/IPRATROPIUM 0.5 INH SOL 3 ML VIAL.NEB. NEB ONE (20:47)
[2022-11-10] MEDS: ALBUTEROL SO4 2.5/IPRATROPIUM 0.5 INH SOL 3 ML VIAL.NEB. NEB SCH ×2 (20:53→21:13)
[2022-11-10] MEDS ORDERED: AZITHROMYCIN IVPB 500 MG/250 ML BAG IVPB ONE (20:55)
[2022-11-10] MEDS ORDERED: methylPREDNISolone NA SUCC 125 MG/2 ML VIAL ONE (20:56)
[2022-11-10 20:57] LABS: VENOUS BASE EXCESS 0.9 mmol/L (-2-2); VENOUS O2 SATURATION 62.6 % (70-80); VENOUS PCO2 37.4 mmHg (38-52); VENOUS PH 7.439 (7.310-7.410)
[2022-11-10 21:03] LABS: BASO % 1.3 % (0-2.0); EOS % 0.2 % (0-4.5); HEMATOCRIT 36.8 % (32.4-45.2); HEMOGLOBIN 12.5 GM/dL (10.7-15.3); LYMPH % 36.7 % (8-40); MCH 32.1 pg (25.7-33.7); MCHC 33.8 g/dl (32.0-36.0); MEAN CELL VOLUME 94.9 fl (80-96); MEAN PLT VOLUME 7.2 fl (7.5-11.1); MONO % 6.4 % (3.8-10.2); NEUT % 55.4 % (42.8-82.8); PLATELET COUNT 327 10^3/uL (134-434); RBC 3.88 M/mm3 (3.60-5.2); RDW 12.8 % (11.6-15.6); WHITE BLOOD COUNT 9.2 K/mm3 (4.0-10.0)
[2022-11-10 21:20] LABS: ALBUMIN 3.7 g/dl (3.4-5.0); BLOOD UREA NITROGEN 10.2 mg/dL (7-18)
[2022-11-10 21:23] LABS: CREATININE 0.7 mg/dL (0.55-1.3)
[2022-11-10 21:25] LABS: BILIRUBIN,TOTAL 0.3 mg/dL (0.2-1); INR 0.97 (0.83-1.09); PROTHROMBIN TIME (PATIENT) 11.2 SEC (9.7-13.0); TOT PROT 7.1 g/dl (6.4-8.2)
[2022-11-10 21:27] LABS: ACTIVATED PTT 30.4 SECONDS (25.2-36.5)
[2022-11-10] MEDS ORDERED: ONDANSETRON 4 MG/2 ML VIAL IVPUSH ONE (22:19)
[2022-11-10 23:40] VITALS: BP 130/67; PULSE 96; RESP 18; TEMP 98.1
== END 2022-11-11 02:15 | disposition home or self-care (01) ==
LOC: JER 17:23
PROC: 3E03329 Introduction of Other Anti-infective into Peripheral Vein, Percutaneous Approach (ICD-10-PCS; principal; 2022-11-10)
PROC: 3E033GC Introduction of Other Therapeutic Substance into Peripheral Vein, Percutaneous Approach (ICD-10-PCS; 2022-11-10)
PROC: 3E0F7GC Introduction of Other Therapeutic Substance into Respiratory Tract, Via Natural or Artificial Opening (ICD-10-PCS; 2022-11-10)
DX: J44.1 Chronic obstructive pulmonary disease with (acute) exacerbation (principal); R06.02 Shortness of breath; R05.1 Acute cough; R06.2 Wheezing; Z20.822 Contact with and (suspected) exposure to COVID-19
CPT/HCPCS: 0241U-QW; 36415; 71046-TC-FY; 80053; 82803; 84484; 85025; 85610; 85730; 93005; 93010; 99285-25

== ENCOUNTER 2022-11-12 20:03 | Emergency (ER) | payer BC ==
[2022-11-12 20:23] VITALS: RESP 18; TEMP 98.6; BMI 23.8
[2022-11-12 20:53] VITALS: BP 140/83; PULSE 82
[2022-11-12] MEDS ORDERED: methylPREDNISolone NA SUCC 125 MG/2 ML VIAL IVPB ONE (20:55)
[2022-11-12] MEDS ORDERED: ALBUTEROL SO4 2.5/IPRATROPIUM 0.5 INH SOL 3 ML VIAL.NEB. NEB ONE ×2 (20:55→21:02)
[2022-11-12] MEDS ORDERED: methylPREDNISolone NA SUCC 125 MG/2 ML VIAL ONE (21:02)
[2022-11-12 21:31] LABS: BASO % 0.2 % (0-2.0); EOS % 0.2 % (0-4.5); HEMOGLOBIN 12.7 GM/dL (10.7-15.3); LYMPH % 41.9 % (8-40); MCHC 33.3 g/dl (32.0-36.0); MEAN PLT VOLUME 6.5 fl (7.5-11.1); MONO % 6.3 % (3.8-10.2); NEUT % 51.4 % (42.8-82.8); PLATELET COUNT 324 10^3/uL (134-434); RBC 3.96 M/mm3 (3.60-5.2); RDW 13.1 % (11.6-15.6)
[2022-11-12 21:31] LABS: URINE APPEARANCE CLEAR; URINE BILIRUBIN NEGATIVE (NEGATIVE); URINE COLOR YELLOW; URINE GLUCOSE (UA) NEGATIVE (NEGATIVE); URINE KETONE NEGATIVE (NEGATIVE); URINE LEUK ESTERASE NEGATIVE (NEGATIVE); URINE NITRITE NEGATIVE (NEGATIVE); URINE PROTEIN NEGATIVE (NEGATIVE); URINE UROBILINOGEN 0.2 mg/dL (0.2-1.0)
[2022-11-12 22:14] LABS: CALCIUM 8.8 mg/dL (8.5-10.1)
[2022-11-12 22:15] LABS: ALBUMIN 3.7 g/dl (3.4-5.0); BLOOD UREA NITROGEN 9.9 mg/dL (7-18); MAGNESIUM 2.4 mg/dL (1.8-2.4)
[2022-11-12 22:18] LABS: CREATININE 0.6 mg/dL (0.55-1.3); PHOSPHOROUS 3.7 mg/dL (2.5-4.9)
[2022-11-12 22:20] LABS: BILIRUBIN,TOTAL 0.4 mg/dL (0.2-1); TOT PROT 7.1 g/dl (6.4-8.2)
== END 2022-11-13 00:25 | disposition home or self-care (01) ==
LOC: JER 20:03
PROC: 3E0F7GC Introduction of Other Therapeutic Substance into Respiratory Tract, Via Natural or Artificial Opening (ICD-10-PCS; principal; 2022-11-12)
PROC: 3E033GC Introduction of Other Therapeutic Substance into Peripheral Vein, Percutaneous Approach (ICD-10-PCS; 2022-11-12)
DX: F10.129 Alcohol abuse with intoxication, unspecified (principal); R05.1 Acute cough; R55 Syncope and collapse; Y90.8 Blood alcohol level of 240 mg/100 ml or more; Z20.822 Contact with and (suspected) exposure to COVID-19
CPT/HCPCS: 0241U-QW; 36415; 70450-TC; 71045-TC-FY; 80053; 80307; 81003; 82962; 83735; 84100; 84484; 85025; 87086; 93005; 93010; 99285-25

== ENCOUNTER 2022-11-14 07:11 | Emergency (ER) | payer BC, OTHER ==
[2022-11-14 07:33] VITALS: BMI 23.8
[2022-11-14] MEDS ORDERED: ALBUTEROL SO4 2.5/IPRATROPIUM 0.5 INH SOL 3 ML VIAL.NEB. NEB ONE ×2 (07:51→08:40)
[2022-11-14 09:41] LABS: URINE APPEARANCE CLEAR; URINE BILIRUBIN NEGATIVE (NEGATIVE); URINE COLOR YELLOW; URINE GLUCOSE (UA) NEGATIVE (NEGATIVE); URINE KETONE NEGATIVE (NEGATIVE); URINE LEUK ESTERASE NEGATIVE (NEGATIVE); URINE NITRITE NEGATIVE (NEGATIVE); URINE PROTEIN NEGATIVE (NEGATIVE)
[2022-11-14 10:30] VITALS: BP 133/79; PULSE 109; RESP 23; TEMP 98.3
== END 2022-11-14 10:48 | disposition home or self-care (01) ==
LOC: JER 07:11
PROC: 3E0F7GC Introduction of Other Therapeutic Substance into Respiratory Tract, Via Natural or Artificial Opening (ICD-10-PCS; principal; 2022-11-14)
DX: F10.229 Alcohol dependence with intoxication, unspecified (principal); R06.02 Shortness of breath; R06.2 Wheezing
CPT/HCPCS: 71046-TC-FY; 81003; 82962; 99284-25

== ENCOUNTER 2022-11-14 11:58 | Inpatient (IN) | payer OTHER ==
[2022-11-14 12:37] VITALS: BMI 20.9
[2022-11-14] MEDS ORDERED: ALBUTEROL SO4 HFA INHALER IH PRN (12:43)
[2022-11-14] MEDS ORDERED: AZITHROMYCIN 250 MG TABLET PO SCH (12:47)
[2022-11-14] MEDS ORDERED: P-EPHED 60MG/TRIPROLIDI 2.5MG TABLET PO PRN (12:55)
[2022-11-14] MEDS ORDERED: BISMUTH SUBSALICYLATE 524 MG/30 ML PO PRN (12:55)
[2022-11-14] MEDS ORDERED: IBUPROFEN 600 MG TABLET (FP) PO PRN (12:55)
[2022-11-14] MEDS ORDERED: NICOTINE 7 MG/24 HOURS TOPICAL PATCH TD PRN (12:55)
[2022-11-14] MEDS ORDERED: MAGNESIUM HYDROX 2400MG/30ML ORAL SUSPENSION 30 ML CUP PO PRN (12:55)
[2022-11-14] MEDS ORDERED: BENZONATATE 200 MG CAPSULE PO PRN (12:55)
[2022-11-14] MEDS ORDERED: guaiFENesin 600 MG TABLET.ER (FP) PO PRN (12:55)
[2022-11-14] MEDS ORDERED: BENZOCAINE/MENTHOL (CHLORASEPTIC ) LOZENGE MM PRN (12:55)
[2022-11-14] MEDS ORDERED: IBUPROFEN 400 MG TABLET (FP) PO PRN (12:55)
[2022-11-14] MEDS ORDERED: NICOTINE 10 MG CARTRIDGE (INHALER) IH PRN (12:55)
[2022-11-14] MEDS ORDERED: ACETAMINOPHEN 325 MG TABLET (FP) PO PRN (12:55)
[2022-11-14] MEDS ORDERED: LOPERAMIDE HCL 2 MG CAPSULE PO PRN (12:55)
[2022-11-14] MEDS ORDERED: MAG HYDROX/AL HYDROX/SIMETH 30 ML UNIT-DOSE CUP PO PRN (12:55)
[2022-11-14] MEDS ORDERED: DICYCLOMINE HCL 10 MG CAPSULE PO PRN (12:55)
[2022-11-14] MEDS ORDERED: MELATONIN 5 MG TABLETS PO PRN (12:55)
[2022-11-14] MEDS ORDERED: POLYETHYLENE GLYCOL (HEALTHYLAX) 3350 17 GM PACKET PO PRN (12:55)
[2022-11-14] MEDS ORDERED: PATIENT'S OWN MEDICATION (NON-FORMULARY) (Prednisone [Prednisone 50 Mg Tablets] 50 MG Tabl PO SCH (13:00)
[2022-11-14] MEDS ORDERED: diazePAM 5 MG TABLET PO PRN (13:00)
[2022-11-14] MEDS: predniSONE 40 MG, predniSONE 10 MG PO SCH (15:21)
[2022-11-14] MEDS ORDERED: cloNIDine HCL 0.1 MG TABLET PO ONE (15:33)
[2022-11-14] MEDS: LORazepam 2 MG TABLET PO SCH ×2 (17:55→22:25)
[2022-11-14] MEDS ORDERED: THIAMINE HCL 100 MG TABLET (FP) PO SCH (22:00)
[2022-11-14] MEDS: BUDESONIDE/FORMETEROL FUMARATE 160/4.5 mcg INHALER IH SCH (22:28)
[2022-11-15] MEDS: LORazepam 2 MG TABLET PO SCH ×2 (05:52→10:14)
[2022-11-15] MEDS ORDERED: PRENATAL VITAMINS W/ FOLIC ACID TABLET (FP) PO SCH (10:00)
[2022-11-15] MEDS ORDERED: TIOTROPIUM BROMIDE 2.5 MCG (SPIRIVA) RESPIMAT INHALER IH SCH (10:00)
[2022-11-15] MEDS ORDERED: AZITHROMYCIN 250 MG TABLET PO SCH (10:00)
[2022-11-15] MEDS ORDERED: FOLIC ACID 1 MG TABLET (FP) PO SCH (10:00)
[2022-11-15] MEDS: predniSONE 40 MG, predniSONE 10 MG PO SCH (10:14)
[2022-11-15] MEDS: BUDESONIDE/FORMETEROL FUMARATE 160/4.5 mcg INHALER IH SCH (10:16)
[2022-11-15 15:22] VITALS: RESP 18
[2022-11-15 17:41] VITALS: BP 147/77; PULSE 99; TEMP 98.6
[2022-11-16] MEDS ORDERED: LORazepam 1 MG TABLET PO SCH (05:00)
[2022-11-17] MEDS ORDERED: LORazepam 0.5 MG TABLET PO SCH (05:00)
[2022-11-18] MEDS ORDERED: LORazepam 0.5 MG TABLET PO ONE (05:00)
== END 2022-11-15 16:55 | disposition left against medical advice (07) | DRG 894 ==
LOC: YASAS 11:58 → Y6N 14:24
PROVIDERS: ADMIT Allergy & Immunology; ATTEND Surgery
PROC: HZ2ZZZZ Detoxification Services for Substance Abuse Treatment (ICD-10-PCS; principal; 2022-11-14)
DX: F10.230 Alcohol dependence with withdrawal, uncomplicated (principal); F17.210 Nicotine dependence, cigarettes, uncomplicated; I10 Essential (primary) hypertension; J44.9 Chronic obstructive pulmonary disease, unspecified
CPT/HCPCS: 87811; C9803-CS; U0003; U0005

== ENCOUNTER 2022-12-12 17:15 | Observation (INO) | payer BC, OTHER ==
[2022-12-12] MEDS ORDERED: ACETAMINOPHEN 500 MG TABLET (FP) PO ONE (18:05)
[2022-12-12] MEDS ORDERED: ACETAMINOPHEN 325 MG TABLET (FP) ONE (18:44)
[2022-12-12 19:49] LABS: BASO % 0.3 % (0-2.0); EOS % 0.6 % (0-4.5); HEMATOCRIT 33.9 % (32.4-45.2); HEMOGLOBIN 11.8 GM/dL (10.7-15.3); LYMPH % 33.5 % (8-40); MCH 33.8 pg (25.7-33.7); MCHC 34.7 g/dl (32.0-36.0); MEAN CELL VOLUME 97.5 fl (80-96); MEAN PLT VOLUME 7.4 fl (7.5-11.1); MONO % 6.1 % (3.8-10.2); NEUT % 59.5 % (42.8-82.8); PLATELET COUNT 319 10^3/uL (134-434); RBC 3.48 M/mm3 (3.60-5.2); RDW 13.3 % (11.6-15.6); WHITE BLOOD COUNT 9.8 K/mm3 (4.0-10.0)
[2022-12-12 20:01] LABS: POTASSIUM 4.2 mmol/L (3.5-5.1)
[2022-12-12 20:04] LABS: CALCIUM 8.8 mg/dL (8.5-10.1)
[2022-12-12 20:05] LABS: ALBUMIN 3.3 g/dl (3.4-5.0); BLOOD UREA NITROGEN 9.2 mg/dL (7-18)
[2022-12-12 20:08] LABS: CREATININE 0.8 mg/dL (0.55-1.3)
[2022-12-12 20:09] LABS: TOT PROT 6.4 g/dl (6.4-8.2)
[2022-12-12 20:10] LABS: BILIRUBIN,TOTAL 0.2 mg/dL (0.2-1)
[2022-12-13] MEDS ORDERED: FOLIC ACID INJECTION - 1 MG, THIAMINE HCL 100 MG, MULTIVIT INJECTION ADULT 10 ML in SOD... IVPB ONE (00:13)
[2022-12-13] MEDS ORDERED: FOLIC ACID 1 MG TABLET (FP) PO ONE (00:14)
[2022-12-13] MEDS ORDERED: FOLIC ACID 1 MG TABLET (FP) ONE (00:40)
[2022-12-13 04:00] VITALS: BMI 21.2
[2022-12-13 07:21] LABS: BASO % 0.7 % (0-2.0); EOS % 0.1 % (0-4.5); HEMATOCRIT 35.3 % (32.4-45.2); HEMOGLOBIN 12.2 GM/dL (10.7-15.3); LYMPH % 18.8 % (8-40); MCH 33.9 pg (25.7-33.7); MCHC 34.6 g/dl (32.0-36.0); NEUT % 73.4 % (42.8-82.8); PLATELET COUNT 250 10^3/uL (134-434); RDW 13.3 % (11.6-15.6); WHITE BLOOD COUNT 10.7 K/mm3 (4.0-10.0)
[2022-12-13 07:41] LABS: BLOOD UREA NITROGEN 10.6 mg/dL (7-18); MAGNESIUM 1.9 mg/dL (1.8-2.4); POTASSIUM 4.1 mmol/L (3.5-5.1)
[2022-12-13 07:44] LABS: CREATININE 0.5 mg/dL (0.55-1.3)
[2022-12-13] MEDS: MULTIVITAMINS (DAILY MVI) TABLET (FP) PO SCH (10:40)
[2022-12-13] MEDS ORDERED: LORazepam 2 MG/ML SDV VIAL IVPUSH PRN (18:50)
[2022-12-13] MEDS ORDERED: THIAMINE HCL 100 MG TABLET (FP) PO SCH (22:00)
[2022-12-14 08:43] VITALS: RESP 18
[2022-12-14] MEDS: MULTIVITAMINS (DAILY MVI) TABLET (FP) PO SCH (09:24)
[2022-12-14 14:20] VITALS: BP 148/78; PULSE 97; TEMP 98.7
== END 2022-12-14 14:57 | disposition home or self-care (01) ==
LOC: JER 17:15 → JERBED 19:18 → J4S 12-13 03:40
PROVIDERS: ADMIT Internal Medicine; ATTEND Family Medicine
PROC: 3E033GC Introduction of Other Therapeutic Substance into Peripheral Vein, Percutaneous Approach (ICD-10-PCS; principal; 2022-12-12)
DX: S09.90XA Unspecified injury of head, initial encounter (principal); F03.90 Unspecified dementia, unspecified severity, without behavioral disturbance, psychotic disturbance, mood disturbance, and anxiety; F10.120 Alcohol abuse with intoxication, uncomplicated; I10 Essential (primary) hypertension; F17.210 Nicotine dependence, cigarettes, uncomplicated; R55 Syncope and collapse; W18.39XA Other fall on same level, initial encounter; J44.9 Chronic obstructive pulmonary disease, unspecified; Y93.89 Activity, other specified; Y92.239 Unspecified place in hospital as the place of occurrence of the external cause
CPT/HCPCS: 0241U-QW; 36415; 70450-TC; 71045-TC-FY; 72125-TC; 80048; 80053; 80307; 82550; 83735; 84443; 84484; 85025; 93005; 93010; 97116-GP; 97162-GP; 99285-25; G0378

== ENCOUNTER 2023-02-06 17:32 | Observation (INO) | payer BC, OTHER ==
[2023-02-06] MEDS ORDERED: ALBUTEROL SO4 0.083% IH SOL 2.5 MG/3 ML VIAL.NEB. NEB ONE ×2 (19:24→19:56)
[2023-02-06 19:58] LABS: BASO % 1.2 % (0-2.0); EOS % 0.7 % (0-4.5); HEMATOCRIT 37.7 % (32.4-45.2); HEMOGLOBIN 12.5 GM/dL (10.7-15.3); LYMPH % 46.9 % (8-40); MCH 32.1 pg (25.7-33.7); MCHC 33.1 g/dl (32.0-36.0); MEAN CELL VOLUME 96.9 fl (80-96); MEAN PLT VOLUME 6.8 fl (7.5-11.1); MONO % 7.7 % (3.8-10.2); NEUT % 43.5 % (42.8-82.8); PLATELET COUNT 366 10^3/uL (134-434); RBC 3.89 M/mm3 (3.60-5.2); RDW 12.7 % (11.6-15.6); WHITE BLOOD COUNT 9.7 K/mm3 (4.0-10.0)
[2023-02-06 20:21] LABS: POTASSIUM 4.5 mmol/L (3.5-5.1)
[2023-02-06 20:25] LABS: ALBUMIN 3.5 g/dl (3.4-5.0); BLOOD UREA NITROGEN 7.4 mg/dL (7-18); CALCIUM 8.8 mg/dL (8.5-10.1); MAGNESIUM 2.2 mg/dL (1.8-2.4)
[2023-02-06 20:28] LABS: CREATININE 0.6 mg/dL (0.55-1.3)
[2023-02-06 20:30] LABS: BILIRUBIN,TOTAL 0.3 mg/dL (0.2-1); TOT PROT 6.8 g/dl (6.4-8.2)
[2023-02-06 23:59] LABS: URINE BARBITURATES NEGATIVE (NEGATIVE)
[2023-02-07] MEDS ORDERED: ALBUTEROL SO4 HFA INHALER IH PRN (00:02)
[2023-02-07 00:05] LABS: COCAINE, UR NEGATIVE (NEGATIVE); METHADONE, UR NEGATIVE (NEGATIVE); OPIATES, URI NEGATIVE (NEGATIVE); PHENCYCLIDINE,URINE NEGATIVE (NEGATIVE); URINE AMPHETAMINES NEGATIVE (NEGATIVE); URINE BENZODIAZEPINES NEGATIVE (NEGATIVE)
[2023-02-07] MEDS ORDERED: FOLIC ACID INJECTION - 1 MG, THIAMINE HCL 100 MG, MULTIVIT INJECTION ADULT 10 ML in SOD... IVPB ONE (01:50)
[2023-02-07 02:53] VITALS: BMI 21.4
[2023-02-07] MEDS ORDERED: chlordiazePOXIDE HCL 25 MG CAPSULE PO PRN (04:28)
[2023-02-07] MEDS: chlordiazePOXIDE HCL 25 MG CAPSULE PO SCH ×4 (05:42→23:45)
[2023-02-07 08:01] LABS: BASO % 0.8 % (0-2.0); EOS % 0.4 % (0-4.5); HEMATOCRIT 37.6 % (32.4-45.2); HEMOGLOBIN 12.4 GM/dL (10.7-15.3); LYMPH % 21.1 % (8-40); MCH 32.1 pg (25.7-33.7); MCHC 32.9 g/dl (32.0-36.0); MEAN CELL VOLUME 97.5 fl (80-96); MEAN PLT VOLUME 8.1 fl (7.5-11.1); MONO % 9.5 % (3.8-10.2); NEUT % 68.2 % (42.8-82.8); PLATELET COUNT 324 10^3/uL (134-434); RBC 3.85 M/mm3 (3.60-5.2); RDW 12.7 % (11.6-15.6); WHITE BLOOD COUNT 10.1 K/mm3 (4.0-10.0)
[2023-02-07 09:11] LABS: POTASSIUM 4.7 mmol/L (3.5-5.1)
[2023-02-07 09:15] LABS: BLOOD UREA NITROGEN 9.3 mg/dL (7-18); CALCIUM 9.3 mg/dL (8.5-10.1)
[2023-02-07 09:16] LABS: ALBUMIN 3.3 g/dl (3.4-5.0)
[2023-02-07] MEDS: MULTIVITAMINS (DAILY MVI) TABLET (FP) PO SCH (09:16)
[2023-02-07] MEDS: THIAMINE HCL 100 MG TABLET (FP) PO SCH (09:16)
[2023-02-07] MEDS: FOLIC ACID 1 MG TABLET (FP) PO SCH (09:16)
[2023-02-07 09:18] LABS: CREATININE 0.6 mg/dL (0.55-1.3)
[2023-02-07 09:20] LABS: BILIRUBIN,TOTAL 0.7 mg/dL (0.2-1); TOT PROT 6.6 g/dl (6.4-8.2)
[2023-02-07 09:37] LABS: ANISOCYTOSIS 0; MACROCYTOSIS 0
[2023-02-07] MEDS: TIOTROPIUM BROMIDE 2.5 MCG (SPIRIVA) RESPIMAT INHALER IH SCH (13:56)
[2023-02-07] MEDS: BUDESONIDE/FORMETEROL FUMARATE 160/4.5 mcg INHALER IH SCH ×2 (13:56→21:31)
[2023-02-08] MEDS: chlordiazePOXIDE HCL 25 MG CAPSULE PO SCH ×4 (05:33→22:22)
[2023-02-08] MEDS: FOLIC ACID 1 MG TABLET (FP) PO SCH (09:04)
[2023-02-08] MEDS: THIAMINE HCL 100 MG TABLET (FP) PO SCH (09:04)
[2023-02-08] MEDS: BUDESONIDE/FORMETEROL FUMARATE 160/4.5 mcg INHALER IH SCH ×2 (09:04→22:24)
[2023-02-08] MEDS: MULTIVITAMINS (DAILY MVI) TABLET (FP) PO SCH (09:04)
[2023-02-08] MEDS: TIOTROPIUM BROMIDE 2.5 MCG (SPIRIVA) RESPIMAT INHALER IH SCH (09:05)
[2023-02-09] MEDS ORDERED: chlordiazePOXIDE HCL 10 MG CAPSULE PO PRN
[2023-02-09] MEDS: chlordiazePOXIDE HCL 10 MG CAPSULE PO SCH ×3 (06:03→16:50)
[2023-02-09] MEDS: MULTIVITAMINS (DAILY MVI) TABLET (FP) PO SCH (09:48)
[2023-02-09] MEDS: BUDESONIDE/FORMETEROL FUMARATE 160/4.5 mcg INHALER IH SCH (09:48)
[2023-02-09] MEDS: FOLIC ACID 1 MG TABLET (FP) PO SCH (09:48)
[2023-02-09] MEDS: THIAMINE HCL 100 MG TABLET (FP) PO SCH (09:48)
[2023-02-09] MEDS: TIOTROPIUM BROMIDE 2.5 MCG (SPIRIVA) RESPIMAT INHALER IH SCH (09:49)
[2023-02-10] MEDS: chlordiazePOXIDE HCL 10 MG CAPSULE PO SCH (00:07)
[2023-02-10] MEDS: BUDESONIDE/FORMETEROL FUMARATE 160/4.5 mcg INHALER IH SCH ×2 (00:07→10:25)
[2023-02-10] MEDS ORDERED: chlordiazePOXIDE HCL 10 MG CAPSULE PO SCH (05:00)
[2023-02-10] MEDS: FOLIC ACID 1 MG TABLET (FP) PO SCH (10:25)
[2023-02-10] MEDS: MULTIVITAMINS (DAILY MVI) TABLET (FP) PO SCH (10:25)
[2023-02-10] MEDS: THIAMINE HCL 100 MG TABLET (FP) PO SCH (10:25)
[2023-02-10] MEDS: TIOTROPIUM BROMIDE 2.5 MCG (SPIRIVA) RESPIMAT INHALER IH SCH (10:26)
[2023-02-10 10:30] VITALS: BP 124/68; PULSE 85; RESP 18; TEMP 98.4
[2023-02-11] MEDS ORDERED: chlordiazePOXIDE HCL 10 MG CAPSULE PO ONE (05:00)
== END 2023-02-10 14:13 | disposition home or self-care (01) ==
LOC: JER 17:32 → JERBED 21:50 → J4W 02-07 02:26
PROVIDERS: ADMIT Internal Medicine; ATTEND Family Medicine
PROC: 3E0F7GC Introduction of Other Therapeutic Substance into Respiratory Tract, Via Natural or Artificial Opening (ICD-10-PCS; principal; 2023-02-06)
PROC: 3E033GC Introduction of Other Therapeutic Substance into Peripheral Vein, Percutaneous Approach (ICD-10-PCS; 2023-02-06)
DX: R42 Dizziness and giddiness (principal); F03.90 Unspecified dementia, unspecified severity, without behavioral disturbance, psychotic disturbance, mood disturbance, and anxiety; F10.20 Alcohol dependence, uncomplicated; J44.9 Chronic obstructive pulmonary disease, unspecified; E11.9 Type 2 diabetes mellitus without complications; I10 Essential (primary) hypertension; R94.31 Abnormal electrocardiogram [ECG] [EKG]; R06.00 Dyspnea, unspecified; R55 Syncope and collapse; F17.210 Nicotine dependence, cigarettes, uncomplicated
CPT/HCPCS: 0241U-QW; 36415; 70450-TC; 71045-TC-FY; 80053; 80307; 82962; 83735; 84443; 84484; 85025; 93005; 93010; 93306-TC; 99285-25; G0378

== ENCOUNTER 2023-02-27 19:53 | Emergency (ER) | payer BC, OTHER ==
[2023-02-27 20:04] VITALS: TEMP 97.8; BMI 26.2
[2023-02-27 21:42] LABS: HEMATOCRIT 35.9 % (32.4-45.2); MCH 32.3 pg (25.7-33.7); MCHC 33.4 g/dl (32.0-36.0); MEAN CELL VOLUME 96.6 fl (80-96); MEAN PLT VOLUME 7.2 fl (7.5-11.1); PLATELET COUNT 317 10^3/uL (134-434); RBC 3.72 M/mm3 (3.60-5.2); RDW 13.6 % (11.6-15.6); WHITE BLOOD COUNT 9.4 K/mm3 (4.0-10.0)
[2023-02-27 21:45] LABS: INR 0.89 (0.83-1.09); PROTHROMBIN TIME (PATIENT) 10.3 SEC (9.7-13.0)
[2023-02-27 22:07] LABS: POTASSIUM 5.4 mmol/L (3.5-5.1)
[2023-02-27 22:09] LABS: CALCIUM 8.7 mg/dL (8.5-10.1)
[2023-02-27 22:10] LABS: ALBUMIN 3.7 g/dl (3.4-5.0); BLOOD UREA NITROGEN 8.4 mg/dL (7-18)
[2023-02-27 22:13] LABS: CREATININE 0.6 mg/dL (0.55-1.3)
[2023-02-27 22:14] LABS: BILIRUBIN,TOTAL 0.2 mg/dL (0.2-1); TOT PROT 7.5 g/dl (6.4-8.2)
[2023-02-27 22:15] LABS: ANISOCYTOSIS 1+; MACROCYTOSIS 0
[2023-02-27 23:23] VITALS: BP 107/69; PULSE 87; RESP 16
== END 2023-02-27 23:28 | disposition home or self-care (01) ==
LOC: JER 19:53
DX: R42 Dizziness and giddiness (principal); R51.9 Headache, unspecified; R06.9 Unspecified abnormalities of breathing; F10.10 Alcohol abuse, uncomplicated; Y90.8 Blood alcohol level of 240 mg/100 ml or more
CPT/HCPCS: 36415; 71045-TC-FY; 80053; 80307; 84484; 85025; 85610; 85730; 93005; 93010; 99285-25

== ENCOUNTER 2023-03-01 17:11 | Emergency (ER) | payer BC, OTHER ==
[2023-03-01 17:26] VITALS: BP 117/75; PULSE 84; RESP 18; TEMP 98.7; BMI 21.2
[2023-03-01] MEDS ORDERED: LACTATED RINGERS SOLUTION 1000 ML INFUS.BAG IV ONE (17:57)
[2023-03-01 19:30] LABS: BASO % 1.1 % (0-2.0); EOS % 0.9 % (0-4.5); HEMOGLOBIN 11.5 GM/dL (10.7-15.3); LYMPH % 39.6 % (8-40); MCH 32.2 pg (25.7-33.7); MCHC 33.9 g/dl (32.0-36.0); MEAN CELL VOLUME 94.9 fl (80-96); MEAN PLT VOLUME 7.1 fl (7.5-11.1); MONO % 6.5 % (3.8-10.2); NEUT % 51.9 % (42.8-82.8); PLATELET COUNT 281 10^3/uL (134-434); RBC 3.58 M/mm3 (3.60-5.2); RDW 13.6 % (11.6-15.6); WHITE BLOOD COUNT 7.4 K/mm3 (4.0-10.0)
[2023-03-01 19:47] LABS: ALBUMIN 3.5 g/dl (3.4-5.0); CALCIUM 8.5 mg/dL (8.5-10.1)
[2023-03-01 19:48] LABS: BLOOD UREA NITROGEN 7.9 mg/dL (7-18); MAGNESIUM 2.1 mg/dL (1.8-2.4)
[2023-03-01 19:50] LABS: CREATININE 0.7 mg/dL (0.55-1.3)
[2023-03-01 19:52] LABS: BILIRUBIN,TOTAL 0.2 mg/dL (0.2-1); TOT PROT 6.8 g/dl (6.4-8.2)
== END 2023-03-01 20:47 | disposition home or self-care (01) ==
LOC: JER 17:11
DX: F10.920 Alcohol use, unspecified with intoxication, uncomplicated (principal); R06.02 Shortness of breath; R42 Dizziness and giddiness; R07.2 Precordial pain; Y90.9 Presence of alcohol in blood, level not specified
CPT/HCPCS: 36415; 71046-TC-FY; 80053; 83735; 84484; 85025; 93005; 93010; 99285-25

== ENCOUNTER 2023-03-04 14:59 | Emergency (ER) | payer OTHER, BC ==
[2023-03-04] MEDS ORDERED: ALBUTEROL SO4 2.5/IPRATROPIUM 0.5 INH SOL 3 ML VIAL.NEB. NEB ONE ×2 (15:23→15:28)
[2023-03-04 15:24] VITALS: RESP 20; BMI 21.2
[2023-03-04 16:10] LABS: BASO % 0.7 % (0-2.0); EOS % 0.7 % (0-4.5); HEMATOCRIT 33.8 % (32.4-45.2); HEMOGLOBIN 11.4 GM/dL (10.7-15.3); LYMPH % 29.7 % (8-40); MCH 32.2 pg (25.7-33.7); MCHC 33.7 g/dl (32.0-36.0); MEAN CELL VOLUME 95.5 fl (80-96); MONO % 5.9 % (3.8-10.2); PLATELET COUNT 201 10^3/uL (134-434); RBC 3.54 M/mm3 (3.60-5.2); RDW 13.6 % (11.6-15.6); WHITE BLOOD COUNT 13.5 K/mm3 (4.0-10.0)
[2023-03-04 16:27] LABS: POTASSIUM 3.8 mmol/L (3.5-5.1)
[2023-03-04 16:29] LABS: ALBUMIN 3.6 g/dl (3.4-5.0); BLOOD UREA NITROGEN 7.1 mg/dL (7-18); CALCIUM 8.6 mg/dL (8.5-10.1); MAGNESIUM 2.1 mg/dL (1.8-2.4)
[2023-03-04 16:32] LABS: CREATININE 0.6 mg/dL (0.55-1.3)
[2023-03-04 16:34] LABS: BILIRUBIN,TOTAL 0.4 mg/dL (0.2-1); TOT PROT 6.7 g/dl (6.4-8.2)
[2023-03-04] MEDS ORDERED: AZITHROMYCIN 250 MG TABLET PO ONE (17:48)
[2023-03-04] MEDS ORDERED: AZITHROMYCIN 500 MG TABLET ONE (17:50)
[2023-03-04 18:03] VITALS: BP 135/65; PULSE 100; TEMP 98.1
== END 2023-03-04 18:14 | disposition home or self-care (01) ==
LOC: JER 14:59
PROC: 3E0F7GC Introduction of Other Therapeutic Substance into Respiratory Tract, Via Natural or Artificial Opening (ICD-10-PCS; principal; 2023-03-04)
DX: J44.1 Chronic obstructive pulmonary disease with (acute) exacerbation (principal)
CPT/HCPCS: 0241U-QW; 36415; 71045-TC-FY; 80053; 83735; 84484; 85025; 93005; 93010; 99284-25

== ENCOUNTER 2023-03-07 16:55 | Emergency (ER) | payer OTHER, BC ==
[2023-03-07 17:13] VITALS: BMI 21.2
[2023-03-07 19:16] VITALS: BP 95/55; PULSE 74; RESP 12; TEMP 98.4
== END 2023-03-07 19:30 | disposition home or self-care (01) ==
LOC: JER 16:55
DX: F10.10 Alcohol abuse, uncomplicated (principal); J44.9 Chronic obstructive pulmonary disease, unspecified
CPT/HCPCS: 93005; 93010; 99283-25

== ENCOUNTER 2023-03-17 16:51 | Inpatient (IN) | payer OTHER ==
[~2023-03-17 16:51] MED LIST: ALBUTEROL SO4 0.083% IH SOL 2.5 MG/3 ML VIAL.NEB. NEB ONE
[2023-03-17 18:16] VITALS: BMI 21.2
[2023-03-17] MEDS ORDERED: METHOCARBAMOL 500 MG TABLET PO PRN (21:15)
[2023-03-17] MEDS ORDERED: guaiFENesin 600 MG TABLET.ER (FP) PO PRN (21:15)
[2023-03-17] MEDS ORDERED: LOPERAMIDE HCL 2 MG CAPSULE PO PRN (21:15)
[2023-03-17] MEDS ORDERED: POLYETHYLENE GLYCOL (HEALTHYLAX) 3350 17 GM PACKET PO PRN (21:15)
[2023-03-17] MEDS ORDERED: MAG HYDROX/AL HYDROX/SIMETH 30 ML UNIT-DOSE CUP PO PRN (21:15)
[2023-03-17] MEDS ORDERED: IBUPROFEN 400 MG TABLET (FP) PO PRN (21:15)
[2023-03-17] MEDS ORDERED: DICYCLOMINE HCL 10 MG CAPSULE PO PRN (21:15)
[2023-03-17] MEDS ORDERED: MAGNESIUM HYDROX 2400MG/30ML ORAL SUSPENSION 30 ML CUP PO PRN (21:15)
[2023-03-17] MEDS ORDERED: NALOXONE HCL 0.4 MG/ML VIAL IM PRN (21:15)
[2023-03-17] MEDS ORDERED: BENZOCAINE/MENTHOL (CHLORASEPTIC ) LOZENGE MM PRN (21:15)
[2023-03-17] MEDS ORDERED: hydrOXYzine PAMOATE 25 MG CAPSULE (FP) PO PRN (21:15)
[2023-03-17] MEDS ORDERED: IBUPROFEN 600 MG TABLET (FP) PO PRN (21:15)
[2023-03-17] MEDS ORDERED: ACETAMINOPHEN 325 MG TABLET (FP) PO PRN (21:15)
[2023-03-17] MEDS ORDERED: BENZONATATE 200 MG CAPSULE PO PRN (21:15)
[2023-03-17] MEDS ORDERED: NALOXONE HCL (KLOXXADO) 8 MG SPRAY NS PRN (21:15)
[2023-03-17] MEDS ORDERED: LORazepam 1 MG TABLET PO PRN (21:15)
[2023-03-17] MEDS ORDERED: ONDANSETRON *ODT* 4 MG TABLET SL PRN (21:15)
[2023-03-17] MEDS ORDERED: BISMUTH SUBSALICYLATE 524 MG/30 ML PO PRN (21:15)
[2023-03-17] MEDS: MELATONIN 5 MG TABLETS PO SCH (23:14)
[2023-03-17] MEDS: NICOTINE 14 MG/24 HOURS TOPICAL PATCH TD SCH (23:14)
[2023-03-17] MEDS: PRENATAL VITAMINS W/ FOLIC ACID TABLET (FP) PO SCH (23:14)
[2023-03-17] MEDS: LORazepam 2 MG TABLET PO SCH (23:15)
[2023-03-17] MEDS: THIAMINE HCL 100 MG TABLET (FP) PO SCH (23:15)
[2023-03-18] MEDS: LORazepam 2 MG TABLET PO SCH ×4 (05:50→23:06)
[2023-03-18 09:30] LABS: HEMATOCRIT 36.7 % (32.4-45.2); MCH 32.2 pg (25.7-33.7); MCHC 32.9 g/dl (32.0-36.0); MEAN CELL VOLUME 98.1 fl (80-96); MEAN PLT VOLUME 7.4 fl (7.5-11.1); PLATELET COUNT 232 10^3/uL (134-434); RBC 3.73 M/mm3 (3.60-5.2); RDW 14.1 % (11.6-15.6); WHITE BLOOD COUNT 10.8 K/mm3 (4.0-10.0)
[2023-03-18 09:37] LABS: POTASSIUM 3.8 mmol/L (3.5-5.1)
[2023-03-18 09:45] LABS: CREATININE 0.7 mg/dL (0.55-1.3)
[2023-03-18 09:46] LABS: BILIRUBIN,TOTAL 1.3 mg/dL (0.2-1); TOT PROT 6.5 g/dl (6.4-8.2)
[2023-03-18 09:50] LABS: ALBUMIN 3.8 g/dl (3.4-5.0); BLOOD UREA NITROGEN 11.8 mg/dL (7-18)
[2023-03-18 09:51] LABS: CALCIUM 9.1 mg/dL (8.5-10.1)
[2023-03-18] MEDS: PRENATAL VITAMINS W/ FOLIC ACID TABLET (FP) PO SCH (10:12)
[2023-03-18] MEDS: NICOTINE 14 MG/24 HOURS TOPICAL PATCH TD SCH (10:14)
[2023-03-18] MEDS: LACTULOSE 20 GM/30 ML UDC (FOR ORAL USE ONLY) PO SCH ×3 (13:10→23:06)
[2023-03-18] MEDS: THIAMINE HCL 100 MG TABLET (FP) PO SCH (23:05)
[2023-03-18] MEDS: MELATONIN 5 MG TABLETS PO SCH (23:06)
[2023-03-19] MEDS: LORazepam 1 MG TABLET PO SCH ×4 (06:03→22:27)
[2023-03-19] MEDS ORDERED: ALBUTEROL SO4 HFA INHALER IH PRN (10:13)
[2023-03-19] MEDS: LACTULOSE 20 GM/30 ML UDC (FOR ORAL USE ONLY) PO SCH ×4 (10:16→22:27)
[2023-03-19] MEDS: PRENATAL VITAMINS W/ FOLIC ACID TABLET (FP) PO SCH (10:16)
[2023-03-19] MEDS: NICOTINE 14 MG/24 HOURS TOPICAL PATCH TD SCH (10:16)
[2023-03-19] MEDS: MELATONIN 5 MG TABLETS PO SCH (22:27)
[2023-03-19] MEDS: THIAMINE HCL 100 MG TABLET (FP) PO SCH (22:27)
[2023-03-19] MEDS: BUDESONIDE/FORMETEROL FUMARATE 160/4.5 mcg INHALER IH SCH (23:25)
[2023-03-20] MEDS ORDERED: LORazepam 0.5 MG TABLET PO PRN
[2023-03-20] MEDS: LORazepam 0.5 MG TABLET PO SCH ×4 (05:28→22:21)
[2023-03-20] MEDS: PRENATAL VITAMINS W/ FOLIC ACID TABLET (FP) PO SCH (10:18)
[2023-03-20] MEDS: LACTULOSE 20 GM/30 ML UDC (FOR ORAL USE ONLY) PO SCH ×4 (10:18→22:24)
[2023-03-20] MEDS: NICOTINE 14 MG/24 HOURS TOPICAL PATCH TD SCH (10:19)
[2023-03-20] MEDS: TIOTROPIUM BROMIDE 2.5 MCG (SPIRIVA) RESPIMAT INHALER IH SCH (10:19)
[2023-03-20] MEDS: BUDESONIDE/FORMETEROL FUMARATE 160/4.5 mcg INHALER IH SCH ×2 (10:19→22:20)
[2023-03-20] MEDS: THIAMINE HCL 100 MG TABLET (FP) PO SCH (22:21)
[2023-03-20] MEDS: MELATONIN 5 MG TABLETS PO SCH (22:21)
[2023-03-21] MEDS ORDERED: LORazepam 0.5 MG TABLET PO ONE (05:00)
[2023-03-21 09:56] VITALS: BP 114/61; PULSE 99; RESP 16; TEMP 97.6
[2023-03-21] MEDS: LACTULOSE 20 GM/30 ML UDC (FOR ORAL USE ONLY) PO SCH (10:01)
[2023-03-21] MEDS: PRENATAL VITAMINS W/ FOLIC ACID TABLET (FP) PO SCH (10:01)
[2023-03-21] MEDS: TIOTROPIUM BROMIDE 2.5 MCG (SPIRIVA) RESPIMAT INHALER IH SCH (10:01)
[2023-03-21] MEDS: NICOTINE 14 MG/24 HOURS TOPICAL PATCH TD SCH (10:01)
[2023-03-21] MEDS: BUDESONIDE/FORMETEROL FUMARATE 160/4.5 mcg INHALER IH SCH (10:01)
== END 2023-03-21 09:17 | disposition home or self-care (01) | DRG 897 ==
LOC: YASAS 16:51 → Y6N 22:37
PROVIDERS: ADMIT Allergy & Immunology; ATTEND Allergy & Immunology
PROC: HZ2ZZZZ Detoxification Services for Substance Abuse Treatment (ICD-10-PCS; principal; 2023-03-17)
DX: F10.230 Alcohol dependence with withdrawal, uncomplicated (principal); F17.210 Nicotine dependence, cigarettes, uncomplicated; F03.90 Unspecified dementia, unspecified severity, without behavioral disturbance, psychotic disturbance, mood disturbance, and anxiety; I10 Essential (primary) hypertension; J43.0 Unilateral pulmonary emphysema [MacLeod's syndrome]; E11.9 Type 2 diabetes mellitus without complications; G62.1 Alcoholic polyneuropathy; R74.01 Elevation of levels of liver transaminase levels
CPT/HCPCS: 36415; 71046-TC-FY; 80053; 82140; 82962; 85027; 86780; 87635; 94640

== ENCOUNTER 2023-03-29 06:41 | Emergency (ER) | payer OTHER ==
[2023-03-29 06:46] VITALS: BP 122/63; PULSE 84; RESP 20; TEMP 98.1; BMI 21.8
[2023-03-29] MEDS ORDERED: ONDANSETRON 4 MG/2 ML VIAL IVPUSH ONE (07:27)
[2023-03-29] MEDS ORDERED: ONDANSETRON 4 MG/2 ML VIAL ONE (07:38)
[2023-03-29] MEDS ORDERED: FAMOTIDINE 20 MG/50 ML IVPB 20 MG/50 ML MG IVPB ONE ×2 (08:00→08:16)
[2023-03-29 08:51] LABS: BASO % 0.8 % (0-2.0); EOS % 0.2 % (0-4.5); HEMATOCRIT 35.6 % (32.4-45.2); HEMOGLOBIN 12.4 GM/dL (10.7-15.3); LYMPH % 13.9 % (8-40); MCH 33.5 pg (25.7-33.7); MCHC 34.8 g/dl (32.0-36.0); MEAN CELL VOLUME 96.2 fl (80-96); MEAN PLT VOLUME 6.9 fl (7.5-11.1); MONO % 8.3 % (3.8-10.2); NEUT % 76.8 % (42.8-82.8); PLATELET COUNT 359 10^3/uL (134-434); RDW 14.4 % (11.6-15.6); WHITE BLOOD COUNT 11.8 K/mm3 (4.0-10.0)
[2023-03-29 10:02] LABS: POTASSIUM 4.7 mmol/L (3.5-5.1)
[2023-03-29 10:13] LABS: ALBUMIN 3.7 g/dl (3.4-5.0); BLOOD UREA NITROGEN 6.4 mg/dL (7-18); CALCIUM 8.8 mg/dL (8.5-10.1)
[2023-03-29 10:16] LABS: CREATININE 0.7 mg/dL (0.55-1.3)
[2023-03-29 10:17] LABS: BILIRUBIN,TOTAL 0.6 mg/dL (0.2-1); TOT PROT 6.6 g/dl (6.4-8.2)
== END 2023-03-29 11:45 | disposition home or self-care (01) ==
LOC: JER 06:41
PROC: 3E033GC Introduction of Other Therapeutic Substance into Peripheral Vein, Percutaneous Approach (ICD-10-PCS; principal; 2023-03-29)
PROC: 3E033GC Introduction of Other Therapeutic Substance into Peripheral Vein, Percutaneous Approach (ICD-10-PCS; 2023-03-29)
DX: R11.2 Nausea with vomiting, unspecified (principal); R05.3 Chronic cough; R06.02 Shortness of breath
CPT/HCPCS: 36415; 80053; 84484; 85025; 93005; 93010; 99284-25

== ENCOUNTER 2023-07-27 16:09 | Emergency (ER) | payer OTHER, BC ==
[2023-07-27 17:09] VITALS: BP 143/63; PULSE 66; RESP 16; TEMP 94.5; BMI 21.8
== END 2023-07-27 18:21 | disposition home or self-care (01) ==
LOC: JER 16:09
DX: E16.2 Hypoglycemia, unspecified (principal)
CPT/HCPCS: 82962; 99283-25

== ENCOUNTER 2023-08-05 14:52 | Emergency (ER) | payer OTHER ==
[2023-08-05 15:17] VITALS: BP 133/64; PULSE 67; RESP 18; TEMP 97; BMI 22.2
== END 2023-08-05 19:30 | disposition home or self-care (01) ==
LOC: JER 14:52
DX: E16.2 Hypoglycemia, unspecified (principal); Z20.822 Contact with and (suspected) exposure to COVID-19
CPT/HCPCS: 0241U-QW; 82962; 99283-25

== ENCOUNTER 2023-09-02 20:17 | Observation (INO) | payer OTHER, BC ==
[2023-09-02 22:28] LABS: BASO % 1.3 % (0-2.0); EOS % 0.6 % (0-4.5); HEMATOCRIT 34.4 % (32.4-45.2); HEMOGLOBIN 11.8 GM/dL (10.7-15.3); LYMPH % 30.4 % (8-40); MCH 33.2 pg (25.7-33.7); MCHC 34.3 g/dl (32.0-36.0); MEAN CELL VOLUME 96.7 fl (80-96); MONO % 6.2 % (3.8-10.2); NEUT % 61.5 % (42.8-82.8); PLATELET COUNT 419 10^3/uL (134-434); RBC 3.55 M/mm3 (3.60-5.2); RDW 12.9 % (11.6-15.6); WHITE BLOOD COUNT 10.4 K/mm3 (4.0-10.0)
[2023-09-02 23:39] LABS: ALBUMIN 2.6 g/dl (3.4-5.0); BLOOD UREA NITROGEN 4.7 mg/dL (7-18); CALCIUM 8.6 mg/dL (8.5-10.1)
[2023-09-02 23:42] LABS: CREATININE 0.9 mg/dL (0.55-1.3)
[2023-09-02 23:44] LABS: BILIRUBIN,TOTAL 0.3 mg/dL (0.2-1)
[2023-09-03] MEDS ORDERED: ALBUTEROL SO4 HFA INHALER IH PRN (07:13)
[2023-09-03 07:26] LABS: EOS % 0.6 % (0-4.5); HEMATOCRIT 33.5 % (32.4-45.2); HEMOGLOBIN 10.9 GM/dL (10.7-15.3); LYMPH % 23.7 % (8-40); MCH 32.4 pg (25.7-33.7); MCHC 32.6 g/dl (32.0-36.0); MEAN CELL VOLUME 99.5 fl (80-96); MEAN PLT VOLUME 8.3 fl (7.5-11.1); MONO % 5.5 % (3.8-10.2); NEUT % 69.2 % (42.8-82.8); PLATELET COUNT 360 10^3/uL (134-434); RBC 3.37 M/mm3 (3.60-5.2); RDW 12.8 % (11.6-15.6); WHITE BLOOD COUNT 10.3 K/mm3 (4.0-10.0)
[2023-09-03 07:36] LABS: CHLORIDE 107 mmol/L (98-107); POTASSIUM 4.2 mmol/L (3.5-5.1); SODIUM 141 mmol/L (136-145)
[2023-09-03 07:39] LABS: CALCIUM 8.6 mg/dL (8.5-10.1)
[2023-09-03 07:40] LABS: ANION GAP 13 mmol/L (4-13); CO2 22 mmol/L (21-32)
[2023-09-03 07:43] LABS: CREATININE 0.6 mg/dL (0.55-1.3)
[2023-09-03 07:50] LABS: GLUCOSE,RANDOM 35 mg/dL (74-106)
[2023-09-03] MEDS ORDERED: DEXTROSE 50%-WATER 25 GM/50 ML DISP.SYRIN ONE (07:59)
[2023-09-03 08:21] VITALS: BMI 21.7
[2023-09-03] MEDS ORDERED: DEXTROSE 50%-WATER - 25 GM/50 ML VIAL IVPUSH ONE (08:50)
[2023-09-03] MEDS ORDERED: DEXTROSE 50%-WATER 25 GM/50 ML DISP.SYRIN IVPUSH ONE (09:00)
[2023-09-03] MEDS: THIAMINE HCL 100 MG TABLET (FP) PO SCH (10:03)
[2023-09-03] MEDS: TIOTROPIUM BROMIDE 2.5 MCG (SPIRIVA) RESPIMAT INHALER IH SCH (11:32)
[2023-09-03] MEDS: D5-1/2NS+10 MEQ KCL - 10 MEQ/1,000 ML INFUS.BAG IV SCH (11:51)
[2023-09-03 16:49] LABS: INR 1.03 (0.83-1.09); PROTHROMBIN TIME (PATIENT) 11.9 SEC (9.7-13.0)
[2023-09-04 04:36] VITALS: RESP 18
[2023-09-04] MEDS: THIAMINE HCL 100 MG TABLET (FP) PO SCH (11:04)
[2023-09-04] MEDS: TIOTROPIUM BROMIDE 2.5 MCG (SPIRIVA) RESPIMAT INHALER IH SCH (11:04)
[2023-09-05] MEDS: THIAMINE HCL 100 MG TABLET (FP) PO SCH (10:30)
[2023-09-05] MEDS: TIOTROPIUM BROMIDE 2.5 MCG (SPIRIVA) RESPIMAT INHALER IH SCH (10:30)
[2023-09-05] MEDS: D5-1/2NS+10 MEQ KCL - 10 MEQ/1,000 ML INFUS.BAG IV SCH (10:37)
[2023-09-05 10:49] LABS: CHLORIDE 103 mmol/L (98-107); POTASSIUM 4.5 mmol/L (3.5-5.1); SODIUM 139 mmol/L (136-145)
[2023-09-05 10:58] LABS: CALCIUM 9.3 mg/dL (8.5-10.1)
[2023-09-05 10:59] LABS: ALBUMIN 2.5 g/dl (3.4-5.0); ANION GAP 8 mmol/L (4-13); CO2 28 mmol/L (21-32); GLUCOSE,RANDOM 112 mg/dL (74-106)
[2023-09-05 11:02] LABS: CREATININE 0.7 mg/dL (0.55-1.3); SGOT/AST 189 U/L (15-37); SGPT/ALT 141 U/L (13-61)
[2023-09-05 11:03] LABS: BILIRUBIN,TOTAL 0.7 mg/dL (0.2-1)
[2023-09-05 11:05] LABS: ALK PHOS 149 U/L (45-117)
[2023-09-05 12:07] LABS: BASO % 0.7 % (0-2.0); EOS % 1.8 % (0-4.5); HEMATOCRIT 32.5 % (32.4-45.2); HEMOGLOBIN 10.7 GM/dL (10.7-15.3); LYMPH % 19.7 % (8-40); MCH 32.6 pg (25.7-33.7); MCHC 32.8 g/dl (32.0-36.0); MEAN CELL VOLUME 99.5 fl (80-96); MONO % 5.7 % (3.8-10.2); NEUT % 72.1 % (42.8-82.8); PLATELET COUNT 230 10^3/uL (134-434); RBC 3.27 M/mm3 (3.60-5.2); WHITE BLOOD COUNT 8.1 K/mm3 (4.0-10.0)
[2023-09-05 12:10] LABS: INR 1.04 (0.83-1.09); PROTHROMBIN TIME (PATIENT) 12.1 SEC (9.7-13.0)
[2023-09-05 14:20] VITALS: BP 108/61; PULSE 84; TEMP 98.2
[2023-09-05 22:21] LABS: FIBROSIS SCORE. 0.11 (0.00-0.21); HCV ALPHA 2 MACRO CHART 160 mg/dL (110-276); NECRO.INFLAM ACT.SCORE 0.62 (0.00-0.17); NECROINFLAM. ACTIVITY GRADE A3-Severe activity (.)
== END 2023-09-05 17:58 | disposition home or self-care (01) ==
LOC: JER 20:17 → JERBED 09-03 04:22 → J6S 09-03 06:33
PROVIDERS: ADMIT Family Medicine; ATTEND Family Medicine
PROC: 3E033GC Introduction of Other Therapeutic Substance into Peripheral Vein, Percutaneous Approach (ICD-10-PCS; principal; 2023-09-03)
PROC: 3E033GC Introduction of Other Therapeutic Substance into Peripheral Vein, Percutaneous Approach (ICD-10-PCS; 2023-09-03)
PROC: 3E0337Z Introduction of Electrolytic and Water Balance Substance into Peripheral Vein, Percutaneous Approach (ICD-10-PCS; 2023-09-03)
DX: R55 Syncope and collapse (principal); W18.39XA Other fall on same level, initial encounter; Y93.89 Activity, other specified; Y92.003 Bedroom of unspecified non-institutional (private) residence as the place of occurrence of the external cause; J44.9 Chronic obstructive pulmonary disease, unspecified; F03.90 Unspecified dementia, unspecified severity, without behavioral disturbance, psychotic disturbance, mood disturbance, and anxiety; F10.99 Alcohol use, unspecified with unspecified alcohol-induced disorder; R01.1 Cardiac murmur, unspecified; M79.10 Myalgia, unspecified site; R06.02 Shortness of breath; R94.5 Abnormal results of liver function studies; F10.90 Alcohol use, unspecified, uncomplicated; I10 Essential (primary) hypertension; R74.01 Elevation of levels of liver transaminase levels; R79.89 Other specified abnormal findings of blood chemistry; E11.40 Type 2 diabetes mellitus with diabetic neuropathy, unspecified; E11.649 Type 2 diabetes mellitus with hypoglycemia without coma; F17.210 Nicotine dependence, cigarettes, uncomplicated
CPT/HCPCS: 0241U-QW; 36415; 70450-TC; 71045-TC-FY; 72125-TC; 72170-TC-FY; 76705-TC; 80048; 80053; 80307; 82140; 82172; 82550; 82962; 82977; 83010; 83036; 83516; 83883; 84460; 84484; 85025; 85610; 85730; 86038; 86704; 86705; 86708; 86803; 87340; 87350; 87517; 93005; 93010; 93880-TC; 96365; 96375; 99285-25; G0378

== ENCOUNTER 2023-10-01 17:05 | Observation (INO) | payer OTHER, BC ==
[2023-10-01] MEDS: ALBUTEROL SO4 2.5/IPRATROPIUM 0.5 INH SOL 3 ML VIAL.NEB. NEB ONE (17:42)
[2023-10-01] MEDS ORDERED: ALBUTEROL SO4 2.5/IPRATROPIUM 0.5 INH SOL 3 ML VIAL.NEB. NEB ONE (17:44)
[2023-10-01 18:13] LABS: BASO % 0.3 % (0-2.0); HEMOGLOBIN 13.5 GM/dL (10.7-15.3); LYMPH % 31.6 % (8-40); MCH 33.2 pg (25.7-33.7); MCHC 33.7 g/dl (32.0-36.0); MEAN CELL VOLUME 98.5 fl (80-96); MEAN PLT VOLUME 7.4 fl (7.5-11.1); MONO % 6.9 % (3.8-10.2); NEUT % 58.2 % (42.8-82.8); PLATELET COUNT 252 10^3/uL (134-434); RBC 4.06 M/mm3 (3.60-5.2); WHITE BLOOD COUNT 6.9 K/mm3 (4.0-10.0)
[2023-10-01] MEDS: methylPREDNISolone NA SUCC 125 MG/2 ML VIAL IVPUSH ONE (18:16)
[2023-10-01] MEDS ORDERED: methylPREDNISolone NA SUCC 125 MG/2 ML VIAL ONE (18:18)
[2023-10-01 18:30] LABS: POTASSIUM 4.4 mmol/L (3.5-5.1)
[2023-10-01 18:32] LABS: BLOOD UREA NITROGEN 3.5 mg/dL (7-18); CALCIUM 8.6 mg/dL (8.5-10.1)
[2023-10-01 18:36] LABS: CREATININE 0.6 mg/dL (0.55-1.3)
[2023-10-01 18:37] LABS: BILIRUBIN,TOTAL 0.6 mg/dL (0.2-1); TOT PROT 6.9 g/dl (6.4-8.2)
[2023-10-01] MEDS ORDERED: ASPIRIN 81 MG CHEWABLE TABLETS ONE (19:31)
[2023-10-01] MEDS ORDERED: AZITHROMYCIN IVPB 500 MG/250 ML BAG IVPB ONE (19:32)
[2023-10-01] MEDS: ASPIRIN 81 MG CHEWABLE TABLETS PO ONE (19:38)
[2023-10-01] MEDS: AZITHROMYCIN IVPB 500 MG in DEXTROSE 5%-WATER - 250 ML IVPB ONE (19:38)
[2023-10-01] MEDS ORDERED: ALBUTEROL SO4 2.5/IPRATROPIUM 0.5 INH SOL 3 ML VIAL.NEB. NEB PRN (23:10)
[2023-10-01] MEDS: DEXTROSE 5%-WATER - 1,000 ML IV SCH (23:22)
[2023-10-02 00:35] VITALS: BMI 20.6
[2023-10-02 07:45] LABS: BASO % 1.3 % (0-2.0); EOS % 0.1 % (0-4.5); HEMATOCRIT 34.1 % (32.4-45.2); HEMOGLOBIN 11.4 GM/dL (10.7-15.3); LYMPH % 14.2 % (8-40); MCH 33.3 pg (25.7-33.7); MCHC 33.5 g/dl (32.0-36.0); MEAN CELL VOLUME 99.2 fl (80-96); MEAN PLT VOLUME 8.6 fl (7.5-11.1); MONO % 5.1 % (3.8-10.2); NEUT % 79.3 % (42.8-82.8); PLATELET COUNT 204 10^3/uL (134-434); RBC 3.43 M/mm3 (3.60-5.2); RDW 14.6 % (11.6-15.6); WHITE BLOOD COUNT 4.2 K/mm3 (4.0-10.0)
[2023-10-02 07:55] LABS: POTASSIUM 4.4 mmol/L (3.5-5.1)
[2023-10-02 07:58] LABS: BLOOD UREA NITROGEN 4.4 mg/dL (7-18); CALCIUM 8.5 mg/dL (8.5-10.1); CHOLESTEROL 238 mg/dL (50-200); MAGNESIUM 1.8 mg/dL (1.8-2.4)
[2023-10-02 08:00] LABS: LDL CHOLESTEROL (ONLY SJRH) 89 mg/dL (5-100)
[2023-10-02 08:02] LABS: ALBUMIN 2.5 g/dl (3.4-5.0); CREATININE 0.7 mg/dL (0.55-1.3); HDL CHOLESTEROL 137 mg/dL (40-60); PHOSPHOROUS 3.9 mg/dL (2.5-4.9)
[2023-10-02 08:03] LABS: BILIRUBIN,TOTAL 1.4 mg/dL (0.2-1)
[2023-10-02] MEDS: predniSONE 20 MG TABLET (UD) PO SCH (09:39)
[2023-10-02] MEDS: ENOXAPARIN NA (PORCINE) 40 MG/0.4 ML DISP.SYRIN SQ SCH (09:39)
[2023-10-02] MEDS: AZITHROMYCIN IVPB 500 MG/250 ML BAG IVPB SCH (09:39)
[2023-10-02] MEDS: THIAMINE HCL 100 MG TABLET (FP) PO SCH (09:39)
[2023-10-02] MEDS: FOLIC ACID 1 MG TABLET (FP) PO SCH (09:39)
[2023-10-02] MEDS: NICOTINE 14 MG/24 HOURS TOPICAL PATCH TD SCH (09:40)
[2023-10-02] MEDS: BUDESONIDE/FORMETEROL FUMARATE 160/4.5 mcg INHALER IH SCH (09:51)
[2023-10-02 12:51] LABS: EPI CELLS >36 /uL (0-25.1); HYALINE CASTS 0 /uL (0-3.1); URINE APPEARANCE CLOUDY; URINE BACTERIA 270 /uL (0-1359); URINE BILIRUBIN NEGATIVE (NEGATIVE); URINE COLOR YELLOW; URINE GLUCOSE (UA) 2+ (NEGATIVE); URINE KETONE NEGATIVE (NEGATIVE); URINE LEUK ESTERASE TRACE (NEGATIVE); URINE NITRITE NEGATIVE (NEGATIVE); URINE PROTEIN NEGATIVE (NEGATIVE); URINE RBC 7 /uL (0-23.9); URINE WBC 27 /uL (0-25.8)
[2023-10-02] MEDS: ZINC OXIDE 20% TOPICAL OINTMENT 30 GM TUBE TP SCH (14:55)
[2023-10-02] MEDS: TIOTROPIUM BROMIDE 2.5 MCG (SPIRIVA) RESPIMAT INHALER IH SCH (15:35)
[2023-10-03 06:26] LABS: HEMATOCRIT 32.5 % (32.4-45.2); HEMOGLOBIN 10.7 GM/dL (10.7-15.3); MCH 32.9 pg (25.7-33.7); MCHC 32.8 g/dl (32.0-36.0); MEAN CELL VOLUME 100.3 fl (80-96); MEAN PLT VOLUME 8.7 fl (7.5-11.1); PLATELET COUNT 153 10^3/uL (134-434); RBC 3.24 M/mm3 (3.60-5.2); RDW 14.3 % (11.6-15.6); WHITE BLOOD COUNT 7.4 K/mm3 (4.0-10.0)
[2023-10-03 06:48] LABS: POTASSIUM 3.5 mmol/L (3.5-5.1)
[2023-10-03 06:52] LABS: CALCIUM 8.5 mg/dL (8.5-10.1)
[2023-10-03 06:53] LABS: ALBUMIN 2.4 g/dl (3.4-5.0); MAGNESIUM 1.8 mg/dL (1.8-2.4)
[2023-10-03 06:56] LABS: CREATININE 0.6 mg/dL (0.55-1.3); PHOSPHOROUS 2.5 mg/dL (2.5-4.9)
[2023-10-03 06:58] LABS: TOT PROT 5.1 g/dl (6.4-8.2)
[2023-10-03] MEDS: PANTOPRAZOLE 20 MG TABLET PO SCH (09:09)
[2023-10-03] MEDS: predniSONE 20 MG TABLET (UD) PO SCH (09:10)
[2023-10-03 13:54] VITALS: BP 103/67; PULSE 101; RESP 18; TEMP 97.3
== END 2023-10-03 15:08 | disposition home health service (06) ==
LOC: JER 17:05 → JERBED 21:22 → J4W 23:44
PROVIDERS: ADMIT Internal Medicine; ATTEND Internal Medicine
PROC: 3E0F7GC Introduction of Other Therapeutic Substance into Respiratory Tract, Via Natural or Artificial Opening (ICD-10-PCS; principal; 2023-10-01)
PROC: 3E03329 Introduction of Other Anti-infective into Peripheral Vein, Percutaneous Approach (ICD-10-PCS; 2023-10-01)
PROC: 3E03329 Introduction of Other Anti-infective into Peripheral Vein, Percutaneous Approach (ICD-10-PCS; 2023-10-01)
PROC: 3E0337Z Introduction of Electrolytic and Water Balance Substance into Peripheral Vein, Percutaneous Approach (ICD-10-PCS; 2023-10-01)
PROC: 3E023GC Introduction of Other Therapeutic Substance into Muscle, Percutaneous Approach (ICD-10-PCS; 2023-10-01)
DX: R07.9 Chest pain, unspecified (principal); R91.8 Other nonspecific abnormal finding of lung field; F10.99 Alcohol use, unspecified with unspecified alcohol-induced disorder; Z29.9 Encounter for prophylactic measures, unspecified; J44.9 Chronic obstructive pulmonary disease, unspecified; I10 Essential (primary) hypertension; Z87.01 Personal history of pneumonia (recurrent); E88.89 Other specified metabolic disorders; F17.200 Nicotine dependence, unspecified, uncomplicated
CPT/HCPCS: 0241U-QW; 36415; 71046-TC-FY; 71250-TC; 76700-TC; 80053; 80061; 81003; 82962; 83735; 84100; 84443; 84484; 85025; 85027; 93005; 93010; 94640; 96361; 96365; 96367; 96372; 97116-GP; 97161-GP; 99285-25; G0378

== ENCOUNTER 2023-10-07 23:03 | Emergency (ER) | payer OTHER, BC ==
[2023-10-07 23:14] VITALS: TEMP 97.5; BMI 20.9
[2023-10-08] MEDS ORDERED: ACETAMINOPHEN INJECTION 100 ML IVPB ONE (01:57)
[2023-10-08] MEDS: LACTATED RINGERS SOLUTION 1000 ML INFUS.BAG IV ONE (02:03)
[2023-10-08] MEDS: ACETAMINOPHEN 1000 MG/100 ML BAG IVPB ONE (02:03)
[2023-10-08 02:14] LABS: BASO % 0.8 % (0-2.0); HEMATOCRIT 31.6 % (32.4-45.2); HEMOGLOBIN 10.8 GM/dL (10.7-15.3); LYMPH % 30.7 % (8-40); MCH 33.9 pg (25.7-33.7); MCHC 34.2 g/dl (32.0-36.0); MEAN CELL VOLUME 99.4 fl (80-96); MEAN PLT VOLUME 7.7 fl (7.5-11.1); MONO % 9.3 % (3.8-10.2); NEUT % 57.2 % (42.8-82.8); PLATELET COUNT 229 10^3/uL (134-434); RBC 3.18 M/mm3 (3.60-5.2); RDW 14.9 % (11.6-15.6); WHITE BLOOD COUNT 7.8 K/mm3 (4.0-10.0)
[2023-10-08] MEDS ORDERED: METOCLOPRAMIDE HCL INJECTION 10 MG/2 ML VIAL ONE (02:20)
[2023-10-08 02:24] LABS: INR 0.9 (0.83-1.09); PROTHROMBIN TIME (PATIENT) 10.5 SEC (9.7-13.0)
[2023-10-08 02:26] LABS: ACTIVATED PTT 28.4 SECONDS (25.2-36.5)
[2023-10-08] MEDS: METOCLOPRAMIDE HCL INJECTION 10 MG/2 ML VIAL IVPUSH ONE (02:28)
[2023-10-08 02:34] LABS: POTASSIUM 4.3 mmol/L (3.5-5.1)
[2023-10-08 02:36] LABS: CALCIUM 7.9 mg/dL (8.5-10.1)
[2023-10-08 02:37] LABS: ALBUMIN 2.6 g/dl (3.4-5.0); BLOOD UREA NITROGEN 7.2 mg/dL (7-18)
[2023-10-08 02:40] LABS: CREATININE 0.8 mg/dL (0.55-1.3)
[2023-10-08 02:41] LABS: BILIRUBIN,TOTAL 0.4 mg/dL (0.2-1)
[2023-10-08 02:45] LABS: N-TERMINAL BNP 54.5 pg/ml (5-125)
[2023-10-08 02:56] VITALS: BP 107/56; PULSE 82; RESP 12
== END 2023-10-08 04:01 | disposition home or self-care (01) ==
LOC: JER 23:03
PROC: 3E033NZ Introduction of Analgesics, Hypnotics, Sedatives into Peripheral Vein, Percutaneous Approach (ICD-10-PCS; principal; 2023-10-08)
PROC: 3E033GC Introduction of Other Therapeutic Substance into Peripheral Vein, Percutaneous Approach (ICD-10-PCS; 2023-10-08)
DX: R51.9 Headache, unspecified (principal); R05.9 Cough, unspecified; F10.229 Alcohol dependence with intoxication, unspecified; Z20.822 Contact with and (suspected) exposure to COVID-19
CPT/HCPCS: 0241U-QW; 36415; 71045-TC-FY; 80053; 80307; 83880; 84484; 85025; 85610; 85730; 93005; 93010; 99285-25; J0131

== ENCOUNTER 2023-10-14 06:04 | Inpatient (IN) | payer OTHER, BC ==
[2023-10-14 06:29] VITALS: BMI 21.2
[2023-10-14] MEDS ORDERED: IBUPROFEN 400 MG TABLET (FP) PO PRN (10:51)
[2023-10-14] MEDS ORDERED: NALOXONE HCL (KLOXXADO) 8 MG SPRAY NS PRN (10:51)
[2023-10-14] MEDS ORDERED: MAGNESIUM HYDROX 2400MG/30ML ORAL SUSPENSION 30 ML CUP PO PRN (10:51)
[2023-10-14] MEDS ORDERED: MAG HYDROX/AL HYDROX/SIMETH 30 ML UNIT-DOSE CUP PO PRN (10:51)
[2023-10-14] MEDS ORDERED: guaiFENesin 600 MG TABLET.ER (FP) PO PRN (10:51)
[2023-10-14] MEDS ORDERED: ONDANSETRON *ODT* 4 MG TABLET SL PRN (10:51)
[2023-10-14] MEDS ORDERED: LOPERAMIDE HCL 2 MG CAPSULE PO PRN (10:51)
[2023-10-14] MEDS ORDERED: BENZOCAINE/MENTHOL (CHLORASEPTIC ) LOZENGE MM PRN (10:51)
[2023-10-14] MEDS ORDERED: ACETAMINOPHEN 325 MG TABLET (FP) PO PRN (10:51)
[2023-10-14] MEDS ORDERED: LORazepam 1 MG TABLET PO PRN (10:51)
[2023-10-14] MEDS ORDERED: BISMUTH SUBSALICYLATE 524 MG/30 ML PO PRN (10:51)
[2023-10-14] MEDS ORDERED: DICYCLOMINE HCL 10 MG CAPSULE PO PRN (10:51)
[2023-10-14] MEDS ORDERED: hydrOXYzine PAMOATE 25 MG CAPSULE (FP) PO PRN (10:51)
[2023-10-14] MEDS ORDERED: POLYETHYLENE GLYCOL (HEALTHYLAX) 3350 17 GM PACKET PO PRN (10:51)
[2023-10-14] MEDS ORDERED: METHOCARBAMOL 500 MG TABLET PO PRN (10:51)
[2023-10-14] MEDS ORDERED: NALOXONE HCL 0.4 MG/ML VIAL IM PRN (10:51)
[2023-10-14] MEDS: HYDROCORTISONE 0.5% TOPICAL CREAM 30 GM TUBE TP SCH (11:22)
[2023-10-14] MEDS: LORazepam 2 MG TABLET PO SCH (17:35)
[2023-10-14] MEDS: THIAMINE HCL 100 MG TABLET (FP) PO SCH (22:16)
[2023-10-14] MEDS: MELATONIN 5 MG TABLETS PO SCH (22:16)
[2023-10-14] MEDS: IBUPROFEN 600 MG TABLET (FP) PO PRN (22:18)
[2023-10-15] MEDS: BENZONATATE 200 MG CAPSULE PO PRN (05:52)
[2023-10-15] MEDS ORDERED: ALBUTEROL SO4 HFA INHALER IH PRN (09:28)
[2023-10-15] MEDS: NICOTINE 14 MG/24 HOURS TOPICAL PATCH TD SCH (10:32)
[2023-10-15] MEDS: PRENATAL VITAMINS W/ FOLIC ACID TABLET (FP) PO SCH (10:33)
[2023-10-15] MEDS: LORazepam 2 MG TABLET PO SCH (11:08)
[2023-10-15 11:31] LABS: HEMATOCRIT 31.5 % (32.4-45.2); HEMOGLOBIN 10.7 GM/dL (10.7-15.3); MCHC 33.9 g/dl (32.0-36.0); MEAN CELL VOLUME 100.3 fl (80-96); MEAN PLT VOLUME 8.1 fl (7.5-11.1); PLATELET COUNT 225 10^3/uL (134-434); RBC 3.14 M/mm3 (3.60-5.2); RDW 14.9 % (11.6-15.6)
[2023-10-15] MEDS: FLUTICASONE/UMECLIDIN/VILANTER(200-62.5-25 TRELEGY ELLIPTA) INAHLER IH SCH (11:57)
[2023-10-15 12:00] LABS: CHLORIDE 108 mmol/L (98-107); POTASSIUM 3.7 mmol/L (3.5-5.1); SODIUM 143 mmol/L (136-145)
[2023-10-15 12:03] LABS: CALCIUM 8.8 mg/dL (8.5-10.1)
[2023-10-15 12:04] LABS: ALBUMIN 2.4 g/dl (3.4-5.0); ANION GAP 4 mmol/L (4-13); BLOOD UREA NITROGEN 4.9 mg/dL (7-18); CO2 30 mmol/L (21-32); GLUCOSE,RANDOM 80 mg/dL (74-106)
[2023-10-15 12:07] LABS: CREATININE 0.7 mg/dL (0.55-1.3); SGOT/AST 61 U/L (15-37); SGPT/ALT 57 U/L (13-61)
[2023-10-15 12:08] LABS: BILIRUBIN,TOTAL 1.3 mg/dL (0.2-1)
[2023-10-15 12:09] LABS: TOT PROT 5.3 g/dl (6.4-8.2)
[2023-10-15 12:10] LABS: ALK PHOS 130 U/L (45-117)
[2023-10-15] MEDS: LORazepam 1 MG TABLET PO SCH (22:30)
[2023-10-16] MEDS: LORazepam 1 MG TABLET PO SCH (05:33)
[2023-10-17] MEDS ORDERED: LORazepam 0.5 MG TABLET PO PRN
[2023-10-17] MEDS: LORazepam 0.5 MG TABLET PO SCH (05:46)
[2023-10-18] MEDS: LORazepam 0.5 MG TABLET PO ONE (05:36)
[2023-10-18 09:20] VITALS: RESP 18
[2023-10-18 12:54] VITALS: BP 108/64; PULSE 100; TEMP 97.6
== END 2023-10-18 15:06 | disposition home or self-care (01) | DRG 897 ==
LOC: YASAS 06:04 → Y3N 10:40
PROVIDERS: ADMIT Allergy & Immunology; ATTEND Surgery
PROC: HZ2ZZZZ Detoxification Services for Substance Abuse Treatment (ICD-10-PCS; principal; 2023-10-14)
DX: F10.230 Alcohol dependence with withdrawal, uncomplicated (principal); F17.210 Nicotine dependence, cigarettes, uncomplicated; I10 Essential (primary) hypertension; J44.9 Chronic obstructive pulmonary disease, unspecified; L25.9 Unspecified contact dermatitis, unspecified cause; M19.041 Primary osteoarthritis, right hand; M19.042 Primary osteoarthritis, left hand; R79.89 Other specified abnormal findings of blood chemistry
CPT/HCPCS: 36415; 80053; 80307; 85027; 86780; 87635; 87811; 93005; 93010

== ENCOUNTER 2023-10-15 13:13 | Emergency (ER) | payer OTHER, BC ==
[2023-10-15 13:33] VITALS: BP 147/73; PULSE 91; RESP 16; TEMP 97.5; BMI 21.2
[2023-10-15] MEDS: THIAMINE HCL 100 MG TABLET (FP) PO ONE (14:35)
[2023-10-15 14:53] LABS: EOS % 4.7 % (0-4.5); HEMATOCRIT 31.7 % (32.4-45.2); HEMOGLOBIN 10.4 GM/dL (10.7-15.3); LYMPH % 16.5 % (8-40); MCH 32.9 pg (25.7-33.7); MCHC 32.7 g/dl (32.0-36.0); MEAN CELL VOLUME 100.5 fl (80-96); MEAN PLT VOLUME 7.5 fl (7.5-11.1); MONO % 7.2 % (3.8-10.2); NEUT % 70.6 % (42.8-82.8); PLATELET COUNT 246 10^3/uL (134-434); RBC 3.16 M/mm3 (3.60-5.2); RDW 14.8 % (11.6-15.6); WHITE BLOOD COUNT 7.8 K/mm3 (4.0-10.0)
[2023-10-15 15:05] LABS: INR 1.01 (0.83-1.09); PROTHROMBIN TIME (PATIENT) 11.7 SEC (9.7-13.0)
[2023-10-15 15:07] LABS: PH,URINE 8.5 (5.0-8.0); URINE APPEARANCE CLEAR; URINE BILIRUBIN NEGATIVE (NEGATIVE); URINE COLOR YELLOW; URINE GLUCOSE (UA) NEGATIVE (NEGATIVE); URINE KETONE NEGATIVE (NEGATIVE); URINE LEUK ESTERASE NEGATIVE (NEGATIVE); URINE NITRITE NEGATIVE (NEGATIVE); URINE PROTEIN NEGATIVE (NEGATIVE); URINE UROBILINOGEN 0.2 mg/dL (0.2-1.0)
[2023-10-15 15:08] LABS: ACTIVATED PTT 27.9 SECONDS (25.2-36.5)
[2023-10-15 15:12] LABS: POTASSIUM 3.6 mmol/L (3.5-5.1)
[2023-10-15 15:14] LABS: CALCIUM 8.6 mg/dL (8.5-10.1)
[2023-10-15 15:15] LABS: ALBUMIN 2.3 g/dl (3.4-5.0); BLOOD UREA NITROGEN 5.1 mg/dL (7-18); MAGNESIUM 1.9 mg/dL (1.8-2.4)
[2023-10-15 15:18] LABS: CREATININE 0.7 mg/dL (0.55-1.3)
[2023-10-15 15:19] LABS: BILIRUBIN,TOTAL 0.9 mg/dL (0.2-1); TOT PROT 5.2 g/dl (6.4-8.2)
[2023-10-15] MEDS ORDERED: THIAMINE HCL 100 MG TABLET (FP) ONE (15:42)
== END 2023-10-15 18:33 | disposition home or self-care (01) ==
LOC: JER 13:13
DX: R42 Dizziness and giddiness (principal); W19.XXXA Unspecified fall, initial encounter; Y92.002 Bathroom of unspecified non-institutional (private) residence as the place of occurrence of the external cause
CPT/HCPCS: 36415; 70450-TC; 71045-TC-FY; 72125-TC; 72170-TC-FY; 80053; 80307; 81003; 83735; 84484; 85025; 85610; 85730; 87086; 93005; 93010; 99285-25

== ENCOUNTER 2023-10-26 20:23 | Inpatient (IN) | payer OTHER, BC ==
[2023-10-26 20:53] VITALS: BMI 22.2
[2023-10-26] MEDS: ALBUTEROL SO4 2.5/IPRATROPIUM 0.5 INH SOL 3 ML VIAL.NEB. NEB SCH (21:40)
[2023-10-26 22:06] LABS: VENOUS BASE EXCESS -2.3 mmol/L (-2-2); VENOUS O2 SATURATION 77.1 % (70-80); VENOUS PCO2 39.4 mmHg (38-52); VENOUS PH 7.377 (7.310-7.410)
[2023-10-26] MEDS ORDERED: ALBUTEROL SO4 2.5/IPRATROPIUM 0.5 INH SOL 3 ML VIAL.NEB. NEB ONE (22:09)
[2023-10-26 22:19] LABS: BASO % 1.3 % (0-2.0); EOS % 4.2 % (0-4.5); HEMATOCRIT 31.3 % (32.4-45.2); HEMOGLOBIN 10.5 GM/dL (10.7-15.3); LYMPH % 31.1 % (8-40); MCH 33.4 pg (25.7-33.7); MCHC 33.5 g/dl (32.0-36.0); MEAN CELL VOLUME 99.7 fl (80-96); MEAN PLT VOLUME 7.6 fl (7.5-11.1); NEUT % 58.4 % (42.8-82.8); PLATELET COUNT 313 10^3/uL (134-434); RBC 3.14 M/mm3 (3.60-5.2); RDW 14.3 % (11.6-15.6); WHITE BLOOD COUNT 8.5 K/mm3 (4.0-10.0)
[2023-10-26 22:23] LABS: POTASSIUM 3.7 mmol/L (3.5-5.1)
[2023-10-26 22:25] LABS: CALCIUM 8.2 mg/dL (8.5-10.1)
[2023-10-26 22:26] LABS: ALBUMIN 2.4 g/dl (3.4-5.0); BLOOD UREA NITROGEN 3.1 mg/dL (7-18); MAGNESIUM 1.7 mg/dL (1.8-2.4)
[2023-10-26 22:28] LABS: PH,URINE 5.5 (5.0-8.0); URINE APPEARANCE CLEAR; URINE BILIRUBIN NEGATIVE (NEGATIVE); URINE COLOR YELLOW; URINE GLUCOSE (UA) NEGATIVE (NEGATIVE); URINE KETONE NEGATIVE (NEGATIVE); URINE LEUK ESTERASE NEGATIVE (NEGATIVE); URINE NITRITE NEGATIVE (NEGATIVE); URINE PROTEIN NEGATIVE (NEGATIVE); URINE UROBILINOGEN 0.2 mg/dL (0.2-1.0)
[2023-10-26 22:29] LABS: CREATININE 0.6 mg/dL (0.55-1.3)
[2023-10-26 22:30] LABS: BILIRUBIN,TOTAL 0.1 mg/dL (0.2-1); TOT PROT 5.4 g/dl (6.4-8.2)
[2023-10-26 22:34] LABS: N-TERMINAL BNP 79.4 pg/ml (5-125)
[2023-10-27] MEDS ORDERED: LORazepam 1 MG TABLET PO PRN (06:16)
[2023-10-27] MEDS ORDERED: ALBUTEROL SO4 2.5/IPRATROPIUM 0.5 INH SOL 3 ML VIAL.NEB. NEB PRN (06:19)
[2023-10-27] MEDS ORDERED: MAGNESIUM SULFATE IN WATER 2 GM/50 ML IVPB IVPB ONE ×2 (06:39→12:48)
[2023-10-27] MEDS: MAGNESIUM SULF 50% (8.12 MEQ/2 ML-1 GM VIAL) IVPB ONE (06:42)
[2023-10-27] MEDS: LORazepam 2 MG TABLET PO SCH (06:42)
[2023-10-27 07:47] LABS: EOS % 2.3 % (0-4.5); HEMATOCRIT 33.9 % (32.4-45.2); HEMOGLOBIN 11.5 GM/dL (10.7-15.3); LYMPH % 14.8 % (8-40); MCH 34.1 pg (25.7-33.7); MEAN CELL VOLUME 100.5 fl (80-96); MEAN PLT VOLUME 8.7 fl (7.5-11.1); MONO % 5.2 % (3.8-10.2); NEUT % 76.7 % (42.8-82.8); PLATELET COUNT 306 10^3/uL (134-434); RBC 3.37 M/mm3 (3.60-5.2); RDW 14.2 % (11.6-15.6); WHITE BLOOD COUNT 8.8 K/mm3 (4.0-10.0)
[2023-10-27 08:02] LABS: ALBUMIN 2.7 g/dl (3.4-5.0); BLOOD UREA NITROGEN 3.6 mg/dL (7-18); CALCIUM 9.1 mg/dL (8.5-10.1); MAGNESIUM 1.7 mg/dL (1.8-2.4)
[2023-10-27 08:05] LABS: CREATININE 0.7 mg/dL (0.55-1.3); PHOSPHOROUS 4.5 mg/dL (2.5-4.9)
[2023-10-27 08:07] LABS: TOT PROT 6.1 g/dl (6.4-8.2)
[2023-10-27 08:08] LABS: BILIRUBIN,TOTAL 0.4 mg/dL (0.2-1)
[2023-10-27] MEDS ORDERED: THIAMINE 100 MG TABLET PO SCH (10:00)
[2023-10-27] MEDS ORDERED: FOLIC ACID 1 MG TABLET (FP) PO SCH (10:00)
[2023-10-27] MEDS: LORazepam 1 MG TABLET PO SCH (11:00)
[2023-10-27] MEDS: methylPREDNISolone NA SUCC 40 MG/1 ML VIAL IVPUSH SCH (11:00)
[2023-10-27] MEDS: NICOTINE 7 MG/24 HOURS TOPICAL PATCH TD SCH (11:00)
[2023-10-27] MEDS: FOLIC ACID INJECTION - 1 MG, THIAMINE HCL 100 MG, MULTIVIT INJECTION ADULT 10 ML in SOD... IVPB ONE (11:00)
[2023-10-27] MEDS: ENOXAPARIN NA (PORCINE) 40 MG/0.4 ML DISP.SYRIN SQ SCH (11:00)
[2023-10-27] MEDS: BUDESONIDE/FORMETEROL FUMARATE 80/4.5 mcg INHALER IH SCH (11:00)
[2023-10-27] MEDS ORDERED: ENOXAPARIN NA (PORCINE) 40 MG/0.4 ML DISP.SYRIN SQ ONE (11:02)
[2023-10-27] MEDS ORDERED: NICOTINE 7 MG/24 HOURS TOPICAL PATCH TD ONE (11:02)
[2023-10-27] MEDS ORDERED: methylPREDNISolone NA SUCC 40 MG/1 ML VIAL ONE (11:02)
[2023-10-27] MEDS ORDERED: LORazepam 1 MG TABLET ONE (11:02)
[2023-10-27] MEDS: MAGNESIUM 2GM/50ML STERILE WATER IVPB IVPB ONE (13:03)
[2023-10-27] MEDS: MONTELUKAST NA 10 MG TABLET PO SCH (21:25)
[2023-10-27] MEDS: HYDROCORTISONE 1% TOPICAL CREAM 30 GM TUBE TP SCH (21:25)
[2023-10-28] MEDS: LORazepam 1 MG TABLET PO SCH (05:21)
[2023-10-28 07:26] LABS: EOS % 0.5 % (0-4.5); HEMATOCRIT 29.6 % (32.4-45.2); HEMOGLOBIN 9.8 GM/dL (10.7-15.3); LYMPH % 20.6 % (8-40); MCH 33.2 pg (25.7-33.7); MEAN CELL VOLUME 100.4 fl (80-96); MEAN PLT VOLUME 8.6 fl (7.5-11.1); MONO % 8.1 % (3.8-10.2); NEUT % 69.8 % (42.8-82.8); PLATELET COUNT 263 10^3/uL (134-434); RBC 2.95 M/mm3 (3.60-5.2); WHITE BLOOD COUNT 9.8 K/mm3 (4.0-10.0)
[2023-10-28 07:40] LABS: POTASSIUM 3.6 mmol/L (3.5-5.1)
[2023-10-28 07:45] LABS: CALCIUM 8.6 mg/dL (8.5-10.1)
[2023-10-28 07:46] LABS: ALBUMIN 2.3 g/dl (3.4-5.0); BLOOD UREA NITROGEN 8.3 mg/dL (7-18); MAGNESIUM 2.1 mg/dL (1.8-2.4)
[2023-10-28 07:49] LABS: CREATININE 0.6 mg/dL (0.55-1.3)
[2023-10-28 07:51] LABS: BILIRUBIN,TOTAL 0.4 mg/dL (0.2-1); TOT PROT 4.9 g/dl (6.4-8.2)
[2023-10-28] MEDS ORDERED: THIAMINE 100 MG TABLET PO SCH ×3 (10:00→14:00)
[2023-10-28] MEDS: THIAMINE 100 MG TABLET PO SCH (11:14)
[2023-10-28] MEDS: FOLIC ACID 1 MG TABLET (FP) PO SCH (11:15)
[2023-10-28] MEDS: PANTOPRAZOLE 40 MG TABLET PO SCH (11:16)
[2023-10-28 15:43] VITALS: BP 124/72; PULSE 99; RESP 20; TEMP 99
[2023-10-29] MEDS ORDERED: LORazepam 0.5 MG TABLET PO PRN
[2023-10-29] MEDS ORDERED: LORazepam 0.5 MG TABLET PO SCH (05:00)
[2023-10-30] MEDS ORDERED: LORazepam 0.5 MG TABLET PO ONE (05:00)
== END 2023-10-28 15:56 | disposition home or self-care (01) | DRG 897 ==
LOC: JER 20:23 → JERBED 10-27 00:27 → OBSVTOIN 10-27 06:14 → J4W 10-27 15:50
PROVIDERS: ADMIT Internal Medicine; ATTEND Internal Medicine
DX: F10.220 Alcohol dependence with intoxication, uncomplicated (principal); J44.1 Chronic obstructive pulmonary disease with (acute) exacerbation; E83.42 Hypomagnesemia; R55 Syncope and collapse; F03.90 Unspecified dementia, unspecified severity, without behavioral disturbance, psychotic disturbance, mood disturbance, and anxiety; R23.4 Changes in skin texture; I10 Essential (primary) hypertension; R91.1 Solitary pulmonary nodule; L50.9 Urticaria, unspecified; F17.200 Nicotine dependence, unspecified, uncomplicated
CPT/HCPCS: 0241U-QW; 36415; 70450-TC; 71045-TC-FY; 72125-TC; 72170-TC-FY; 80053; 80307; 81003; 82607; 82746; 82803; 83735; 83880; 84100; 84484; 85025; 85610; 85730; 87086; 93005; 93010; 99285-25; G0378

== ENCOUNTER 2023-11-04 17:14 | Emergency (ER) | payer OTHER, BC ==
[2023-11-04 17:53] VITALS: BP 105/59; PULSE 89; RESP 16; TEMP 98.3; BMI 21.8
[2023-11-04 18:30] LABS: BASO % 1.7 % (0-2.0); EOS % 2.4 % (0-4.5); HEMATOCRIT 36.2 % (32.4-45.2); HEMOGLOBIN 12.1 GM/dL (10.7-15.3); LYMPH % 39.9 % (8-40); MCH 33.4 pg (25.7-33.7); MCHC 33.4 g/dl (32.0-36.0); MEAN CELL VOLUME 100.1 fl (80-96); MEAN PLT VOLUME 7.4 fl (7.5-11.1); MONO % 7.4 % (3.8-10.2); NEUT % 48.6 % (42.8-82.8); PLATELET COUNT 340 10^3/uL (134-434); RBC 3.62 M/mm3 (3.60-5.2); RDW 14.8 % (11.6-15.6); WHITE BLOOD COUNT 8.6 K/mm3 (4.0-10.0)
[2023-11-04 18:37] LABS: INR 0.99 (0.83-1.09); PROTHROMBIN TIME (PATIENT) 11.5 SEC (9.7-13.0)
[2023-11-04 18:49] LABS: POTASSIUM 3.6 mmol/L (3.5-5.1)
[2023-11-04 18:51] LABS: ALBUMIN 2.5 g/dl (3.4-5.0); BLOOD UREA NITROGEN 5.9 mg/dL (7-18); CALCIUM 8.5 mg/dL (8.5-10.1)
[2023-11-04 18:54] LABS: CREATININE 0.7 mg/dL (0.55-1.3)
[2023-11-04 18:56] LABS: BILIRUBIN,TOTAL 0.2 mg/dL (0.2-1); TOT PROT 5.6 g/dl (6.4-8.2)
[2023-11-04] MEDS: SODIUM CHLORIDE 0.9% 500 ML INFUS.BAG IV ONE (19:49)
== END 2023-11-04 22:50 | disposition home or self-care (01) ==
LOC: JER 17:14
DX: R06.02 Shortness of breath (principal); F10.929 Alcohol use, unspecified with intoxication, unspecified; Z20.822 Contact with and (suspected) exposure to COVID-19
CPT/HCPCS: 0241U-QW; 36415; 71045-TC-FY; 80053; 80307; 84484; 85025; 85610; 85730; 93005; 93010; 99285-25

== ENCOUNTER 2023-11-12 06:16 | Emergency (ER) | payer OTHER, BC ==
[2023-11-12 06:28] VITALS: TEMP 97.3; BMI 21.8
[2023-11-12 08:00] VITALS: BP 147/77; PULSE 76; RESP 16
== END 2023-11-12 08:00 | disposition home or self-care (01) ==
LOC: JER 06:16
DX: E16.2 Hypoglycemia, unspecified (principal); R42 Dizziness and giddiness
CPT/HCPCS: 82962; 99283-25

== ENCOUNTER 2023-11-24 18:15 | Inpatient (IN) | payer OTHER, BC ==
[2023-11-24] MEDS ORDERED: ALBUTEROL SO4 2.5/IPRATROPIUM 0.5 INH SOL 3 ML VIAL.NEB. NEB ONE (18:52)
[2023-11-24] MEDS: ALBUTEROL SO4 2.5/IPRATROPIUM 0.5 INH SOL 3 ML VIAL.NEB. NEB ONE (18:54)
[2023-11-24 19:18] LABS: PH,URINE 5.5 (5.0-8.0); URINE APPEARANCE CLEAR; URINE BILIRUBIN NEGATIVE (NEGATIVE); URINE COLOR YELLOW; URINE GLUCOSE (UA) NEGATIVE (NEGATIVE); URINE KETONE NEGATIVE (NEGATIVE); URINE LEUK ESTERASE NEGATIVE (NEGATIVE); URINE NITRITE NEGATIVE (NEGATIVE); URINE PROTEIN NEGATIVE (NEGATIVE); URINE UROBILINOGEN 0.2 mg/dL (0.2-1.0)
[2023-11-24] MEDS ORDERED: methylPREDNISolone NA SUCC 125 MG/2 ML VIAL ONE (19:29)
[2023-11-24] MEDS ORDERED: AZITHROMYCIN IVPB 500 MG/250 ML BAG IVPB ONE (19:29)
[2023-11-24 19:54] LABS: BASO % 1.4 % (0-2.0); EOS % 0.8 % (0-4.5); HEMATOCRIT 39.4 % (32.4-45.2); HEMOGLOBIN 12.8 GM/dL (10.7-15.3); LYMPH % 42.4 % (8-40); MCHC 32.4 g/dl (32.0-36.0); MEAN CELL VOLUME 101.8 fl (80-96); MEAN PLT VOLUME 8.6 fl (7.5-11.1); MONO % 7.5 % (3.8-10.2); NEUT % 47.9 % (42.8-82.8); PLATELET COUNT 127 10^3/uL (134-434); RBC 3.87 M/mm3 (3.60-5.2); RDW 14.8 % (11.6-15.6); WHITE BLOOD COUNT 7.9 K/mm3 (4.0-10.0)
[2023-11-24 20:06] LABS: POTASSIUM 3.9 mmol/L (3.5-5.1)
[2023-11-24 20:08] LABS: ALBUMIN 3.3 g/dl (3.4-5.0); CALCIUM 8.9 mg/dL (8.5-10.1)
[2023-11-24 20:09] LABS: BLOOD UREA NITROGEN 3.9 mg/dL (7-18)
[2023-11-24 20:11] LABS: CREATININE 0.6 mg/dL (0.55-1.3)
[2023-11-24 20:13] LABS: BILIRUBIN,TOTAL 0.3 mg/dL (0.2-1); TOT PROT 7.1 g/dl (6.4-8.2)
[2023-11-24] MEDS: methylPREDNISolone NA SUCC 125 MG/2 ML VIAL IM ONE (20:32)
[2023-11-24] MEDS: methylPREDNISolone NA SUCC 125 MG/2 ML VIAL IVPB ONE ×2 (20:32→22:21)
[2023-11-24] MEDS: AZITHROMYCIN IVPB 500 MG in DEXTROSE 5%-WATER - 250 ML IVPB ONE (20:32)
[2023-11-24] MEDS ORDERED: AZITHROMYCIN 500 MG TABLET ONE (20:36)
[2023-11-24] MEDS: AZITHROMYCIN 500 MG TABLET PO ONE (20:42)
[2023-11-25 01:41] VITALS: BMI 21.2
[2023-11-25] MEDS ORDERED: ALBUTEROL SO4 HFA INHALER IH PRN (02:57)
[2023-11-25] MEDS: SODIUM CHLORIDE 1,000 ML IV SCH (03:00)
[2023-11-25] MEDS: THIAMINE HCL 200 MG/2 ML VIAL IVPB SCH (06:29)
[2023-11-25] MEDS: ALBUTEROL SO4 2.5/IPRATROPIUM 0.5 INH SOL 3 ML VIAL.NEB. NEB SCH (07:43)
[2023-11-25 08:28] LABS: POTASSIUM 4.6 mmol/L (3.5-5.1)
[2023-11-25 08:30] LABS: BASO % 0.7 % (0-2.0); HEMATOCRIT 36.1 % (32.4-45.2); LYMPH % 9.2 % (8-40); MCH 33.5 pg (25.7-33.7); MCHC 33.3 g/dl (32.0-36.0); MEAN CELL VOLUME 100.6 fl (80-96); MONO % 1.1 % (3.8-10.2); PLATELET COUNT 238 10^3/uL (134-434); RBC 3.59 M/mm3 (3.60-5.2); RDW 14.5 % (11.6-15.6); WHITE BLOOD COUNT 5.5 K/mm3 (4.0-10.0)
[2023-11-25 08:36] LABS: BLOOD UREA NITROGEN 5.2 mg/dL (7-18); CALCIUM 9.2 mg/dL (8.5-10.1); MAGNESIUM 1.9 mg/dL (1.8-2.4)
[2023-11-25 08:40] LABS: BILIRUBIN,TOTAL 0.6 mg/dL (0.2-1); CREATININE 0.6 mg/dL (0.55-1.3); TOT PROT 6.3 g/dl (6.4-8.2)
[2023-11-25] MEDS: FOLIC ACID 1 MG TABLET (FP) PO SCH (09:13)
[2023-11-25] MEDS: NICOTINE 21 MG/24 HOURS TOPICAL PATCH TD SCH (09:13)
[2023-11-25] MEDS: predniSONE 20 MG TABLET (UD) PO SCH (09:13)
[2023-11-25] MEDS: AZITHROMYCIN 250 MG TABLET PO SCH (09:13)
[2023-11-25] MEDS: ENOXAPARIN NA (PORCINE) 40 MG/0.4 ML DISP.SYRIN SQ SCH (09:13)
[2023-11-25] MEDS ORDERED: methylPREDNISolone NA SUCC 40 MG/1 ML VIAL IVPB SCH (10:00)
[2023-11-25] MEDS: FLUTICASONE/UMECLIDIN/VILANTER(200-62.5-25 TRELEGY ELLIPTA) INAHLER IH SCH (10:28)
[2023-11-25 18:11] VITALS: RESP 18
[2023-11-25] MEDS ORDERED: LORazepam 0.5 MG TABLET PO PRN ×2 (20:05→20:08)
[2023-11-26 08:33] LABS: POTASSIUM 3.7 mmol/L (3.5-5.1)
[2023-11-26 08:57] LABS: ALBUMIN 2.7 g/dl (3.4-5.0); BLOOD UREA NITROGEN 8.3 mg/dL (7-18); CALCIUM 9.1 mg/dL (8.5-10.1); MAGNESIUM 1.9 mg/dL (1.8-2.4)
[2023-11-26 08:59] LABS: PHOSPHOROUS 3.5 mg/dL (2.5-4.9)
[2023-11-26 09:01] LABS: CREATININE 0.7 mg/dL (0.55-1.3)
[2023-11-26 09:02] LABS: BILIRUBIN,TOTAL 0.7 mg/dL (0.2-1)
[2023-11-26 09:03] LABS: TOT PROT 5.5 g/dl (6.4-8.2)
[2023-11-26 12:00] VITALS: BP 118/62; PULSE 88; TEMP 98.6
== END 2023-11-26 13:37 | disposition home or self-care (01) | DRG 192 ==
LOC: JER 18:15 → JERBED 21:36 → OBSVTOIN 23:40 → J4W 11-25 00:35
PROVIDERS: ADMIT Student in an Organized Health Care Education/Training Program; ATTEND Internal Medicine
DX: J44.1 Chronic obstructive pulmonary disease with (acute) exacerbation (principal); F10.20 Alcohol dependence, uncomplicated; R94.5 Abnormal results of liver function studies; R74.01 Elevation of levels of liver transaminase levels; R91.1 Solitary pulmonary nodule; R55 Syncope and collapse; F17.210 Nicotine dependence, cigarettes, uncomplicated
CPT/HCPCS: 0241U-QW; 36415; 70450-TC; 71045-TC-FY; 80053; 81003; 82607; 82746; 83735; 83880; 84100; 84484; 85025; 87086; 93005; 93010; 94640; 99285-25; G0378

== ENCOUNTER 2023-12-06 19:54 | Emergency (ER) | payer OTHER, BC ==
[2023-12-06 20:38] VITALS: BMI 21.8
[2023-12-06] MEDS: LACTATED RINGERS SOLUTION 1000 ML INFUS.BAG IV ONE (21:22)
[2023-12-07 03:24] VITALS: BP 145/78; PULSE 103; RESP 18; TEMP 98.6
== END 2023-12-07 03:25 | disposition home or self-care (01) ==
LOC: JER 19:54
DX: F10.929 Alcohol use, unspecified with intoxication, unspecified (principal)
CPT/HCPCS: 82962; 93005; 93010; 99284-25

== ENCOUNTER 2023-12-19 15:43 | Emergency (ER) | payer OTHER, BC ==
[2023-12-19 15:59] VITALS: BP 123/76; PULSE 106; RESP 20; TEMP 98.5; BMI 21.8
[2023-12-19] MEDS ORDERED: FAMOTIDINE 20 MG/50 ML IVPB 20 MG/50 ML MG IVPB ONE (17:29)
[2023-12-19] MEDS ORDERED: MAG HYDROX/AL HYDROX/SIMETH 30 ML UNIT-DOSE CUP ONE (17:29)
[2023-12-19] MEDS ORDERED: ACETAMINOPHEN INJECTION 100 ML IVPB ONE (17:29)
[2023-12-19] MEDS: MAG HYDROX/AL HYDROX/SIMETH -MYLANTA- ORAL SUSPENSION PO ONE (17:36)
[2023-12-19] MEDS: ACETAMINOPHEN 1000 MG/100 ML BAG IVPB ONE (17:36)
[2023-12-19] MEDS: FAMOTIDINE 20 MG/50 ML IVPB 20 MG/50 ML MG IVPB ONE (17:37)
[2023-12-19 17:39] LABS: BASO % 0.8 % (0-2.0); EOS % 0.9 % (0-4.5); HEMATOCRIT 34.2 % (32.4-45.2); HEMOGLOBIN 11.6 GM/dL (10.7-15.3); LYMPH % 36.1 % (8-40); MCH 34.4 pg (25.7-33.7); MCHC 33.9 g/dl (32.0-36.0); MEAN CELL VOLUME 101.4 fl (80-96); MEAN PLT VOLUME 6.7 fl (7.5-11.1); MONO % 9.1 % (3.8-10.2); NEUT % 53.1 % (42.8-82.8); PLATELET COUNT 327 10^3/uL (134-434); RBC 3.38 M/mm3 (3.60-5.2); RDW 14.5 % (11.6-15.6); WHITE BLOOD COUNT 7.4 K/mm3 (4.0-10.0)
[2023-12-19 18:00] LABS: POTASSIUM 3.8 mmol/L (3.5-5.1)
[2023-12-19 18:03] LABS: ALBUMIN 2.9 g/dl (3.4-5.0); CALCIUM 8.7 mg/dL (8.5-10.1)
[2023-12-19 18:06] LABS: CREATININE 0.7 mg/dL (0.55-1.3)
[2023-12-19 18:08] LABS: BILIRUBIN,TOTAL 0.3 mg/dL (0.2-1)
== END 2023-12-19 20:49 | disposition home or self-care (01) ==
LOC: JER 15:43
PROC: 3E033GC Introduction of Other Therapeutic Substance into Peripheral Vein, Percutaneous Approach (ICD-10-PCS; principal; 2023-12-19)
PROC: 3E033NZ Introduction of Analgesics, Hypnotics, Sedatives into Peripheral Vein, Percutaneous Approach (ICD-10-PCS; 2023-12-19)
DX: R51.9 Headache, unspecified (principal); R07.89 Other chest pain; R10.13 Epigastric pain
CPT/HCPCS: 36415; 71046-TC-FY; 80053; 84484; 85025; 93005; 93010; 99285-25; J0131

== ENCOUNTER 2023-12-22 20:11 | Emergency (ER) | payer OTHER, BC ==
[2023-12-22 20:28] VITALS: BP 123/68; PULSE 99; RESP 18; TEMP 97.9; BMI 21.8
[2023-12-22] MEDS ORDERED: FAMOTIDINE 20 MG/50 ML IVPB 20 MG/50 ML MG IVPB ONE (20:59)
[2023-12-22] MEDS ORDERED: MAG HYDROX/AL HYDROX/SIMETH 30 ML UNIT-DOSE CUP ONE (20:59)
[2023-12-22] MEDS: FAMOTIDINE 20 MG/50 ML IVPB 20 MG/50 ML MG IVPB ONE (21:11)
[2023-12-22] MEDS: MAG HYDROX/AL HYDROX/SIMETH -MYLANTA- ORAL SUSPENSION PO ONE (21:11)
[2023-12-22 21:12] LABS: EOS % 0.9 % (0-4.5); HEMATOCRIT 37.1 % (32.4-45.2); HEMOGLOBIN 12.7 GM/dL (10.7-15.3); LYMPH % 38.2 % (8-40); MCH 34.2 pg (25.7-33.7); MCHC 34.2 g/dl (32.0-36.0); MEAN CELL VOLUME 100.2 fl (80-96); MEAN PLT VOLUME 6.6 fl (7.5-11.1); MONO % 6.5 % (3.8-10.2); NEUT % 53.4 % (42.8-82.8); PLATELET COUNT 339 10^3/uL (134-434); RDW 14.4 % (11.6-15.6); WHITE BLOOD COUNT 9.9 K/mm3 (4.0-10.0)
[2023-12-22 21:38] LABS: POTASSIUM 5.6 mmol/L (3.5-5.1)
[2023-12-22 21:41] LABS: ALBUMIN 3.3 g/dl (3.4-5.0); BLOOD UREA NITROGEN 6.7 mg/dL (7-18)
[2023-12-22 21:42] LABS: CALCIUM 9.1 mg/dL (8.5-10.1)
[2023-12-22 21:44] LABS: CREATININE 0.6 mg/dL (0.55-1.3)
[2023-12-22 21:45] LABS: BILIRUBIN,TOTAL 0.3 mg/dL (0.2-1); TOT PROT 6.8 g/dl (6.4-8.2)
== END 2023-12-22 23:00 | disposition home or self-care (01) ==
LOC: JER 20:11
PROC: 3E033GC Introduction of Other Therapeutic Substance into Peripheral Vein, Percutaneous Approach (ICD-10-PCS; principal; 2023-12-22)
DX: R07.9 Chest pain, unspecified (principal); R06.02 Shortness of breath; R05.9 Cough, unspecified; Z20.822 Contact with and (suspected) exposure to COVID-19
CPT/HCPCS: 0241U-QW; 36415; 71046-TC-FY; 80053; 84132; 84484; 85025; 93005; 93010; 99285-25

== ENCOUNTER 2023-12-27 17:57 | Emergency (ER) | payer OTHER, BC ==
[2023-12-27 18:08] VITALS: BP 105/59; PULSE 93; RESP 18; TEMP 98.7; BMI 21.8
[2023-12-27] MEDS ORDERED: METOCLOPRAMIDE HCL INJECTION 10 MG/2 ML VIAL ONE (18:44)
[2023-12-27] MEDS: METOCLOPRAMIDE HCL INJECTION 10 MG/2 ML VIAL IVPB ONE (18:44)
[2023-12-27 18:53] LABS: EOS % 0.9 % (0-4.5); HEMATOCRIT 32.9 % (32.4-45.2); HEMOGLOBIN 11.3 GM/dL (10.7-15.3); LYMPH % 33.8 % (8-40); MCH 34.5 pg (25.7-33.7); MCHC 34.4 g/dl (32.0-36.0); MEAN CELL VOLUME 100.3 fl (80-96); MEAN PLT VOLUME 6.8 fl (7.5-11.1); MONO % 7.5 % (3.8-10.2); NEUT % 56.8 % (42.8-82.8); PLATELET COUNT 223 10^3/uL (134-434); RBC 3.28 M/mm3 (3.60-5.2); RDW 14.4 % (11.6-15.6); WHITE BLOOD COUNT 7.9 K/mm3 (4.0-10.0)
[2023-12-27 19:00] LABS: INR 0.92 (0.83-1.09); PROTHROMBIN TIME (PATIENT) 10.4 SEC (9.7-13.0)
[2023-12-27 19:03] LABS: ACTIVATED PTT 31.5 SECONDS (25.2-36.5)
[2023-12-27 19:18] LABS: POTASSIUM 4.2 mmol/L (3.5-5.1)
[2023-12-27 19:20] LABS: CALCIUM 8.8 mg/dL (8.5-10.1)
[2023-12-27 19:21] LABS: ALBUMIN 3.1 g/dl (3.4-5.0); BLOOD UREA NITROGEN 6.5 mg/dL (7-18); MAGNESIUM 2.1 mg/dL (1.8-2.4)
[2023-12-27 19:24] LABS: CREATININE 0.7 mg/dL (0.55-1.3)
[2023-12-27 19:26] LABS: BILIRUBIN,TOTAL 0.4 mg/dL (0.2-1); TOT PROT 6.2 g/dl (6.4-8.2)
[2023-12-27 19:29] LABS: N-TERMINAL BNP 19.3 pg/ml (5-125)
== END 2023-12-27 20:35 | disposition home or self-care (01) ==
LOC: JER 17:57
PROC: 3E033GC Introduction of Other Therapeutic Substance into Peripheral Vein, Percutaneous Approach (ICD-10-PCS; principal; 2023-12-27)
DX: R51.9 Headache, unspecified (principal); Z20.822 Contact with and (suspected) exposure to COVID-19
CPT/HCPCS: 0241U-QW; 36415; 71046-TC-FY; 80053; 83735; 83880; 84484; 85025; 85610; 85730; 93005; 93010; 99285-25

== ENCOUNTER 2024-01-04 07:19 | Day surgery (SDC) | payer OTHER, BC ==
[2023-12-29 10:04] VITALS: BMI 21.8
[2024-01-04 08:58] LABS: HEMATOCRIT 37.6 % (32.4-45.2); HEMOGLOBIN 12.6 GM/dL (10.7-15.3); MCHC 33.5 g/dl (32.0-36.0); MEAN CELL VOLUME 101.6 fl (80-96); NEUT % 74.3 % (42.8-82.8); RDW 14.1 % (11.6-15.6); WHITE BLOOD COUNT 10.8 K/mm3 (4.0-10.0)
[2024-01-04 08:59] LABS: BASO % 0.5 % (0-2.0); EOS % 0.1 % (0-4.5); LYMPH % 13.7 % (8-40); MONO % 11.4 % (3.8-10.2)
[2024-01-04 10:04] LABS: ANISOCYTOSIS 0; MACROCYTOSIS 1+
[2024-01-04 15:14] VITALS: RESP 18
[2024-01-04 16:57] VITALS: BP 137/68; PULSE 88; TEMP 98.7
== END 2024-01-04 16:00 | disposition home or self-care (01) ==
LOC: JRADIR 07:19
PROVIDERS: ATTEND Student in an Organized Health Care Education/Training Program
PROC: 0BDC4ZX Extraction of Right Upper Lung Lobe, Percutaneous Endoscopic Approach, Diagnostic (ICD-10-PCS; principal; 2024-01-04)
DX: R91.8 Other nonspecific abnormal finding of lung field (principal); Z53.8 Procedure and treatment not carried out for other reasons
CPT/HCPCS: 32408; 36415; 85025; 85032

== ENCOUNTER 2024-01-06 05:11 | Observation (INO) | payer OTHER, BC ==
[2024-01-06 05:33] VITALS: BMI 21.8
[2024-01-06] MEDS ORDERED: VANCOMYCIN 1 GRAM (PRE-DOCKED) 1,000 MG/250 ML BAG IVPB ONE (06:52)
[2024-01-06] MEDS ORDERED: PIPERACILLIN/TAZOB 3.375 GM 3.375 GM/50 ML BAG IVPB ONE (06:53)
[2024-01-06 06:57] LABS: BASO % 0.6 % (0-2.0); EOS % 0.1 % (0-4.5); HEMATOCRIT 38.8 % (32.4-45.2); HEMOGLOBIN 13.1 GM/dL (10.7-15.3); LYMPH % 17.4 % (8-40); MCH 34.7 pg (25.7-33.7); MCHC 33.8 g/dl (32.0-36.0); MEAN CELL VOLUME 102.6 fl (80-96); MEAN PLT VOLUME 7.2 fl (7.5-11.1); MONO % 4.6 % (3.8-10.2); NEUT % 77.3 % (42.8-82.8); PLATELET COUNT 221 10^3/uL (134-434); RBC 3.78 M/mm3 (3.60-5.2); RDW 14.5 % (11.6-15.6); WHITE BLOOD COUNT 5.3 K/mm3 (4.0-10.0)
[2024-01-06] MEDS: PIPERACILLIN/TAZOB 3.375 GM 3.375 GM in DEXTROSE 5%-WATER - 50 ML IVPB ONE (07:01)
[2024-01-06 07:03] LABS: VENOUS BASE EXCESS -7.9 mmol/L (-2-2); VENOUS O2 SATURATION 53.7 % (70-80); VENOUS PCO2 40.2 mmHg (38-52); VENOUS PH 7.278 (7.310-7.410)
[2024-01-06 07:17] LABS: POTASSIUM 3.4 mmol/L (3.5-5.1)
[2024-01-06 07:19] LABS: BLOOD UREA NITROGEN 7.7 mg/dL (7-18)
[2024-01-06 07:20] LABS: ALBUMIN 3.7 g/dl (3.4-5.0)
[2024-01-06 07:23] LABS: CREATININE 0.8 mg/dL (0.55-1.3)
[2024-01-06 07:24] LABS: TOT PROT 7.3 g/dl (6.4-8.2)
[2024-01-06 07:25] LABS: BILIRUBIN,TOTAL 0.6 mg/dL (0.2-1)
[2024-01-06 07:36] LABS: LACTIC ACID 4.7 mmol/L (0.4-2.0)
[2024-01-06] MEDS: VANCOMYCIN 1,000 MG in DEXTROSE 5%-WATER - 250 ML IVPB ONE (07:46)
[2024-01-06] MEDS: SODIUM CHLORIDE 0.9% 500 ML INFUS.BAG IV ONE (08:16)
[2024-01-06 09:14] LABS: EPI CELLS >36 /uL (0-25.1); HYALINE CASTS 2 /uL (0-3.1); URINE APPEARANCE CLOUDY; URINE BACTERIA 782 /uL (0-1359); URINE BILIRUBIN NEGATIVE (NEGATIVE); URINE COLOR YELLOW; URINE GLUCOSE (UA) NEGATIVE (NEGATIVE); URINE KETONE 1+ (NEGATIVE); URINE LEUK ESTERASE 1+ (NEGATIVE); URINE NITRITE NEGATIVE (NEGATIVE); URINE PROTEIN NEGATIVE (NEGATIVE); URINE WBC 36 /uL (0-25.8)
[2024-01-06 09:51] LABS: URINE RBC 65.7 /uL (0-23.9)
[2024-01-06] MEDS ORDERED: DEXTROSE 50%-WATER 25 GM/50 ML DISP.SYRIN ONE (11:18)
[2024-01-06] MEDS: DEXTROSE 50%-WATER 25 GM/50 ML DISP.SYRIN IVPUSH ONE (11:20)
[2024-01-06] MEDS ORDERED: ALBUTEROL SO4 0.083% IH SOL 2.5 MG/3 ML VIAL.NEB. NEB PRN (14:48)
[2024-01-06] MEDS ORDERED: ACETAMINOPHEN 325 MG TABLET (FP) PO PRN (14:48)
[2024-01-06] MEDS: SODIUM CHLORIDE 1,000 ML IV SCH (15:47)
[2024-01-07 07:44] LABS: EOS % 0.4 % (0-4.5); HEMATOCRIT 30.3 % (32.4-45.2); HEMOGLOBIN 10.3 GM/dL (10.7-15.3); LYMPH % 24.2 % (8-40); MCH 34.7 pg (25.7-33.7); MEAN CELL VOLUME 102.1 fl (80-96); MEAN PLT VOLUME 7.6 fl (7.5-11.1); MONO % 12.8 % (3.8-10.2); NEUT % 61.6 % (42.8-82.8); PLATELET COUNT 172 10^3/uL (134-434); RBC 2.97 M/mm3 (3.60-5.2); RDW 14.2 % (11.6-15.6); WHITE BLOOD COUNT 6.3 K/mm3 (4.0-10.0)
[2024-01-07 07:53] LABS: POTASSIUM 3.7 mmol/L (3.5-5.1)
[2024-01-07 07:55] LABS: CALCIUM 8.4 mg/dL (8.5-10.1)
[2024-01-07 07:56] LABS: BLOOD UREA NITROGEN 4.6 mg/dL (7-18); MAGNESIUM 1.6 mg/dL (1.8-2.4)
[2024-01-07 07:58] LABS: BILIRUBIN,DIRECT 0.3 mg/dL (0.0-0.2)
[2024-01-07 07:59] LABS: CREATININE 0.7 mg/dL (0.55-1.3)
[2024-01-07 08:00] LABS: BILIRUBIN,TOTAL 0.8 mg/dL (0.2-1)
[2024-01-07 09:01] LABS: ALBUMIN 2.7 g/dl (3.4-5.0); TOT PROT 5.2 g/dl (6.4-8.2)
[2024-01-07] MEDS: MONTELUKAST NA 10 MG TABLET PO SCH (10:22)
[2024-01-07] MEDS: PANTOPRAZOLE 40 MG TABLET PO SCH (10:22)
[2024-01-07] MEDS: FLUTICASONE/UMECLIDIN/VILANTER(200-62.5-25 TRELEGY ELLIPTA) INAHLER IH SCH (11:09)
[2024-01-07] MEDS: MAGNESIUM SULFATE IN WATER 2 GM/50 ML IVPB IVPB ONE (11:36)
[2024-01-07 13:23] VITALS: BP 131/56; PULSE 79; RESP 17; TEMP 98.8
== END 2024-01-07 15:53 | disposition home or self-care (01) ==
LOC: JER 05:11 → JERBED 11:19 → J7W 22:22
PROVIDERS: ADMIT Internal Medicine; ATTEND Nurse Practitioner
PROC: 3E033GC Introduction of Other Therapeutic Substance into Peripheral Vein, Percutaneous Approach (ICD-10-PCS; principal; 2024-01-06)
PROC: 3E0337Z Introduction of Electrolytic and Water Balance Substance into Peripheral Vein, Percutaneous Approach (ICD-10-PCS; 2024-01-06)
PROC: 3E03329 Introduction of Other Anti-infective into Peripheral Vein, Percutaneous Approach (ICD-10-PCS; 2024-01-06)
DX: T68.XXXA Hypothermia, initial encounter (principal); E16.2 Hypoglycemia, unspecified; J44.9 Chronic obstructive pulmonary disease, unspecified; E87.1 Hypo-osmolality and hyponatremia; F10.99 Alcohol use, unspecified with unspecified alcohol-induced disorder; R74.01 Elevation of levels of liver transaminase levels; R00.0 Tachycardia, unspecified; E87.20 Acidosis, unspecified; Y92.9 Unspecified place or not applicable; X58.XXXA Exposure to other specified factors, initial encounter
CPT/HCPCS: 0241U-QW; 36415; 71045-TC-FY; 80048; 80053; 80076; 81003; 82803; 82962; 83036; 83605; 83735; 84100; 84443; 84484; 85025; 87040; 87086; 87186; 93005; 93010; 96361; 96365; 96367; 96375; 99285-25; G0378

== ENCOUNTER 2024-01-09 18:13 | Emergency (ER) | payer OTHER, BC ==
[2024-01-09 18:32] VITALS: BP 100/50; PULSE 91; RESP 18; TEMP 97.9; BMI 21.8
[2024-01-09 19:26] LABS: BASO % 0.8 % (0-2.0); EOS % 0.7 % (0-4.5); HEMATOCRIT 29.8 % (32.4-45.2); HEMOGLOBIN 10.2 GM/dL (10.7-15.3); LYMPH % 29.1 % (8-40); MCH 34.9 pg (25.7-33.7); MCHC 34.1 g/dl (32.0-36.0); MEAN CELL VOLUME 102.2 fl (80-96); MEAN PLT VOLUME 6.7 fl (7.5-11.1); MONO % 9.7 % (3.8-10.2); NEUT % 59.7 % (42.8-82.8); PLATELET COUNT 203 10^3/uL (134-434); RBC 2.92 M/mm3 (3.60-5.2); RDW 14.7 % (11.6-15.6); WHITE BLOOD COUNT 10.8 K/mm3 (4.0-10.0)
[2024-01-09 19:42] LABS: CHLORIDE 106 mmol/L (98-107); POTASSIUM 3.3 mmol/L (3.5-5.1); SODIUM 137 mmol/L (136-145)
[2024-01-09 19:44] LABS: ALBUMIN 2.8 g/dl (3.4-5.0); ANION GAP 10 mmol/L (4-13); CALCIUM 8.5 mg/dL (8.5-10.1); CO2 20 mmol/L (21-32)
[2024-01-09 19:45] LABS: GLUCOSE,RANDOM 85 mg/dL (74-106)
[2024-01-09 19:47] LABS: CREATININE 0.6 mg/dL (0.55-1.3); SGPT/ALT 93 U/L (13-61)
[2024-01-09 19:48] LABS: SGOT/AST 189 U/L (15-37)
[2024-01-09 19:49] LABS: BILIRUBIN,TOTAL 0.2 mg/dL (0.2-1); TOT PROT 5.4 g/dl (6.4-8.2)
[2024-01-09 19:50] LABS: ALK PHOS 99 U/L (45-117)
[2024-01-09 19:55] LABS: BLOOD UREA NITROGEN 1.5 mg/dL (7-18)
[2024-01-09 21:04] LABS: MAGNESIUM 1.8 mg/dL (1.8-2.4)
[2024-01-09] MEDS: POTASSIUM CHLORIDE ORAL LIQUID 20 MEQ/15 ML PO ONE (21:44)
== END 2024-01-09 21:47 | disposition home or self-care (01) ==
LOC: JER 18:13
DX: F10.10 Alcohol abuse, uncomplicated (principal); Y90.9 Presence of alcohol in blood, level not specified; Z20.822 Contact with and (suspected) exposure to COVID-19
CPT/HCPCS: 0241U-QW; 36415; 71046-TC-FY; 80053; 83735; 85025; 99283-25

== ENCOUNTER 2024-01-11 17:48 | Emergency (ER) | payer OTHER, BC ==
[2024-01-11] MEDS ORDERED: methylPREDNISolone NA SUCC 125 MG/2 ML VIAL ONE (18:57)
[2024-01-11 18:59] LABS: VENOUS BASE EXCESS -4.9 mmol/L (-2-2); VENOUS O2 SATURATION 91.1 % (70-80); VENOUS PH 7.432 (7.310-7.410)
[2024-01-11 19:02] LABS: EOS % 0.5 % (0-4.5); HEMATOCRIT 30.3 % (32.4-45.2); HEMOGLOBIN 10.3 GM/dL (10.7-15.3); LYMPH % 32.6 % (8-40); MCH 34.4 pg (25.7-33.7); MCHC 33.9 g/dl (32.0-36.0); MEAN CELL VOLUME 101.6 fl (80-96); MEAN PLT VOLUME 6.7 fl (7.5-11.1); MONO % 11.7 % (3.8-10.2); NEUT % 54.2 % (42.8-82.8); PLATELET COUNT 254 10^3/uL (134-434); RBC 2.98 M/mm3 (3.60-5.2); RDW 14.3 % (11.6-15.6); WHITE BLOOD COUNT 8.4 K/mm3 (4.0-10.0)
[2024-01-11 19:06] VITALS: TEMP 99.1; BMI 20.2
[2024-01-11] MEDS ORDERED: predniSONE 20 MG TABLET (UD) ONE (19:06)
[2024-01-11] MEDS: methylPREDNISolone NA SUCC 125 MG/2 ML VIAL IVPUSH ONE (19:07)
[2024-01-11] MEDS: predniSONE 20 MG TABLET (UD) PO ONE (19:09)
[2024-01-11 19:12] LABS: INR 0.94 (0.83-1.09); PROTHROMBIN TIME (PATIENT) 10.8 SEC (9.7-13.0)
[2024-01-11 19:14] LABS: ACTIVATED PTT 29.6 SECONDS (25.2-36.5)
[2024-01-11 19:19] LABS: POTASSIUM 3.4 mmol/L (3.5-5.1)
[2024-01-11 19:21] LABS: CALCIUM 8.6 mg/dL (8.5-10.1)
[2024-01-11 19:22] LABS: ALBUMIN 2.8 g/dl (3.4-5.0); BLOOD UREA NITROGEN 4.1 mg/dL (7-18); MAGNESIUM 1.8 mg/dL (1.8-2.4)
[2024-01-11 19:25] LABS: CREATININE 0.6 mg/dL (0.55-1.3); PHOSPHOROUS 3.5 mg/dL (2.5-4.9)
[2024-01-11 19:26] LABS: BILIRUBIN,TOTAL 0.2 mg/dL (0.2-1); TOT PROT 5.5 g/dl (6.4-8.2)
[2024-01-11] MEDS ORDERED: ALBUTEROL SO4 2.5/IPRATROPIUM 0.5 INH SOL 3 ML VIAL.NEB. NEB ONE (19:37)
[2024-01-11] MEDS: ALBUTEROL SO4 2.5/IPRATROPIUM 0.5 INH SOL 3 ML VIAL.NEB. NEB SCH (19:43)
[2024-01-11] MEDS ORDERED: POTASSIUM CHLORIDE ORAL LIQUID 20 MEQ/15 ML ONE (19:56)
[2024-01-11] MEDS: POTASSIUM CHLORIDE ORAL LIQUID 20 MEQ/15 ML PO ONE (19:59)
[2024-01-11 21:52] VITALS: BP 119/55; PULSE 110; RESP 18
== END 2024-01-11 21:54 | disposition home or self-care (01) ==
LOC: JER 17:48
PROC: 3E0F7GC Introduction of Other Therapeutic Substance into Respiratory Tract, Via Natural or Artificial Opening (ICD-10-PCS; principal; 2024-01-11)
DX: J44.1 Chronic obstructive pulmonary disease with (acute) exacerbation (principal); F10.90 Alcohol use, unspecified, uncomplicated; R07.2 Precordial pain; R05.9 Cough, unspecified; R06.02 Shortness of breath; Z20.822 Contact with and (suspected) exposure to COVID-19
CPT/HCPCS: 0241U-QW; 36415; 80053; 80307; 82803; 83735; 84100; 84484; 85025; 85610; 85730; 93005; 93010; 99284-25

== ENCOUNTER 2024-01-24 18:06 | Emergency (ER) | payer OTHER, BC ==
[2024-01-24 18:37] VITALS: TEMP 98.3; BMI 20.9
[2024-01-24] MEDS ORDERED: ALBUTEROL SO4 2.5/IPRATROPIUM 0.5 INH SOL 3 ML VIAL.NEB. NEB ONE (19:29)
[2024-01-24] MEDS: ALBUTEROL SO4 2.5/IPRATROPIUM 0.5 INH SOL 3 ML VIAL.NEB. NEB SCH (19:44)
[2024-01-24 19:47] LABS: BASO % 0.5 % (0-2.0); EOS % 0.4 % (0-4.5); HEMATOCRIT 31.6 % (32.4-45.2); HEMOGLOBIN 10.7 GM/dL (10.7-15.3); LYMPH % 33.8 % (8-40); MCH 35.1 pg (25.7-33.7); MCHC 33.9 g/dl (32.0-36.0); MEAN CELL VOLUME 103.3 fl (80-96); MEAN PLT VOLUME 6.7 fl (7.5-11.1); MONO % 11.7 % (3.8-10.2); NEUT % 53.6 % (42.8-82.8); PLATELET COUNT 231 10^3/uL (134-434); RBC 3.05 M/mm3 (3.60-5.2); RDW 14.7 % (11.6-15.6); WHITE BLOOD COUNT 8.8 K/mm3 (4.0-10.0)
[2024-01-24 20:13] LABS: POTASSIUM 4.2 mmol/L (3.5-5.1)
[2024-01-24 20:16] LABS: ALBUMIN 2.8 g/dl (3.4-5.0); BLOOD UREA NITROGEN 4.5 mg/dL (7-18); CALCIUM 8.6 mg/dL (8.5-10.1); MAGNESIUM 1.9 mg/dL (1.8-2.4)
[2024-01-24 20:18] LABS: CREATININE 0.6 mg/dL (0.55-1.3)
[2024-01-24 20:20] LABS: BILIRUBIN,TOTAL 0.2 mg/dL (0.2-1); TOT PROT 5.5 g/dl (6.4-8.2)
[2024-01-24 21:19] LABS: POTASSIUM 3.7 mmol/L (3.5-5.1)
[2024-01-24 21:21] LABS: BLOOD UREA NITROGEN 4.3 mg/dL (7-18); CALCIUM 8.4 mg/dL (8.5-10.1)
[2024-01-24 21:25] LABS: CREATININE 0.7 mg/dL (0.55-1.3)
[2024-01-24 21:58] VITALS: BP 118/76; PULSE 87; RESP 20
== END 2024-01-24 21:58 | disposition home or self-care (01) ==
LOC: JER 18:06
PROC: 3E0F7GC Introduction of Other Therapeutic Substance into Respiratory Tract, Via Natural or Artificial Opening (ICD-10-PCS; principal; 2024-01-24)
DX: F10.288 Alcohol dependence with other alcohol-induced disorder (principal); R06.02 Shortness of breath; R07.9 Chest pain, unspecified; Z20.822 Contact with and (suspected) exposure to COVID-19; Y90.7 Blood alcohol level of 200-239 mg/100 ml
CPT/HCPCS: 0241U-QW; 36415; 71046-TC-FY; 80048; 80053; 80307; 83735; 84484; 85025; 93005; 93010; 99285-25

== ENCOUNTER 2024-01-26 15:16 | Observation (INO) | payer OTHER, BC ==
[2024-01-26 17:03] LABS: BASO % 1.4 % (0-2.0); EOS % 0.4 % (0-4.5); HEMATOCRIT 32.8 % (32.4-45.2); LYMPH % 26.8 % (8-40); MCH 34.4 pg (25.7-33.7); MCHC 33.6 g/dl (32.0-36.0); MEAN CELL VOLUME 102.5 fl (80-96); MEAN PLT VOLUME 7.2 fl (7.5-11.1); MONO % 11.8 % (3.8-10.2); NEUT % 59.6 % (42.8-82.8); PLATELET COUNT 240 10^3/uL (134-434); RDW 15.3 % (11.6-15.6); WHITE BLOOD COUNT 8.9 K/mm3 (4.0-10.0)
[2024-01-26 17:09] LABS: INR 0.95 (0.83-1.09); PROTHROMBIN TIME (PATIENT) 10.7 SEC (9.7-13.0)
[2024-01-26 17:12] LABS: ACTIVATED PTT 19.4 SECONDS (25.2-36.5)
[2024-01-26] MEDS: SODIUM CHLORIDE 0.9% 500 ML INFUS.BAG IV ONE (17:15)
[2024-01-26 17:26] LABS: VENOUS BASE EXCESS -0.6 mmol/L (-2-2); VENOUS O2 SATURATION 66.4 % (70-80); VENOUS PCO2 36.5 mmHg (38-52); VENOUS PH 7.426 (7.310-7.410)
[2024-01-26 17:27] LABS: CHLORIDE 95 mmol/L (98-107); POTASSIUM 5.3 mmol/L (3.5-5.1); SODIUM 128 mmol/L (136-145)
[2024-01-26 17:28] LABS: URINE APPEARANCE CLOUDY; URINE BILIRUBIN NEGATIVE (NEGATIVE); URINE COLOR YELLOW; URINE GLUCOSE (UA) NEGATIVE (NEGATIVE); URINE KETONE NEGATIVE (NEGATIVE); URINE LEUK ESTERASE TRACE (NEGATIVE); URINE NITRITE NEGATIVE (NEGATIVE); URINE PROTEIN NEGATIVE (NEGATIVE)
[2024-01-26 17:28] LABS: CALCIUM 8.9 mg/dL (8.5-10.1)
[2024-01-26 17:29] LABS: ALBUMIN 2.9 g/dl (3.4-5.0); ANION GAP 12 mmol/L (4-13); CO2 21 mmol/L (21-32); GLUCOSE,RANDOM 88 mg/dL (74-106)
[2024-01-26 17:32] LABS: CREATININE 0.6 mg/dL (0.55-1.3); SGOT/AST 96 U/L (15-37); SGPT/ALT 54 U/L (13-61)
[2024-01-26 17:34] LABS: BILIRUBIN,TOTAL 0.6 mg/dL (0.2-1); TOT PROT 6.1 g/dl (6.4-8.2)
[2024-01-26 17:35] LABS: ALK PHOS 109 U/L (45-117)
[2024-01-26 17:35] LABS: EPI CELLS 114.1 /uL (0-25.1); HYALINE CASTS 0.29 /uL (0-3.1); URINE BACTERIA 20.8 /uL (0-1359); URINE RBC 6.2 /uL (0-23.9); URINE WBC 13.1 /uL (0-25.8)
[2024-01-26 17:47] LABS: BLOOD UREA NITROGEN 2.3 mg/dL (7-18)
[2024-01-26 17:53] LABS: LACTIC ACID 4.6 mmol/L (0.4-2.0)
[2024-01-26 19:31] LABS: LACTIC ACID 3.2 mmol/L (0.4-2.0)
[2024-01-26] MEDS ORDERED: ALBUTEROL SO4 HFA INHALER IH PRN (20:55)
[2024-01-26 21:06] LABS: LACTIC ACID 2.5 mmol/L (0.4-2.0)
[2024-01-26] MEDS: MONTELUKAST NA 10 MG TABLET PO SCH (22:06)
[2024-01-26] MEDS: FOLIC ACID 1 MG TABLET (FP) PO SCH (22:06)
[2024-01-26] MEDS: THIAMINE HCL 200 MG/2 ML VIAL IVPB SCH (22:06)
[2024-01-26 22:09] LABS: LACTIC ACID 2.1 mmol/L (0.4-2.0)
[2024-01-26] MEDS: SODIUM CHLORIDE 1,000 ML IV STA (22:57)
[2024-01-27] MEDS: SODIUM CHLORIDE 1,000 ML IV SCH (01:00)
[2024-01-27 01:38] VITALS: BMI 22.6
[2024-01-27 02:28] VITALS: RESP 18
[2024-01-27 07:16] LABS: HEMATOCRIT 33.5 % (32.4-45.2); HEMOGLOBIN 11.1 GM/dL (10.7-15.3); MCH 34.9 pg (25.7-33.7); MCHC 33.3 g/dl (32.0-36.0); MEAN CELL VOLUME 104.9 fl (80-96); MEAN PLT VOLUME 8.1 fl (7.5-11.1); PLATELET COUNT 208 10^3/uL (134-434); RBC 3.19 M/mm3 (3.60-5.2); RDW 15.1 % (11.6-15.6); WHITE BLOOD COUNT 8.4 K/mm3 (4.0-10.0)
[2024-01-27 07:39] LABS: POTASSIUM 4.1 mmol/L (3.5-5.1)
[2024-01-27 07:41] LABS: CALCIUM 8.4 mg/dL (8.5-10.1)
[2024-01-27 07:42] LABS: ALBUMIN 2.8 g/dl (3.4-5.0); BLOOD UREA NITROGEN 3.1 mg/dL (7-18); MAGNESIUM 1.9 mg/dL (1.8-2.4)
[2024-01-27 07:45] LABS: CREATININE 0.6 mg/dL (0.55-1.3)
[2024-01-27 07:46] LABS: BILIRUBIN,TOTAL 1.2 mg/dL (0.2-1); TOT PROT 5.3 g/dl (6.4-8.2)
[2024-01-27] MEDS: PANTOPRAZOLE 40 MG TABLET PO SCH (10:07)
[2024-01-27] MEDS: ENOXAPARIN NA (PORCINE) 40 MG/0.4 ML DISP.SYRIN SQ SCH (10:09)
[2024-01-27] MEDS: FLUTICASONE/UMECLIDIN/VILANTER(200-62.5-25 TRELEGY ELLIPTA) INAHLER IH SCH (10:11)
[2024-01-27 14:52] LABS: METHADONE, UR NEGATIVE (NEGATIVE); PHENCYCLIDINE,URINE NEGATIVE (NEGATIVE); URINE AMPHETAMINES NEGATIVE (NEGATIVE); URINE BENZODIAZEPINES NEGATIVE (NEGATIVE)
[2024-01-27 14:53] LABS: URINE BARBITURATES NEGATIVE (NEGATIVE)
[2024-01-27 15:07] LABS: COCAINE, UR NEGATIVE (NEGATIVE); OPIATES, URI NEGATIVE (NEGATIVE)
[2024-01-27] MEDS ORDERED: ALBUTEROL SO4 HFA INHALER IH PRN (15:50)
[2024-01-27] MEDS: MONTELUKAST NA 10 MG TABLET PO SCH (21:56)
[2024-01-28] MEDS: THIAMINE HCL 200 MG/2 ML VIAL IVPB SCH (09:45)
[2024-01-28] MEDS: FOLIC ACID 1 MG TABLET (FP) PO SCH (09:45)
[2024-01-28] MEDS: ENOXAPARIN NA (PORCINE) 40 MG/0.4 ML DISP.SYRIN SQ SCH (09:45)
[2024-01-28] MEDS: PANTOPRAZOLE 40 MG TABLET PO SCH (09:46)
[2024-01-28 10:45] LABS: EOS % 0.5 % (0-4.5); HEMATOCRIT 34.6 % (32.4-45.2); HEMOGLOBIN 11.7 GM/dL (10.7-15.3); LYMPH % 17.1 % (8-40); MCH 35.1 pg (25.7-33.7); MCHC 33.7 g/dl (32.0-36.0); MEAN PLT VOLUME 7.8 fl (7.5-11.1); MONO % 9.6 % (3.8-10.2); NEUT % 71.8 % (42.8-82.8); PLATELET COUNT 224 10^3/uL (134-434); RBC 3.33 M/mm3 (3.60-5.2); RDW 14.7 % (11.6-15.6); WHITE BLOOD COUNT 8.9 K/mm3 (4.0-10.0)
[2024-01-28 11:02] LABS: CHLORIDE 107 mmol/L (98-107); POTASSIUM 3.9 mmol/L (3.5-5.1); SODIUM 140 mmol/L (136-145)
[2024-01-28 11:05] LABS: ANION GAP 7 mmol/L (4-13); CO2 25 mmol/L (21-32); GLUCOSE,RANDOM 94 mg/dL (74-106)
[2024-01-28 11:08] LABS: CREATININE 0.5 mg/dL (0.55-1.3)
[2024-01-28 11:10] LABS: BLOOD UREA NITROGEN 2.4 mg/dL (7-18)
[2024-01-28] MEDS: FLUTICASONE/UMECLIDIN/VILANTER(200-62.5-25 TRELEGY ELLIPTA) INAHLER IH SCH (12:40)
[2024-01-29 08:51] LABS: POTASSIUM 3.6 mmol/L (3.5-5.1)
[2024-01-29 08:55] LABS: ALBUMIN 2.8 g/dl (3.4-5.0); BLOOD UREA NITROGEN 3.4 mg/dL (7-18)
[2024-01-29 08:58] LABS: CREATININE 0.6 mg/dL (0.55-1.3)
[2024-01-29 08:59] LABS: BILIRUBIN,TOTAL 0.8 mg/dL (0.2-1); TOT PROT 5.8 g/dl (6.4-8.2)
[2024-01-29 09:03] LABS: BASO % 0.8 % (0-2.0); EOS % 0.5 % (0-4.5); HEMATOCRIT 33.6 % (32.4-45.2); HEMOGLOBIN 11.3 GM/dL (10.7-15.3); LYMPH % 18.2 % (8-40); MCHC 33.7 g/dl (32.0-36.0); MEAN CELL VOLUME 103.9 fl (80-96); MEAN PLT VOLUME 8.1 fl (7.5-11.1); MONO % 11.2 % (3.8-10.2); NEUT % 69.3 % (42.8-82.8); PLATELET COUNT 218 10^3/uL (134-434); RBC 3.23 M/mm3 (3.60-5.2); RDW 14.7 % (11.6-15.6); WHITE BLOOD COUNT 9.4 K/mm3 (4.0-10.0)
[2024-01-29] MEDS: THIAMINE 100 MG TABLET PO SCH (11:12)
[2024-01-29 15:24] VITALS: BP 148/80; PULSE 75; TEMP 97.5
== END 2024-01-29 17:00 | disposition home or self-care (01) ==
LOC: JER 15:16 → JERBED 19:00 → J4S 20:58 → J6S 01-27 15:30
PROVIDERS: ADMIT Internal Medicine; ATTEND Internal Medicine
PROC: 3E023GC Introduction of Other Therapeutic Substance into Muscle, Percutaneous Approach (ICD-10-PCS; principal; 2024-01-26)
PROC: 3E0337Z Introduction of Electrolytic and Water Balance Substance into Peripheral Vein, Percutaneous Approach (ICD-10-PCS; 2024-01-26)
PROC: 3E033GC Introduction of Other Therapeutic Substance into Peripheral Vein, Percutaneous Approach (ICD-10-PCS; 2024-01-26)
DX: A41.9 Sepsis, unspecified organism (principal); F10.99 Alcohol use, unspecified with unspecified alcohol-induced disorder; E03.9 Hypothyroidism, unspecified; E86.1 Hypovolemia; R91.8 Other nonspecific abnormal finding of lung field; M13.842 Other specified arthritis, left hand; M13.841 Other specified arthritis, right hand; E87.20 Acidosis, unspecified; K76.0 Fatty (change of) liver, not elsewhere classified; F17.200 Nicotine dependence, unspecified, uncomplicated
CPT/HCPCS: 0241U-QW; 36415; 71045-TC-FY; 80048; 80053; 80307; 81003; 82436; 82803; 82962; 83605; 83735; 83930; 83935; 84100; 84133; 84300; 84484; 85025; 85027; 85610; 85730; 87040; 87086; 93005; 93010; 96361; 96372; 96374; 97116-GP; 97161-GP; 99285-25; G0378

== ENCOUNTER 2024-02-02 21:18 | Emergency (ER) | payer OTHER, BC ==
[2024-02-02 21:37] VITALS: BP 120/61; PULSE 82; RESP 18; TEMP 97.8; BMI 23.8
== END 2024-02-03 00:24 | disposition home or self-care (01) ==
LOC: JER 21:18
DX: F10.129 Alcohol abuse with intoxication, unspecified (principal); Y90.9 Presence of alcohol in blood, level not specified
CPT/HCPCS: 99283-25

== ENCOUNTER 2024-02-10 18:41 | Emergency (ER) | payer OTHER, BC ==
[2024-02-10 18:51] VITALS: TEMP 98.6; BMI 23.8
[2024-02-10 19:48] LABS: BASO % 1.3 % (0-2.0); EOS % 0.6 % (0-4.5); HEMATOCRIT 33.6 % (32.4-45.2); HEMOGLOBIN 11.1 GM/dL (10.7-15.3); LYMPH % 24.1 % (8-40); MCH 33.6 pg (25.7-33.7); MCHC 33.1 g/dl (32.0-36.0); MEAN CELL VOLUME 101.5 fl (80-96); MEAN PLT VOLUME 6.3 fl (7.5-11.1); MONO % 5.8 % (3.8-10.2); NEUT % 68.2 % (42.8-82.8); PLATELET COUNT 265 10^3/uL (134-434); RBC 3.31 M/mm3 (3.60-5.2); RDW 14.8 % (11.6-15.6); WHITE BLOOD COUNT 11.8 K/mm3 (4.0-10.0)
[2024-02-10 20:05] LABS: INR 0.92 (0.83-1.09); PROTHROMBIN TIME (PATIENT) 10.4 SEC (9.7-13.0)
[2024-02-10 20:08] LABS: ACTIVATED PTT 31.7 SECONDS (25.2-36.5)
[2024-02-10 20:15] LABS: POTASSIUM 3.8 mmol/L (3.5-5.1)
[2024-02-10 20:17] LABS: BLOOD UREA NITROGEN 4.5 mg/dL (7-18); CALCIUM 8.4 mg/dL (8.5-10.1); MAGNESIUM 1.7 mg/dL (1.8-2.4)
[2024-02-10 20:21] LABS: CREATININE 0.6 mg/dL (0.55-1.3)
[2024-02-10 20:22] LABS: BILIRUBIN,TOTAL 0.5 mg/dL (0.2-1); TOT PROT 5.7 g/dl (6.4-8.2)
[2024-02-10] MEDS: LACTATED RINGERS SOLUTION 1000 ML INFUS.BAG IV ONE (20:37)
[2024-02-10] MEDS ORDERED: MAGNESIUM 1GM/D5W - 1 GM/100 ML IVPB IVPB ONE (21:22)
[2024-02-10] MEDS: MAGNESIUM SULF 50% (8.12 MEQ/2 ML-1 GM VIAL) IVPB ONE (21:30)
[2024-02-10 23:04] VITALS: BP 105/41; PULSE 102; RESP 20
== END 2024-02-10 23:53 | disposition home or self-care (01) ==
LOC: JER 18:41
DX: R51.9 Headache, unspecified (principal); R42 Dizziness and giddiness; Z20.822 Contact with and (suspected) exposure to COVID-19
CPT/HCPCS: 0241U-QW; 36415; 71045-TC-FY; 80053; 82962; 83735; 84484; 85025; 85610; 85730; 93005; 93010; 99285-25

== ENCOUNTER 2024-02-17 23:01 | Emergency (ER) | payer OTHER, BC ==
[2024-02-17 23:04] VITALS: BMI 23.8
[2024-02-18 00:53] LABS: EOS % 0.8 % (0-4.5); HEMATOCRIT 33.5 % (32.4-45.2); HEMOGLOBIN 11.4 GM/dL (10.7-15.3); LYMPH % 34.9 % (8-40); MCH 34.4 pg (25.7-33.7); MCHC 33.9 g/dl (32.0-36.0); MEAN CELL VOLUME 101.6 fl (80-96); MEAN PLT VOLUME 7.7 fl (7.5-11.1); MONO % 11.8 % (3.8-10.2); NEUT % 51.5 % (42.8-82.8); PLATELET COUNT 202 10^3/uL (134-434); WHITE BLOOD COUNT 7.3 K/mm3 (4.0-10.0)
[2024-02-18 00:56] LABS: POTASSIUM 4.2 mmol/L (3.5-5.1)
[2024-02-18 00:59] LABS: CALCIUM 8.3 mg/dL (8.5-10.1)
[2024-02-18 01:00] LABS: ALBUMIN 2.7 g/dl (3.4-5.0); BLOOD UREA NITROGEN 5.2 mg/dL (7-18)
[2024-02-18 01:02] LABS: CREATININE 0.5 mg/dL (0.55-1.3)
[2024-02-18 01:04] LABS: BILIRUBIN,TOTAL 0.3 mg/dL (0.2-1); TOT PROT 5.6 g/dl (6.4-8.2)
[2024-02-18 06:05] VITALS: BP 122/74; PULSE 79; RESP 12; TEMP 98.3
== END 2024-02-18 06:26 | disposition home or self-care (01) ==
LOC: JER 23:01
DX: R07.89 Other chest pain (principal); Z20.822 Contact with and (suspected) exposure to COVID-19
CPT/HCPCS: 0241U-QW; 36415; 71045-TC-FY; 80053; 83690; 84484; 85025; 93005; 93010; 99285-25

== ENCOUNTER 2024-02-22 15:12 | Emergency (ER) | payer BC, OTHER ==
[2024-02-22 15:44] VITALS: BMI 20.2
[2024-02-22 17:11] LABS: BASO % 0.9 % (0-2.0); EOS % 0.4 % (0-4.5); HEMATOCRIT 34.4 % (32.4-45.2); HEMOGLOBIN 11.6 GM/dL (10.7-15.3); LYMPH % 30.6 % (8-40); MCHC 33.7 g/dl (32.0-36.0); MEAN CELL VOLUME 100.9 fl (80-96); MEAN PLT VOLUME 7.2 fl (7.5-11.1); MONO % 11.5 % (3.8-10.2); NEUT % 56.6 % (42.8-82.8); PLATELET COUNT 215 10^3/uL (134-434); RDW 14.1 % (11.6-15.6); WHITE BLOOD COUNT 7.9 K/mm3 (4.0-10.0)
[2024-02-22 17:17] LABS: INR 0.89 (0.83-1.09); PROTHROMBIN TIME (PATIENT) 10.3 SEC (9.7-13.0)
[2024-02-22 17:24] VITALS: BP 105/56; PULSE 76; RESP 18; TEMP 98.3
[2024-02-22 17:33] LABS: POTASSIUM 4.9 mmol/L (3.5-5.1)
[2024-02-22 17:35] LABS: CALCIUM 8.8 mg/dL (8.5-10.1)
[2024-02-22 17:36] LABS: BLOOD UREA NITROGEN 3.4 mg/dL (7-18)
[2024-02-22] MEDS ORDERED: ACETAMINOPHEN 500 MG TABLET (FP) PO ONE (17:37)
[2024-02-22 17:39] LABS: CREATININE 0.5 mg/dL (0.55-1.3); PHOSPHOROUS 3.6 mg/dL (2.5-4.9)
[2024-02-22 17:40] LABS: BILIRUBIN,TOTAL 0.6 mg/dL (0.2-1); TOT PROT 6.2 g/dl (6.4-8.2)
[2024-02-22] MEDS ORDERED: ACETAMINOPHEN INJECTION 100 ML IVPB ONE (19:01)
[2024-02-22] MEDS: SODIUM CHLORIDE 0.9% 1000 ML INFUS.BAG IV ONE (19:07)
[2024-02-22] MEDS: ACETAMINOPHEN 1000 MG/100 ML BAG IVPB ONE (19:07)
[2024-02-22] MEDS: SODIUM CHLORIDE 0.9% 500 ML INFUS.BAG IV ONE (19:32)
== END 2024-02-22 21:18 | disposition home or self-care (01) ==
LOC: JER 15:12
PROC: 3E033NZ Introduction of Analgesics, Hypnotics, Sedatives into Peripheral Vein, Percutaneous Approach (ICD-10-PCS; principal; 2024-02-22)
DX: R51.9 Headache, unspecified (principal); R07.2 Precordial pain; M25.511 Pain in right shoulder; F10.90 Alcohol use, unspecified, uncomplicated; Y90.9 Presence of alcohol in blood, level not specified; W01.198A Fall on same level from slipping, tripping and stumbling with subsequent striking against other object, initial encounter
CPT/HCPCS: 36415; 71046-TC-FY; 73030-TC-RT-FY; 80053; 83735; 84100; 84484; 85025; 85610; 85730; 93005; 93010; 99285-25; J0131

== ENCOUNTER 2024-03-04 19:02 | Emergency (ER) | payer OTHER ==
[2024-03-04 20:10] VITALS: BP 108/59; PULSE 86; RESP 17; TEMP 98.1; BMI 23.8
== END 2024-03-04 22:48 | disposition home or self-care (01) ==
LOC: JER 19:02
DX: M25.511 Pain in right shoulder (principal); F10.10 Alcohol abuse, uncomplicated; W18.30XA Fall on same level, unspecified, initial encounter
CPT/HCPCS: 99283-25

== ENCOUNTER 2024-03-06 22:49 | Emergency (ER) | payer OTHER, BC ==
[2024-03-06 22:57] VITALS: RESP 14; BMI 23.8
[2024-03-06] MEDS ORDERED: ACETAMINOPHEN INJECTION 100 ML IVPB ONE (23:29)
[2024-03-06] MEDS ORDERED: ALBUTEROL SO4 2.5/IPRATROPIUM 0.5 INH SOL 3 ML VIAL.NEB. NEB ONE (23:29)
[2024-03-06] MEDS: ACETAMINOPHEN 1000 MG/100 ML BAG IVPB ONE (23:54)
[2024-03-06 23:55] LABS: BASO % 1.1 % (0-2.0); EOS % 0.6 % (0-4.5); HEMATOCRIT 29.1 % (32.4-45.2); LYMPH % 40.5 % (8-40); MCH 33.8 pg (25.7-33.7); MCHC 34.3 g/dl (32.0-36.0); MEAN CELL VOLUME 98.6 fl (80-96); MEAN PLT VOLUME 8.1 fl (7.5-11.1); MONO % 10.7 % (3.8-10.2); NEUT % 47.1 % (42.8-82.8); PLATELET COUNT 165 10^3/uL (134-434); RBC 2.95 M/mm3 (3.60-5.2); RDW 13.5 % (11.6-15.6); WHITE BLOOD COUNT 6.2 K/mm3 (4.0-10.0)
[2024-03-06] MEDS: ALBUTEROL SO4 2.5/IPRATROPIUM 0.5 INH SOL 3 ML VIAL.NEB. NEB SCH (23:55)
[2024-03-07 00:21] LABS: POTASSIUM 3.8 mmol/L (3.5-5.1)
[2024-03-07 00:23] LABS: CALCIUM 8.6 mg/dL (8.5-10.1)
[2024-03-07 00:24] LABS: ALBUMIN 2.8 g/dl (3.4-5.0); BLOOD UREA NITROGEN 3.7 mg/dL (7-18)
[2024-03-07 00:27] LABS: CREATININE 0.6 mg/dL (0.55-1.3)
[2024-03-07 00:29] LABS: BILIRUBIN,TOTAL 0.6 mg/dL (0.2-1); TOT PROT 5.5 g/dl (6.4-8.2)
[2024-03-07 00:32] LABS: N-TERMINAL BNP 49.4 pg/ml (5-125)
[2024-03-07] MEDS: FOLIC ACID INJECTION - 1 MG, THIAMINE HCL 100 MG, MULTIVIT INJECTION ADULT 10 ML in SOD... IVPB ONE (01:29)
[2024-03-07 04:50] VITALS: BP 116/54; PULSE 89; TEMP 98.6
[2024-03-07] MEDS: ONDANSETRON *ODT* 4 MG TABLET SL ONE (06:26)
== END 2024-03-07 06:38 | disposition home or self-care (01) ==
LOC: JER 22:49
PROC: 3E033NZ Introduction of Analgesics, Hypnotics, Sedatives into Peripheral Vein, Percutaneous Approach (ICD-10-PCS; 2024-03-06)
PROC: 3E0F7GC Introduction of Other Therapeutic Substance into Respiratory Tract, Via Natural or Artificial Opening (ICD-10-PCS; 2024-03-06)
PROC: 3E033GC Introduction of Other Therapeutic Substance into Peripheral Vein, Percutaneous Approach (ICD-10-PCS; principal; 2024-03-07)
PROC: 3E033GC Introduction of Other Therapeutic Substance into Peripheral Vein, Percutaneous Approach (ICD-10-PCS; 2024-03-07)
PROC: 3E033GC Introduction of Other Therapeutic Substance into Peripheral Vein, Percutaneous Approach (ICD-10-PCS; 2024-03-07)
PROC: 3E033GC Introduction of Other Therapeutic Substance into Peripheral Vein, Percutaneous Approach (ICD-10-PCS; 2024-03-07)
PROC: 3E033GC Introduction of Other Therapeutic Substance into Peripheral Vein, Percutaneous Approach (ICD-10-PCS; 2024-03-07)
PROC: 3E033GC Introduction of Other Therapeutic Substance into Peripheral Vein, Percutaneous Approach (ICD-10-PCS; 2024-03-07)
PROC: 3E033GC Introduction of Other Therapeutic Substance into Peripheral Vein, Percutaneous Approach (ICD-10-PCS; 2024-03-07)
PROC: 3E033GC Introduction of Other Therapeutic Substance into Peripheral Vein, Percutaneous Approach (ICD-10-PCS; 2024-03-07)
DX: F10.920 Alcohol use, unspecified with intoxication, uncomplicated (principal); C34.10 Malignant neoplasm of upper lobe, unspecified bronchus or lung; C16.9 Malignant neoplasm of stomach, unspecified; R06.02 Shortness of breath; Z20.822 Contact with and (suspected) exposure to COVID-19; Y90.9 Presence of alcohol in blood, level not specified
CPT/HCPCS: 0241U-QW; 36415; 71260-TC; 80053; 83880; 84484; 85025; 93005; 93010; 99285-25; J0131

== ENCOUNTER 2024-03-09 16:51 | Emergency (ER) | payer OTHER, BC ==
[2024-03-09 17:27] VITALS: BP 102/58; PULSE 64; RESP 16; TEMP 98.3; BMI 23.8
[2024-03-09 18:21] LABS: BASO % 1.4 % (0-2.0); EOS % 0.7 % (0-4.5); HEMATOCRIT 28.4 % (32.4-45.2); HEMOGLOBIN 9.7 GM/dL (10.7-15.3); LYMPH % 31.7 % (8-40); MCH 33.8 pg (25.7-33.7); MCHC 34.3 g/dl (32.0-36.0); MEAN CELL VOLUME 98.7 fl (80-96); MEAN PLT VOLUME 8.1 fl (7.5-11.1); MONO % 11.2 % (3.8-10.2); PLATELET COUNT 145 10^3/uL (134-434); RBC 2.88 M/mm3 (3.60-5.2); RDW 13.3 % (11.6-15.6); WHITE BLOOD COUNT 6.2 K/mm3 (4.0-10.0)
[2024-03-09 18:41] LABS: CHLORIDE 96 mmol/L (98-107); POTASSIUM 3.6 mmol/L (3.5-5.1); SODIUM 132 mmol/L (136-145)
[2024-03-09 18:43] LABS: CALCIUM 8.8 mg/dL (8.5-10.1)
[2024-03-09 18:44] LABS: ANION GAP 17 mmol/L (4-13); BLOOD UREA NITROGEN 4.2 mg/dL (7-18); CO2 20 mmol/L (21-32)
[2024-03-09 18:47] LABS: CREATININE 0.6 mg/dL (0.55-1.3); SGOT/AST 321 U/L (15-37); SGPT/ALT 142 U/L (13-61)
[2024-03-09 18:49] LABS: BILIRUBIN,TOTAL 0.6 mg/dL (0.2-1); TOT PROT 5.8 g/dl (6.4-8.2)
[2024-03-09 18:50] LABS: ALK PHOS 103 U/L (45-117)
[2024-03-09 18:52] LABS: GLUCOSE,RANDOM 45 mg/dL (74-106)
[2024-03-09 19:06] LABS: PH,URINE 5.5 (5.0-8.0); URINE APPEARANCE CLOUDY; URINE BILIRUBIN NEGATIVE (NEGATIVE); URINE COLOR YELLOW; URINE GLUCOSE (UA) NEGATIVE (NEGATIVE); URINE KETONE TRACE (NEGATIVE); URINE LEUK ESTERASE TRACE (NEGATIVE); URINE NITRITE NEGATIVE (NEGATIVE); URINE PROTEIN NEGATIVE (NEGATIVE)
[2024-03-09 19:14] LABS: HYALINE CASTS 1.89 /uL (0-3.1); URINE RBC 8.4 /uL (0-23.9); URINE WBC 27.3 /uL (0-25.8)
[2024-03-09 19:15] LABS: URINE BACTERIA 44.6 /uL (0-1359)
[2024-03-09] MEDS: SODIUM CHLORIDE 0.9% 500 ML INFUS.BAG IV ONE (19:43)
[2024-03-09] MEDS ORDERED: ACETAMINOPHEN INJECTION 100 ML IVPB ONE (19:46)
[2024-03-09] MEDS: ONDANSETRON 4 MG/2 ML VIAL IVPUSH ONE (19:49)
[2024-03-09] MEDS: ACETAMINOPHEN 1000 MG/100 ML BAG IVPB ONE (19:49)
== END 2024-03-09 21:29 | disposition home or self-care (01) ==
LOC: JER 16:51
PROC: 3E033NZ Introduction of Analgesics, Hypnotics, Sedatives into Peripheral Vein, Percutaneous Approach (ICD-10-PCS; principal; 2024-03-09)
DX: E16.2 Hypoglycemia, unspecified (principal); R91.8 Other nonspecific abnormal finding of lung field; R51.9 Headache, unspecified; R05.9 Cough, unspecified; M79.10 Myalgia, unspecified site; R53.81 Other malaise; Z20.822 Contact with and (suspected) exposure to COVID-19
CPT/HCPCS: 0241U-QW; 36415; 71045-TC-FY; 80053; 81003; 82962; 84484; 85025; 87086; 87186; 93005; 93010; 99285-25; J0131

== ENCOUNTER 2024-03-31 20:35 | Emergency (ER) | payer OTHER, BC ==
[2024-03-31 20:50] VITALS: BMI 21.8
[2024-03-31] MEDS ORDERED: ACETAMINOPHEN INJECTION 100 ML ONE (21:10)
[2024-03-31] MEDS: ACETAMINOPHEN 1000 MG/100 ML BAG IVPB ONE (21:27)
[2024-03-31 21:33] LABS: BASO % 1.4 % (0-2.0); EOS % 0.8 % (0-4.5); HEMATOCRIT 29.7 % (32.4-45.2); HEMOGLOBIN 10.1 GM/dL (10.7-15.3); LYMPH % 36.6 % (8-40); MCH 33.4 pg (25.7-33.7); MCHC 34.1 g/dl (32.0-36.0); MEAN CELL VOLUME 98.1 fl (80-96); MEAN PLT VOLUME 8.2 fl (7.5-11.1); NEUT % 50.2 % (42.8-82.8); PLATELET COUNT 220 10^3/uL (134-434); RBC 3.03 M/mm3 (3.60-5.2); RDW 14.1 % (11.6-15.6); WHITE BLOOD COUNT 7.4 K/mm3 (4.0-10.0)
[2024-03-31 21:41] LABS: INR 0.94 (0.83-1.09); PROTHROMBIN TIME (PATIENT) 10.8 SEC (9.7-13.0)
[2024-03-31 21:44] LABS: ACTIVATED PTT 29.4 SECONDS (25.2-36.5)
[2024-03-31 21:50] LABS: POTASSIUM 4.2 mmol/L (3.5-5.1)
[2024-03-31 21:53] LABS: CALCIUM 8.4 mg/dL (8.5-10.1)
[2024-03-31 21:54] LABS: ALBUMIN 2.7 g/dl (3.4-5.0); BLOOD UREA NITROGEN 3.2 mg/dL (7-18)
[2024-03-31 21:57] LABS: CREATININE 0.4 mg/dL (0.55-1.3)
[2024-03-31 21:59] LABS: BILIRUBIN,TOTAL 0.7 mg/dL (0.2-1); TOT PROT 5.6 g/dl (6.4-8.2)
[2024-04-01] MEDS ORDERED: AZITHROMYCIN 500 MG TABLET ONE (00:09)
[2024-04-01] MEDS ORDERED: CEFTRIAXONE 1 GM/50 ML BAG ONE (00:09)
[2024-04-01] MEDS: AZITHROMYCIN 250 MG TABLET PO ONE (00:10)
[2024-04-01 05:55] VITALS: BP 121/68; PULSE 100; RESP 14; TEMP 97.2
== END 2024-04-01 06:18 | disposition home or self-care (01) ==
LOC: JER 20:35
PROC: 3E033NZ Introduction of Analgesics, Hypnotics, Sedatives into Peripheral Vein, Percutaneous Approach (ICD-10-PCS; principal; 2024-03-31)
PROC: 3E03329 Introduction of Other Anti-infective into Peripheral Vein, Percutaneous Approach (ICD-10-PCS; 2024-03-31)
DX: J18.9 Pneumonia, unspecified organism (principal); J44.0 Chronic obstructive pulmonary disease with (acute) lower respiratory infection; R06.02 Shortness of breath; R51.9 Headache, unspecified; M79.10 Myalgia, unspecified site; R68.83 Chills (without fever); Z20.822 Contact with and (suspected) exposure to COVID-19
CPT/HCPCS: 0241U-QW; 36415; 71275-TC; 80053; 84484; 85025; 85610; 85730; 86850; 86900; 86901; 93005; 93010; 99285-25; J0131; Q9967

== ENCOUNTER 2024-04-06 11:54 | Emergency (ER) | payer OTHER, BC ==
[2024-04-06 12:18] VITALS: BP 133/63; PULSE 62; RESP 18; BMI 21.8
[2024-04-06 13:22] LABS: BASO % 0.3 % (0-2.0); EOS % 0.6 % (0-4.5); HEMATOCRIT 35.9 % (32.4-45.2); LYMPH % 10.8 % (8-40); MCH 33.5 pg (25.7-33.7); MCHC 33.5 g/dl (32.0-36.0); MEAN CELL VOLUME 99.9 fl (80-96); MEAN PLT VOLUME 8.6 fl (7.5-11.1); MONO % 5.8 % (3.8-10.2); NEUT % 82.5 % (42.8-82.8); PLATELET COUNT 179 10^3/uL (134-434); RBC 3.59 M/mm3 (3.60-5.2); RDW 14.1 % (11.6-15.6); VENOUS BASE EXCESS -7.4 mmol/L (-2-2); VENOUS O2 SATURATION 30.3 % (70-80); VENOUS PCO2 37.7 mmHg (38-52); VENOUS PH 7.304 (7.310-7.410); WHITE BLOOD COUNT 9.7 K/mm3 (4.0-10.0)
[2024-04-06] MEDS ORDERED: THIAMINE HCL 200 MG/2 ML VIAL ONE (13:38)
[2024-04-06 13:43] LABS: EPI CELLS >36 /uL (0-25.1); HYALINE CASTS 1 /uL (0-3.1); PH,URINE 5.5 (5.0-8.0); URINE APPEARANCE CLOUDY; URINE BACTERIA 67 /uL (0-1359); URINE BILIRUBIN NEGATIVE (NEGATIVE); URINE COLOR YELLOW; URINE GLUCOSE (UA) TRACE (NEGATIVE); URINE KETONE 2+ (NEGATIVE); URINE LEUK ESTERASE TRACE (NEGATIVE); URINE NITRITE NEGATIVE (NEGATIVE); URINE PROTEIN NEGATIVE (NEGATIVE); URINE RBC 12 /uL (0-23.9); URINE WBC 63 /uL (0-25.8)
[2024-04-06 13:45] LABS: PHOSPHOROUS 3.8 mg/dL (2.5-4.9)
[2024-04-06 13:53] LABS: POTASSIUM 5.3 mmol/L (3.5-5.1)
[2024-04-06 13:54] LABS: ALBUMIN 3.1 g/dl (3.4-5.0); BLOOD UREA NITROGEN 5.8 mg/dL (7-18); CALCIUM 8.8 mg/dL (8.5-10.1)
[2024-04-06 14:05] LABS: CREATININE 0.6 mg/dL (0.55-1.3); TOT PROT 6.7 g/dl (6.4-8.2)
[2024-04-06] MEDS: THIAMINE HCL 200 MG/2 ML VIAL IVPB ONE (14:37)
[2024-04-06] MEDS: DEXTROSE 5%-NORMAL SALINE 500 ML IV ONE (14:37)
== END 2024-04-06 16:12 | disposition home or self-care (01) ==
LOC: JER 11:54
PROC: 3E033GC Introduction of Other Therapeutic Substance into Peripheral Vein, Percutaneous Approach (ICD-10-PCS; principal; 2024-04-06)
DX: F10.129 Alcohol abuse with intoxication, unspecified (principal); Y90.3 Blood alcohol level of 60-79 mg/100 ml; R51.9 Headache, unspecified; R42 Dizziness and giddiness
CPT/HCPCS: 36415; 80053; 80307; 81003; 82010; 82803; 82962; 83690; 83735; 84100; 85025; 87086; 99284-25

== ENCOUNTER 2024-04-18 16:16 | Emergency (ER) | payer OTHER, BC ==
[2024-04-18 16:41] VITALS: BMI 22.2
[2024-04-18 17:55] LABS: BASO % 1.1 % (0-2.0); EOS % 0.7 % (0-4.5); HEMATOCRIT 34.7 % (32.4-45.2); HEMOGLOBIN 11.7 GM/dL (10.7-15.3); LYMPH % 33.3 % (8-40); MCH 33.7 pg (25.7-33.7); MCHC 33.6 g/dl (32.0-36.0); MEAN CELL VOLUME 100.3 fl (80-96); MONO % 8.5 % (3.8-10.2); NEUT % 56.4 % (42.8-82.8); RBC 3.46 M/mm3 (3.60-5.2); RDW 14.4 % (11.6-15.6); WHITE BLOOD COUNT 10.7 K/mm3 (4.0-10.0)
[2024-04-18 18:02] LABS: ADD RBC MORPHOLOGY YES
[2024-04-18 18:19] LABS: CHLORIDE 97 mmol/L (98-107); POTASSIUM 4.5 mmol/L (3.5-5.1); SODIUM 133 mmol/L (136-145)
[2024-04-18 18:20] LABS: ALBUMIN 3.4 g/dl (3.4-5.0); ANION GAP 16 mmol/L (4-13); CALCIUM 9.4 mg/dL (8.5-10.1); CO2 20 mmol/L (21-32); GLUCOSE,RANDOM 90 mg/dL (74-106)
[2024-04-18 18:23] LABS: SGOT/AST 235 U/L (15-37); SGPT/ALT 115 U/L (13-61)
[2024-04-18 18:25] LABS: BILIRUBIN,TOTAL 0.6 mg/dL (0.2-1); CREATININE 0.5 mg/dL (0.55-1.3)
[2024-04-18 18:27] LABS: ALK PHOS 147 U/L (45-117)
[2024-04-18 18:29] LABS: BLOOD UREA NITROGEN 2.3 mg/dL (7-18)
[2024-04-18 19:14] LABS: ANISOCYTOSIS 0; PLATELET COUNT 175 10^3/uL (134-434)
[2024-04-18] MEDS: LACTATED RINGERS SOLUTION 1000 ML INFUS.BAG IV ONE (19:37)
[2024-04-18 19:44] VITALS: BP 111/53; PULSE 89; RESP 16; TEMP 98
[2024-04-18 20:15] LABS: MACROCYTOSIS 1+
== END 2024-04-18 20:13 | disposition home or self-care (01) ==
LOC: JER 16:16
DX: R07.89 Other chest pain (principal); F10.90 Alcohol use, unspecified, uncomplicated; R91.1 Solitary pulmonary nodule; R06.02 Shortness of breath; R05.9 Cough, unspecified; R42 Dizziness and giddiness; W18.30XA Fall on same level, unspecified, initial encounter
CPT/HCPCS: 36415; 71046-TC-FY; 80053; 83735; 84484; 85025; 93005; 93010; 99285-25

== ENCOUNTER 2024-04-26 19:36 | Emergency (ER) | payer OTHER, BC ==
[2024-04-26 19:41] VITALS: BP 108/55; PULSE 91; RESP 16; TEMP 98.1; BMI 21.8
== END 2024-04-27 00:10 | disposition home or self-care (01) ==
LOC: JER 19:36
DX: R42 Dizziness and giddiness (principal); F10.20 Alcohol dependence, uncomplicated; Y90.9 Presence of alcohol in blood, level not specified
CPT/HCPCS: 93005; 93010; 99283-25

== ENCOUNTER 2024-05-14 18:07 | Emergency (ER) | payer OTHER, BC ==
[2024-05-14 19:07] VITALS: BP 100/51; PULSE 92; RESP 18; TEMP 98.2; BMI 22.2
[2024-05-14] MEDS ORDERED: ALBUTEROL SO4 2.5/IPRATROPIUM 0.5 INH SOL 3 ML VIAL.NEB. NEB ONE (20:42)
[2024-05-14] MEDS ORDERED: predniSONE 20 MG TABLET (UD) ONE (20:42)
[2024-05-14] MEDS ORDERED: ACETAMINOPHEN 325 MG TABLET (FP) ONE (20:43)
[2024-05-14] MEDS ORDERED: AZITHROMYCIN 500 MG TABLET ONE (20:43)
[2024-05-14] MEDS: predniSONE 20 MG TABLET (UD) PO ONE (20:56)
[2024-05-14] MEDS: ALBUTEROL SO4 2.5/IPRATROPIUM 0.5 INH SOL 3 ML VIAL.NEB. NEB ONE (20:56)
[2024-05-14] MEDS: ACETAMINOPHEN 500 MG TABLET (FP) PO ONE (20:56)
[2024-05-14] MEDS: AZITHROMYCIN 250 MG TABLET PO ONE (20:57)
[2024-05-14 23:01] LABS: HIV INTERPRETATION NEGATIVE (NEGATIVE)
== END 2024-05-14 22:38 | disposition home or self-care (01) ==
LOC: JER 18:07
PROC: 3E0F7GC Introduction of Other Therapeutic Substance into Respiratory Tract, Via Natural or Artificial Opening (ICD-10-PCS; principal; 2024-05-14)
DX: J44.1 Chronic obstructive pulmonary disease with (acute) exacerbation (principal); R07.1 Chest pain on breathing; R06.02 Shortness of breath; R05.9 Cough, unspecified; Z20.822 Contact with and (suspected) exposure to COVID-19
CPT/HCPCS: 0241U-QW; 36415; 71046-TC-FY; 86803; 87389; 93005; 93010; 94640; 99285-25

== ENCOUNTER 2024-05-19 13:23 | Inpatient (IN) | payer OTHER, BC ==
[2024-05-19 13:50] VITALS: BMI 21.8
[2024-05-19 15:23] LABS: BASO % 0.3 % (0-2.0); EOS % 0.7 % (0-4.5); HEMATOCRIT 29.8 % (32.4-45.2); HEMOGLOBIN 9.9 GM/dL (10.7-15.3); LYMPH % 19.3 % (8-40); MCH 32.8 pg (25.7-33.7); MCHC 33.4 g/dl (32.0-36.0); MEAN CELL VOLUME 98.4 fl (80-96); MONO % 8.6 % (3.8-10.2); NEUT % 71.1 % (42.8-82.8); PLATELET COUNT 172 10^3/uL (134-434); RBC 3.02 M/mm3 (3.60-5.2); RDW 13.4 % (11.6-15.6); VENOUS O2 SATURATION 86.4 % (70-80); VENOUS PCO2 29.1 mmHg (38-52); VENOUS PH 7.419 (7.310-7.410); WHITE BLOOD COUNT 7.1 K/mm3 (4.0-10.0)
[2024-05-19 15:41] LABS: ALBUMIN 2.5 g/dl (3.4-5.0); CALCIUM 8.2 mg/dL (8.5-10.1)
[2024-05-19 15:42] LABS: BLOOD UREA NITROGEN 5.2 mg/dL (7-18)
[2024-05-19 15:44] LABS: CREATININE 0.6 mg/dL (0.55-1.3)
[2024-05-19 15:45] LABS: PHOSPHOROUS 3.1 mg/dL (2.5-4.9)
[2024-05-19 15:46] LABS: BILIRUBIN,TOTAL 0.8 mg/dL (0.2-1); TOT PROT 5.2 g/dl (6.4-8.2)
[2024-05-19] MEDS: LACTATED RINGERS SOLUTION 1000 ML INFUS.BAG IV ONE (17:24)
[2024-05-19] MEDS: DEXTROSE 50%-WATER - 25 GM/50 ML VIAL IVPUSH ONE (17:25)
[2024-05-19] MEDS ORDERED: DEXTROSE 50%-WATER 25 GM/50 ML DISP.SYRIN ONE (17:26)
[2024-05-19 17:58] LABS: PH,URINE 5.5 (5.0-8.0); URINE APPEARANCE CLEAR; URINE BILIRUBIN NEGATIVE (NEGATIVE); URINE COLOR YELLOW; URINE GLUCOSE (UA) TRACE (NEGATIVE); URINE KETONE 1+ (NEGATIVE); URINE LEUK ESTERASE NEGATIVE (NEGATIVE); URINE NITRITE NEGATIVE (NEGATIVE); URINE PROTEIN NEGATIVE (NEGATIVE)
[2024-05-19] MEDS: DEXTROSE 5%-NORMAL SALINE 1,000 ML IV SCH (18:36)
[2024-05-20 00:41] LABS: INR 0.99 (0.83-1.09); PROTHROMBIN TIME (PATIENT) 11.4 SEC (9.7-13.0)
[2024-05-20 08:00] LABS: COCAINE, UR NEGATIVE (NEGATIVE); METHADONE, UR NEGATIVE (NEGATIVE); OPIATES, URI NEGATIVE (NEGATIVE); PHENCYCLIDINE,URINE NEGATIVE (NEGATIVE); URINE BARBITURATES NEGATIVE (NEGATIVE); URINE BENZODIAZEPINES NEGATIVE (NEGATIVE)
[2024-05-20 08:43] LABS: URINE AMPHETAMINES NEGATIVE (NEGATIVE)
[2024-05-20] MEDS: FOLIC ACID 1 MG TABLET (FP) PO SCH (09:21)
[2024-05-20] MEDS: PANTOPRAZOLE 40 MG TABLET PO SCH (09:21)
[2024-05-20] MEDS: THIAMINE 100 MG TABLET PO SCH (09:21)
[2024-05-20 11:08] LABS: HEMATOCRIT 29.4 % (32.4-45.2); HEMOGLOBIN 9.9 GM/dL (10.7-15.3); MCH 33.6 pg (25.7-33.7); MCHC 33.8 g/dl (32.0-36.0); MEAN CELL VOLUME 99.4 fl (80-96); MEAN PLT VOLUME 8.5 fl (7.5-11.1); PLATELET COUNT 163 10^3/uL (134-434); RBC 2.96 M/mm3 (3.60-5.2); RDW 13.1 % (11.6-15.6); WHITE BLOOD COUNT 6.3 K/mm3 (4.0-10.0)
[2024-05-20 11:31] LABS: POTASSIUM 3.7 mmol/L (3.5-5.1)
[2024-05-20 11:36] LABS: CALCIUM 8.4 mg/dL (8.5-10.1)
[2024-05-20 11:37] LABS: ALBUMIN 2.5 g/dl (3.4-5.0); BLOOD UREA NITROGEN 4.8 mg/dL (7-18)
[2024-05-20 11:38] LABS: MAGNESIUM 1.8 mg/dL (1.8-2.4)
[2024-05-20 11:41] LABS: PHOSPHOROUS 2.8 mg/dL (2.5-4.9)
[2024-05-20 11:42] LABS: BILIRUBIN,TOTAL 1.4 mg/dL (0.2-1); CREATININE 0.8 mg/dL (0.55-1.3); TOT PROT 5.1 g/dl (6.4-8.2)
[2024-05-20] MEDS: ALBUTEROL SO4 2.5/IPRATROPIUM 0.5 INH SOL 3 ML VIAL.NEB. NEB SCH (14:15)
[2024-05-20] MEDS: BISACODYL 5 MG TABLET.DR (FP) PO ONE (16:11)
[2024-05-20] MEDS: PEG 3350/NA SULF BICARB CL/KCL 4000 ML SOLN.RECON PO ONE (18:49)
[2024-05-21] MEDS: MULTIVITAMINS (DAILY MVI) TABLET (FP) PO SCH (09:02)
[2024-05-21 10:31] LABS: INR 1.02 (0.83-1.09); PROTHROMBIN TIME (PATIENT) 11.7 SEC (9.7-13.0)
[2024-05-21 10:37] LABS: BASO % 0.8 % (0-2.0); EOS % 0.9 % (0-4.5); HEMATOCRIT 24.7 % (32.4-45.2); HEMOGLOBIN 8.2 GM/dL (10.7-15.3); LYMPH % 15.3 % (8-40); MCH 33.2 pg (25.7-33.7); MCHC 33.2 g/dl (32.0-36.0); MEAN CELL VOLUME 99.9 fl (80-96); MEAN PLT VOLUME 9.1 fl (7.5-11.1); MONO % 11.6 % (3.8-10.2); NEUT % 71.4 % (42.8-82.8); PLATELET COUNT 132 10^3/uL (134-434); RBC 2.47 M/mm3 (3.60-5.2); RDW 12.8 % (11.6-15.6); WHITE BLOOD COUNT 7.6 K/mm3 (4.0-10.0)
[2024-05-21 11:52] LABS: CHLORIDE 106 mmol/L (98-107); POTASSIUM 2.9 mmol/L (3.5-5.1); SODIUM 140 mmol/L (136-145)
[2024-05-21 11:56] LABS: ALBUMIN 2.4 g/dl (3.4-5.0); ANION GAP 7 mmol/L (4-13); CALCIUM 8.8 mg/dL (8.5-10.1); CO2 27 mmol/L (21-32)
[2024-05-21 11:57] LABS: BLOOD UREA NITROGEN 3.5 mg/dL (7-18); GLUCOSE,RANDOM 92 mg/dL (74-106); MAGNESIUM 1.5 mg/dL (1.8-2.4)
[2024-05-21 12:00] LABS: CREATININE 0.6 mg/dL (0.55-1.3); SGOT/AST 88 U/L (15-37); SGPT/ALT 84 U/L (13-61)
[2024-05-21 12:01] LABS: BILIRUBIN,TOTAL 0.9 mg/dL (0.2-1); TOT PROT 4.8 g/dl (6.4-8.2)
[2024-05-21 12:02] LABS: ALK PHOS 111 U/L (45-117)
[2024-05-21] MEDS: KCL 10 MEQ IVPB 10 MEQ/100 ML INFUS.BAG IVPB SCH (13:10)
[2024-05-21] MEDS: MAGNESIUM 1GM/D5W - 1 GM/100 ML IVPB IVPB ONE (15:58)
[2024-05-21] MEDS ORDERED: DEXTROSE 50%-WATER 25 GM/50 ML DISP.SYRIN IVPUSH PRN (19:25)
[2024-05-21] MEDS ORDERED: LORazepam 1 MG TABLET PO PRN (19:29)
[2024-05-21] MEDS: PANTOPRAZOLE 40 MG TABLET PO SCH (21:15)
[2024-05-22 09:47] LABS: CHLORIDE 109 mmol/L (98-107); POTASSIUM 3.6 mmol/L (3.5-5.1); SODIUM 140 mmol/L (136-145)
[2024-05-22 09:50] LABS: ALBUMIN 2.2 g/dl (3.4-5.0); ANION GAP 4 mmol/L (4-13); CALCIUM 8.2 mg/dL (8.5-10.1); CO2 27 mmol/L (21-32); GLUCOSE,RANDOM 95 mg/dL (74-106); MAGNESIUM 1.9 mg/dL (1.8-2.4)
[2024-05-22 09:53] LABS: CREATININE 0.6 mg/dL (0.55-1.3); SGOT/AST 57 U/L (15-37); SGPT/ALT 65 U/L (13-61)
[2024-05-22 09:55] LABS: BILIRUBIN,TOTAL 0.9 mg/dL (0.2-1); TOT PROT 4.5 g/dl (6.4-8.2)
[2024-05-22 09:57] LABS: ALK PHOS 103 U/L (45-117)
[2024-05-22 10:13] LABS: BLOOD UREA NITROGEN 2.7 mg/dL (7-18)
[2024-05-22 12:08] LABS: INSULIN 1.8 uIU/mL (2.6-24.9)
[2024-05-22] MEDS: AMOXICILLIN 500 MG CAPSULE (FP) PO SCH (21:23)
[2024-05-22] MEDS: CLARITHROMYCIN 500 MG TABLET (UD) PO SCH (21:23)
[2024-05-23 10:05] LABS: HEMATOCRIT 27.2 % (32.4-45.2); HEMOGLOBIN 8.9 GM/dL (10.7-15.3); MCH 33.3 pg (25.7-33.7); MCHC 32.6 g/dl (32.0-36.0); MEAN CELL VOLUME 102.2 fl (80-96); MEAN PLT VOLUME 8.7 fl (7.5-11.1); PLATELET COUNT 158 10^3/uL (134-434); RBC 2.66 M/mm3 (3.60-5.2); RDW 13.2 % (11.6-15.6); WHITE BLOOD COUNT 8.5 K/mm3 (4.0-10.0)
[2024-05-23 10:57] LABS: POTASSIUM 3.7 mmol/L (3.5-5.1)
[2024-05-23 11:04] LABS: CALCIUM 8.7 mg/dL (8.5-10.1)
[2024-05-23 11:05] LABS: ALBUMIN 2.5 g/dl (3.4-5.0); BLOOD UREA NITROGEN 3.6 mg/dL (7-18); MAGNESIUM 1.7 mg/dL (1.8-2.4)
[2024-05-23 11:08] LABS: CREATININE 0.8 mg/dL (0.55-1.3); PHOSPHOROUS 2.9 mg/dL (2.5-4.9)
[2024-05-23 11:09] LABS: BILIRUBIN,TOTAL 0.6 mg/dL (0.2-1); TOT PROT 4.9 g/dl (6.4-8.2)
[2024-05-23] MEDS: MAGNESIUM 2GM/50ML STERILE WATER IVPB IVPB ONE (18:23)
[2024-05-23] MEDS: DOXYCYCLINE HYCLATE 100 MG CAPSULE PO SCH (18:23)
[2024-05-23] MEDS: metroNIDAZOLE 250 MG TABLET PO SCH (21:30)
[2024-05-23] MEDS: BISMUTH SUBSALICYLATE 524 MG/30 ML PO SCH (21:31)
[2024-05-23] MEDS ORDERED: MINOCYCLINE HCL 100 MG PO SCH (22:00)
[2024-05-24] MEDS: BISMUTH SUBSALICYLATE 524 MG/30 ML PO SCH (07:37)
[2024-05-24 08:41] VITALS: BP 97/57; PULSE 95; RESP 18; TEMP 97.9
[2024-05-24] MEDS: ACETAMINOPHEN 325 MG TABLET (FP) PO ONE (09:30)
[2024-05-24 11:16] LABS: HEMATOCRIT 25.4 % (32.4-45.2); HEMOGLOBIN 8.3 GM/dL (10.7-15.3); MCH 33.2 pg (25.7-33.7); MCHC 32.6 g/dl (32.0-36.0); MEAN CELL VOLUME 101.8 fl (80-96); MEAN PLT VOLUME 8.5 fl (7.5-11.1); PLATELET COUNT 175 10^3/uL (134-434); RBC 2.49 M/mm3 (3.60-5.2); RDW 13.2 % (11.6-15.6); WHITE BLOOD COUNT 7.9 K/mm3 (4.0-10.0)
[2024-05-24 11:41] LABS: POTASSIUM 3.5 mmol/L (3.5-5.1)
[2024-05-24 11:46] LABS: ALBUMIN 2.3 g/dl (3.4-5.0); CALCIUM 8.2 mg/dL (8.5-10.1)
[2024-05-24 11:49] LABS: CREATININE 0.8 mg/dL (0.55-1.3)
[2024-05-24 11:50] LABS: BILIRUBIN,TOTAL 0.6 mg/dL (0.2-1)
[2024-05-24 11:51] LABS: TOT PROT 4.8 g/dl (6.4-8.2)
[2024-05-26 21:06] LABS: METHYLMALONIC ACID- 269 nmol/L (0-378)
== END 2024-05-24 12:07 | disposition home or self-care (01) | DRG 641 ==
LOC: JER 13:23 → JERBED 19:52 → OBSVTOIN 22:12 → J8W 05-20 00:39 → J6S 05-20 21:47
PROVIDERS: ADMIT Internal Medicine; ATTEND Internal Medicine
PROC: 0DB68ZX Excision of Stomach, Via Natural or Artificial Opening Endoscopic, Diagnostic (ICD-10-PCS; 2024-05-21)
PROC: 0DBN8ZZ Excision of Sigmoid Colon, Via Natural or Artificial Opening Endoscopic (ICD-10-PCS; 2024-05-21)
PROC: 0DBH8ZX Excision of Cecum, Via Natural or Artificial Opening Endoscopic, Diagnostic (ICD-10-PCS; 2024-05-21)
PROC: 0DB98ZX Excision of Duodenum, Via Natural or Artificial Opening Endoscopic, Diagnostic (ICD-10-PCS; principal; 2024-05-21 11:00)
DX: E16.2 Hypoglycemia, unspecified (principal); J44.9 Chronic obstructive pulmonary disease, unspecified; F17.210 Nicotine dependence, cigarettes, uncomplicated; F10.20 Alcohol dependence, uncomplicated; B96.81 Helicobacter pylori [H. pylori] as the cause of diseases classified elsewhere; K70.9 Alcoholic liver disease, unspecified; F03.90 Unspecified dementia, unspecified severity, without behavioral disturbance, psychotic disturbance, mood disturbance, and anxiety; R74.01 Elevation of levels of liver transaminase levels; R91.8 Other nonspecific abnormal finding of lung field; K70.10 Alcoholic hepatitis without ascites; D64.9 Anemia, unspecified; E87.6 Hypokalemia; E83.42 Hypomagnesemia; K76.0 Fatty (change of) liver, not elsewhere classified; R42 Dizziness and giddiness; K25.9 Gastric ulcer, unspecified as acute or chronic, without hemorrhage or perforation; K63.5 Polyp of colon; K64.8 Other hemorrhoids; D50.9 Iron deficiency anemia, unspecified
CPT/HCPCS: 0241U-QW; 36415; 71045-TC-FY; 71260-TC; 74177-TC; 74183-TC; 80053; 80307; 81003; 82010; 82140; 82248; 82533; 82550; 82607; 82728; 82746; 82803; 82947; 82962; 83036; 83525; 83540; 83550; 83615; 83735; 83921; 84100; 84681; 85025; 85027; 85045; 85610; 86038; 86160; 86162; 86225; 86301; 86341; 86480; 86850; 86900; 86901; 87086; 88305-TC; 88342-TC; 93005; 93010; 94640; 97116-GP; 97162-GP; 99285-25; G0378; Q9967

== ENCOUNTER 2024-05-27 09:40 | Emergency (ER) | payer OTHER, BC ==
[2024-05-27 10:14] VITALS: RESP 18; TEMP 97.3; BMI 21.8
[2024-05-27 12:27] LABS: BASO % 0.9 % (0-2.0); EOS % 0.7 % (0-4.5); HEMATOCRIT 29.1 % (32.4-45.2); HEMOGLOBIN 9.7 GM/dL (10.7-15.3); LYMPH % 21.7 % (8-40); MCH 33.4 pg (25.7-33.7); MCHC 33.4 g/dl (32.0-36.0); MEAN CELL VOLUME 99.9 fl (80-96); MEAN PLT VOLUME 7.7 fl (7.5-11.1); MONO % 9.3 % (3.8-10.2); NEUT % 67.4 % (42.8-82.8); PLATELET COUNT 349 10^3/uL (134-434); RBC 2.91 M/mm3 (3.60-5.2); RDW 13.3 % (11.6-15.6); WHITE BLOOD COUNT 8.6 K/mm3 (4.0-10.0)
[2024-05-27 12:30] LABS: INR 1.03 (0.83-1.09); PROTHROMBIN TIME (PATIENT) 11.8 SEC (9.7-13.0)
[2024-05-27 12:37] LABS: CHLORIDE 111 mmol/L (98-107); POTASSIUM 4.1 mmol/L (3.5-5.1); SODIUM 140 mmol/L (136-145)
[2024-05-27 12:39] LABS: ALBUMIN 2.7 g/dl (3.4-5.0); ANION GAP 11 mmol/L (4-13); CALCIUM 8.5 mg/dL (8.5-10.1); CO2 18 mmol/L (21-32); GLUCOSE,RANDOM 84 mg/dL (74-106); MAGNESIUM 1.9 mg/dL (1.8-2.4)
[2024-05-27 12:40] LABS: BLOOD UREA NITROGEN 2.8 mg/dL (7-18)
[2024-05-27 12:42] LABS: CREATININE 0.5 mg/dL (0.55-1.3); PHOSPHOROUS 3.4 mg/dL (2.5-4.9); SGOT/AST 148 U/L (15-37); SGPT/ALT 57 U/L (13-61)
[2024-05-27 12:44] LABS: BILIRUBIN,TOTAL 0.4 mg/dL (0.2-1); TOT PROT 5.4 g/dl (6.4-8.2)
[2024-05-27 12:47] LABS: ALK PHOS 151 U/L (45-117)
[2024-05-27] MEDS ORDERED: ACETAMINOPHEN INJECTION 100 ML ONE (12:47)
[2024-05-27] MEDS: ACETAMINOPHEN 1000 MG/100 ML BAG IVPB ONE (13:01)
[2024-05-27 15:06] VITALS: BP 105/51; PULSE 82
== END 2024-05-27 16:23 | disposition home or self-care (01) ==
LOC: JER 09:40
PROC: 3E033NZ Introduction of Analgesics, Hypnotics, Sedatives into Peripheral Vein, Percutaneous Approach (ICD-10-PCS; principal; 2024-05-27)
DX: F10.20 Alcohol dependence, uncomplicated (principal); M54.9 Dorsalgia, unspecified; R51.9 Headache, unspecified; W10.8XXA Fall (on) (from) other stairs and steps, initial encounter; Y90.8 Blood alcohol level of 240 mg/100 ml or more
CPT/HCPCS: 36415; 70450-TC; 71045-TC-FY; 72125-TC; 72128-TC; 72131-TC; 80053; 80307; 82962; 83735; 84100; 84484; 85025; 85610; 93005; 93010; 99285-25; J0131

== ENCOUNTER 2024-07-07 01:48 | Inpatient (IN) | payer OTHER, BC ==
[2024-07-07] MEDS ORDERED: DEXTROSE 50%-WATER 25 GM/50 ML DISP.SYRIN ONE (02:23)
[2024-07-07 03:14] LABS: EOS % 0.8 % (0-4.5); HEMATOCRIT 31.3 % (32.4-45.2); HEMOGLOBIN 10.3 GM/dL (10.7-15.3); LYMPH % 20.8 % (8-40); MCHC 32.8 g/dl (32.0-36.0); MEAN CELL VOLUME 97.6 fl (80-96); MEAN PLT VOLUME 8.5 fl (7.5-11.1); MONO % 7.9 % (3.8-10.2); NEUT % 69.5 % (42.8-82.8); PLATELET COUNT 296 10^3/uL (134-434); RDW 14.7 % (11.6-15.6); VENOUS BASE EXCESS -6.6 mmol/L (-2-2); VENOUS PH 7.308 (7.310-7.410); WHITE BLOOD COUNT 9.6 K/mm3 (4.0-10.0)
[2024-07-07 03:20] LABS: PH,URINE 5.5 (5.0-8.0); URINE APPEARANCE CLOUDY; URINE BILIRUBIN NEGATIVE (NEGATIVE); URINE COLOR YELLOW; URINE GLUCOSE (UA) NEGATIVE (NEGATIVE); URINE KETONE NEGATIVE (NEGATIVE); URINE LEUK ESTERASE TRACE (NEGATIVE); URINE NITRITE NEGATIVE (NEGATIVE); URINE PROTEIN NEGATIVE (NEGATIVE)
[2024-07-07] MEDS ORDERED: THIAMINE HCL 200 MG/2 ML VIAL ONE (03:28)
[2024-07-07] MEDS: THIAMINE HCL 200 MG/2 ML VIAL IM ONE (03:30)
[2024-07-07 03:34] LABS: CHLORIDE 101 mmol/L (98-107); POTASSIUM 3.6 mmol/L (3.5-5.1); SODIUM 136 mmol/L (136-145)
[2024-07-07] MEDS: DEXTROSE 50%-WATER 25 GM/50 ML DISP.SYRIN IVPUSH ONE (03:34)
[2024-07-07 03:36] LABS: CALCIUM 8.8 mg/dL (8.5-10.1)
[2024-07-07 03:37] LABS: ALBUMIN 2.6 g/dl (3.4-5.0); ANION GAP 12 mmol/L (4-13); CO2 23 mmol/L (21-32); GLUCOSE,RANDOM 181 mg/dL (74-106)
[2024-07-07 03:39] LABS: CREATININE 0.7 mg/dL (0.55-1.3); SGOT/AST 121 U/L (15-37); SGPT/ALT 83 U/L (13-61)
[2024-07-07 03:41] LABS: BILIRUBIN,TOTAL 0.5 mg/dL (0.2-1); TOT PROT 5.9 g/dl (6.4-8.2)
[2024-07-07 03:42] LABS: ALK PHOS 167 U/L (45-117)
[2024-07-07 03:44] LABS: N-TERMINAL BNP 211.4 pg/ml (5-125)
[2024-07-07 04:00] LABS: BLOOD UREA NITROGEN 1.9 mg/dL (7-18); LACTIC ACID 6.7 mmol/L (0.4-2.0)
[2024-07-07] MEDS: LACTATED RINGERS SOLUTION 1000 ML INFUS.BAG IV ONE (04:20)
[2024-07-07] MEDS: DEXTROSE 5%-NORMAL SALINE 1,000 ML IV SCH (04:59)
[2024-07-07 06:07] LABS: LACTIC ACID 8.7 mmol/L (0.4-2.0)
[2024-07-07 08:29] LABS: LACTIC ACID 6.7 mmol/L (0.4-2.0)
[2024-07-07] MEDS: FOLIC ACID INJECTION - 1 MG, THIAMINE HCL 100 MG, MULTIVIT INJECTION ADULT 10 ML in SOD... IVPB ONE (08:40)
[2024-07-07] MEDS ORDERED: ALBUTEROL SO4 HFA INHALER IH PRN (08:44)
[2024-07-07] MEDS ORDERED: LORazepam 1 MG TABLET PO PRN (08:50)
[2024-07-07] MEDS: HEPARIN NA (PORCINE) 5,000 UNITS/ML 1ML VIAL SQ SCH (11:04)
[2024-07-07] MEDS: FLUTICASONE/UMECLIDIN/VILANTER(200-62.5-25 TRELEGY ELLIPTA) INAHLER IH SCH (11:29)
[2024-07-07 11:41] LABS: LACTIC ACID 4.7 mmol/L (0.4-2.0)
[2024-07-07 12:01] VITALS: BMI 21.3
[2024-07-07 14:01] LABS: LACTIC ACID 4.4 mmol/L (0.4-2.0)
[2024-07-07] MEDS: DEXTROSE 5%-LACTATED RINGERS 1,000 ML IV SCH (15:54)
[2024-07-07 18:04] LABS: LACTIC ACID 4.1 mmol/L (0.4-2.0)
[2024-07-08 03:34] LABS: BASO % 0.5 % (0-2.0); EOS % 0.6 % (0-4.5); HEMATOCRIT 24.4 % (32.4-45.2); HEMOGLOBIN 7.9 GM/dL (10.7-15.3); LYMPH % 19.4 % (8-40); MCH 31.9 pg (25.7-33.7); MCHC 32.4 g/dl (32.0-36.0); MEAN CELL VOLUME 98.3 fl (80-96); MEAN PLT VOLUME 8.9 fl (7.5-11.1); MONO % 10.8 % (3.8-10.2); NEUT % 68.7 % (42.8-82.8); PLATELET COUNT 222 10^3/uL (134-434); RBC 2.49 M/mm3 (3.60-5.2); RDW 14.8 % (11.6-15.6); WHITE BLOOD COUNT 7.8 K/mm3 (4.0-10.0)
[2024-07-08 03:46] LABS: CHLORIDE 116 mmol/L (98-107); POTASSIUM 3.6 mmol/L (3.5-5.1); SODIUM 147 mmol/L (136-145)
[2024-07-08 03:48] LABS: ANION GAP 7 mmol/L (4-13); CO2 24 mmol/L (21-32)
[2024-07-08 03:49] LABS: GLUCOSE,RANDOM 107 mg/dL (74-106)
[2024-07-08 03:52] LABS: CREATININE 0.6 mg/dL (0.55-1.3)
[2024-07-08 04:04] LABS: BLOOD UREA NITROGEN 1.2 mg/dL (7-18); LACTIC ACID 3.4 mmol/L (0.4-2.0)
[2024-07-08] MEDS ORDERED: LORazepam 1 MG TABLET PO PRN (08:01)
[2024-07-08] MEDS: FOLIC ACID 1 MG TABLET (FP) PO SCH (09:15)
[2024-07-08] MEDS: THIAMINE HCL 200 MG/2 ML VIAL IVPB SCH (09:16)
[2024-07-08] MEDS ORDERED: DEXTROSE 50%-WATER - 25 GM/50 ML VIAL IVPUSH PRN (14:27)
[2024-07-08] MEDS: DEXTROSE 5%-0.45% SALINE 1,000 ML IV SCH (16:41)
[2024-07-09 09:24] LABS: BASO % 0.8 % (0-2.0); EOS % 1.3 % (0-4.5); HEMATOCRIT 23.8 % (32.4-45.2); HEMOGLOBIN 7.8 GM/dL (10.7-15.3); LYMPH % 20.1 % (8-40); MCH 32.6 pg (25.7-33.7); MCHC 32.7 g/dl (32.0-36.0); MEAN CELL VOLUME 99.8 fl (80-96); MEAN PLT VOLUME 9.2 fl (7.5-11.1); MONO % 11.2 % (3.8-10.2); NEUT % 66.6 % (42.8-82.8); PLATELET COUNT 216 10^3/uL (134-434); RBC 2.39 M/mm3 (3.60-5.2); RDW 15.2 % (11.6-15.6); WHITE BLOOD COUNT 8.8 K/mm3 (4.0-10.0)
[2024-07-09 09:38] LABS: CHLORIDE 115 mmol/L (98-107); POTASSIUM 3.3 mmol/L (3.5-5.1); SODIUM 144 mmol/L (136-145)
[2024-07-09 09:43] LABS: CALCIUM 7.9 mg/dL (8.5-10.1)
[2024-07-09 09:44] LABS: ANION GAP 5 mmol/L (4-13); CO2 24 mmol/L (21-32); GLUCOSE,RANDOM 75 mg/dL (74-106); MAGNESIUM 1.3 mg/dL (1.8-2.4)
[2024-07-09 09:45] LABS: ALBUMIN 1.6 g/dl (3.4-5.0); BLOOD UREA NITROGEN 1.5 mg/dL (7-18)
[2024-07-09 09:47] LABS: CREATININE 0.5 mg/dL (0.55-1.3); SGOT/AST 72 U/L (15-37); SGPT/ALT 52 U/L (13-61)
[2024-07-09 09:48] LABS: BILIRUBIN,TOTAL 0.7 mg/dL (0.2-1)
[2024-07-09 09:52] LABS: ALK PHOS 114 U/L (45-117)
[2024-07-09] MEDS: POTASSIUM CHLORIDE ORAL LIQUID 20 MEQ/15 ML PO ONE (12:59)
[2024-07-09] MEDS: MAGNESIUM 2GM/50ML STERILE WATER IVPB IVPB ONE (12:59)
[2024-07-10 09:24] LABS: BASO % 0.9 % (0-2.0); EOS % 1.3 % (0-4.5); HEMATOCRIT 23.2 % (32.4-45.2); HEMOGLOBIN 7.5 GM/dL (10.7-15.3); LYMPH % 20.1 % (8-40); MCH 32.1 pg (25.7-33.7); MCHC 32.6 g/dl (32.0-36.0); MEAN CELL VOLUME 98.6 fl (80-96); MEAN PLT VOLUME 9.2 fl (7.5-11.1); MONO % 9.3 % (3.8-10.2); NEUT % 68.4 % (42.8-82.8); PLATELET COUNT 234 10^3/uL (134-434); RBC 2.35 M/mm3 (3.60-5.2); RDW 15.2 % (11.6-15.6)
[2024-07-10 09:46] LABS: CHLORIDE 114 mmol/L (98-107); SODIUM 143 mmol/L (136-145)
[2024-07-10 09:58] LABS: ALBUMIN 1.7 g/dl (3.4-5.0); ANION GAP 3 mmol/L (4-13); CO2 26 mmol/L (21-32); CREATININE 0.5 mg/dL (0.55-1.3); SGOT/AST 58 U/L (15-37); SGPT/ALT 49 U/L (13-61)
[2024-07-10 09:59] LABS: GLUCOSE,RANDOM 78 mg/dL (74-106)
[2024-07-10 10:00] LABS: BILIRUBIN,TOTAL 0.6 mg/dL (0.2-1); BLOOD UREA NITROGEN 1.9 mg/dL (7-18)
[2024-07-10 10:01] LABS: ALK PHOS 119 U/L (45-117); PHOSPHOROUS 3.7 mg/dL (2.5-4.9)
[2024-07-10 10:03] LABS: CALCIUM 8.1 mg/dL (8.5-10.1); MAGNESIUM 1.7 mg/dL (1.8-2.4)
[2024-07-10 10:09] LABS: TOT PROT 4.2 g/dl (6.4-8.2)
[2024-07-10 18:11] VITALS: RESP 18
[2024-07-10] MEDS ORDERED: DEXTROSE 50%-WATER 25 GM/50 ML DISP.SYRIN IVPUSH PRN (23:49)
[2024-07-12 11:59] VITALS: BP 122/60; PULSE 81; TEMP 99
== END 2024-07-12 11:20 | DRG 897 ==
LOC: JER 01:48 → JERBED 05:58 → J5S 10:23
PROVIDERS: ADMIT Internal Medicine
DX: F10.229 Alcohol dependence with intoxication, unspecified (principal); E87.20 Acidosis, unspecified; K70.10 Alcoholic hepatitis without ascites; E16.2 Hypoglycemia, unspecified; J44.9 Chronic obstructive pulmonary disease, unspecified; F17.210 Nicotine dependence, cigarettes, uncomplicated; D64.9 Anemia, unspecified
CPT/HCPCS: 0241U-QW; 36415; 71045-TC-FY; 80048; 80053; 80307; 81003; 82272; 82803; 82962; 83036; 83605; 83690; 83735; 83880; 83930; 84100; 84484; 85025; 93005; 93010; 97116-GP; 97162-GP; 99291; J1644

== ENCOUNTER 2024-08-12 15:11 | Emergency (ER) | payer OTHER, BC ==
[2024-08-12 15:49] VITALS: RESP 16; BMI 21.8
[2024-08-12] MEDS ORDERED: THIAMINE HCL 200 MG/2 ML VIAL ONE (16:42)
[2024-08-12 17:22] LABS: VENOUS BASE EXCESS -2.2 mmol/L (-2-2); VENOUS O2 SATURATION 48.5 % (70-80); VENOUS PH 7.469 (7.310-7.410)
[2024-08-12 17:25] LABS: BASO % 0.9 % (0-2.0); EOS % 1.1 % (0-4.5); HEMATOCRIT 29.1 % (32.4-45.2); HEMOGLOBIN 9.4 GM/dL (10.7-15.3); LYMPH % 31.5 % (8-40); MCH 29.9 pg (25.7-33.7); MCHC 32.2 g/dl (32.0-36.0); MEAN CELL VOLUME 92.9 fl (80-96); MEAN PLT VOLUME 8.3 fl (7.5-11.1); NEUT % 57.5 % (42.8-82.8); PLATELET COUNT 282 10^3/uL (134-434); RBC 3.13 M/mm3 (3.60-5.2); RDW 15.3 % (11.6-15.6); WHITE BLOOD COUNT 9.3 K/mm3 (4.0-10.0)
[2024-08-12] MEDS: THIAMINE HCL 200 MG/2 ML VIAL IVPB ONE (17:25)
[2024-08-12 17:31] LABS: INR 1.06 (0.83-1.09)
[2024-08-12 17:33] LABS: ACTIVATED PTT 29.7 SECONDS (25.2-36.5)
[2024-08-12 17:42] VITALS: BP 165/49; PULSE 94; TEMP 98.2
[2024-08-12 17:44] LABS: CHLORIDE 107 mmol/L (98-107); SODIUM 139 mmol/L (136-145)
[2024-08-12 17:47] LABS: ALBUMIN 1.9 g/dl (3.4-5.0); ANION GAP 10 mmol/L (4-13); CALCIUM 8.3 mg/dL (8.5-10.1); CO2 21 mmol/L (21-32); MAGNESIUM 1.8 mg/dL (1.8-2.4)
[2024-08-12 17:48] LABS: GLUCOSE,RANDOM 84 mg/dL (74-106)
[2024-08-12 17:50] LABS: SGOT/AST 49 U/L (15-37); SGPT/ALT 28 U/L (13-61)
[2024-08-12 17:51] LABS: CREATININE 0.6 mg/dL (0.55-1.3)
[2024-08-12 17:52] LABS: BILIRUBIN,TOTAL 0.3 mg/dL (0.2-1); TOT PROT 5.2 g/dl (6.4-8.2)
[2024-08-12 17:53] LABS: ALK PHOS 136 U/L (45-117)
[2024-08-12 18:00] LABS: BLOOD UREA NITROGEN 2.3 mg/dL (7-18); LACTIC ACID 5.4 mmol/L (0.4-2.0)
[2024-08-12] MEDS: SODIUM CHLORIDE 0.9% 500 ML INFUS.BAG IV ONE (21:55)
[2024-08-12 22:09] LABS: LACTIC ACID 5.4 mmol/L (0.4-2.0)
== END 2024-08-13 00:20 | disposition home or self-care (01) ==
LOC: JER 15:11
DX: R42 Dizziness and giddiness (principal); R06.02 Shortness of breath; Z20.822 Contact with and (suspected) exposure to COVID-19
CPT/HCPCS: 0241U-QW; 36415; 71045-TC-FY; 80053; 80307; 82803; 82962; 83605; 83690; 83735; 84484; 85025; 85610; 85730; 86850; 86900; 86901; 93005; 93010; 99285-25

== ENCOUNTER 2024-08-19 11:56 | Observation (INO) | payer BC, OTHER ==
[2024-08-19 14:39] LABS: BASO % 1.1 % (0-2.0); EOS % 0.7 % (0-4.5); HEMATOCRIT 30.5 % (32.4-45.2); HEMOGLOBIN 10.1 GM/dL (10.7-15.3); LYMPH % 32.2 % (8-40); MCH 30.8 pg (25.7-33.7); MCHC 33.3 g/dl (32.0-36.0); MEAN CELL VOLUME 92.7 fl (80-96); MEAN PLT VOLUME 7.6 fl (7.5-11.1); MONO % 6.8 % (3.8-10.2); NEUT % 59.2 % (42.8-82.8); PLATELET COUNT 338 10^3/uL (134-434); RBC 3.29 M/mm3 (3.60-5.2); RDW 16.4 % (11.6-15.6); WHITE BLOOD COUNT 9.2 K/mm3 (4.0-10.0)
[2024-08-19 14:59] LABS: ALBUMIN 1.8 g/dl (3.4-5.0); BLOOD UREA NITROGEN 4.5 mg/dL (7-18); CALCIUM 8.2 mg/dL (8.5-10.1)
[2024-08-19 15:03] LABS: CREATININE 0.7 mg/dL (0.55-1.3)
[2024-08-19 15:05] LABS: BILIRUBIN,TOTAL 0.2 mg/dL (0.2-1); TOT PROT 5.1 g/dl (6.4-8.2)
[2024-08-19 19:06] LABS: VENOUS BASE EXCESS -3.4 mmol/L (-2-2); VENOUS O2 SATURATION 68.8 % (70-80); VENOUS PCO2 30.5 mmHg (38-52); VENOUS PH 7.433 (7.310-7.410)
[2024-08-19 19:43] LABS: MAGNESIUM 1.7 mg/dL (1.8-2.4)
[2024-08-19 19:47] LABS: PHOSPHOROUS 3.2 mg/dL (2.5-4.9)
[2024-08-19] MEDS ORDERED: LORazepam 1 MG TABLET PO PRN (20:49)
[2024-08-19] MEDS ORDERED: DEXTROSE 50%-WATER - 25 GM/50 ML VIAL IVPUSH PRN (21:18)
[2024-08-19] MEDS: LORazepam 1 MG TABLET PO SCH (22:27)
[2024-08-19] MEDS: NICOTINE 14 MG/24 HOURS TOPICAL PATCH TD SCH (22:27)
[2024-08-19] MEDS: FOLIC ACID INJECTION - 1 MG, THIAMINE HCL 100 MG, MULTIVIT INJECTION ADULT 10 ML in SOD... IVPB ONE (22:28)
[2024-08-19] MEDS: THIAMINE HCL 200 MG/2 ML VIAL IVPB ONE (22:30)
[2024-08-19] MEDS: MAGNESIUM SULF 50% (8.12 MEQ/2 ML-1 GM VIAL) IVPB ONE (22:35)
[2024-08-20 08:31] LABS: INR 1.07 (0.83-1.09); PROTHROMBIN TIME (PATIENT) 12.1 SEC (9.7-13.0)
[2024-08-20 08:32] LABS: HEMATOCRIT 28.4 % (32.4-45.2); HEMOGLOBIN 9.3 GM/dL (10.7-15.3); MCH 30.3 pg (25.7-33.7); MCHC 32.5 g/dl (32.0-36.0); MEAN PLT VOLUME 8.5 fl (7.5-11.1); PLATELET COUNT 318 10^3/uL (134-434); RBC 3.06 M/mm3 (3.60-5.2); RDW 16.6 % (11.6-15.6); WHITE BLOOD COUNT 5.7 K/mm3 (4.0-10.0)
[2024-08-20 08:39] LABS: POTASSIUM 4.2 mmol/L (3.5-5.1)
[2024-08-20 08:41] LABS: CALCIUM 7.6 mg/dL (8.5-10.1)
[2024-08-20 08:42] LABS: ALBUMIN 1.6 g/dl (3.4-5.0); BLOOD UREA NITROGEN 4.7 mg/dL (7-18); MAGNESIUM 2.5 mg/dL (1.8-2.4)
[2024-08-20 08:45] LABS: CREATININE 0.8 mg/dL (0.55-1.3)
[2024-08-20 08:46] LABS: BILIRUBIN,TOTAL 0.6 mg/dL (0.2-1); TOT PROT 4.5 g/dl (6.4-8.2)
[2024-08-20 09:04] LABS: IRON SERUM 110 ug/dL (50-175)
[2024-08-20 09:06] LABS: TOTAL IRON BINDING CAPACITY 110 ug/dL (250-450)
[2024-08-20] MEDS: DEXTROSE 5%-NORMAL SALINE 1,000 ML IV SCH (09:43)
[2024-08-20] MEDS: FOLIC ACID 1 MG TABLET (FP) PO SCH (09:44)
[2024-08-20] MEDS: ENOXAPARIN NA (PORCINE) 40 MG/0.4 ML DISP.SYRIN SQ SCH (09:44)
[2024-08-20] MEDS: THIAMINE 100 MG TABLET PO SCH (09:44)
[2024-08-20] MEDS ORDERED: ENOXAPARIN NA (PORCINE) 40 MG/0.4 ML DISP.SYRIN SQ SCH (10:00)
[2024-08-20] MEDS ORDERED: FLUTICASONE/UMECLIDIN/VILANTER(200-62.5-25 TRELEGY ELLIPTA) INAHLER IH SCH (10:00)
[2024-08-20] MEDS: FLUTICASONE/UMECLIDIN/VILANTER(200-62.5-25 TRELEGY ELLIPTA) INAHLER IH SCH (12:42)
[2024-08-20 15:00] VITALS: BMI 20.7
[2024-08-20] MEDS: MULTIVITAMINS (DAILY MVI) TABLET (FP) PO SCH (17:33)
[2024-08-21] MEDS: LORazepam 1 MG TABLET PO SCH (04:09)
[2024-08-21 10:11] LABS: EOS % 0.7 % (0-4.5); HEMATOCRIT 28.4 % (32.4-45.2); HEMOGLOBIN 9.2 GM/dL (10.7-15.3); LYMPH % 25.9 % (8-40); MCH 30.5 pg (25.7-33.7); MCHC 32.5 g/dl (32.0-36.0); MEAN CELL VOLUME 93.8 fl (80-96); MEAN PLT VOLUME 8.7 fl (7.5-11.1); MONO % 8.5 % (3.8-10.2); NEUT % 63.9 % (42.8-82.8); PLATELET COUNT 254 10^3/uL (134-434); RBC 3.02 M/mm3 (3.60-5.2); RDW 16.8 % (11.6-15.6); WHITE BLOOD COUNT 6.2 K/mm3 (4.0-10.0)
[2024-08-21 10:26] LABS: POTASSIUM 4.1 mmol/L (3.5-5.1)
[2024-08-21 10:34] LABS: BLOOD UREA NITROGEN 4.4 mg/dL (7-18)
[2024-08-21 10:35] LABS: ALBUMIN 1.6 g/dl (3.4-5.0); CALCIUM 8.1 mg/dL (8.5-10.1)
[2024-08-21 10:38] LABS: CREATININE 0.6 mg/dL (0.55-1.3)
[2024-08-21 10:40] LABS: BILIRUBIN,TOTAL 0.6 mg/dL (0.2-1); TOT PROT 4.5 g/dl (6.4-8.2)
[2024-08-22] MEDS ORDERED: LORazepam 0.5 MG TABLET PO PRN
[2024-08-22] MEDS ORDERED: DEXTROSE 50%-WATER 25 GM/50 ML DISP.SYRIN IVPUSH PRN (00:21)
[2024-08-22] MEDS: LORazepam 0.5 MG TABLET PO SCH (05:04)
[2024-08-22] MEDS: ENOXAPARIN NA (PORCINE) 30 MG/0.3 ML DISP.SYRIN SQ SCH (10:53)
[2024-08-23] MEDS: LORazepam 0.5 MG TABLET PO ONE (04:14)
[2024-08-23 10:27] LABS: BASO % 1.1 % (0-2.0); EOS % 0.9 % (0-4.5); HEMATOCRIT 28.7 % (32.4-45.2); HEMOGLOBIN 9.1 GM/dL (10.7-15.3); LYMPH % 20.7 % (8-40); MCH 29.9 pg (25.7-33.7); MCHC 31.7 g/dl (32.0-36.0); MEAN CELL VOLUME 94.3 fl (80-96); MEAN PLT VOLUME 8.7 fl (7.5-11.1); MONO % 7.3 % (3.8-10.2); PLATELET COUNT 227 10^3/uL (134-434); RBC 3.04 M/mm3 (3.60-5.2); RDW 16.5 % (11.6-15.6); WHITE BLOOD COUNT 8.3 K/mm3 (4.0-10.0)
[2024-08-23 10:50] LABS: POTASSIUM 4.1 mmol/L (3.5-5.1)
[2024-08-23 10:51] LABS: CALCIUM 8.5 mg/dL (8.5-10.1)
[2024-08-23 10:52] LABS: ALBUMIN 1.7 g/dl (3.4-5.0)
[2024-08-23 11:01] LABS: CREATININE 0.6 mg/dL (0.55-1.3)
[2024-08-23 11:02] LABS: BILIRUBIN,TOTAL 0.4 mg/dL (0.2-1); TOT PROT 4.9 g/dl (6.4-8.2)
[2024-08-27 15:23] VITALS: RESP 18
[2024-08-27 21:49] VITALS: BP 122/68; PULSE 84; TEMP 99
== END 2024-08-27 23:45 ==
LOC: JER 11:56 → JERBED 19:55 → J8W 20:57
PROVIDERS: ADMIT Internal Medicine; ATTEND Nurse Practitioner Acute Care
PROC: 3E0337Z Introduction of Electrolytic and Water Balance Substance into Peripheral Vein, Percutaneous Approach (ICD-10-PCS; principal; 2024-08-19)
PROC: 3E023GC Introduction of Other Therapeutic Substance into Muscle, Percutaneous Approach (ICD-10-PCS; 2024-08-19)
PROC: 3E033GC Introduction of Other Therapeutic Substance into Peripheral Vein, Percutaneous Approach (ICD-10-PCS; 2024-08-19)
DX: E16.2 Hypoglycemia, unspecified (principal); F10.10 Alcohol abuse, uncomplicated; E43 Unspecified severe protein-calorie malnutrition; Z68.20 Body mass index [BMI] 20.0-20.9, adult; E83.42 Hypomagnesemia; J44.9 Chronic obstructive pulmonary disease, unspecified; R91.8 Other nonspecific abnormal finding of lung field; F17.200 Nicotine dependence, unspecified, uncomplicated; F10.129 Alcohol abuse with intoxication, unspecified; D64.9 Anemia, unspecified
CPT/HCPCS: 36415; 70450-TC; 80053; 80061; 80307; 82533; 82803; 82962; 83036; 83540; 83550; 83735; 84100; 84439; 84443; 85025; 85027; 85045; 85610; 93005; 93010; 96361; 96365; 96372; 96375; 97116-GP; 97161-GP; 99285-25; G0378

== ENCOUNTER 2024-10-29 07:50 | Emergency (ER) | payer OTHER ==
[2024-10-29] MEDS: SODIUM CHLORIDE 0.9% 1000 ML INFUS.BAG IV ONE (08:55)
[2024-10-29] MEDS ORDERED: ALBUTEROL SO4 2.5/IPRATROPIUM 0.5 INH SOL 3 ML VIAL.NEB. NEB ONE (09:00)
[2024-10-29] MEDS: ALBUTEROL SO4 2.5/IPRATROPIUM 0.5 INH SOL 3 ML VIAL.NEB. NEB ONE (09:10)
[2024-10-29 09:44] LABS: PH,URINE 5.5 (5.0-8.0); URINE APPEARANCE CLOUDY; URINE BILIRUBIN NEGATIVE (NEGATIVE); URINE COLOR YELLOW; URINE GLUCOSE (UA) NEGATIVE (NEGATIVE); URINE KETONE NEGATIVE (NEGATIVE); URINE LEUK ESTERASE NEGATIVE (NEGATIVE); URINE NITRITE NEGATIVE (NEGATIVE); URINE PROTEIN NEGATIVE (NEGATIVE); URINE UROBILINOGEN 0.2 mg/dL (0.2-1.0)
[2024-10-29 09:49] LABS: VENOUS BASE EXCESS -8.4 mmol/L (-2-2); VENOUS O2 SATURATION 75.2 % (70-80); VENOUS PCO2 32.1 mmHg (38-52); VENOUS PH 7.327 (7.310-7.410)
[2024-10-29 09:50] LABS: ABSOLUTE IMMATURE GRANULOCYTES 0.02 x10^3/uL (0.0-0.031); BASOPHILS # 0.09 x10^3/uL (0.01-0.08); EOSINOPHIL % 0.6 % (0.7-5.8); EOSINOPHILS # 0.04 x10^3/uL (0.04-0.36); HEMATOCRIT 39.4 % (34.1-44.9); HEMOGLOBIN 12.3 g/dL (11.2-15.7); MCHC 31.2 g/dl (32.2-35.5); MEAN CELL VOLUME 94.7 fl (79.4-94.8); MEAN PLT VOLUME 9.1 fl (9.4-12.3); MONOCYTE # 0.49 x10^3/uL (0.24-0.86); PLATELET COUNT 269 x10^3/uL (182-369); RDW 15.6 % (12.4-16.6)
[2024-10-29 09:59] LABS: CHLORIDE 108 mmol/L (98-107); SODIUM 141 mmol/L (136-145)
[2024-10-29 10:02] LABS: ALBUMIN 3.4 g/dl (3.4-5.0); ANION GAP 10 mmol/L (4-13); BLOOD UREA NITROGEN 9.7 mg/dL (7-18); CALCIUM 9.1 mg/dL (8.5-10.1); CO2 23 mmol/L (21-32); GLUCOSE,RANDOM 110 mg/dL (74-106); MAGNESIUM 2.1 mg/dL (1.8-2.4)
[2024-10-29 10:06] LABS: BILIRUBIN,TOTAL 0.2 mg/dL (0.2-1); CREATININE 0.6 mg/dL (0.55-1.3); SGOT/AST 33 U/L (15-37); SGPT/ALT 20 U/L (13-61)
[2024-10-29 10:08] LABS: ALK PHOS 123 U/L (45-117); TOT PROT 7.4 g/dl (6.4-8.2)
[2024-10-29 11:46] VITALS: BP 115/79; PULSE 77; RESP 18; TEMP 97.6; BMI 21.8
== END 2024-10-29 13:20 | disposition home or self-care (01) ==
LOC: JER 07:50
PROC: 3E0F7GC Introduction of Other Therapeutic Substance into Respiratory Tract, Via Natural or Artificial Opening (ICD-10-PCS; principal; 2024-10-29)
DX: J44.9 Chronic obstructive pulmonary disease, unspecified (principal); F10.90 Alcohol use, unspecified, uncomplicated; R06.02 Shortness of breath; R09.89 Other specified symptoms and signs involving the circulatory and respiratory systems
CPT/HCPCS: 0241U-QW; 36415; 71045-TC-FY; 80053; 81003; 82803; 82962; 83735; 84484; 85025; 87086; 93005; 93010; 99285-25

== ENCOUNTER 2024-11-01 18:45 | Emergency (ER) | payer OTHER ==
[2024-11-01 19:15] VITALS: BP 112/59; RESP 16; TEMP 98.1; BMI 21.8
[2024-11-01] MEDS ORDERED: ALBUTEROL SO4 2.5/IPRATROPIUM 0.5 INH SOL 3 ML VIAL.NEB. NEB ONE (19:16)
[2024-11-01] MEDS: ALBUTEROL SO4 2.5/IPRATROPIUM 0.5 INH SOL 3 ML VIAL.NEB. NEB SCH (19:20)
[2024-11-01 19:48] VITALS: PULSE 84
[2024-11-01 19:49] LABS: VENOUS BASE EXCESS 1.4 mmol/L (-2-2); VENOUS O2 SATURATION 57.9 % (70-80); VENOUS PCO2 52.8 mmHg (38-52); VENOUS PH 7.344 (7.310-7.410)
[2024-11-01 19:51] LABS: ABSOLUTE IMMATURE GRANULOCYTES 0.03 x10^3/uL (0.0-0.031); BASOPHILS # 0.09 x10^3/uL (0.01-0.08); EOSINOPHIL % 0.9 % (0.7-5.8); EOSINOPHILS # 0.08 x10^3/uL (0.04-0.36); HEMATOCRIT 38.3 % (34.1-44.9); HEMOGLOBIN 12.4 g/dL (11.2-15.7); MCHC 32.4 g/dl (32.2-35.5); MEAN PLT VOLUME 9.1 fl (9.4-12.3); MONOCYTE # 0.68 x10^3/uL (0.24-0.86); MONOCYTE % 7.3 % (4.7-12.5); PLATELET COUNT 306 x10^3/uL (182-369); RDW 15.5 % (12.4-16.6)
[2024-11-01 20:10] LABS: POTASSIUM 5.5 mmol/L (3.5-5.1)
[2024-11-01 20:12] LABS: ALBUMIN 3.5 g/dl (3.4-5.0); CALCIUM 8.9 mg/dL (8.5-10.1)
[2024-11-01 20:15] LABS: CREATININE 0.7 mg/dL (0.55-1.3)
[2024-11-01] MEDS: BUDESONIDE 0.5 MG/2 ML INH SUSP VIAL NEB ONE (20:16)
[2024-11-01 20:17] LABS: BILIRUBIN,TOTAL 0.4 mg/dL (0.2-1)
[2024-11-01 20:20] LABS: N-TERMINAL BNP 43.3 pg/ml (5-125)
== END 2024-11-01 20:21 | disposition left against medical advice (07) ==
LOC: JER 18:45
PROC: 3E0F7GC Introduction of Other Therapeutic Substance into Respiratory Tract, Via Natural or Artificial Opening (ICD-10-PCS; principal; 2024-11-01)
DX: J44.9 Chronic obstructive pulmonary disease, unspecified (principal); R06.02 Shortness of breath; R07.81 Pleurodynia; R05.9 Cough, unspecified
CPT/HCPCS: 0241U-QW; 36415; 80053; 82803; 83880; 84484; 85025; 93005; 93010; 94640; 99285-25

== ENCOUNTER 2024-11-02 19:34 | Emergency (ER) | payer OTHER ==
[2024-11-02 19:40] VITALS: BP 109/60; PULSE 102; RESP 16; TEMP 97.9; BMI 21.8
== END 2024-11-02 21:28 | disposition home or self-care (01) ==
LOC: JER 19:34
DX: J44.9 Chronic obstructive pulmonary disease, unspecified (principal); R06.02 Shortness of breath
CPT/HCPCS: 71045-TC-FY; 82962; 93005; 93010; 99285-25

== ENCOUNTER 2024-12-02 09:11 | Emergency (ER) | payer OTHER ==
[2024-12-02 09:33] VITALS: BMI 21.8
[2024-12-02 10:31] LABS: ABSOLUTE IMMATURE GRANULOCYTES 0.02 x10^3/uL (0.0-0.031); BASOPHILS # 0.08 x10^3/uL (0.01-0.08); EOSINOPHIL % 1.1 % (0.7-5.8); EOSINOPHILS # 0.06 x10^3/uL (0.04-0.36); HEMATOCRIT 36.9 % (34.1-44.9); HEMOGLOBIN 11.9 g/dL (11.2-15.7); MCHC 32.2 g/dl (32.2-35.5); MEAN CELL VOLUME 95.6 fl (79.4-94.8); MEAN PLT VOLUME 8.2 fl (9.4-12.3); MONOCYTE # 0.55 x10^3/uL (0.24-0.86); MONOCYTE % 9.8 % (4.7-12.5); PLATELET COUNT 285 x10^3/uL (182-369); RDW 15.5 % (12.4-16.6)
[2024-12-02 11:13] LABS: POTASSIUM 3.5 mmol/L (3.5-5.1)
[2024-12-02 11:15] LABS: ALBUMIN 3.7 g/dl (3.4-5.0); BLOOD UREA NITROGEN 6.7 mg/dL (7-18)
[2024-12-02 11:16] LABS: CALCIUM 9.5 mg/dL (8.5-10.1)
[2024-12-02 11:18] LABS: CREATININE 0.7 mg/dL (0.55-1.3); MAGNESIUM 1.8 mg/dL (1.8-2.4)
[2024-12-02 11:21] LABS: BILIRUBIN,TOTAL 0.3 mg/dL (0.2-1); TOT PROT 7.4 g/dl (6.4-8.2)
[2024-12-02 12:16] VITALS: BP 118/75; PULSE 74; RESP 19; TEMP 97.8
== END 2024-12-02 12:00 | disposition home or self-care (01) ==
LOC: JER 09:11
DX: R07.2 Precordial pain (principal); R06.02 Shortness of breath
CPT/HCPCS: 36415; 71045-TC-FY; 80053; 83690; 83735; 84484; 85025; 93005; 93010; 99285-25

== ENCOUNTER 2025-01-10 17:30 | Emergency (ER) | payer OTHER ==
[2025-01-10 17:37] VITALS: RESP 18; TEMP 98.5; BMI 21.8
[2025-01-10] MEDS ORDERED: ACETAMINOPHEN 325 MG TABLET (FP) ONE (19:39)
[2025-01-10] MEDS: GABAPENTIN 300 MG CAPSULE PO ONE (19:39)
[2025-01-10] MEDS ORDERED: GABAPENTIN 100 MG CAPSULE ONE (19:40)
[2025-01-10] MEDS: GABAPENTIN 100 MG CAPSULE PO ONE (19:46)
[2025-01-10] MEDS: ACETAMINOPHEN 325 MG TABLET (FP) PO ONE (19:46)
[2025-01-10 20:04] VITALS: BP 106/54; PULSE 91
== END 2025-01-10 20:11 | disposition home or self-care (01) ==
LOC: JER 17:30
DX: R20.2 Paresthesia of skin (principal); M79.671 Pain in right foot; M79.672 Pain in left foot
CPT/HCPCS: 82962; 99283-25

== ENCOUNTER 2025-01-15 08:14 | Observation (INO) | payer OTHER ==
[2025-01-15 08:32] VITALS: BMI 21.8
[2025-01-15] MEDS: DEXTROSE 50%-WATER - 25 GM/50 ML VIAL IVPUSH ONE (08:38)
[2025-01-15] MEDS: NALOXONE HCL 0.4 MG/ML VIAL IVPUSH ONE (08:38)
[2025-01-15 08:45] LABS: VENOUS BASE EXCESS -13.4 mmol/L (-2-2); VENOUS O2 SATURATION 98.3 % (70-80); VENOUS PCO2 33.2 mmHg (38-52); VENOUS PH 7.218 (7.310-7.410)
[2025-01-15 08:46] LABS: ABSOLUTE IMMATURE GRANULOCYTES 0.09 x10^3/uL (0.0-0.031); BASOPHILS # 0.07 x10^3/uL (0.01-0.08); HEMATOCRIT 34.6 % (34.1-44.9); HEMOGLOBIN 11.1 g/dL (11.2-15.7); MCHC 32.1 g/dl (32.2-35.5); MEAN CELL VOLUME 95.3 fl (79.4-94.8); MEAN PLT VOLUME 8.9 fl (9.4-12.3); PLATELET COUNT 255 x10^3/uL (182-369); RDW 15.3 % (12.4-16.6)
[2025-01-15 09:19] LABS: CHLORIDE 96 mmol/L (98-107); POTASSIUM 4.1 mmol/L (3.5-5.1); SODIUM 132 mmol/L (136-145)
[2025-01-15 09:21] LABS: CALCIUM 9.2 mg/dL (8.5-10.1)
[2025-01-15 09:22] LABS: ALBUMIN 3.4 g/dl (3.4-5.0); ANION GAP 21 mmol/L (4-13); BLOOD UREA NITROGEN 10.6 mg/dL (7-18); CO2 14 mmol/L (21-32); MAGNESIUM 2.1 mg/dL (1.8-2.4)
[2025-01-15 09:25] LABS: CREATININE 0.5 mg/dL (0.55-1.3); SGOT/AST 283 U/L (15-37); SGPT/ALT 111 U/L (13-61)
[2025-01-15 09:27] LABS: BILIRUBIN,TOTAL 0.8 mg/dL (0.2-1); TOT PROT 6.9 g/dl (6.4-8.2)
[2025-01-15 09:28] LABS: ALK PHOS 151 U/L (45-117)
[2025-01-15 09:32] LABS: GLUCOSE,RANDOM 13 mg/dL (74-106)
[2025-01-15 09:33] LABS: EPI CELLS 8 /uL (0-25.1); HYALINE CASTS 0 /uL (0-3.1); URINE APPEARANCE CLOUDY; URINE BILIRUBIN NEGATIVE (NEGATIVE); URINE COLOR YELLOW; URINE GLUCOSE (UA) 3+ (NEGATIVE); URINE KETONE 1+ (NEGATIVE); URINE LEUK ESTERASE NEGATIVE (NEGATIVE); URINE NITRITE NEGATIVE (NEGATIVE); URINE PROTEIN NEGATIVE (NEGATIVE); URINE RBC 295 /uL (0-23.9); URINE UROBILINOGEN 0.2 mg/dL (0.2-1.0); URINE WBC 3 /uL (0-25.8)
[2025-01-15] MEDS: DEXTROSE 5%-LACTATED RINGERS 1,000 ML IV SCH (09:44)
[2025-01-15 11:02] LABS: URINE BACTERIA 114.5 /uL (0-1359)
[2025-01-15] MEDS ORDERED: LORazepam 2 MG/ML SDV VIAL IVPUSH PRN ×2 (11:02→11:30)
[2025-01-15] MEDS: THIAMINE 100 MG TABLET PO SCH (13:18)
[2025-01-15] MEDS: LACTATED RINGERS SOLUTION 1,000 ML/1,000 ML INFUS.BAG IV SCH (13:38)
[2025-01-15] MEDS: HEPARIN NA (PORCINE) 5,000 UNITS/ML 1ML VIAL SQ SCH (14:50)
[2025-01-15] MEDS ORDERED: DEXTROSE 50%-WATER 25 GM/50 ML DISP.SYRIN IVPUSH PRN (22:23)
[2025-01-16] MEDS ORDERED: LORazepam 2 MG/ML SDV VIAL IVPUSH PRN (07:59)
[2025-01-16 08:53] LABS: HEMATOCRIT 29.8 % (34.1-44.9); HEMOGLOBIN 10.3 g/dL (11.2-15.7); MCHC 34.6 g/dl (32.2-35.5); MEAN CELL VOLUME 91.1 fl (79.4-94.8); MEAN PLT VOLUME 9.8 fl (9.4-12.3); PLATELET COUNT 231 x10^3/uL (182-369)
[2025-01-16 10:13] LABS: POTASSIUM 4.1 mmol/L (3.5-5.1)
[2025-01-16 10:16] LABS: CALCIUM 9.3 mg/dL (8.5-10.1)
[2025-01-16 10:17] LABS: BLOOD UREA NITROGEN 10.1 mg/dL (7-18); MAGNESIUM 1.8 mg/dL (1.8-2.4)
[2025-01-16 10:18] LABS: CREATININE 0.7 mg/dL (0.55-1.3)
[2025-01-16 10:20] LABS: PHOSPHOROUS 3.6 mg/dL (2.5-4.9)
[2025-01-16 10:21] LABS: BILIRUBIN,TOTAL 1.6 mg/dL (0.2-1); TOT PROT 5.7 g/dl (6.4-8.2)
[2025-01-16] MEDS: NICOTINE 14 MG/24 HOURS TOPICAL PATCH TD SCH (10:56)
[2025-01-16] MEDS: FOLIC ACID 1 MG TABLET (FP) PO SCH (10:56)
[2025-01-16] MEDS: INSULIN ASPART SLIDING SCALE (NOVOLOG) 1 VIAL SQ SCH (12:31)
[2025-01-16 16:53] VITALS: RESP 18
[2025-01-17 06:08] VITALS: PULSE 86
[2025-01-17 09:36] VITALS: BP 151/76; TEMP 99.1
== END 2025-01-17 12:00 | disposition home or self-care (01) ==
LOC: JER 08:14 → UNDOADMOB 10:42 → INTOOBSV 10:42 → JERBED 10:42 → J5S 12:08 → JERBED 14:14
PROVIDERS: ADMIT Internal Medicine; ATTEND Internal Medicine
PROC: 3E0337Z Introduction of Electrolytic and Water Balance Substance into Peripheral Vein, Percutaneous Approach (ICD-10-PCS; principal; 2025-01-15)
PROC: 3E033GC Introduction of Other Therapeutic Substance into Peripheral Vein, Percutaneous Approach (ICD-10-PCS; 2025-01-15)
PROC: 3E023GC Introduction of Other Therapeutic Substance into Muscle, Percutaneous Approach (ICD-10-PCS; 2025-01-15)
PROC: 3E033NZ Introduction of Analgesics, Hypnotics, Sedatives into Peripheral Vein, Percutaneous Approach (ICD-10-PCS; 2025-01-15)
DX: E87.29 Other acidosis (principal); E16.2 Hypoglycemia, unspecified; F10.99 Alcohol use, unspecified with unspecified alcohol-induced disorder; J98.4 Other disorders of lung; R94.5 Abnormal results of liver function studies; J44.9 Chronic obstructive pulmonary disease, unspecified; R55 Syncope and collapse; Z99.81 Dependence on supplemental oxygen; F17.210 Nicotine dependence, cigarettes, uncomplicated
CPT/HCPCS: 36415; 70450-TC; 71045-TC-FY; 71250-TC; 76705-TC; 80053; 80307; 81003; 82803; 82962; 83735; 84100; 84443; 84484; 85025; 85027; 87040; 87086; 93005; 93010; 96361; 96367; 96372; 96374; 96375; 97116-GP; 97161-GP; 99291; G0378

== ENCOUNTER 2025-02-20 21:50 | Inpatient (IN) | payer OTHER ==
[2025-02-20 22:05] VITALS: BMI 21.8
[2025-02-20 22:43] LABS: MCHC 34.7 g/dl (32.2-35.5); MEAN CELL VOLUME 93.2 fl (79.4-94.8); MEAN PLT VOLUME 8.8 fl (9.4-12.3); RDW 14.0 % (12.4-16.6)
[2025-02-20 23:15] LABS: CO2 18.0 mmol/L (21-32); GLUCOSE,RANDOM 74.0 mg/dL (74-106)
[2025-02-20 23:18] LABS: CREATININE 0.6 mg/dL (0.55-1.3); SGOT/AST 248.0 U/L (15-37); SGPT/ALT 110.0 U/L (13-61)
[2025-02-20 23:20] LABS: TOT PROT 5.9 g/dl (6.4-8.2)
[2025-02-20 23:21] LABS: ALK PHOS 148.0 U/L (45-117)
[2025-02-20] MEDS: SODIUM CHLORIDE 500 ML IV STA (23:25)
[2025-02-21] MEDS: SODIUM CHLORIDE 1,000 ML IV STA (00:06)
[2025-02-21 02:49] LABS: URINE APPEARANCE CLEAR; URINE BILIRUBIN NEGATIVE (NEGATIVE); URINE COLOR YELLOW; URINE GLUCOSE (UA) NEGATIVE (NEGATIVE); URINE KETONE NEGATIVE (NEGATIVE); URINE LEUK ESTERASE NEGATIVE (NEGATIVE); URINE NITRITE NEGATIVE (NEGATIVE); URINE PROTEIN NEGATIVE (NEGATIVE); URINE UROBILINOGEN 1.0 mg/dL (0.2-1.0)
[2025-02-21] MEDS ORDERED: THIAMINE 100 MG TABLET ONE (03:09)
[2025-02-21] MEDS: THIAMINE 100 MG TABLET PO ONE (03:11)
[2025-02-21] MEDS ORDERED: ALBUTEROL SO4 HFA INHALER IH PRN (03:13)
[2025-02-21] MEDS: SODIUM CHLORIDE 1,000 ML IV SCH (03:36)
[2025-02-21 07:25] LABS: CO2 18.0 mmol/L (21-32); GLUCOSE,RANDOM 54.0 mg/dL (74-106)
[2025-02-21 07:27] LABS: CREATININE 0.5 mg/dL (0.55-1.3); SGOT/AST 214.0 U/L (15-37)
[2025-02-21 07:28] LABS: SGPT/ALT 96.0 U/L (13-61)
[2025-02-21 07:29] LABS: TOT PROT 5.3 g/dl (6.4-8.2)
[2025-02-21 07:31] LABS: ALK PHOS 125.0 U/L (45-117)
[2025-02-21 07:39] LABS: MCHC 33.3 g/dl (32.2-35.5); MEAN CELL VOLUME 98.5 fl (79.4-94.8); MEAN PLT VOLUME 9.2 fl (9.4-12.3); RDW 14.3 % (12.4-16.6)
[2025-02-21] MEDS: HEPARIN NA (PORCINE) 5,000 UNITS/ML 1ML VIAL SQ SCH (10:46)
[2025-02-21] MEDS: THIAMINE HCL 200 MG/2 ML VIAL IVPB SCH (10:46)
[2025-02-21] MEDS: FOLIC ACID 1 MG TABLET (FP) PO SCH (10:46)
[2025-02-21] MEDS: DEXTROSE 5%-WATER - 1,000 ML IV SCH (11:56)
[2025-02-21 16:12] LABS: CO2 26.0 mmol/L (21-32); GLUCOSE,RANDOM 140.0 mg/dL (74-106)
[2025-02-21 16:15] LABS: CREATININE 0.6 mg/dL (0.55-1.3); SGOT/AST 251.0 U/L (15-37); SGPT/ALT 112.0 U/L (13-61)
[2025-02-21 16:17] LABS: TOT PROT 6.0 g/dl (6.4-8.2)
[2025-02-21 16:18] LABS: ALK PHOS 153.0 U/L (45-117)
[2025-02-21] MEDS: MAGNESIUM OXIDE 400 MG TABLET (FP) PO SCH (22:10)
[2025-02-22] MEDS: MULTIVITAMINS (DAILY MVI) TABLET (FP) PO SCH (11:12)
[2025-02-22 11:17] LABS: ABSOLUTE IMMATURE GRANULOCYTES 0.02 x10^3/uL (0.0-0.031)
[2025-02-22 11:18] LABS: BASOPHILS # 0.05 x10^3/uL (0.01-0.08); EOSINOPHIL % 6.9 % (0.7-5.8); EOSINOPHILS # 0.44 x10^3/uL (0.04-0.36); MCHC 32.9 g/dl (32.2-35.5); MEAN CELL VOLUME 97.8 fl (79.4-94.8); MONOCYTE # 0.72 x10^3/uL (0.24-0.86); MONOCYTE % 11.3 % (4.7-12.5); RDW 13.7 % (12.4-16.6)
[2025-02-22 11:59] LABS: CO2 25.0 mmol/L (21-32); GLUCOSE,RANDOM 91.0 mg/dL (74-106)
[2025-02-22 12:02] LABS: CREATININE 0.6 mg/dL (0.55-1.3); SGOT/AST 137.0 U/L (15-37); SGPT/ALT 93.0 U/L (13-61)
[2025-02-22 12:04] LABS: TOT PROT 6.0 g/dl (6.4-8.2)
[2025-02-22 12:06] LABS: ALK PHOS 139.0 U/L (45-117)
[2025-02-23 09:46] LABS: BASOPHILS # 0.03 x10^3/uL (0.01-0.08); EOSINOPHIL % 6.0 % (0.7-5.8); MONOCYTE % 8.9 % (4.7-12.5)
[2025-02-23 09:48] LABS: ABSOLUTE IMMATURE GRANULOCYTES 0.02 x10^3/uL (0.0-0.031); EOSINOPHILS # 0.42 x10^3/uL (0.04-0.36); MCHC 33.4 g/dl (32.2-35.5); MEAN CELL VOLUME 96.2 fl (79.4-94.8); MONOCYTE # 0.62 x10^3/uL (0.24-0.86); RDW 13.8 % (12.4-16.6)
[2025-02-23 10:18] LABS: CO2 26.0 mmol/L (21-32); GLUCOSE,RANDOM 110.0 mg/dL (74-106)
[2025-02-23 10:20] LABS: IRON SERUM 48.0 ug/dL (50-175)
[2025-02-23 10:21] LABS: CREATININE 0.6 mg/dL (0.55-1.3); SGOT/AST 126.0 U/L (15-37); SGPT/ALT 90.0 U/L (13-61)
[2025-02-23 10:22] LABS: TOT PROT 6.3 g/dl (6.4-8.2)
[2025-02-23 10:23] LABS: ALK PHOS 135.0 U/L (45-117)
[2025-02-23] MEDS: MINERAL OIL/PET HY-PHL TOPICAL OINTMENT 454 GM JAR TP ONE (22:27)
[2025-02-24 08:47] LABS: ABSOLUTE IMMATURE GRANULOCYTES 0.05 x10^3/uL (0.0-0.031); BASOPHILS # 0.04 x10^3/uL (0.01-0.08); EOSINOPHIL % 5.4 % (0.7-5.8); EOSINOPHILS # 0.44 x10^3/uL (0.04-0.36); MCHC 32.7 g/dl (32.2-35.5); MEAN CELL VOLUME 98.3 fl (79.4-94.8); MEAN PLT VOLUME 10.3 fl (9.4-12.3); MONOCYTE # 0.90 x10^3/uL (0.24-0.86); MONOCYTE % 11.1 % (4.7-12.5); RDW 13.7 % (12.4-16.6)
[2025-02-24 09:15] LABS: CO2 24.0 mmol/L (21-32); GLUCOSE,RANDOM 79.0 mg/dL (74-106)
[2025-02-24 09:18] LABS: CREATININE 0.6 mg/dL (0.55-1.3); SGOT/AST 98.0 U/L (15-37); SGPT/ALT 80.0 U/L (13-61)
[2025-02-24 09:19] LABS: TOT PROT 5.7 g/dl (6.4-8.2)
[2025-02-24 09:20] LABS: ALK PHOS 122.0 U/L (45-117)
[2025-02-24 14:06] LABS: NUCLEOLAR PATTERN 1:640 (.)
[2025-02-24 16:15] VITALS: BP 102/55; PULSE 55; RESP 18; TEMP 98.8
[2025-02-25] MEDS ORDERED: THIAMINE 100 MG TABLET PO SCH (10:00)
== END 2025-02-24 15:00 | disposition home or self-care (01) | DRG 897 ==
LOC: JER 21:50 → JERBED 02-21 00:51 → J5S 02-21 06:54
PROVIDERS: ADMIT Internal Medicine
PROC: HZ2ZZZZ Detoxification Services for Substance Abuse Treatment (ICD-10-PCS; principal; 2025-02-21)
DX: F10.129 Alcohol abuse with intoxication, unspecified (principal); E87.1 Hypo-osmolality and hyponatremia; E46 Unspecified protein-calorie malnutrition; R64 Cachexia; J44.9 Chronic obstructive pulmonary disease, unspecified; F17.210 Nicotine dependence, cigarettes, uncomplicated; E16.2 Hypoglycemia, unspecified; R74.01 Elevation of levels of liver transaminase levels; D69.6 Thrombocytopenia, unspecified; Z68.21 Body mass index [BMI] 21.0-21.9, adult
CPT/HCPCS: 36415; 70450-TC; 72125-TC; 73521-TC-FY; 76705-TC; 80053; 80307; 81003; 82533; 82550; 82728; 82962; 83540; 83550; 83735; 83930; 83935; 84100; 84300; 84443; 85025; 85027; 86038; 86850; 86900; 86901; 93005; 93010; 97116-GP; 97162-GP; 99285-25; J2597

== ENCOUNTER 2025-03-09 22:51 | Emergency (ER) | payer OTHER ==
[~2025-03-09 22:51] MED LIST changes: -ALBUTEROL SO4 0.083% IH SOL 2.5 MG/3 ML VIAL.NEB. NEB ONE; +LIDOCAINE PATCH REMOVAL MC SCH
[2025-03-09 22:59] VITALS: BP 102/59; PULSE 76; RESP 17; TEMP 98.1; BMI 21.8
[2025-03-09] MEDS ORDERED: valACYclovir HCL 500 MG TABLET (FP) ONE (23:58)
[2025-03-09] MEDS ORDERED: LIDOCAINE 4% PATCH TP ONE (23:59)
[2025-03-10] MEDS: valACYclovir HCL 500 MG TABLET (FP) PO ONE (00:25)
[2025-03-10] MEDS: LIDOCAINE 4% PATCH TP ONE (00:26)
== END 2025-03-10 00:28 | disposition home or self-care (01) ==
LOC: JER 22:51
DX: R21 Rash and other nonspecific skin eruption (principal); L29.9 Pruritus, unspecified; L81.9 Disorder of pigmentation, unspecified
CPT/HCPCS: 99283-25

== ENCOUNTER 2025-05-15 11:50 | Inpatient (IN) | payer OTHER ==
[2025-05-15] MEDS: LACTATED RINGERS SOLUTION 1000 ML INFUS.BAG IV ONE (13:22)
[2025-05-15 14:29] LABS: ABSOLUTE IMMATURE GRANULOCYTES 0.09 x10^3/uL (0.0-0.031); BASOPHILS # 0.07 x10^3/uL (0.01-0.08); EOSINOPHIL % 9.1 % (0.7-5.8); EOSINOPHILS # 1.25 x10^3/uL (0.04-0.36); MCHC 32.7 g/dl (32.2-35.5); MEAN CELL VOLUME 91.2 fl (79.4-94.8); MEAN PLT VOLUME 10.2 fl (9.4-12.3); MONOCYTE # 0.89 x10^3/uL (0.24-0.86); MONOCYTE % 6.5 % (4.7-12.5); RDW 15.2 % (12.4-16.6)
[2025-05-15 14:55] LABS: GLUCOSE,RANDOM 139.0 mg/dL (74-106); TOT PROT 6.0 g/dl (6.4-8.2)
[2025-05-15 14:56] LABS: CO2 17.0 mmol/L (21-32)
[2025-05-15 14:58] LABS: ALK PHOS 195.0 U/L (40-150)
[2025-05-15 15:01] LABS: CREATININE 0.83 mg/dL (0.55-1.3); SGOT/AST 126.0 U/L (5-34); SGPT/ALT 56.0 U/L (0-55)
[2025-05-15 17:07] LABS: EPI CELLS >36 /uL (0-25.1); HYALINE CASTS 3 /uL (0-3.1); URINE APPEARANCE CLOUDY; URINE BACTERIA >9,000 /uL (0-1359); URINE BILIRUBIN 1+ (NEGATIVE); URINE COLOR DK YELLOW; URINE GLUCOSE (UA) NEGATIVE (NEGATIVE); URINE KETONE TRACE (NEGATIVE); URINE LEUK ESTERASE 2+ (NEGATIVE); URINE NITRITE POSITIVE (NEGATIVE); URINE PROTEIN 1+ (NEGATIVE); URINE RBC 77 /uL (0-23.9); URINE UROBILINOGEN 1.0 mg/dL (0.2-1.0); URINE WBC 273 /uL (0-25.8)
[2025-05-15] MEDS ORDERED: CEFTRIAXONE 1 GM/50 ML BAG ONE (18:07)
[2025-05-15] MEDS ORDERED: ALBUTEROL SO4 HFA INHALER IH PRN (18:07)
[2025-05-15] MEDS: CEFTRIAXONE 1 GM in DEXTROSE 5%-WATER - 50 ML IVPB SCH (18:10)
[2025-05-15] MEDS ORDERED: DEXTROSE 5%-NORMAL SALINE 1,000 ML IV SCH (18:15)
[2025-05-15] MEDS: MAGNESIUM SULFATE IN WATER 2 GM/50 ML IVPB IVPB ONE (18:26)
[2025-05-15] MEDS ORDERED: THIAMINE HCL 200 MG/2 ML VIAL ONE (18:29)
[2025-05-15] MEDS: THIAMINE HCL 200 MG/2 ML VIAL IVPB ONE (18:37)
[2025-05-15] MEDS: HYDROCORTISONE 1% TOPICAL LOTION 118 ML BOTTLE TP SCH (21:40)
[2025-05-15] MEDS: FOLIC ACID INJECTION - 1 MG, THIAMINE HCL 100 MG, MULTIVIT INJECTION ADULT 10 ML in SOD... IVPB ONE (21:53)
[2025-05-15] MEDS: DEXTROSE 5%-NORMAL SALINE 1,000 ML IV SCH (21:55)
[2025-05-15 22:32] VITALS: BMI 27.8
[2025-05-16] MEDS: HYDROCORTISONE 1% TOPICAL CREAM 30 GM TUBE TP ONE (00:43)
[2025-05-16] MEDS: diphenhydrAMINE HCL 25 MG CAPSULE (FP) PO ONE ×2 (03:43→11:54)
[2025-05-16 07:26] LABS: ABSOLUTE IMMATURE GRANULOCYTES 0.02 x10^3/uL (0.0-0.031); BASOPHILS # 0.03 x10^3/uL (0.01-0.08); EOSINOPHIL % 8.9 % (0.7-5.8); EOSINOPHILS # 0.61 x10^3/uL (0.04-0.36); MCHC 32.6 g/dl (32.2-35.5); MEAN CELL VOLUME 91.6 fl (79.4-94.8); MEAN PLT VOLUME 11.2 fl (9.4-12.3); MONOCYTE # 0.61 x10^3/uL (0.24-0.86); MONOCYTE % 8.9 % (4.7-12.5); RDW 15.0 % (12.4-16.6)
[2025-05-16 07:49] LABS: GLUCOSE,RANDOM 89.0 mg/dL (74-106); TOT PROT 5.5 g/dl (6.4-8.2)
[2025-05-16 07:50] LABS: CO2 20.0 mmol/L (21-32)
[2025-05-16 07:52] LABS: ALK PHOS 203.0 U/L (40-150)
[2025-05-16 07:55] LABS: CREATININE 0.83 mg/dL (0.55-1.3); SGOT/AST 87.0 U/L (5-34); SGPT/ALT 51.0 U/L (0-55)
[2025-05-16] MEDS: ENOXAPARIN NA (PORCINE) 40 MG/0.4 ML DISP.SYRIN SQ SCH (10:43)
[2025-05-16] MEDS: THIAMINE 100 MG TABLET PO SCH (11:54)
[2025-05-16] MEDS: SODIUM CHLORIDE 1,000 ML IV SCH (11:54)
[2025-05-16] MEDS: CLOBETASOL PROPIONATE 15 GM OINTMENT TP SCH (12:12)
[2025-05-16] MEDS: IVERMECTIN 3 MG TABLET PO ONE (18:43)
[2025-05-16] MEDS: predniSONE 10 MG TABLET (UD) PO SCH (21:24)
[2025-05-16] MEDS: NIACIN 500 MG TABLET PO SCH (21:24)
[2025-05-16] MEDS: TRIAMCINOLONE ACET 0.1% CREAM 15 GM TUBE TP SCH (21:37)
[2025-05-17 07:19] LABS: MCHC 32.8 g/dl (32.2-35.5); MEAN CELL VOLUME 92.8 fl (79.4-94.8); MEAN PLT VOLUME 11.0 fl (9.4-12.3); RDW 15.9 % (12.4-16.6)
[2025-05-17 07:50] LABS: GLUCOSE,RANDOM 128.0 mg/dL (74-106); TOT PROT 5.0 g/dl (6.4-8.2)
[2025-05-17 07:51] LABS: CO2 20.0 mmol/L (21-32)
[2025-05-17 07:53] LABS: ALK PHOS 190.0 U/L (40-150)
[2025-05-17 07:55] LABS: SGOT/AST 65.0 U/L (5-34); SGPT/ALT 45.0 U/L (0-55)
[2025-05-17 07:56] LABS: CREATININE 0.73 mg/dL (0.55-1.3)
[2025-05-17] MEDS: DOXYCYCLINE HYCLATE 100 MG TABLET PO SCH (08:27)
[2025-05-17] MEDS: NAPH,MB-DB/K PH,MBDB POWDER PACKET PO ONE (09:23)
[2025-05-17] MEDS: FUROSEMIDE 20 MG TABLET (FP) PO ONE (17:24)
[2025-05-17] MEDS: BISMUTH SUBSALICYLATE 524 MG/30 ML PO SCH (18:08)
[2025-05-17] MEDS ORDERED: BISMUTH SUBSALICYLATE 524 MG/30 ML PO PRN (20:00)
[2025-05-17] MEDS ORDERED: AMOXICILLIN 500 MG CAPSULE (FP) PO SCH (22:00)
[2025-05-17] MEDS: PANTOPRAZOLE 40 MG TABLET PO SCH (22:51)
[2025-05-18 09:39] LABS: RDW 16.6 % (12.4-16.6)
[2025-05-18 09:40] LABS: IMMATURE PLATELET FRACTION # 15.50 x10^3/uL; MCHC 32.5 g/dl (32.2-35.5); MEAN CELL VOLUME 96.1 fl (79.4-94.8)
[2025-05-18 09:51] LABS: GLUCOSE,RANDOM 100.0 mg/dL (74-106); TOT PROT 5.7 g/dl (6.4-8.2)
[2025-05-18 09:52] LABS: CO2 21.0 mmol/L (21-32)
[2025-05-18 09:54] LABS: ALK PHOS 175.0 U/L (40-150)
[2025-05-18 09:57] LABS: CREATININE 0.85 mg/dL (0.55-1.3); SGOT/AST 54.0 U/L (5-34); SGPT/ALT 42.0 U/L (0-55)
[2025-05-18] MEDS: MINERAL OIL/PET HY-PHL TOPICAL OINTMENT 454 GM JAR TP SCH (11:03)
[2025-05-18] MEDS: MAGNESIUM OXIDE 400 MG TABLET (FP) PO ONE ×2 (14:34→14:36)
[2025-05-18 21:32] VITALS: RESP 18
[2025-05-19] MEDS ORDERED: BISMUTH SUBSALICYLATE 262 MG/15 ML BTL PO SCH (10:00)
[2025-05-19] MEDS ORDERED: INSULIN GLARGINE (LANTUS) 100 UNITS/ML UNITS SQ ONE (13:23)
[2025-05-19] MEDS: ALBUTEROL SO4 2.5/IPRATROPIUM 0.5 INH SOL 3 ML VIAL.NEB. NEB ONE (14:01)
[2025-05-19 14:09] VITALS: BP 100/68; PULSE 78; TEMP 98
== END 2025-05-19 14:10 | disposition home or self-care (01) | DRG 607 ==
LOC: JER 11:50 → JERBED 17:22 → J8W 19:08 → OBSVTOIN 05-16 12:12 → J8W 05-16 16:26
PROVIDERS: ADMIT Student in an Organized Health Care Education/Training Program; ATTEND Nurse Practitioner Family
DX: L29.9 Pruritus, unspecified (principal); N39.0 Urinary tract infection, site not specified; R21 Rash and other nonspecific skin eruption; Q80.9 Congenital ichthyosis, unspecified; J44.9 Chronic obstructive pulmonary disease, unspecified; I10 Essential (primary) hypertension; D64.9 Anemia, unspecified; F10.10 Alcohol abuse, uncomplicated; E83.39 Other disorders of phosphorus metabolism; E52 Niacin deficiency [pellagra]; B96.81 Helicobacter pylori [H. pylori] as the cause of diseases classified elsewhere
CPT/HCPCS: 36415; 71045-TC-FY; 80053; 81003; 82272; 82962; 83735; 84100; 84443; 84484; 84591; 85025; 85027; 87045; 87046; 87086; 93005; 93010; 94640; 97116-GP; 97161-GP; 99285-25; G0378